=== PATIENT | male | born 1950 | race Caucasian/White ===

== ENCOUNTER → 2016-03-19 | Outpatient (REF) | payer BC, MEDICARE ==
[2016-03-19 13:31] LABS: MAGNESIUM LEVEL 2.2 MG/DL (1.8-2.4); PHOSPHORUS LEVEL 3.2 MG/DL (2.5-4.9)
== END ==
LOC: M LAB REF 12:32
PROVIDERS: ATTEND Internal Medicine Medical Oncology
DX: C34.90 Malignant neoplasm of unspecified part of unspecified bronchus or lung (principal)

== ENCOUNTER 2016-03-25 20:36 | Inpatient (IN) | payer BC, MEDICARE ==
[~2016-03-25] VITALS: Ht 172.7 cm; Wt 63.1 kg
[2016-03-25 21:29] LABS: MEAN CORPUSCULAR HEMOGLOBIN 29.2 pg (27.0-33.0); MEAN CORPUSCULAR HGB CONC 33.3 g/dl (32.0-36.5); MEAN CORPUSCULAR VOLUME 87.7 fl (80.0-96.0); PLATELET COUNT, AUTOMATED 303 k/mm3 (150-450); RED CELL DISTRIBUTION WIDTH 14.8 % (11.5-14.5); WHITE BLOOD COUNT 3.5 K/mm3 (4.0-10.0)
[2016-03-25 21:48] LABS: BANDS 10 % (< 11); EOSINOPHILS 4 % (0-5)
[2016-03-25 21:49] LABS: ALBUMIN 2.7 GM/DL (3.2-5.2); ALKALINE PHOSPHATASE 71 U/L (45-117); ALT/SGPT 27 U/L (12-78); ANION GAP 8 MEQ/L (8-16); AST/SGOT 15 U/L (15-37); BILIRUBIN,DIRECT 0.2 MG/DL (0.0-0.2); BILIRUBIN,TOTAL 0.8 MG/DL (0.2-1.0); BLOOD UREA NITROGEN 16 MG/DL (7-18); CALCIUM LEVEL 7.9 MG/DL (8.8-10.2); CARBON DIOXIDE LEVEL 28 MEQ/L (21-32); CHLORIDE LEVEL 102 MEQ/L (98-107); CREATININE FOR GFR 0.72 MG/DL (0.70-1.30); GLOMERULAR FILTRATION RATE > 60.0 (>49); GLUCOSE, FASTING 110 MG/DL (80-110); POTASSIUM SERUM 3.8 MEQ/L (3.5-5.1); SODIUM LEVEL 138 MEQ/L (136-145); TOTAL PROTEIN 5.4 GM/DL (6.4-8.2)
--- NOTE | 2016-03-25 21:50 | REPUSA ---
CLINICAL HISTORY: CVA >4.5 hours. COMPARISON: None TECHNIQUE: Multiple axial CT images were obtained through the brain without IV contrast material. COMMENTS: No acute intracranial hemorrhage or evidence of acute transcortical ischemia. No suspicious intra-axi al or extra-axial fluid collections, midline shift, or hydrocephalus. Normal configuration of sella t urcica noted. Mild prominence of the cortical sulci and ventricular system; consistent with age-appropriate cerebra l and cerebellar and cerebral atrophy. Mild bilateral periventricular and subcortical white matter hy polucencies also noted consistent with chronic microvascular ischemic changes. Posterior fossa: No enlarged mass or suspicious cystic lesion. Paranasal sinuses, mastoid air cells, and ear canals are well aerated. Orbital compartments are unrem arkable. Osseous structures/soft tissues: No acute fracture, suspicious lesion, or soft tissue abnormality. IMPRESSION: Chronic changes as described with no acute intracranial abnormality. Thank you for your kind referral of this patient.
[2016-03-25] MEDS ORDERED: ASPIRIN 325 MG TAB As Ordered ONE (23:35)
[2016-03-25] MEDS ORDERED: ACETAMINOPHEN TAB 650MG DOSE (2X325MG) PO PRN (23:45)
[2016-03-25] MEDS ORDERED: ONDANSETRON 4MG/2ML VIAL (J2405) IV PRN (23:45)
[2016-03-25] MEDS ORDERED: VITA400T2 PO (23:52)
[2016-03-25] MEDS ORDERED: TECF240C PO (23:52)
[2016-03-25] MEDS ORDERED: CYAN1000VL IM (23:52)
[2016-03-25] MEDS ORDERED: ZOFR20TA PO (23:52)
[2016-03-26] VITALS (7 sets, daily range): BP systolic 90–104; BP diastolic 53–64
[2016-03-26] MEDS ORDERED: NS 1,000 ML IV SCH
[2016-03-26] MEDS ORDERED: VITA100066 PO (00:02)
[2016-03-26] MEDS ORDERED: PROC10TA PO (00:02)
[2016-03-26 01:08] LABS: AMPHETAMINES LEVEL URINE NEGATIVE (NEGATIVE); BENZODIAZEPINES URINE NEGATIVE (NEGATIVE); COCAINE METABOLITE URINE NEGATIVE (NEGATIVE); CONTROL LINE INT CTR LINE PRESENT; METHADONE URINE NEGATIVE (NEGATIVE); OPIATES URINE POSITIVE (NEGATIVE); TRICYCLIC ANTIDEPRESS URINE NEGATIVE (NEGATIVE)
--- NOTE | 2016-03-26 01:35 | EDDOCDS ---
Physician Documentation [facility] Name: Venkatesh Blue Age: 65 yrs Sex: Male : 1950 Arrival Date: 03/25/2016 Time: 20:36 Bed 4 Private MD: Js Sheikh A. Disposition: 03/25/16 22:54 Hospitalization ordered by Klaus Lang for Inpatient Admission. Preliminary diagnosis are Hemiplegia and hemiparesis, Transient cerebral ischemic attack, unspecified. - Bed requested for PCU. - Status is Inpatient Admission. cf2 - Condition is Stable. - Problem is new. - Symptoms have improved. Historical: - Allergies: no known allergies; - Home Meds: 1. Tecfidera 240 mg oral cpDR 2 cap 2 times per day - PMHx: Multiple Sclerosis; lung cancer; - PSHx: Cataract Surgery- Bilateral; exploratory of lung; - Family history: Not pertinent. - Social history: Smoking status: Patient states former smoker of tobacco. Race: White, Ethnicity: Not or No barriers to communication noted, The patient speaks fluent Kenyan, Preferred Language: Kenyan. - : The pt / caregiver states he / she is not on anticoagulants. Home medication list is obtained from the patient. - Exposure Risk Screening:: None identified. Vital Signs: 03/25 20:39 BP 86 / 70; Pulse 89; Resp 18 S; Temp 96.9(O); Pulse Ox 99% on R/A; Weight 58.97 kg / gr2 130.01 lbs (R); Height 5 ft. 8 in. (172.72 cm) (R); Pain 3/10; 21:45 BP 90 / 55 (auto/); cf2 21:46 Pulse 80 MON; Pulse Ox 96% ; cf2 22:00 BP 95 / 52 (auto/); cf2 22:01 Pulse 82 MON; Pulse Ox 93% ; cf2 22:15 Pulse 82 MON; Pulse Ox 96% ; cf2 22:15 BP 100 / 56 (auto/); cf2 22:30 BP 109 / 68 (auto/); cf2 22:31 Pulse 94 MON; Pulse Ox 92% ; cf2 22:45 BP 96 / 60 (auto/); cf2 22:46 Pulse 82 MON; Pulse Ox 97% ; cf2 23:00 BP 96 / 62 (auto/); cf2 23:01 Pulse 84 MON; Pulse Ox 97% ; cf2 23:15 BP 96 / 62 (auto/); cf2 23:16 Pulse 88 MON; Pulse Ox 97% ; cf2 23:30 BP 86 / 56 (auto/); cf2 23:31 Pulse 78 MON; Pulse Ox 98% ; cf2 23:45 BP 90 / 58 (auto/); cf2 23:46 Pulse 84 MON; Pulse Ox 93% ; cf2 03/26 00:00 BP 96 / 62 (auto/); cf2 00:01 Pulse 86 MON; Pulse Ox 94% ; cf2 00:15 BP 87 / 51 (auto/); cf2 00:16 Pulse 94 MON; cf2 00:30 BP 90 / 57 (auto/); cf2 00:31 Pulse 84 MON; Pulse Ox 98% ; cf2 00:45 BP 89 / 61 (auto/); cf2 00:46 Pulse 88 MON; Pulse Ox 97% ; cf2 01:00 BP 97 / 61 (auto/); cf2 01:01 Pulse 82 MON; Pulse Ox 96% ; cf2 03/25 20:39 Body Mass Index 19.77 (58.97 kg, 172.72 cm) gr2 MDM: 03/25 20:57 Radio Tester/Pulse Ox/q 15 min VS ordered. ke 20:57 Accucheck ordered. ke 20:57 IV Saline Lock ordered. ke 20:57 Rhythm Strip to chart ordered. ke 20:57 NS 0.9% 1000 ml IV at 100 mL/hr continuous ordered. ke 20:58 Acetaminophen Level Ordered. EDMS 20:58 CBC with Diff Ordered. EDMS 20:58 Cardiac Injury Profile Ordered. EDMS 20:58 Drug Eval Toxicology ED Only Ordered. EDMS 20:58 Liver Profile Ordered. EDMS 20:58 MED Profile Ordered. EDMS 20:58 Salicylate Level Ordered. EDMS 20:58 Thyroid Stimulating Hormone Ordered. EDMS 20:58 Troponin Ordered. EDMS 20:58 Urinalysis Ordered. EDMS 20:58 CT Head Without Contrast Ordered. EDMS 20:59 Chest, 1 View Ordered. EDMS 20:59 ECG WITH READING ER PHYS+CARDIAG ordered. EDMS 21:23 Financial registration complete. zo 21:24 [facility] Payment Agreement was scanned into [employer] and attached to record. zo 21:31 DIFFERENTIAL NO CHARGE Ordered. EDMS 21:58 Acetaminophen Level Reviewed. ke 21:58 CBC with Diff Reviewed. ke 21:58 Cardiac Injury Profile Reviewed. ke 21:58 Liver Profile Reviewed. ke 21:58 MED Profile Reviewed. ke 21:58 Salicylate Level Reviewed. ke 21:58 Thyroid Stimulating Hormone Reviewed. ke 21:58 Troponin Reviewed. ke 21:58 PLATELET ESTIMATE Reviewed. ke 22:32 Aspirin 325 mg PO once ordered. ke 23:48 BASIC METABOLIC PROFILE Ordered. EDMS 23:48 PT & APTT Ordered. EDMS 23:48 CARDIAC RISK PROFILE Ordered. EDMS 23:48 MRI Brain without Contrast Ordered. EDMS 23:48 MRA BRAIN W/O CONTRAST Ordered. EDMS 23:49 PHYSICAL THERAPY EVAL & TREAT ordered. EDMS 23:49 Duplex,carotid (complete) Ordered. EDMS 23:50 Admission / Observation Status ordered. EDMS 23:50 ELECTROCARDIOGRAM ADULT ordered. EDMS 23:50 ECHOCARD,DOPPLER/COLOR FLOW ordered. EDMS 23:50 NO ADDED SALT DIET ordered. EDMS 23:59 CBC WITH DIFFERENTIAL Ordered. EDMS Administered Medications: 21:19 Drug: NS 0.9% 1000 ml [sodium chloride 0.9 % intravenous solution] Route: IV; Rate: 100 cf2 mL/hr; Site: left antecubital; 23:30 Drug: Aspirin 325 mg [aspirin 325 mg tablet (1 tabs)] Route: PO; cf2 Signatures: Dispatcher [employer] EDSD Jessie Harris RN RN Son Centeno, DISTRICT PLANT SUPERVISOR Donna Rivas Christina,RN RN cf2 The chart was reviewed and I authenticate all verbal orders and agree with the evaluation and treatment provided.Corrections: (The following items were deleted from the chart) 23:59 23:48 COMPLETE BLOOD COUNT ordered. EDMS EDMS Attachments: 21:24 [facility] Payment Agreement zo MTDD
--- NOTE | 2016-03-26 01:35 | EDDOCDS ---
Nurse's Notes [facility] Name: Venkatesh Blue Age: 65 yrs Sex: Male : 1950 Arrival Date: 03/25/2016 Time: 20:36 Bed 4 Private MD: Js Sheikh A. Diagnosis: Hemiplegia and hemiparesis;Transient cerebral ischemic attack, unspecified Presentation: 03/25 20:43 Presenting complaint: Patient states: At 5pm began to lose feeling in right arm and kmg1 leg. Was slurring speech and had a right facial droop per spouse. Right facial droop persists. 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 Adult Sepsis Screening: The patient does not have new or worsening altered mentation. Patient's respiratory rate is less than 22. Systolic blood pressure is less than or equal to 100 (1 point). Patient has a qSOFA score of 1- Negative Sepsis Screen. Suicide/Homicide risk assessment- the patient denies having any suicidal and/or homicidal ideations and does not present with any other emotional, behavioral or mental health complaints. Status: Patient is not a service manager or dependent. Transition of care: patient was not received from another setting of care. 20:43 Acuity: HEATHER Level 2 kmg1 20:43 Method Of Arrival: Walkin/Carried/Asstd kmg1 Triage Assessment: 20:43 General: Appears in no apparent distress, comfortable, Behavior is appropriate for age, kmg1 cooperative, pleasant. Pain: Denies pain. The patient is triaged at the bedside. See Assessment in Nurses Notes section of ED record. Neurological: Level of Consciousness is awake, alert, Oriented to person, place, time, Tire Specialist are weak on right Weakness in right Speech is normal, Was slurred earlier. Facial droop on right, Facial symmetry: tongue is midline, Pupils are PERRLA, Reports numbness weakness. Cardiovascular: Rhythm is sinus rhythm No ectopy. Respiratory: Airway is patent Respiratory effort is even, unlabored, Respiratory pattern is regular, symmetrical. Injury Description: No known injury. Historical: - Allergies: no known allergies; - Home Meds: 1. Tecfidera 240 mg oral cpDR 2 cap 2 times per day - PMHx: Multiple Sclerosis; lung cancer; - PSHx: Cataract Surgery- Bilateral; exploratory of lung; - Family history: Not pertinent. - Social history: Smoking status: Patient states former smoker of tobacco. Race: White, Ethnicity: Not or No barriers to communication noted, The patient speaks fluent Samoan, Preferred Language: Samoan. - : The pt / caregiver states he / she is not on anticoagulants. Home medication list is obtained from the patient. - Exposure Risk Screening:: None identified. Screenin:49 Screening information is obtained from the patient. Fall risk: At risk due to age, cf2 immobility. Assistance ADL's: requires no assistance with activities of daily living. Abuse/DV Screen: The patient / caregiver reports he/she is: not in a situation that causes fear, pain or injury. Nutritional screening: No deficits noted. Advance Directives: Further advance directive information is declined. home support is adequate. Assessment: 03/26 00:07 Adult Sepsis Screening: The patient does not have new or worsening altered mentation. cf2 Patient's respiratory rate is less than 22. Systolic blood pressure is greater than 100. Patient has a qSOFA score of 0- Negative Sepsis Screen. General: Appears in no apparent distress, comfortable. Pain: Denies pain. Neurological: No deficits noted. EENT: No deficits noted. Cardiovascular: No deficits noted. Respiratory: No deficits noted. GI: No deficits noted. : No deficits noted. Derm: No deficits noted. Musculoskeletal: No deficits noted. Injury Description: No known injury. Vital Signs: 03/25 20:39 BP 86 / 70; Pulse 89; Resp 18 S; Temp 96.9(O); Pulse Ox 99% on R/A; Weight 58.97 kg gr2 (R); Height 5 ft. 8 in. (172.72 cm) (R); Pain 3/10; 21:45 BP 90 / 55 (auto/); cf2 21:46 Pulse 80 MON; Pulse Ox 96% ; cf2 22:00 BP 95 / 52 (auto/); cf2 22:01 Pulse 82 MON; Pulse Ox 93% ; cf2 22:15 Pulse 82 MON; Pulse Ox 96% ; cf2 22:15 BP 100 / 56 (auto/); cf2 22:30 BP 109 / 68 (auto/); cf2 22:31 Pulse 94 MON; Pulse Ox 92% ; cf2 22:45 BP 96 / 60 (auto/); cf2 22:46 Pulse 82 MON; Pulse Ox 97% ; cf2 23:00 BP 96 / 62 (auto/); cf2 23:01 Pulse 84 MON; Pulse Ox 97% ; cf2 23:15 BP 96 / 62 (auto/); cf2 23:16 Pulse 88 MON; Pulse Ox 97% ; cf2 23:30 BP 86 / 56 (auto/); cf2 23:31 Pulse 78 MON; Pulse Ox 98% ; cf2 23:45 BP 90 / 58 (auto/); cf2 23:46 Pulse 84 MON; Pulse Ox 93% ; cf2 0119 00:00 BP 96 / 62 (auto/); cf2 00:01 Pulse 86 MON; Pulse Ox 94% ; cf2 00:15 BP 87 / 51 (auto/); cf2 00:16 Pulse 94 MON; cf2 00:30 BP 90 / 57 (auto/); cf2 00:31 Pulse 84 MON; Pulse Ox 98% ; cf2 00:45 BP 89 / 61 (auto/); cf2 00:46 Pulse 88 MON; Pulse Ox 97% ; cf2 01:00 BP 97 / 61 (auto/); cf2 01:01 Pulse 82 MON; Pulse Ox 96% ; cf2 03/25 20:39 Body Mass Index 19.77 (58.97 kg, 172.72 cm) gr2 Vitals: 03/25 20:39 Log In Time: March 25, 2016 at 20:39. gr2 20:40 RN notified that patient meets Red Flag criteria. gr2 ED Course: 20:38 Patient visited by [place]. gr2 20:38 Patient moved to Waiting gr2 20:39 Js Sheikh is Private Physician. gr2 20:40 Patient visited by [place]. gr2 20:40 Patient moved to Pre RCE gr2 20:46 Triage Initiated kmg1 20:47 Stacey Garcia,RN is Primary Nurse. cf2 20:48 Patient moved to [facility] 20:49 The patient / caregiver is instructed regarding the plan of care and ED course. Patient cf2 has correct armband on for positive identification. Placed in gown. Bed in low position. Call light in reach. Side rails up X 1. Side rails up X2. 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 Pulse ox on. NIBP on. Property :Personal belongings accompany Pt. Door closed. Noise minimized. Visitors limited. Lights dimmed. Moved to private room. Verbal reassurance given. Warm blanket given. Pillow given. Head of bed elevated. 20:49 No procedures done that require assistance. cf2 20:53 [facility]. ke 20:53 Patient visited by Son Salvador FNP. ke 20:53 Patient visited by Son Salvador FNP. ke 20:56 Inserted saline lock: 20 gauge in left antecubital area and blood collected. The [facility] patient tolerated the procedure well. 21:08 EKG done. (by ED staff). Reviewed by Son DEVINE. mdr 21:09 Patient visited by Clarence Hoffman PCA. mdr 21:24 [facility] Payment Agreement was scanned into [employer] and attached to record. zo 21:33 Patient name changed from Venkatesh\S\E\S\Blue\S\ to Venkatesh\S\ \S\Blue. EDMS 21:43 Patient visited by Son Salvador FNP. ke 22:27 Patient visited by Son Salvador FNP. ke 22:44 CT Head Without Contrast Returned. EDMS 22:54 Klaus Lang MD is Hospitalizing Provider. ke 23:31 Patient visited by Stacey Garcia RN. cf2 03/26 00:06 Patient visited by Stacey Garcia,CONCHA. cf2 01:12 Patient moved to [facility] br3 01:18 Patient visited by Stacey Garcia RN. cf2 01:34 Patient visited by Stacey Garcia,CONCHA. cf2 01:34 Kishan Villegas DO is Attending Physician. cf2 01:34 Patient moved to 4 br3 Administered Medications: 03/25 21:19 Drug: NS 0.9% 1000 ml [sodium chloride 0.9 % intravenous solution] Route: IV; Rate: 100 cf2 mL/hr; Site: left antecubital; 23:30 Drug: Aspirin 325 mg [aspirin 325 mg tablet (1 tabs)] Route: PO; cf2 Order Results: Lab Order: Acetaminophen Level; SPEC'M 03/25/16 20:53 Test: ACETAMINOPHEN LEVEL; Value: 2.7; Range: 10.0-30.0; Abnormal: Below low normal; Units: UG/ML; Status: F Lab Order: CBC with Diff; SPEC'M 03/25/16 20:56 Test: WHITE BLOOD COUNT; Value: 3.5; Range: 4.0-10.0; Abnormal: Below low normal; Units: K/mm3; Status: F Test: RED BLOOD COUNT; Value: 4.80; Range: 4.30-6.10; Units: M/mm3; Status: F Test: HEMOGLOBIN; Value: 14.0; Range: 14.0-18.0; Units: g/dl; Status: F Test: HEMATOCRIT; Value: 42.1; Range: 42.0-52.0; Units: %; Status: F Test: MEAN CORPUSCULAR VOLUME; Value: 87.7; Range: 80.0-96.0; Units: fl; Status: F Test: MEAN CORPUSCULAR HEMOGLOBIN; Value: 29.2; Range: 27.0-33.0; Units: pg; Status: F Test: MEAN CORPUSCULAR HGB CONC; Value: 33.3; Range: 32.0-36.5; Units: g/dl; Status: F Test: RED CELL DISTRIBUTION WIDTH; Value: 14.8; Range: 11.5-14.5; Abnormal: Above high normal; Units: %; Status: F Test: PLATELET COUNT, AUTOMATED; Value: 303; Range: 150-450; Units: k/mm3; Status: F Test: NEUTROPHILS; Value: 69; Range: 35-75; Units: %; Status: F Test: BANDS; Value: 10; Range: < 11; Units: %; Status: F Test: LYMPHOCYTES; Value: 7; Range: 16-52; Abnormal: Below low normal; Units: %; Status: F Test: MONOCYTES; Value: 10; Range: 0-8; Abnormal: Above high normal; Units: %; Status: F Test: EOSINOPHILS; Value: 4; Range: 0-5; Units: %; Status: F Test: RBC MORPHOLOGY; Value: NORMAL; Status: F Lab Order: Cardiac Injury Profile; SPEC'M 03/25/16 20:53 Test: CPK CREATINE PHOSPHOKINASE; Value: 36; Range: 39-308; Abnormal: Below low normal; Units: U/L; Status: F Test: CK-MB VALUE MASS; Value: 1.2; Range: 0.0-3.6; Units: NG/ML; Status: F Test: MB/CK RELATIVE INDEX; Value: 3.33; Range: < OR =4; Status: F Test Note: ; DIAGNOSIS CRITERIA MMB ng/ml Relative Index (RI) NON-AMI < or = 5 N/A [place] > 5 < or = 4 AMI > 5 > 4 Lab Order: Drug Eval Toxicology ED Only; SPEC'M 03/26/16 00:50 Test: AMPHETAMINES LEVEL URINE; Value: NEGATIVE; Range: NEGATIVE; Status: F Test: BARBITURATES URINE; Value: NEGATIVE; Range: NEGATIVE; Status: F Test: BENZODIAZEPINES URINE; Value: NEGATIVE; Range: NEGATIVE; Status: F Test: CANNABINOIDS URINE; Value: NEGATIVE; Range: NEGATIVE; Status: F Test: COCAINE METABOLITE URINE; Value: NEGATIVE; Range: NEGATIVE; Status: F Test: METHADONE URINE; Value: NEGATIVE; Range: NEGATIVE; Status: F Test: OPIATES URINE; Value: POSITIVE; Range: NEGATIVE; Abnormal: Above high normal; Status: F Test: TRICYCLIC ANTIDEPRESS URINE; Value: NEGATIVE; Range: NEGATIVE; Status: F Test Note: ; ALL PRESUMPTIVE POSITIVE FINDINGS ARE UNCONFIRMED NORMAL VALUES THRESHOLD IN NG/ML AMPHETAMINES 1000 METHAMPHETAMINES 1000 BARBITURATES 300 BENZODIAZEPINES 300 CANNABINOIDS (THC) 50 COCAINE METABOLITE 300 METHADONE 300 OPIATES 300 PHENCYCLIDINE 25 TRICYCLIC ANTIDEPRESSANTS 1000 RESULTS ARE FOR MEDICAL PURPOSES ONLY. ALL URINE SPECIMENS WILL BE SAVED FOR 3 DAYS. IF CONFIRMATION OF A PRESUMPTIVE POSTIVE SCREEN RESULT IS DESIRED, CALL CHEMISTRY ([phone]) AND REQUEST URINE TO BE SENT TO REFERENCE LAB. FOR A LIST OF CLOSELY RELATED COMPOUNDS PLEASE CALL THE LAB. Lab Order: Liver Profile; SPEC'M 03/25/16 20:53 Test: AST/SGOT; Value: 15; Range: 15-37; Units: U/L; Status: F Test: ALT/SGPT; Value: 27; Range: 12-78; Units: U/L; Status: F Test: ALKALINE PHOSPHATASE; Value: 71; Range: 45-117; Units: U/L; Status: F Test: BILIRUBIN,TOTAL; Value: 0.8; Range: 0.2-1.0; Units: MG/DL; Status: F Test: BILIRUBIN,DIRECT; Value: 0.2; Range: 0.0-0.2; Units: MG/DL; Status: F Test: TOTAL PROTEIN; Value: 5.4; Range: 6.4-8.2; Abnormal: Below low normal; Units: GM/DL; Status: F Test: ALBUMIN; Value: 2.7; Range: 3.2-5.2; Abnormal: Below low normal; Units: GM/DL; Status: F Test: ALBUMIN/GLOBULIN RATIO; Value: 1.00; Range: 1.00-1.93; Status: F Lab Order: MED Profile; SPEC'M 03/25/16 20:53 Test: GLUCOSE, FASTING; Value: 110; Range: 80-110; Units: MG/DL; Status: F Test: BLOOD UREA NITROGEN; Value: 16; Range: 7-18; Units: MG/DL; Status: F Test: CREATININE FOR GFR; Value: 0.72; Range: 0.70-1.30; Units: MG/DL; Status: F Test: GLOMERULAR FILTRATION RATE; Value: > 60.0; Range: >49; Status: F Test: SODIUM LEVEL; Value: 138; Range: 136-145; Units: MEQ/L; Status: F Test: POTASSIUM SERUM; Value: 3.8; Range: 3.5-5.1; Units: MEQ/L; Status: F Test: CHLORIDE LEVEL; Value: 102; Range: 98-107; Units: MEQ/L; Status: F Test: CARBON DIOXIDE LEVEL; Value: 28; Range: 21-32; Units: MEQ/L; Status: F Test: ANION GAP; Value: 8; Range: 8-16; Units: MEQ/L; Status: F Test: CALCIUM LEVEL; Value: 7.9; Range: 8.8-10.2; Abnormal: Below low normal; Units: MG/DL; Status: F Test Note: ; Units are mL/min/1.73 m2 Chronic Kidney Disease Staging per NKF: Stage I & II GFR >=60 Normal to Mildly Decreased Stage III GFR 30-59 Moderately Decreased Stage IV GFR 15-29 Severely Decreased Stage V GFR <15 Very Little GFR Left ESRD GFR <15 on DRAWING IN HAND Lab Order: Salicylate Level; SPEC'M 03/25/16 20:53 Test: SALICYLATE LEVEL; Value: < 1.7; Range: 5.0-30.0; Abnormal: Below low normal; Units: MG/DL; Status: F Lab Order: Thyroid Stimulating Hormone; SPEC'M 03/25/16 20:53 Test: THYROID STIMULATING HORMONE; Value: 2.850; Range: 0.358-3.740; Units: uIU/ML; Status: F Lab Order: Troponin; SPEC'M 03/25/16 20:53 Test: TROPONIN I; Value: 0.02; Range: < 0.10; Units: NG/ML; Status: F Test Note: ; Troponin I Reference Interval for [employer] LOCI: 99th Percentile= 0.00-0.045 ng/ml Risk Stratification: <= 0.10 ng/ml Decreased Risk for Adverse Clinical Events. 0.10-1.50 ng/ml Increased Risk for Adverse Clinical Events. Evaluation of additional criterion and/or repeat testing in 2-6 hours is suggested to rule out myocardial damage. >= 1.50 ng/ml Indicative of Myocardial Injury. Lab Order: Urinalysis; SPEC'M 03/26/16 00:50 Test: APPEARANCE, URINE; Value: CLEAR; Range: CLEAR; Status: F Test: COLOR, URINE; Value: YELLOW; Range: YELLOW; Status: F Test: PH,URINE; Value: 5.0; Range: 5.0-9.0; Units: UNITS; Status: F Test: SPECIFIC GRAVITY URINE AUTO; Value: 1.031; Range: 1.002-1.035; Status: F Test: PROTEIN, URINE AUTO; Value: NEGATIVE; Range: NEGATIVE; Units: mg/dL; Status: F Test: GLUCOSE, URINE (UA) AUTO; Value: NEGATIVE; Range: NEGATIVE; Units: mg/dL; Status: F Test: KETONE, URINE AUTO; Value: 1+; Range: NEGATIVE; Abnormal: Above high normal; Units: mg/dL; Status: F Test: UROBILINOGEN, URINE AUTO; Value: 2.0; Range: 0.0-2.0; Abnormal: Above high normal; Units: mg/dL; Status: F Test: BILIRUBIN, URINE AUTO; Value: NEGATIVE; Range: NEGATIVE; Status: F Test: NITRITE, URINE AUTO; Value: NEGATIVE; Range: NEGATIVE; Status: F Test: LEUKOCYTE ESTERASE, URINE AUTO; Value: NEGATIVE; Range: NEGATIVE; Status: F Test: BLOOD, URINE BLOOD; Value: NEGATIVE; Range: NEGATIVE; Status: F Test: SPERM, URINE AUTO; Range: NONE; Status: I Test: WBC, URINE AUTO; Value: 1; Range: 0-3; Units: /HPF; Status: F Test: RBC, URINE AUTO; Value: 2; Range: 0-3; Units: /HPF; Status: F Test: BACTERIA, URINE AUTO; Value: NEGATIVE; Range: NEGATIVE; Status: F Test: SQUAMOUS EPITHELIAL CELL UR AU; Value: 0; Range: 0-6; Units: /HPF; Status: F Test: MUCUS, URINE; Value: SMALL; Range: NEGATIVE; Status: F Test: HYALINE CAST, URINE AUTO; Value: 1; Range: 0-1; Units: /LPF; Status: F Lab Order: PLATELET ESTIMATE; SPEC'M 03/25/16 20:56 Test: PLATELET ESTIMATE; Value: NORMAL; Range: NORMAL; Status: F Radiology Order: CT Head Without Contrast Test: CT Head Without Contrast REASON FOR EXAMINATION: CVA >4.5hrs; ; CLINICAL HISTORY: CVA >4.5 hours.; COMPARISON: None; TECHNIQUE: Multiple axial CT images were obtained through the brain without IV contrast material.; COMMENTS:; No acute intracranial hemorrhage or evidence of acute transcortical ischemia. No suspicious intra-axi; al or extra-axial fluid collections, midline shift, or hydrocephalus. Normal configuration of sella t; urcica noted.; Mild prominence of the cortical sulci and ventricular system; consistent with age-appropriate cerebra; l and cerebellar and cerebral atrophy. Mild bilateral periventricular and subcortical white matter hy; polucencies also noted consistent with chronic microvascular ischemic changes.; Posterior fossa: No enlarged mass or suspicious cystic lesion.; Paranasal sinuses, mastoid air cells, and ear canals are well aerated. Orbital compartments are unrem; arkable.; Osseous structures/soft tissues: No acute fracture, suspicious lesion, or soft tissue abnormality.; IMPRESSION:; Chronic changes as described with no acute intracranial abnormality.; Thank you for your kind referral of this patient.; ; Outcome: 22:54 Decision to Hospitalize by Provider. meg 03/26 01:33 Discharge Assessment: Patient awake, alert and oriented x 3. No cognitive and/or cf2 functional deficits noted. Patient verbalized understanding of disposition instructions. Patient awake and alert. Oriented to person, place and time. patient administered narcotics - no. The following High Risk Discharge criteria are identified: None. Admitted to PCU. Condition: stable. CT Study completed. Ultrasound Study completed. 01:34 Patient left the ED. cf2 Signatures: Dispatcher [employer] EDMS Selena Ham, RN RN kmg1 Mary Mello RN RN srm Son Salvador, SERVICE OPERATIONS MANAGER SERVICE OPERATIONS MANAGER Donna Savage Brianne br3 [place] gr2 Clarence Hoffman, SHAMIKA PRECINCT COMMANDING OFFICER Stacey Pennington,RN RN cf2 [id number]
--- NOTE | 2016-03-26 01:38 | REP ---
Clinical: Cerebrovascular accident. Comparison: 01/08/2016. Findings: Bilateral perihilar opacities are similar to prior examination. The cardiac silhouette appears normal. Superimposed right lower lobe infiltrate is suggested and requires correlation. No obvious effusion. No pneumothorax. Skeletal structures intact. Impression: Perihilar opacities similar to prior examination. New right lower lobe infiltrate suggested. Signed by Marco oNvak MD 03/26/2016 01:29 A
[2016-03-26] MEDS: SIMVASTATIN 20 MG TAB PO SCH ×2 (02:40→20:02)
--- NOTE | 2016-03-26 05:25 | REP ---
Clinical: Cerebrovascular accident . Technique: Garcia scale and color Doppler evaluation using linear high frequency transducer Findings: Two-dimensional garcia scale and color images demonstrate mild mixed atheromatous plaquing at the carotid bulbs extending to the small internal carotid arteries with normal laminar flow and no appreciable narrowing. Color Doppler interrogation demonstrates normal arterial wave patterns and velocities with no significant spectral broadening. Normal flow direction is appreciated in the bilateral vertebral arteries. RIGHT (cm/s) LEFT (cm/s) ICA peak systolic velocity 83.6 90.0 ICA diastolic velocity 28.4 23.7 ECA peak systolic velocity 68.1 84.2 CCA peak systolic velocity 79.9 71.9 ICA/CCA ratio 1.05 1.88 Impression: No hemodynamically significant areas of narrowing or stenosis appreciated. Based on set standards narrowing falls within the less than 50% range. Signed by Marco Novak MD 03/26/2016 05:16 A
[2016-03-26 05:32] LABS: INR 1.14
[2016-03-26 05:39] LABS: BASO % 0.4 % (0.0-1.0); EOS # 0.2 K/mm3 (0.0-0.50); EOS % 7.1 % (0.0-3.0); LARGE UNSTAINED CELL % 1.3 % (0.0-4.0); LYMPH # 0.2 K/mm3 (1.5-4.5); LYMPH % 6.3 % (24.0-44.0); MEAN CORPUSCULAR HEMOGLOBIN 29.6 pg (27.0-33.0); MEAN CORPUSCULAR HGB CONC 33.6 g/dl (32.0-36.5); MEAN CORPUSCULAR VOLUME 88.1 fl (80.0-96.0); MONO # 0.2 K/mm3 (0.0-0.8); MONO % 8.2 % (0.0-5.0); NEUTROPHILS % 76.7 % (36.0-66.0); PLATELET COUNT, AUTOMATED 271 k/mm3 (150-450); RED CELL DISTRIBUTION WIDTH 14.7 % (11.5-14.5); WHITE BLOOD COUNT 2.6 K/mm3 (4.0-10.0)
[2016-03-26 05:47] LABS: ANION GAP 8 MEQ/L (8-16); BLOOD UREA NITROGEN 13 MG/DL (7-18); CALCIUM LEVEL 7.3 MG/DL (8.8-10.2); CARBON DIOXIDE LEVEL 25 MEQ/L (21-32); CHLORIDE LEVEL 105 MEQ/L (98-107); CHOLESTEROL LEVEL 78 MG/DL (<200); CREATININE FOR GFR 0.53 MG/DL (0.70-1.30); GLOMERULAR FILTRATION RATE > 60.0 (>49); GLUCOSE, FASTING 96 MG/DL (80-110); POTASSIUM SERUM 3.2 MEQ/L (3.5-5.1); SODIUM LEVEL 138 MEQ/L (136-145); TRIGLYCERIDES LEVEL 108 MG/DL (<150)
--- NOTE | 2016-03-26 07:09 | HPE ---
DATE OF ADMISSION: 03/25/2016 PATIENT OF: Dr. Sheikh, Dr. Salazar, Dr. Charles. CHIEF COMPLAINT: Right side numbness. SUMMARY OF PRESENTATION: This is a 65-year-old with history of multiple sclerosis and stage IV adenocarcinoma of the lung on chemotherapy who was feeling fine today. Has no complaints of pain, chest pain or shortness of breath. Was sitting watching TV and developed sudden onset of right sided numbness including his face, arm and leg. This was also associated with weakness of his arm and leg although he was able to walk with a walker. He also developed right side facial droop and was slurring his speech. This was around 5:15 this evening. It improved slightly. 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 that he was determined to go to, even though is daughter wished that he would seek medical attention. He was able to walk to the car using a quad cane and go to dinner, although at dinner, she had to cut his meat and butter his bread. Thankfully he did not drive to the dinner. Afterwards, he came to the hospital presenting here around 8:40. His symptoms had mainly resolved at that point. He continues to have some right hand weakness and some difficulty with fine movements of his right hand. His right facial droop and slurring had totally resolved. He has no known drug allergies. MEDICATIONS AT HOME: Includes only Tecfidera 240 mg two capsules two times a day. PAST MEDICAL HISTORY: 1. Multiple sclerosis which was diagnosed in July 2015. 2. Adenocarcinoma of the lung stage IV which was diagnosed in January 2016. PAST SURGICAL HISTORY: Notable for: 1. Cataract extraction. 2. Bronchoscopy. 3. Fine needle aspirate of the lung. SOCIALLY: He quit smoking a couple of years ago. He used to drink alcohol more heavily. He does not drink now[place] 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 He is usually totally independent in his activities of daily living. FAMILY HISTORY: Notable for mother at age 89 from diabetes. Father who of a heart condition at age 75. His first heart disease was noted in his mid 40s. REVIEW OF SYSTEMS: Notable for no headache, no visual changes although he has had problems with his eyes due to his multiple sclerosis. No runny nose, no sore throat, no cough, no fever or chills. He has been feeling fine up to this point. No change in bowel or bladder habits. Otherwise unremarkable. PHYSICAL EXAMINATION: Blood pressure 86/70 upon arrival, during the course of my evaluation was 96/62, pulse 89, respiratory rate 18, temperature 96.9, 99% on room air. Weight 68.9 kg with a body mass index of 19.7. He is awake. Facies are symmetrical. Pupils are small bilaterally but do respond to light. There may be some subtle difficulty with medial motion of the right eye. Mucous membranes moist. Soft palate. Arises symmetrically. His voice sounds slightly thick to me but his daughter assures me that that is his normal voice. Neck is supple, no cervical or supraclavicular adenopathy. Breathing is symmetrical and rested. He is speaking in complete sentences. He seems to have some slight problem with word finding. Heart: Regular rate and rhythm, distant sounding. He is not tachycardic. Abdomen: Soft, doughy, nontender. There is no lower extremity edema. Strength in the right lower extremity is 4/5, 5/5 on the left. Strength in the right upper extremity is also 4/5, left is 5/5. The patient is right handed. He past points on [id number] on the right. White cell count is 3.5, hemoglobin 14, platelets 303. Neutrophils 69, bands 10 with 10 monocytes. BUN 16, creatinine 0.76. Albumin 2.7. TSH 2.85. Head CT shows chronic changes. ASSESSMENT: This is a 65-year-old with presumed left sided cerebrovascular accident (CVA) causing right sided weakness, paresthesia with symptoms mainly resolved. Patient will require two midnight hospital stay for further workup and treatment. PLAN: 1. Neurologic. Patient has received aspirin in the ER. He is clearly outside of the window for thrombolytics which he would have qualified for at his initial presentation. Has received as aspirin. Will receive aspirin on a daily basis. I started a statin drug. Will check a fasting lipid panel. Dr. Salazar will be consulted tomorrow. He has been called from the ER but will require a reminder phone call in the morning. MRI/MRA of the brain, ultrasound of the carotids, echocardiogram are ordered. Patient will be continued on telemetry. Repeat an EKG. 2. The patient has stage IV adenocarcinoma of the lung on chemotherapy. His last chemotherapy was 6 days ago. Based on his relatively ow white cell count and bandemia, I believe he probably has received Neupogen. This will bear further monitoring. He does know that he has incurable cancer but at this time is a FULL CODE. We did have a brief Medical orders for life sustaining treatment (MOLST) discussion and he has not yet determined what sorts of interventions he would desire. 3. Patient has multiple sclerosis. Will allow him to use his home Tecfidera. 4. Deep venous thrombosis (DVT) prophylaxis will be Lovenox.
[2016-03-26] MEDS: ENOXAPARIN 40 MG/0.4 ML SYRINGE (J1650) SC SCH (08:21)
--- NOTE | 2016-03-26 08:35 | ECGEPIP ---
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
--- NOTE | 2016-03-26 08:46 | ECGEPIP ---
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
[2016-03-26] MEDS ORDERED: ASPIRIN 81 MG CHEW TABLET PO SCH (09:00)
--- NOTE | 2016-03-26 11:45 | REP ---
MRI BRAIN WITHOUT CONTRAST: HISTORY: Infarction. COMPARISON: CT 03/25/2016. Small areas of increased signal intensity on diffusion weighted images are present in the posterior left parietal lobe. These are decreased in signal intensity on ADC images and are consistent with acute infarctions. Areas of increased signal intensity on T2-weighted images are present in the periventricular and subcortical white matter. This represents small vessel ischemic disease. There is no intraparenchymal hemorrhage, mass or midline shift. The ventricular system and cortical sulci are dilated consistent with mild volume loss. There is no extracerebral collection. The sinuses are clear. IMPRESSION: 1. Small acute left parietal lobe infarctions. 2. Small vessel ischemic disease. 3. Mild volume loss. Signed by Bryan Leon MD 03/26/2016 12:06 P
--- NOTE | 2016-03-26 12:05 | REP ---
MRA BRAIN WITHOUT CONTRAST: HISTORY: Infarction. 3D [id number] MR angiography was performed at the level of the [place]. There is no aneurysm or arteriovenous malformation. Mild atherosclerotic disease involves the cavernous and supraclinoid internal carotid arteries. The major intracranial vessels are patent. The right vertebral artery terminates in the right posterior inferior cerebellar artery. The left vertebral artery is dominant. IMPRESSION: 1. There is no aneurysm or arteriovenous malformation. 2. Atherosclerotic disease as described above. Signed by Bryan Leon MD 03/26/2016 12:07 P
--- NOTE | 2016-03-26 12:45 | IPN ---
DATE: 03/26/2016 55-year-old gentleman seen at bedside. He was admitted for what appeared to be stroke-like symptoms with weakness, right-sided numbness. He was seen by speech therapy this morning and felt that he was safe regarding any aspiration concerns and we will advance his diet. He denies headache, lightheadedness. He does have an ongoing history of multiple sclerosis and sees Dr. Salazar as an outpatient for. No headache, lightheadedness, blurry vision, double vision. No difficulty with speech or swallowing. He denies chest pain, shortness of breath. No nausea or vomiting. OBJECTIVE: Temperature is 97.1, pulse 85, respiratory rate 18, blood pressure is 92/59 with a mean arterial pressure of 70, SPO2 is 99% on room air. GENERAL: The patient appears to be in no acute distress, alert and oriented. HEENT: Head is atraumatic, normocephalic. EYES: Pupils equal, round, reactive to light and accommodation. Throat clear. LUNGS: Clear. HEART: Regular rate and rhythm. ABDOMEN: Soft. EXTREMITIES: No edema. No calf tenderness. 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 He does not demonstrate any focal neurologic deficits at this time. LABORATORY DATA: White count 2.6, hemoglobin 11.8, platelets are 271,000. Sodium is 138, potassium 3.2, which we will supplement, chloride 105, bicarbonate 25, anion gap 8, BUN 13, creatinine 0.53, glucose is 96, triglycerides 108, cholesterol 78, LDL is 32.4, HDL is 24, TSH 2.85. Head CT: Chronic changes. No acute intracranial pathology. Chest x-ray on admission: Perihilar opacifications. Similar to prior exam, possibly new right lower lobe infiltrate. No hemodynamically significant areas of narrowing or stenosis. Brain MRI, MRA: No aneurysms or AV malformations identified. Atherosclerotic changes were noted. On MRI does have a small acute left parietal lobe infarctions with small vessel ischemic disease and mild volume loss. ASSESSMENT AND PLAN: 1. CVA involving the right parietal region. Appreciate Dr. Salazar's evaluation. We will continue on telemetry, 2-D echo is pending at this time. 2. History of stage IV adenocarcinoma of the lung. Currently on chemotherapy. Did have a Medical Orders for Life Sustaining Treatment (MOLST) form discussion in the emergency department. The patient remains a FULL CODE. He remains afebrile. Continue to watch his white count. There was question of infiltrate on chest x-ray; however, we will continue to follow this patient clinically. Not starting antibiotics unless he shows signs or symptoms of infection. 3. Multiple sclerosis. He follows with Dr. Salazar. Appreciate his input as well. 4. Deep vein thrombosis (DVT) prophylaxis with Lovenox. DISPOSITION: Appreciate Dr. Salazar's further input. The patient will be advanced on his diet. For the time being, we will continue on aspirin 162 mg daily, as well as Zocor. Physical therapy (PT) is on board. Anticipate 2-D echo to be done later today and hopefully we can shoot for a discharge home tomorrow, depending on how he is doing.
[2016-03-26] MEDS ORDERED: POTASSIUM CHLORIDE 10 MEQ SR TABLET PO ONE (13:00)
[2016-03-26] MEDS ORDERED: TECFIDERA 240MG CAPSULE (PATIENT'S OWN MED) PO SCH (18:00)
--- NOTE | 2016-03-26 22:53 | ECHO ---
DATE OF PROCEDURE: 03/26/2016 REFERRING PHYSICIAN: Klaus Lang MD INDICATION: Acute stroke. HEIGHT: 173 cm WEIGHT: 59 kg MEASUREMENTS: Aortic root: 3.4 cm Left atrium: 2.9 cm LVOT: 2.1 cm Ventricular septum: 1.25 cm Posterior wall: 1.21 cm Left ventricle diastole: 3.4 cm Proximal ascending aorta: 3.2 cm DOPPLER MEASUREMENTS: Very mild tricuspid regurgitation. Estimated right ventricle systolic pressure 29 mmHg assuming right atrial pressure of 5 mmHg. Pulmonary artery systolic pressure 30 mmHg by pulmonary acceleration time. DESCRIPTION: Rhythm was sinus. This is a moderately technically difficult echocardiogram. This is a 2D, M-mode, color flow Doppler and pulse wave Doppler examination. CONCLUSIONS: 1. Mild reduction in left ventricle (LV) internal dimensions. Mild concentric left ventricular hypertrophy. Normal LV wall motion and wall thickening. Normal LV systolic function. Left ventricular ejection fraction (LVEF) 70% by visual estimate. LV diastolic function was not assessed on this study. 2. Moderate aortic valve sclerosis of a three-cuspid aortic valve. No aortic stenosis or aortic regurgitation. 3. Mild mitral annular calcification. No mitral regurgitation. 4. Small pericardial effusion without diastolic chamber collapse. Pericardial effusion measured 0.5-0.7 cm over the posterior wall of the left ventricle. No significant respiratory variation of intracardiac velocities. 5. Moderately technically difficult echocardiogram.
[2016-03-27 04:00] VITALS: BP 95/62
[2016-03-27] MEDS ORDERED: SLF 3 ML SYR IV PRN (05:45)
[2016-03-27 06:22] LABS: BASO % 0.2 % (0.0-1.0); EOS # 0.2 K/mm3 (0.0-0.50); EOS % 6.7 % (0.0-3.0); LARGE UNSTAINED CELL # 0.1 K/mm3 (0.0-0.4); LARGE UNSTAINED CELL % 1.8 % (0.0-4.0); LYMPH # 0.2 K/mm3 (1.5-4.5); LYMPH % 6.5 % (24.0-44.0); MEAN CORPUSCULAR HEMOGLOBIN 29.3 pg (27.0-33.0); MEAN CORPUSCULAR HGB CONC 33.5 g/dl (32.0-36.5); MEAN CORPUSCULAR VOLUME 87.4 fl (80.0-96.0); MONO # 0.2 K/mm3 (0.0-0.8); MONO % 8.1 % (0.0-5.0); NEUTROPHILS # 2.3 K/mm3 (1.8-7.7); NEUTROPHILS % 76.6 % (36.0-66.0); PLATELET COUNT, AUTOMATED 272 k/mm3 (150-450); RED CELL DISTRIBUTION WIDTH 14.9 % (11.5-14.5)
[2016-03-27 06:33] LABS: ANION GAP 8 MEQ/L (8-16); BLOOD UREA NITROGEN 10 MG/DL (7-18); CALCIUM LEVEL 7.8 MG/DL (8.8-10.2); CARBON DIOXIDE LEVEL 26 MEQ/L (21-32); CHLORIDE LEVEL 108 MEQ/L (98-107); GLOMERULAR FILTRATION RATE > 60.0 (>49); GLUCOSE, FASTING 99 MG/DL (80-110); POTASSIUM SERUM 3.6 MEQ/L (3.5-5.1); SODIUM LEVEL 142 MEQ/L (136-145)
[2016-03-27] MEDS: SLF 3 ML SYR IV SCH ×3 (06:42→20:18)
[2016-03-27 08:00] VITALS: BP 91/54
[2016-03-27] MEDS ORDERED: ASPIRIN 81 MG CHEW TABLET PO SCH (08:30)
[2016-03-27] MEDS: ENOXAPARIN 40 MG/0.4 ML SYRINGE (J1650) SC SCH (08:54)
[2016-03-27] MEDS: ASPIRIN 325 MG TAB PO SCH (08:54)
[2016-03-27] MEDS: DOCUSATE SODIUM 100 MG CAP PO SCH (08:54)
[2016-03-27 12:00] VITALS: BP 95/63
--- NOTE | 2016-03-27 14:30 | IPN ---
DATE: 03/27/2016 65-year-old seen at bedside. No overnight issues reported. Has had some continued right hand numbness, this appears to be longstanding however. Appreciate physical therapy (PT) and occupational therapy (OT)'s input. He denies headache, lightheadedness, dizziness, chest pain. No nausea, vomiting. He is tolerating his meals and has been ambulating with assistance. OBJECTIVE: Temperature is 97, pulse 75, respiratory rate is 12, blood pressure (BP) 95/63 with a mean arterial pressure of 74, and SPO2 is 97% on room air. General: The patient appears to be in no acute distress. He is alert and oriented. HEENT: Unremarkable. Lungs: Clear. Heart: Regular rate and rhythm. Abdomen: Soft. Extremities: Some mild decrease in merchandise presentation associate strength on the right, otherwise he does have good movement of all four extremities. LABORATORY DATA: White count 3.0, hemoglobin 11.9, platelets are 272,000. Sodium 142, potassium 3.6, chloride 108, bicarb 26, anion gap 8, BUN 10, creatinine 0.5, glucose is 99, INR 1.14. ASSESSMENT/PLAN: 1. CVA involving the right parietal region. Appreciate Dr. Salazar's input. He has done well on telemetry with no abnormalities. 2-D echo with LV ejection fraction of 70%, mild reduction of LV internal dimensions, mild concentric left ventricular hypertrophy, normal LV wall motion and wall thickness, normal LV systolic function, LV diastolic function not assessed on the study, moderate aortic valve sclerosis, three cuspid valve is noted. No stenosis or aortic regurgitation. Mild mitral annular calcification. No regurgitation. Small pericardial effusion without diastolic chamber collapse. Pericardial effusion measuring 0.5 to 0.7 cm. No significant respiratory variation of intracardiac velocities. Appreciate physical therapy and occupational input. Will go and downgrade him to the general medical floor today. 2. History of stage IV adenocarcinoma of the lung, currently on chemotherapy. He remains full code with advanced directives. His white count does appear to be low. Dr. Salazar did discontinue one of his medications for his multiple sclerosis. He felt the white count was secondary to the multiple sclerosis medication. 3. MS. Appreciate Dr. Salazar's input. 4. DVT prophylaxis with Lovenox. DISPOSITION: Again will downgrade him to the general medical floor. Continue PT and OT and anticipate home discharge in the next 24-48 hours once he is cleared from a physical therapy and occupational therapy standpoint.
[2016-03-27 16:00] VITALS: BP 101/63
[2016-03-27] MEDS: SIMVASTATIN 20 MG TAB PO SCH (20:18)
[2016-03-27 21:00] VITALS: BP 99/59
--- NOTE | 2016-03-28 02:35 | EDDOCDS ---
Nurse's Notes [facility] Name: Venkatesh Blue Age: 65 yrs Sex: Male : 1950 Arrival Date: 03/25/2016 Time: 20:36 Bed 4 Private MD: Js Sheikh A. Diagnosis: Hemiplegia and hemiparesis;Transient cerebral ischemic attack, unspecified Presentation: 03/25 20:43 Presenting complaint: Patient states: At 5pm began to lose feeling in right arm and kmg1 leg. Was slurring speech and had a right facial droop per spouse. Right facial droop persists. Weak biological photographer on right but is able to move it better now. Adult Sepsis Screening: The patient does not have new or worsening altered mentation. Patient's respiratory rate is less than 22. Systolic blood pressure is less than or equal to 100 (1 point). Patient has a qSOFA score of 1- Negative Sepsis Screen. Suicide/Homicide risk assessment- the patient denies having any suicidal and/or homicidal ideations and does not present with any other emotional, behavioral or mental health complaints. Status: Patient is not a customer service consultant or dependent. Transition of care: patient was not received from another setting of care. 20:43 Acuity: HEATHER Level 2 kmg1 20:43 Method Of Arrival: Walkin/Carried/Asstd kmg1 Triage Assessment: 20:43 General: Appears in no apparent distress, comfortable, Behavior is appropriate for age, kmg1 cooperative, pleasant. Pain: Denies pain. The patient is triaged at the bedside. See Assessment in Nurses Notes section of ED record. Neurological: Level of Consciousness is awake, alert, Oriented to person, place, time, Director Health are weak on right Weakness in right Speech is normal, Was slurred earlier. Facial droop on right, Facial symmetry: tongue is midline, Pupils are PERRLA, Reports numbness weakness. Cardiovascular: Rhythm is sinus rhythm No ectopy. Respiratory: Airway is patent Respiratory effort is even, unlabored, Respiratory pattern is regular, symmetrical. Injury Description: No known injury. Historical: - Allergies: no known allergies; - Home Meds: 1. Tecfidera 240 mg oral cpDR 2 cap 2 times per day - PMHx: Multiple Sclerosis; lung cancer; - PSHx: Cataract Surgery- Bilateral; exploratory of lung; - Family history: Not pertinent. - Social history: Smoking status: Patient states former smoker of tobacco. Race: White, Ethnicity: Not or No barriers to communication noted, The patient speaks fluent Algerian, Preferred Language: Algerian. - : The pt / caregiver states he / she is not on anticoagulants. Home medication list is obtained from the patient. - Exposure Risk Screening:: None identified. Screenin:49 Screening information is obtained from the patient. Fall risk: At risk due to age, cf2 immobility. Assistance ADL's: requires no assistance with activities of daily living. Abuse/DV Screen: The patient / caregiver reports he/she is: not in a situation that causes fear, pain or injury. Nutritional screening: No deficits noted. Advance Directives: Further advance directive information is declined. home support is adequate. Assessment: 03/26 00:07 Adult Sepsis Screening: The patient does not have new or worsening altered mentation. cf2 Patient's respiratory rate is less than 22. Systolic blood pressure is greater than 100. Patient has a qSOFA score of 0- Negative Sepsis Screen. General: Appears in no apparent distress, comfortable. Pain: Denies pain. Neurological: No deficits noted. EENT: No deficits noted. Cardiovascular: No deficits noted. Respiratory: No deficits noted. GI: No deficits noted. : No deficits noted. Derm: No deficits noted. Musculoskeletal: No deficits noted. Injury Description: No known injury. Vital Signs: 03/25 20:39 BP 86 / 70; Pulse 89; Resp 18 S; Temp 96.9(O); Pulse Ox 99% on R/A; Weight 58.97 kg gr2 (R); Height 5 ft. 8 in. (172.72 cm) (R); Pain 3/10; 21:45 BP 90 / 55 (auto/); cf2 21:46 Pulse 80 MON; Pulse Ox 96% ; cf2 22:00 BP 95 / 52 (auto/); cf2 22:01 Pulse 82 MON; Pulse Ox 93% ; cf2 22:15 Pulse 82 MON; Pulse Ox 96% ; cf2 22:15 BP 100 / 56 (auto/); cf2 22:30 BP 109 / 68 (auto/); cf2 22:31 Pulse 94 MON; Pulse Ox 92% ; cf2 22:45 BP 96 / 60 (auto/); cf2 22:46 Pulse 82 MON; Pulse Ox 97% ; cf2 23:00 BP 96 / 62 (auto/); cf2 23:01 Pulse 84 MON; Pulse Ox 97% ; cf2 23:15 BP 96 / 62 (auto/); cf2 23:16 Pulse 88 MON; Pulse Ox 97% ; cf2 23:30 BP 86 / 56 (auto/); cf2 23:31 Pulse 78 MON; Pulse Ox 98% ; cf2 23:45 BP 90 / 58 (auto/); cf2 23:46 Pulse 84 MON; Pulse Ox 93% ; cf2 0119 00:00 BP 96 / 62 (auto/); cf2 00:01 Pulse 86 MON; Pulse Ox 94% ; cf2 00:15 BP 87 / 51 (auto/); cf2 00:16 Pulse 94 MON; cf2 00:30 BP 90 / 57 (auto/); cf2 00:31 Pulse 84 MON; Pulse Ox 98% ; cf2 00:45 BP 89 / 61 (auto/); cf2 00:46 Pulse 88 MON; Pulse Ox 97% ; cf2 01:00 BP 97 / 61 (auto/); cf2 01:01 Pulse 82 MON; Pulse Ox 96% ; cf2 03/25 20:39 Body Mass Index 19.77 (58.97 kg, 172.72 cm) gr2 Vitals: 03/25 20:39 Log In Time: March 25, 2016 at 20:39. gr2 20:40 RN notified that patient meets Red Flag criteria. gr2 ED Course: 20:38 Patient visited by [place]. gr2 20:38 Patient moved to Waiting gr2 20:39 Js Sheikh is Private Physician. gr2 20:40 Patient visited by [place]. gr2 20:40 Patient moved to Pre RCE gr2 20:46 Triage Initiated kmg1 20:47 Stacey Garcia,RN is Primary Nurse. cf2 20:48 Patient moved to [facility] 20:49 The patient / caregiver is instructed regarding the plan of care and ED course. Patient cf2 has correct armband on for positive identification. Placed in gown. Bed in low position. Call light in reach. Side rails up X 1. Side rails up X2. mill work on. Pulse ox on. NIBP on. Property :Personal belongings accompany Pt. Door closed. Noise minimized. Visitors limited. Lights dimmed. Moved to private room. Verbal reassurance given. Warm blanket given. Pillow given. Head of bed elevated. 20:49 No procedures done that require assistance. cf2 20:53 Son Salvador FNP [facility]. ke 20:53 Patient visited by Son Salvador FNP. ke 20:53 Patient visited by Son Salvador FNP. ke 20:56 Inserted saline lock: 20 gauge in left antecubital area and blood collected. [facility] patient tolerated the procedure well. 21:08 EKG done. (by ED staff). Reviewed by Son DEVINE. mdr 21:09 Patient visited by Clarence Hoffman PCA. mdr 21:24 [facility] Payment Agreement was scanned into [employer] and attached to record. zo 21:33 Patient name changed from Venkatesh\S\E\S\Blue\S\ to Venkatesh\S\ \S\Blue. EDMS 21:43 Patient visited by Son Salvador FNP. ke 22:27 Patient visited by Son Salvador FNP. ke 22:44 CT Head Without Contrast Returned. EDMS 22:54 Klaus Lang MD is Hospitalizing Provider. ke 23:31 Patient visited by Stacey Garcia RN. cf2 03/26 00:06 Patient visited by Stacey Garcia,CONCHA. cf2 01:12 Patient moved to Ultrasound br3 01:18 Patient visited by Stacey Garcia,CONCHA. cf2 01:34 Patient visited by Stacey Garcia,CONCHA. cf2 01:34 Kishan Villegas DO is Attending Physician. cf2 01:34 Patient moved to 4 br3 01:45 Chest, 1 View Returned. EDMS 10:20 T-Sheet-- Draft Copy was scanned into [employer] and attached to record. gb Administered Medications: 03/25 21:19 Drug: NS 0.9% 1000 ml [sodium chloride 0.9 % intravenous solution] Route: IV; Rate: 100 cf2 mL/hr; Site: left antecubital; 23:30 Drug: Aspirin 325 mg [aspirin 325 mg tablet (1 tabs)] Route: PO; cf2 Order Results: Lab Order: Acetaminophen Level; SPEC'M 03/25/16 20:53 Test: ACETAMINOPHEN LEVEL; Value: 2.7; Range: 10.0-30.0; Abnormal: Below low normal; Units: UG/ML; Status: F Lab Order: CBC with Diff; SPEC'M 03/25/16 20:56 Test: WHITE BLOOD COUNT; Value: 3.5; Range: 4.0-10.0; Abnormal: Below low normal; Units: K/mm3; Status: F Test: RED BLOOD COUNT; Value: 4.80; Range: 4.30-6.10; Units: M/mm3; Status: F Test: HEMOGLOBIN; Value: 14.0; Range: 14.0-18.0; Units: g/dl; Status: F Test: HEMATOCRIT; Value: 42.1; Range: 42.0-52.0; Units: %; Status: F Test: MEAN CORPUSCULAR VOLUME; Value: 87.7; Range: 80.0-96.0; Units: fl; Status: F Test: MEAN CORPUSCULAR HEMOGLOBIN; Value: 29.2; Range: 27.0-33.0; Units: pg; Status: F Test: MEAN CORPUSCULAR HGB CONC; Value: 33.3; Range: 32.0-36.5; Units: g/dl; Status: F Test: RED CELL DISTRIBUTION WIDTH; Value: 14.8; Range: 11.5-14.5; Abnormal: Above high normal; Units: %; Status: F Test: PLATELET COUNT, AUTOMATED; Value: 303; Range: 150-450; Units: k/mm3; Status: F Test: NEUTROPHILS; Value: 69; Range: 35-75; Units: %; Status: F Test: BANDS; Value: 10; Range: < 11; Units: %; Status: F Test: LYMPHOCYTES; Value: 7; Range: 16-52; Abnormal: Below low normal; Units: %; Status: F Test: MONOCYTES; Value: 10; Range: 0-8; Abnormal: Above high normal; Units: %; Status: F Test: EOSINOPHILS; Value: 4; Range: 0-5; Units: %; Status: F Test: RBC MORPHOLOGY; Value: NORMAL; Status: F Lab Order: Cardiac Injury Profile; SPEC'M 03/25/16 20:53 Test: CPK CREATINE PHOSPHOKINASE; Value: 36; Range: 39-308; Abnormal: Below low normal; Units: U/L; Status: F Test: CK-MB VALUE MASS; Value: 1.2; Range: 0.0-3.6; Units: NG/ML; Status: F Test: MB/CK RELATIVE INDEX; Value: 3.33; Range: < OR =4; Status: F Test Note: ; DIAGNOSIS CRITERIA MMB ng/ml Relative Index (RI) NON-AMI < or = 5 N/A [place] > 5 < or = 4 AMI > 5 > 4 Lab Order: Drug Eval Toxicology ED Only; SPEC'M 03/26/16 00:50 Test: AMPHETAMINES LEVEL URINE; Value: NEGATIVE; Range: NEGATIVE; Status: F Test: BARBITURATES URINE; Value: NEGATIVE; Range: NEGATIVE; Status: F Test: BENZODIAZEPINES URINE; Value: NEGATIVE; Range: NEGATIVE; Status: F Test: CANNABINOIDS URINE; Value: NEGATIVE; Range: NEGATIVE; Status: F Test: COCAINE METABOLITE URINE; Value: NEGATIVE; Range: NEGATIVE; Status: F Test: METHADONE URINE; Value: NEGATIVE; Range: NEGATIVE; Status: F Test: OPIATES URINE; Value: POSITIVE; Range: NEGATIVE; Abnormal: Above high normal; Status: F Test: TRICYCLIC ANTIDEPRESS URINE; Value: NEGATIVE; Range: NEGATIVE; Status: F Test Note: ; ALL PRESUMPTIVE POSITIVE FINDINGS ARE UNCONFIRMED NORMAL VALUES THRESHOLD IN NG/ML AMPHETAMINES 1000 METHAMPHETAMINES 1000 BARBITURATES 300 BENZODIAZEPINES 300 CANNABINOIDS (THC) 50 COCAINE METABOLITE 300 METHADONE 300 OPIATES 300 PHENCYCLIDINE 25 TRICYCLIC ANTIDEPRESSANTS 1000 RESULTS ARE FOR MEDICAL PURPOSES ONLY. ALL URINE SPECIMENS WILL BE SAVED FOR 3 DAYS. IF CONFIRMATION OF A PRESUMPTIVE POSTIVE SCREEN RESULT IS DESIRED, CALL CHEMISTRY ([phone]) AND REQUEST URINE TO BE SENT TO REFERENCE LAB. FOR A LIST OF CLOSELY RELATED COMPOUNDS PLEASE CALL THE LAB. Lab Order: Liver Profile; SPEC'M 03/25/16 20:53 Test: AST/SGOT; Value: 15; Range: 15-37; Units: U/L; Status: F Test: ALT/SGPT; Value: 27; Range: 12-78; Units: U/L; Status: F Test: ALKALINE PHOSPHATASE; Value: 71; Range: 45-117; Units: U/L; Status: F Test: BILIRUBIN,TOTAL; Value: 0.8; Range: 0.2-1.0; Units: MG/DL; Status: F Test: BILIRUBIN,DIRECT; Value: 0.2; Range: 0.0-0.2; Units: MG/DL; Status: F Test: TOTAL PROTEIN; Value: 5.4; Range: 6.4-8.2; Abnormal: Below low normal; Units: GM/DL; Status: F Test: ALBUMIN; Value: 2.7; Range: 3.2-5.2; Abnormal: Below low normal; Units: GM/DL; Status: F Test: ALBUMIN/GLOBULIN RATIO; Value: 1.00; Range: 1.00-1.93; Status: F Lab Order: MED Profile; SPEC'M 03/25/16 20:53 Test: GLUCOSE, FASTING; Value: 110; Range: 80-110; Units: MG/DL; Status: F Test: BLOOD UREA NITROGEN; Value: 16; Range: 7-18; Units: MG/DL; Status: F Test: CREATININE FOR GFR; Value: 0.72; Range: 0.70-1.30; Units: MG/DL; Status: F Test: GLOMERULAR FILTRATION RATE; Value: > 60.0; Range: >49; Status: F Test: SODIUM LEVEL; Value: 138; Range: 136-145; Units: MEQ/L; Status: F Test: POTASSIUM SERUM; Value: 3.8; Range: 3.5-5.1; Units: MEQ/L; Status: F Test: CHLORIDE LEVEL; Value: 102; Range: 98-107; Units: MEQ/L; Status: F Test: CARBON DIOXIDE LEVEL; Value: 28; Range: 21-32; Units: MEQ/L; Status: F Test: ANION GAP; Value: 8; Range: 8-16; Units: MEQ/L; Status: F Test: CALCIUM LEVEL; Value: 7.9; Range: 8.8-10.2; Abnormal: Below low normal; Units: MG/DL; Status: F Test Note: ; Units are mL/min/1.73 m2 Chronic Kidney Disease Staging per NKF: Stage I & II GFR >=60 Normal to Mildly Decreased Stage III GFR 30-59 Moderately Decreased Stage IV GFR 15-29 Severely Decreased Stage V GFR <15 Very Little GFR Left ESRD GFR <15 on WAX PATTERN REPAIRER Lab Order: Salicylate Level; SPEC'M 03/25/16 20:53 Test: SALICYLATE LEVEL; Value: < 1.7; Range: 5.0-30.0; Abnormal: Below low normal; Units: MG/DL; Status: F Lab Order: Thyroid Stimulating Hormone; SPEC'M 03/25/16 20:53 Test: THYROID STIMULATING HORMONE; Value: 2.850; Range: 0.358-3.740; Units: uIU/ML; Status: F Lab Order: Troponin; SPEC'M 03/25/16 20:53 Test: TROPONIN I; Value: 0.02; Range: < 0.10; Units: NG/ML; Status: F Test Note: ; Troponin I Reference Interval for [employer] LOCI: 99th Percentile= 0.00-0.045 ng/ml Risk Stratification: <= 0.10 ng/ml Decreased Risk for Adverse Clinical Events. 0.10-1.50 ng/ml Increased Risk for Adverse Clinical Events. Evaluation of additional criterion and/or repeat testing in 2-6 hours is suggested to rule out myocardial damage. >= 1.50 ng/ml Indicative of Myocardial Injury. Lab Order: Urinalysis; SPEC'M 03/26/16 00:50 Test: APPEARANCE, URINE; Value: CLEAR; Range: CLEAR; Status: F Test: COLOR, URINE; Value: YELLOW; Range: YELLOW; Status: F Test: PH,URINE; Value: 5.0; Range: 5.0-9.0; Units: UNITS; Status: F Test: SPECIFIC GRAVITY URINE AUTO; Value: 1.031; Range: 1.002-1.035; Status: F Test: PROTEIN, URINE AUTO; Value: NEGATIVE; Range: NEGATIVE; Units: mg/dL; Status: F Test: GLUCOSE, URINE (UA) AUTO; Value: NEGATIVE; Range: NEGATIVE; Units: mg/dL; Status: F Test: KETONE, URINE AUTO; Value: 1+; Range: NEGATIVE; Abnormal: Above high normal; Units: mg/dL; Status: F Test: UROBILINOGEN, URINE AUTO; Value: 2.0; Range: 0.0-2.0; Abnormal: Above high normal; Units: mg/dL; Status: F Test: BILIRUBIN, URINE AUTO; Value: NEGATIVE; Range: NEGATIVE; Status: F Test: NITRITE, URINE AUTO; Value: NEGATIVE; Range: NEGATIVE; Status: F Test: LEUKOCYTE ESTERASE, URINE AUTO; Value: NEGATIVE; Range: NEGATIVE; Status: F Test: BLOOD, URINE BLOOD; Value: NEGATIVE; Range: NEGATIVE; Status: F Test: SPERM, URINE AUTO; Range: NONE; Status: I Test: WBC, URINE AUTO; Value: 1; Range: 0-3; Units: /HPF; Status: F Test: RBC, URINE AUTO; Value: 2; Range: 0-3; Units: /HPF; Status: F Test: BACTERIA, URINE AUTO; Value: NEGATIVE; Range: NEGATIVE; Status: F Test: SQUAMOUS EPITHELIAL CELL UR AU; Value: 0; Range: 0-6; Units: /HPF; Status: F Test: MUCUS, URINE; Value: SMALL; Range: NEGATIVE; Status: F Test: HYALINE CAST, URINE AUTO; Value: 1; Range: 0-1; Units: /LPF; Status: F Lab Order: PLATELET ESTIMATE; SPEC'M 03/25/16 20:56 Test: PLATELET ESTIMATE; Value: NORMAL; Range: NORMAL; Status: F Radiology Order: CT Head Without Contrast Test: CT Head Without Contrast REASON FOR EXAMINATION: CVA >4.5hrs; ; CLINICAL HISTORY: CVA >4.5 hours.; COMPARISON: None; TECHNIQUE: Multiple axial CT images were obtained through the brain without IV contrast material.; COMMENTS:; No acute intracranial hemorrhage or evidence of acute transcortical ischemia. No suspicious intra-axi; al or extra-axial fluid collections, midline shift, or hydrocephalus. Normal configuration of sella t; urcica noted.; Mild prominence of the cortical sulci and ventricular system; consistent with age-appropriate cerebra; l and cerebellar and cerebral atrophy. Mild bilateral periventricular and subcortical white matter hy; polucencies also noted consistent with chronic microvascular ischemic changes.; Posterior fossa: No enlarged mass or suspicious cystic lesion.; Paranasal sinuses, mastoid air cells, and ear canals are well aerated. Orbital compartments are unrem; arkable.; Osseous structures/soft tissues: No acute fracture, suspicious lesion, or soft tissue abnormality.; IMPRESSION:; Chronic changes as described with no acute intracranial abnormality.; Thank you for your kind referral of this patient.; ; Radiology Order: Chest, 1 View Test: Chest, 1 View REASON FOR EXAMINATION: CVA >4.5hrs; Clinical: Cerebrovascular accident.; ; Comparison: 01/08/2016.; ; Findings: Bilateral perihilar opacities are similar to prior examination. The; cardiac silhouette appears normal. Superimposed right lower lobe infiltrate is; suggested and requires correlation. No obvious effusion. No pneumothorax.; Skeletal structures intact.; ; Impression:; Perihilar opacities similar to prior examination.; New right lower lobe infiltrate suggested.; ; ; Signed by; Marco Novak MD 03/26/2016 01:29 A; Outcome: 22:54 Decision to Hospitalize by Provider. meg 03/26 01:33 Discharge Assessment: Patient awake, alert and oriented x 3. No cognitive and/or cf2 functional deficits noted. Patient verbalized understanding of disposition instructions. Patient awake and alert. Oriented to person, place and time. patient administered narcotics - no. The following High Risk Discharge criteria are identified: None. Admitted to PCU. Condition: stable. CT Study completed. Ultrasound Study completed. 01:34 Patient left the ED. cf2 Signatures: Dispatcher [employer] EDMS Selena Ham, RN RN km Mary Mello, CONCHA RN [facility], Dawna, Reg Reg gb Son Salvador, PAN DEVULCANIZER HELPER PAN DEVULCANIZER HELPER Donna Savage Brianne br3 [place] gr2 Clarence Hoffman PCA RETURNED GOODS RECEIVING CLERK Stacey Pennington,RN RN cf2 Chart Complete MTDD
--- NOTE | 2016-03-28 02:35 | EDDOCDS ---
Physician Documentation [facility] Name: Venkatesh Blue Age: 65 yrs Sex: Male : 1950 Arrival Date: 03/25/2016 Time: 20:36 Bed 4 Private MD: Js Sheikh A. Disposition: 03/25/16 22:54 Hospitalization ordered by Klaus Lang for Inpatient Admission. Preliminary diagnosis are Hemiplegia and hemiparesis, Transient cerebral ischemic attack, unspecified. - Bed requested for PCU. - Status is Inpatient Admission. cf2 - Condition is Stable. - Problem is new. - Symptoms have improved. Historical: - Allergies: no known allergies; - Home Meds: 1. Tecfidera 240 mg oral cpDR 2 cap 2 times per day - PMHx: Multiple Sclerosis; lung cancer; - PSHx: Cataract Surgery- Bilateral; exploratory of lung; - Family history: Not pertinent. - Social history: Smoking status: Patient states former smoker of tobacco. Race: White, Ethnicity: Not or No barriers to communication noted, The patient speaks fluent Vincentian, Preferred Language: Vincentian. - : The pt / caregiver states he / she is not on anticoagulants. Home medication list is obtained from the patient. - Exposure Risk Screening:: None identified. Vital Signs: 03/25 20:39 BP 86 / 70; Pulse 89; Resp 18 S; Temp 96.9(O); Pulse Ox 99% on R/A; Weight 58.97 kg / gr2 130.01 lbs (R); Height 5 ft. 8 in. (172.72 cm) (R); Pain 3/10; 21:45 BP 90 / 55 (auto/); cf2 21:46 Pulse 80 MON; Pulse Ox 96% ; cf2 22:00 BP 95 / 52 (auto/); cf2 22:01 Pulse 82 MON; Pulse Ox 93% ; cf2 22:15 Pulse 82 MON; Pulse Ox 96% ; cf2 22:15 BP 100 / 56 (auto/); cf2 22:30 BP 109 / 68 (auto/); cf2 22:31 Pulse 94 MON; Pulse Ox 92% ; cf2 22:45 BP 96 / 60 (auto/); cf2 22:46 Pulse 82 MON; Pulse Ox 97% ; cf2 23:00 BP 96 / 62 (auto/); cf2 23:01 Pulse 84 MON; Pulse Ox 97% ; cf2 23:15 BP 96 / 62 (auto/); cf2 23:16 Pulse 88 MON; Pulse Ox 97% ; cf2 23:30 BP 86 / 56 (auto/); cf2 23:31 Pulse 78 MON; Pulse Ox 98% ; cf2 23:45 BP 90 / 58 (auto/); cf2 23:46 Pulse 84 MON; Pulse Ox 93% ; cf2 03/26 00:00 BP 96 / 62 (auto/); cf2 00:01 Pulse 86 MON; Pulse Ox 94% ; cf2 00:15 BP 87 / 51 (auto/); cf2 00:16 Pulse 94 MON; cf2 00:30 BP 90 / 57 (auto/); cf2 00:31 Pulse 84 MON; Pulse Ox 98% ; cf2 00:45 BP 89 / 61 (auto/); cf2 00:46 Pulse 88 MON; Pulse Ox 97% ; cf2 01:00 BP 97 / 61 (auto/); cf2 01:01 Pulse 82 MON; Pulse Ox 96% ; cf2 03/25 20:39 Body Mass Index 19.77 (58.97 kg, 172.72 cm) gr2 MDM: 03/25 20:57 Computer Project Manager/Pulse Ox/q 15 min VS ordered. ke 20:57 Accucheck ordered. ke 20:57 IV Saline Lock ordered. ke 20:57 Rhythm Strip to chart ordered. ke 20:57 NS 0.9% 1000 ml IV at 100 mL/hr continuous ordered. ke 20:58 Acetaminophen Level Ordered. EDMS 20:58 CBC with Diff Ordered. EDMS 20:58 Cardiac Injury Profile Ordered. EDMS 20:58 Drug Eval Toxicology ED Only Ordered. EDMS 20:58 Liver Profile Ordered. EDMS 20:58 MED Profile Ordered. EDMS 20:58 Salicylate Level Ordered. EDMS 20:58 Thyroid Stimulating Hormone Ordered. EDMS 20:58 Troponin Ordered. EDMS 20:58 Urinalysis Ordered. EDMS 20:58 CT Head Without Contrast Ordered. EDMS 20:59 Chest, 1 View Ordered. EDMS 20:59 ECG WITH READING ER PHYS+CARDIAG ordered. EDMS 21:23 Financial registration complete. zo 21:24 [facility] [place] into [employer] and attached to record. zo 21:31 DIFFERENTIAL NO CHARGE Ordered. EDMS 21:58 Acetaminophen Level Reviewed. ke 21:58 CBC with Diff Reviewed. ke 21:58 Cardiac Injury Profile Reviewed. ke 21:58 Liver Profile Reviewed. ke 21:58 MED Profile Reviewed. ke 21:58 Salicylate Level Reviewed. ke 21:58 Thyroid Stimulating Hormone Reviewed. ke 21:58 Troponin Reviewed. ke 21:58 PLATELET ESTIMATE Reviewed. ke 22:32 Aspirin 325 mg PO once ordered. ke 23:48 BASIC METABOLIC PROFILE Ordered. EDMS 23:48 PT & APTT Ordered. EDMS 23:48 CARDIAC RISK PROFILE Ordered. EDMS 23:48 MRI Brain without Contrast Ordered. EDMS 23:48 MRA BRAIN W/O CONTRAST Ordered. EDMS 23:49 PHYSICAL THERAPY EVAL & TREAT ordered. EDMS 23:49 Duplex,carotid (complete) Ordered. EDMS 23:50 Admission / Observation Status ordered. EDMS 23:50 ELECTROCARDIOGRAM ADULT ordered. EDMS 23:50 ECHOCARD,DOPPLER/COLOR FLOW ordered. EDMS 23:50 NO ADDED SALT DIET ordered. EDMS 23:59 CBC WITH DIFFERENTIAL Ordered. EDMS 03/26 10:20 T-Sheet-- Draft Copy was scanned into [employer] and attached to record. gb Administered Medications: 03/25 21:19 Drug: NS 0.9% 1000 ml [sodium chloride 0.9 % intravenous solution] Route: IV; Rate: 100 cf2 mL/hr; Site: left antecubital; 23:30 Drug: Aspirin 325 mg [aspirin 325 mg tablet (1 tabs)] Route: PO; cf2 Signatures: Dispatcher [employer] EDOK Jessie Harris, RN RN Dawna Orosco, Reg Reg Son Mccarthy, MEDICAL EQUIPMENT REPAIR TECHNICIAN MEDICAL EQUIPMENT REPAIR TECHNICIAN Donna Savage Christina,CONCHA RN cf2 The chart was reviewed and I authenticate all verbal orders and agree with the evaluation and treatment provided.Corrections: (The following items were deleted from the chart) 59 23:48 COMPLETE BLOOD COUNT ordered. EDOK EDMS Attachments: 21:24 [facility] Payment Agreement zo 03/26 10:20 T-Sheet-- Draft Copy gb Chart Complete MTDD
--- NOTE | 2016-03-28 02:35 | EDDOCDS ---
Physician Documentation [facility] Name: Venkatesh Blue Age: 65 yrs Sex: Male : 1950 Arrival Date: 03/25/2016 Time: 20:36 Bed 4 Private MD: Js Sheikh A. Disposition: 03/25/16 22:54 Hospitalization ordered by Klaus Lang for Inpatient Admission. Preliminary diagnosis are Hemiplegia and hemiparesis, Transient cerebral ischemic attack, unspecified. - Bed requested for PCU. - Status is Inpatient Admission. cf2 - Condition is Stable. - Problem is new. - Symptoms have improved. Historical: - Allergies: no known allergies; - Home Meds: 1. Tecfidera 240 mg oral cpDR 2 cap 2 times per day - PMHx: Multiple Sclerosis; lung cancer; - PSHx: Cataract Surgery- Bilateral; exploratory of lung; - Family history: Not pertinent. - Social history: Smoking status: Patient states former smoker of tobacco. Race: White, Ethnicity: Not or No barriers to communication noted, The patient speaks fluent Spanish, Preferred Language: Spanish. - : The pt / caregiver states he / she is not on anticoagulants. Home medication list is obtained from the patient. - Exposure Risk Screening:: None identified. Vital Signs: 03/25 20:39 BP 86 / 70; Pulse 89; Resp 18 S; Temp 96.9(O); Pulse Ox 99% on R/A; Weight 58.97 kg / gr2 130.01 lbs (R); Height 5 ft. 8 in. (172.72 cm) (R); Pain 3/10; 21:45 BP 90 / 55 (auto/); cf2 21:46 Pulse 80 MON; Pulse Ox 96% ; cf2 22:00 BP 95 / 52 (auto/); cf2 22:01 Pulse 82 MON; Pulse Ox 93% ; cf2 22:15 Pulse 82 MON; Pulse Ox 96% ; cf2 22:15 BP 100 / 56 (auto/); cf2 22:30 BP 109 / 68 (auto/); cf2 22:31 Pulse 94 MON; Pulse Ox 92% ; cf2 22:45 BP 96 / 60 (auto/); cf2 22:46 Pulse 82 MON; Pulse Ox 97% ; cf2 23:00 BP 96 / 62 (auto/); cf2 23:01 Pulse 84 MON; Pulse Ox 97% ; cf2 23:15 BP 96 / 62 (auto/); cf2 23:16 Pulse 88 MON; Pulse Ox 97% ; cf2 23:30 BP 86 / 56 (auto/); cf2 23:31 Pulse 78 MON; Pulse Ox 98% ; cf2 23:45 BP 90 / 58 (auto/); cf2 23:46 Pulse 84 MON; Pulse Ox 93% ; cf2 03/26 00:00 BP 96 / 62 (auto/); cf2 00:01 Pulse 86 MON; Pulse Ox 94% ; cf2 00:15 BP 87 / 51 (auto/); cf2 00:16 Pulse 94 MON; cf2 00:30 BP 90 / 57 (auto/); cf2 00:31 Pulse 84 MON; Pulse Ox 98% ; cf2 00:45 BP 89 / 61 (auto/); cf2 00:46 Pulse 88 MON; Pulse Ox 97% ; cf2 01:00 BP 97 / 61 (auto/); cf2 01:01 Pulse 82 MON; Pulse Ox 96% ; cf2 03/25 20:39 Body Mass Index 19.77 (58.97 kg, 172.72 cm) gr2 MDM: 03/25 20:57 Pension Administrator/Pulse Ox/q 15 min VS ordered. ke 20:57 Accucheck ordered. ke 20:57 IV Saline Lock ordered. ke 20:57 Rhythm Strip to chart ordered. ke 20:57 NS 0.9% 1000 ml IV at 100 mL/hr continuous ordered. ke 20:58 Acetaminophen Level Ordered. EDMS 20:58 CBC with Diff Ordered. EDMS 20:58 Cardiac Injury Profile Ordered. EDMS 20:58 Drug Eval Toxicology ED Only Ordered. EDMS 20:58 Liver Profile Ordered. EDMS 20:58 MED Profile Ordered. EDMS 20:58 Salicylate Level Ordered. EDMS 20:58 Thyroid Stimulating Hormone Ordered. EDMS 20:58 Troponin Ordered. EDMS 20:58 Urinalysis Ordered. EDMS 20:58 CT Head Without Contrast Ordered. EDMS 20:59 Chest, 1 View Ordered. EDMS 20:59 ECG WITH READING ER PHYS+CARDIAG ordered. EDMS 21:23 Financial registration complete. zo 21:24 [facility] [place] Agreement was scanned into [employer] and attached to record. zo 21:31 DIFFERENTIAL NO CHARGE Ordered. EDMS 21:58 Acetaminophen Level Reviewed. ke 21:58 CBC with Diff Reviewed. ke 21:58 Cardiac Injury Profile Reviewed. ke 21:58 Liver Profile Reviewed. ke 21:58 MED Profile Reviewed. ke 21:58 Salicylate Level Reviewed. ke 21:58 Thyroid Stimulating Hormone Reviewed. ke 21:58 Troponin Reviewed. ke 21:58 PLATELET ESTIMATE Reviewed. ke 22:32 Aspirin 325 mg PO once ordered. ke 23:48 BASIC METABOLIC PROFILE Ordered. EDMS 23:48 PT & APTT Ordered. EDMS 23:48 CARDIAC RISK PROFILE Ordered. EDMS 23:48 MRI Brain without Contrast Ordered. EDMS 23:48 MRA BRAIN W/O CONTRAST Ordered. EDMS 23:49 PHYSICAL THERAPY EVAL & TREAT ordered. EDMS 23:49 Duplex,carotid (complete) Ordered. EDMS 23:50 Admission / Observation Status ordered. EDMS 23:50 ELECTROCARDIOGRAM ADULT ordered. EDMS 23:50 ECHOCARD,DOPPLER/COLOR FLOW ordered. EDMS 23:50 NO ADDED SALT DIET ordered. EDMS 23:59 CBC WITH DIFFERENTIAL Ordered. EDMS 03/26 10:20 T-Sheet-- Draft Copy was scanned into [employer] and attached to record. gb Administered Medications: 03/25 21:19 Drug: NS 0.9% 1000 ml [sodium chloride 0.9 % intravenous solution] Route: IV; Rate: 100 cf2 mL/hr; Site: left antecubital; 23:30 Drug: Aspirin 325 mg [aspirin 325 mg tablet (1 tabs)] Route: PO; cf2 Signatures: Dispatcher [employer] EDOR Jessie Harris, RN RN Dawna Orosco, Reg Reg Son Mccarthy, OFFICE MACHINES SALES REPRESENTATIVE OFFICE MACHINES SALES REPRESENTATIVE Donna Savage Christina,CONCHA RN cf2 The chart was reviewed and I authenticate all verbal orders and agree with the evaluation and treatment provided.Corrections: (The following items were deleted from the chart) 59 23:48 COMPLETE BLOOD COUNT ordered. EDOR EDMS Attachments: 21:24 [facility] Payment Agreement zo 03/26 10:20 T-Sheet-- Draft Copy gb Chart Complete MTDD
[2016-03-28] MEDS: SLF 3 ML SYR IV SCH (05:46)
[2016-03-28 06:00] VITALS: BP 108/63
[2016-03-28 06:53] LABS: ANION GAP 7 MEQ/L (8-16); BLOOD UREA NITROGEN 10 MG/DL (7-18); CALCIUM LEVEL 7.7 MG/DL (8.8-10.2); CARBON DIOXIDE LEVEL 28 MEQ/L (21-32); CHLORIDE LEVEL 106 MEQ/L (98-107); CREATININE FOR GFR 0.49 MG/DL (0.70-1.30); GLOMERULAR FILTRATION RATE > 60.0 (>49); GLUCOSE, FASTING 97 MG/DL (80-110); POTASSIUM SERUM 3.5 MEQ/L (3.5-5.1); SODIUM LEVEL 141 MEQ/L (136-145)
[2016-03-28] MEDS ORDERED: SIMV20TA2 PO (06:55)
[2016-03-28] MEDS ORDERED: ASPI325T PO (06:55)
[2016-03-28 07:13] LABS: BASO % 0.3 % (0.0-1.0); EOS # 0.2 K/mm3 (0.0-0.50); EOS % 5.4 % (0.0-3.0); LARGE UNSTAINED CELL # 0.1 K/mm3 (0.0-0.4); LARGE UNSTAINED CELL % 1.9 % (0.0-4.0); LYMPH # 0.2 K/mm3 (1.5-4.5); LYMPH % 8.1 % (24.0-44.0); MEAN CORPUSCULAR HEMOGLOBIN 28.8 pg (27.0-33.0); MEAN CORPUSCULAR HGB CONC 32.6 g/dl (32.0-36.5); MEAN CORPUSCULAR VOLUME 88.1 fl (80.0-96.0); MONO # 0.3 K/mm3 (0.0-0.8); MONO % 10.3 % (0.0-5.0); NEUTROPHILS # 2.1 K/mm3 (1.8-7.7); NEUTROPHILS % 74.1 % (36.0-66.0); PLATELET COUNT, AUTOMATED 304 k/mm3 (150-450); RED CELL DISTRIBUTION WIDTH 15.1 % (11.5-14.5); WHITE BLOOD COUNT 2.8 K/mm3 (4.0-10.0)
[2016-03-28] MEDS: ASPIRIN 325 MG TAB PO SCH (08:10)
[2016-03-28] MEDS: DOCUSATE SODIUM 100 MG CAP PO SCH (08:10)
[2016-03-28] MEDS: ENOXAPARIN 40 MG/0.4 ML SYRINGE (J1650) SC SCH (08:10)
--- NOTE | 2016-03-28 12:52 | DSES ---
DATE OF ADMISSION: 03/25/2016 DATE OF DISCHARGE: 03/28/2016 PRIMARY CARE PROVIDER: Dr. Sheikh NEUROLOGIST: Dr. Salazar ONCOLOGIST: Dr. Charles PROCEDURES: None. COMPLICATIONS: Non. ADMISSION/DISCHARGE DIAGNOSES: 1. Right side numbness with new CVA demonstrated on MRI. 2. Cerebrovascular accident. 3. Multiple sclerosis. 4. History of stage IV adenocarcinoma of the lung, undergoing chemotherapy with Dr. Charles. BRIEF HOSPITAL COURSE: 65-year-old gentleman who presented to the emergency department after having increased weakness noted on the right side associated with weakness in both the arm and leg on the right. He was able to use a walker. By the time he presented to the emergency department, he felt that his symptoms had slightly improved. There was a question of right facial droop and slurring of speech prior to presenting to the emergency department; however, according to the staff, they said that completely resolved at that point. At any rate, his head CT was negative. The emergency department had requested the hospitalist group to admit the patient. Dr. Salazar was consulted. MRI and MRA of the brain did demonstrate no AV malformations or aneurysms; however, he did have a new small acute left parietal lobe infarction, small vessel ischemic disease and mild volume loss. He was admitted to the progressive care unit (PCU) and watched on telemetry. There were no abnormalities seen on either EKG or telemetry. 2-D echocardiogram was unremarkable, as well as ultrasound of the carotids. Dr. Salazar had seen the patient on consultation. The patient was started on aspirin and statin therapy. However, he did go ahead and discontinue his multiple sclerosis medication due to low white count. 1. Multiple sclerosis. He will followup outpatient with Dr. Salazar. 2. Adenocarcinoma stage IV of the lung. Followup with Dr. Charles as an outpatient. PHYSICAL EXAMINATION: Today, temperature is 98.3, pulse 84, respiratory rate is 18, blood pressure is 108/63, SpO2 is 93% on room air. GENERAL: The patient appears to be in no acute distress. He is alert, pleasant. HEENT: Unremarkable. LUNGS: Clear. HEART: Regular rate and rhythm. ABDOMEN: Soft. EXTREMITIES: No edema or calf tenderness. 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 He does have some issues with some fine motor skills and recommended followup with outpatient physical therapy (PT) and occupational therapy (OT) services. White count 2.8, hemoglobin 12.1, platelets are 304,000. Sodium is 141, potassium 3.5, chloride 106, bicarbonate 20, anion gap 7, BUN is 10, creatinine 0.49, glucose 97. Discharge condition is good. DISPOSITION: Discharge to home. DISCHARGE MEDICATIONS: : - aspirin 325 mg daily - simvastatin 20 mg daily - vitamin D 1000 units twice a day - vitamin B12 1000 mcg intramuscularly monthly - Zofran 4 mg by mouth every four hours as needed - prochlorperazine 10 mg every six hours as needed DISCHARGE INSTRUCTIONS: Discharge to home. Activity as tolerated. Regular diet. Prescription was given for PT and OT evaluation. Followup with Dr. Salazar in [address] Charles and Dr. Sheikh as regularly scheduled appointments. Return to the emergency department if symptoms should worsen or progress. He voices understanding. XOCHILT
== END 2016-03-28 10:55 | disposition home or self-care (01) | DRG 45 ==
LOC: M ED 20:36 → M ED INP 23:41 → M PCU 03-26 02:00 → M MS5PR 03-27 20:36
PROVIDERS: ADMIT Internal Medicine; ATTEND Hospitalist
DX: I63.59 Cerebral infarction due to unspecified occlusion or stenosis of other cerebral artery (principal); G35 Multiple sclerosis; C34.90 Malignant neoplasm of unspecified part of unspecified bronchus or lung; M62.81 Muscle weakness (generalized); R20.0 Anesthesia of skin; Z87.891 Personal history of nicotine dependence; Z79.899 Other long term (current) drug therapy

== ENCOUNTER → 2016-04-30 | Outpatient (REF) | payer BC, MEDICARE ==
[~2016-04-30] MED LIST: ASPI325T PO; CYAN1000VL IM; PROC10TA PO; SIMV20TA2 PO; TECF240C PO; VITA100066 PO; VITA400T2 PO; ZOFR20TA PO
== END ==
LOC: M LAB REF 16:42
PROVIDERS: ATTEND Internal Medicine Medical Oncology
DX: C34.90 Malignant neoplasm of unspecified part of unspecified bronchus or lung (principal)

== ENCOUNTER 2016-05-04 08:00 | Outpatient (RCR) | payer BC, MEDICARE | END 2016-05-05 | LOC: M OT 08:00 | PROVIDERS: ATTEND Family Medicine | DX: Z51.89 Encounter for other specified aftercare (principal); I63.9 Cerebral infarction, unspecified; G35 Multiple sclerosis; R53.1 Weakness | CPT/HCPCS: 97110; 97165; G8984; G8985 ==

== ENCOUNTER 2016-05-06 07:54 | Outpatient (RCR) | payer BC, MEDICARE | END 2016-06-05 | LOC: M OT 07:54 | PROVIDERS: ATTEND Family Medicine | DX: Z51.89 Encounter for other specified aftercare (principal); I63.9 Cerebral infarction, unspecified; G35 Multiple sclerosis | CPT/HCPCS: 97110; G8985; G8986 ==

== ENCOUNTER → 2016-05-21 | Outpatient (REF) | payer BC, MEDICARE | LOC: M LAB REF 16:31 | PROVIDERS: ATTEND Internal Medicine Medical Oncology | DX: C34.90 Malignant neoplasm of unspecified part of unspecified bronchus or lung (principal) ==

== ENCOUNTER → 2016-06-29 | Outpatient (CLI) | payer BC, MEDICARE ==
--- NOTE | 2016-06-29 08:35 | REP ---
Clinical: Non-small cell lung cancer for restaging. Technique: Axial noncontrast images from the thoracic inlet to the upper abdomen with coronal and sagittal re-formations. Comparison: 12/25/2015. Findings: The primary lesion involving the left hilum is decreased in size from prior examination currently measuring 5.6 cm maximal diameter. The bilateral metastatic lesions have increased in both size and quantity when compared to prior examination. Metastatic lesions in the left upper lobe measure greater than 2 cm maximal diameter and previously measured roughly 1.1 cm maximal diameter. Metastatic lesions in the right upper lobe, and right middle lobe measure up to 1.6 cm maximal diameter representing new lesions when compared to prior examination while lesions in the right lower lobe measure up to 2.3 cm maximal diameter and previously measured 1.9 cm maximal diameter. No pleural effusion. No pneumothorax. Tracheobronchial tree appears patent although neoplastic endobronchial extension involving the bronchi to the left lower lobe cannot be excluded. Mediastinal and hilar adenopathy noted. A small pleural effusion is identified on current examination which has increased from prior examination. Left adrenal lesion is incompletely evaluated but visualized portions appear similar to prior examination and concerning for metastatic disease. Musculoskeletal structures are without focal osseous abnormality. Impression: While the primary lesion in the left hilum appears to have decreased in size, there is increased quantity and size to the scattered bilateral metastatic lesions. Neoplastic endobronchial involvement to the left lower lobe cannot be excluded. Adenopathy noted. Signed by Marco Novak MD 06/29/2016 08:25 A
== END ==
LOC: M RAD 07:35
PROVIDERS: ATTEND Internal Medicine Medical Oncology
DX: C34.90 Malignant neoplasm of unspecified part of unspecified bronchus or lung (principal)

== ENCOUNTER → 2016-07-02 | Outpatient (REF) | payer BC, MEDICARE ==
[2016-07-02 14:19] LABS: FREE T4 0.96 NG/DL (0.76-1.46)
== END ==
LOC: M LAB REF 13:07
PROVIDERS: ATTEND Internal Medicine Medical Oncology
DX: C34.90 Malignant neoplasm of unspecified part of unspecified bronchus or lung (principal)

== ENCOUNTER → 2016-08-13 | Outpatient (REF) | payer BC, MEDICARE | LOC: M LAB REF 12:32 | PROVIDERS: ATTEND Internal Medicine Medical Oncology | DX: C34.90 Malignant neoplasm of unspecified part of unspecified bronchus or lung (principal) ==

== ENCOUNTER → 2016-08-13 | Outpatient (REF) | payer BC, MEDICARE | LOC: M LAB REF 13:20 | PROVIDERS: ATTEND Psychiatry & Neurology Neurology | DX: E53.8 Deficiency of other specified B group vitamins (principal) ==

== ENCOUNTER → 2016-09-24 | Outpatient (REF) | payer BC, MEDICARE ==
[2016-09-24 17:18] LABS: FREE T4 1.04 NG/DL (0.76-1.46)
== END ==
LOC: M LAB REF 13:44
PROVIDERS: ATTEND Internal Medicine Medical Oncology
DX: C34.90 Malignant neoplasm of unspecified part of unspecified bronchus or lung (principal)

== ENCOUNTER → 2016-12-24 | Outpatient (REF) | payer BC, MEDICARE ==
[2016-12-24 14:57] LABS: FREE T4 1.09 NG/DL (0.76-1.46)
== END ==
LOC: M LAB REF 13:31
PROVIDERS: ATTEND Internal Medicine Medical Oncology
DX: C18.9 Malignant neoplasm of colon, unspecified (principal)

== ENCOUNTER → 2017-02-04 | Outpatient (REF) | payer BC, MEDICARE | LOC: M LAB REF 17:49 | PROVIDERS: ATTEND Psychiatry & Neurology Neurology | DX: I10 Essential (primary) hypertension (principal); E55.9 Vitamin D deficiency, unspecified ==

== ENCOUNTER → 2017-02-25 | Outpatient (REF) | payer BC, MEDICARE ==
[2017-02-25 18:53] LABS: FREE T4 0.98 NG/DL (0.76-1.46)
== END ==
LOC: M LAB REF 16:52
PROVIDERS: ATTEND Internal Medicine Medical Oncology
DX: C34.90 Malignant neoplasm of unspecified part of unspecified bronchus or lung (principal)

== ENCOUNTER → 2017-03-25 | Outpatient (REF) | payer BC, MEDICARE ==
[2017-03-25 15:57] LABS: FREE T4 1.01 NG/DL (0.76-1.46)
== END ==
LOC: M LAB REF 15:03
DX: C34.90 Malignant neoplasm of unspecified part of unspecified bronchus or lung (principal)
CPT/HCPCS: 84443

== ENCOUNTER → 2017-04-15 | Outpatient (CLI) | payer BC, MEDICARE ==
[~2017-04-15] MED LIST changes: -ASPI325T PO; -CYAN1000VL IM; +ISOVUE-370 76% 100ML VIAL (Q9967) As Ordered; -PROC10TA PO; -SIMV20TA2 PO; -TECF240C PO; -VITA100066 PO; -VITA400T2 PO; -ZOFR20TA PO
== END ==
LOC: M RAD 10:33
DX: C34.90 Malignant neoplasm of unspecified part of unspecified bronchus or lung (principal)
CPT/HCPCS: Q9967

== ENCOUNTER → 2017-08-26 | Outpatient (CLI) | payer BC, MEDICARE | LOC: M RAD 07:57 | DX: C78.01 Secondary malignant neoplasm of right lung (principal); C78.02 Secondary malignant neoplasm of left lung; I70.0 Atherosclerosis of aorta; I25.10 Atherosclerotic heart disease of native coronary artery without angina pectoris | CPT/HCPCS: 71250 ==

== ENCOUNTER → 2017-10-14 | Outpatient (REF) | payer BC, MEDICARE ==
[2017-10-14 17:32] LABS: APPEARANCE, URINE CLEAR (CLEAR); BACTERIA, URINE AUTO NEGATIVE (NEGATIVE); BILIRUBIN, URINE AUTO NEGATIVE (NEGATIVE); BLOOD, URINE BLOOD NEGATIVE (NEGATIVE); COLOR, URINE YELLOW (YELLOW); GLUCOSE, URINE (UA) AUTO NEGATIVE (NEGATIVE); KETONE, URINE AUTO NEGATIVE (NEGATIVE); LEUKOCYTE ESTERASE, URINE AUTO NEGATIVE (NEGATIVE); MUCUS, URINE SMALL (NEGATIVE); NITRITE, URINE AUTO NEGATIVE (NEGATIVE); PROTEIN, URINE AUTO NEGATIVE (NEGATIVE); RBC, URINE AUTO 0 /HPF (0-3); SPECIFIC GRAVITY URINE AUTO 1.012 (1.002-1.035); SQUAMOUS EPITHELIAL CELL UR AU 0 /HPF (0-6); UROBILINOGEN, URINE AUTO 0.2 mg/dL (0.0-2.0); WBC, URINE AUTO 1 /HPF (0-3)
== END ==
LOC: M LAB REF 16:58
DX: C78.01 Secondary malignant neoplasm of right lung (principal); C78.02 Secondary malignant neoplasm of left lung; C77.1 Secondary and unspecified malignant neoplasm of intrathoracic lymph nodes
CPT/HCPCS: 81001

== ENCOUNTER → 2017-11-04 | Outpatient (REF) | payer BC, MEDICARE ==
[2017-11-04 18:59] LABS: APPEARANCE, URINE CLEAR (CLEAR); BACTERIA, URINE AUTO NEGATIVE (NEGATIVE); BILIRUBIN, URINE AUTO NEGATIVE (NEGATIVE); BLOOD, URINE BLOOD NEGATIVE (NEGATIVE); COLOR, URINE YELLOW (YELLOW); GLUCOSE, URINE (UA) AUTO NEGATIVE (NEGATIVE); KETONE, URINE AUTO NEGATIVE (NEGATIVE); LEUKOCYTE ESTERASE, URINE AUTO NEGATIVE (NEGATIVE); NITRITE, URINE AUTO NEGATIVE (NEGATIVE); PROTEIN, URINE AUTO NEGATIVE (NEGATIVE); RBC, URINE AUTO 1 /HPF (0-3); SPECIFIC GRAVITY URINE AUTO 1.011 (1.002-1.035); SQUAMOUS EPITHELIAL CELL UR AU 0 /HPF (0-6); UROBILINOGEN, URINE AUTO 0.2 mg/dL (0.0-2.0); WBC, URINE AUTO 1 /HPF (0-3)
== END ==
LOC: M LAB REF 17:10
DX: C78.01 Secondary malignant neoplasm of right lung (principal); C78.02 Secondary malignant neoplasm of left lung; C77.1 Secondary and unspecified malignant neoplasm of intrathoracic lymph nodes
CPT/HCPCS: 81001

== ENCOUNTER → 2017-11-16 | Outpatient (CLI) | payer BC, MEDICARE | LOC: M RAD 10:18 | DX: C34.90 Malignant neoplasm of unspecified part of unspecified bronchus or lung (principal) | CPT/HCPCS: Q9967 ==

== ENCOUNTER → 2017-11-22 | Outpatient (CLI) | payer BC, MEDICARE | LOC: M CARPUL 12:05 | DX: Z86.79 Personal history of other diseases of the circulatory system (principal); Z79.899 Other long term (current) drug therapy | CPT/HCPCS: 93306 ==

== ENCOUNTER → 2017-11-24 | Outpatient (REF) | payer BC, MEDICARE ==
[2017-11-24 18:09] LABS: AMORPHOUS SEDIMENT SMALL (NEGATIVE); APPEARANCE, URINE CLEAR (CLEAR); BACTERIA, URINE AUTO NEGATIVE (NEGATIVE); BILIRUBIN, URINE AUTO 2+ (NEGATIVE); BLOOD, URINE BLOOD NEGATIVE (NEGATIVE); COLOR, URINE YELLOW (YELLOW); GLUCOSE, URINE (UA) AUTO NEGATIVE (NEGATIVE); KETONE, URINE AUTO NEGATIVE (NEGATIVE); LEUKOCYTE ESTERASE, URINE AUTO NEGATIVE (NEGATIVE); NITRITE, URINE AUTO NEGATIVE (NEGATIVE); PROTEIN, URINE AUTO NEGATIVE (NEGATIVE); RBC, URINE AUTO 1 /HPF (0-3); SQUAMOUS EPITHELIAL CELL UR AU 0 /HPF (0-6); UROBILINOGEN, URINE AUTO 0.2 mg/dL (0.0-2.0); WBC, URINE AUTO 0 /HPF (0-3)
== END ==
LOC: M LAB REF 16:48
DX: C78.01 Secondary malignant neoplasm of right lung (principal); C78.02 Secondary malignant neoplasm of left lung; C77.1 Secondary and unspecified malignant neoplasm of intrathoracic lymph nodes
CPT/HCPCS: 81001

== ENCOUNTER → 2017-11-30 | Outpatient (CLI) | payer BC, MEDICARE | LOC: M RAD 07:36 | DX: C34.90 Malignant neoplasm of unspecified part of unspecified bronchus or lung (principal); K44.9 Diaphragmatic hernia without obstruction or gangrene | CPT/HCPCS: Q9967 ==

== ENCOUNTER → 2017-12-16 | Outpatient (CLI) | payer BC, MEDICARE | LOC: M RAD 16:27 | DX: M79.89 Other specified soft tissue disorders (principal) | CPT/HCPCS: 93971 ==

== ENCOUNTER 2017-12-22 09:43 | Day surgery (SDC) | payer BC, MEDICARE ==
[2017-12-22] MEDS: LR 1,000 ML IV (10:18)
[2017-12-22] MEDS ORDERED: ONDANSETRON 4MG/2ML VIAL (J2405) As Ordered (12:09)
[2017-12-22] MEDS ORDERED: PROPOFOL 500 MG/50 ML VIAL As Ordered (12:10)
[2017-12-22] MEDS ORDERED: MIDAZOLAM INJ 2 MG/2 ML VIAL (J2250) As Ordered (12:10)
[2017-12-22] MEDS ORDERED: fentaNYL 100 MCG/2 ML INJECTION (J3010) As Ordered (12:10)
[2017-12-22] MEDS ORDERED: LIDOCAINE 2% INJ 100 MG/5 ML SDV (FOR ANES.) As Ordered (12:11)
[2017-12-22] MEDS: MUPIROCIN 2% OINT 22 GM TUBE TOP (12:30)
[2017-12-22] MEDS: LIDOCAINE 1% MDV 20ML VIAL As Ordered (12:43)
[2017-12-22] MEDS: HEPARIN SOD (PORCINE) 5000 UNITS/ML VIAL As Ordered (13:08)
[2017-12-22] MEDS: BUPIVACAINE LIPOSOME/PF 1.3% 20 ML VIAL (13.3MG/ML)(EXPAREL) As Ordered (13:10)
== END 2017-12-22 15:31 | disposition home or self-care (01) ==
LOC: M SDC 09:43
DX: C34.12 Malignant neoplasm of upper lobe, left bronchus or lung (principal); Z45.2 Encounter for adjustment and management of vascular access device; G35 Multiple sclerosis; J44.9 Chronic obstructive pulmonary disease, unspecified; Z87.891 Personal history of nicotine dependence
CPT/HCPCS: 36561

== ENCOUNTER → 2017-12-30 | Outpatient (CLI) | payer BC, MEDICARE | LOC: M SMT 10:53 | DX: C34.12 Malignant neoplasm of upper lobe, left bronchus or lung (principal); R91.8 Other nonspecific abnormal finding of lung field | CPT/HCPCS: 71046 ==

== ENCOUNTER → 2018-02-04 | Outpatient (CLI) | payer BC, MEDICARE | LOC: M RAD 09:33 | DX: Z48.812 Encounter for surgical aftercare following surgery on the circulatory system (principal); R91.8 Other nonspecific abnormal finding of lung field; Z97.8 Presence of other specified devices | CPT/HCPCS: 71046 ==

== ENCOUNTER → 2018-03-03 | Outpatient (CLI) | payer BC, MEDICARE ==
[~2018-03-03] MED LIST changes: +ASPI325T PO; +AVASINJ2 IV; +COPA1INJ; +CYAN1000VL IM; +GASTROGRAFIN SOLUTION 30ML (Q9963) As Ordered ONE; -ISOVUE-370 76% 100ML VIAL (Q9967) As Ordered; +ISOVUE-370 76% 100ML VIAL (Q9967) As Ordered ONE; +LIDO1CRE TOP; +PRED10PA PO; +PROC10TA4 PO; +SIMV20TA2 PO; +TECF240C PO; +VITA100066 PO; +VITA400T2 PO; +ZOFR4TAB16 PO; +[UNRECOGNIZED DRUG - CODE] IV
--- NOTE | 2018-03-03 12:39 | REP ---
Clinical: Metastatic lung cancer. Technique: Axial contrast enhanced images from the thoracic inlet to the upper abdomen coronal and sagittal re-formations using 100 ml Isovue 370 intravenous contrast material. Comparison: 11/30/2017. Findings: In comparison with prior examination there has been no significant change. Primary appearing mass involving the left hilum/perihilar region along with right hilar adenopathy and scattered bilateral irregular multifocal pulmonary nodular opacities remain essentially stable. However, very subtle small new irregular opacities at the lingula and medial basilar right middle lobe cannot be excluded. Chronic bronchiectasis and emphysematous changes are again suggested. No pleural effusion. No pneumothorax. Thoracic aorta, pulmonary vasculature, and heart/pericardium including coronary arteries remains stable and mild/moderate atherosclerotic changes are again noted. Surrounding musculoskeletal structures are intact without focal osseous abnormality. Impression: Pulmonary parenchymal findings are essentially stable when compared to prior examination. Very subtle new ill-defined areas of irregular opacity at the medial right middle lobe and lingular base cannot be excluded and are nonspecific. Electronically Signed by Marco Novak MD 03/03/2018 12:30 P
--- NOTE | 2018-03-03 13:18 | REP ---
CT abdomen pelvis with IV and oral contrast: History: Metastatic lung carcinoma. Comparison CT study January 07, 2017. Evaluate response to treatment. Comparison PET-CT January 22, 2016. CT contrast dose: 100 mL of intravenous Isovue 370. CT findings: No focal liver or spleen lesion is appreciated. There is mild mucosal thickening in the distal esophagus at the gastroesophageal junction. This is unchanged and may reflect esophagitis. There are two or three normal-sized celiac axis lymph nodes visible which have decreased in size from January 07, 2017. The largest of these has decreased from 16 mm greatest dimension, 289 mm greatest dimension. There is a another portocaval lymph node has decreased from 17-11 mm in greatest diameter. The left adrenal gland remains somewhat enlarged. Its lateral limb measures 10 mm in greatest thickness today, previously 14 mm. There is no measurable change in the medial limb of the left adrenal. The right adrenal gland remains normal. No new abdominal adenopathy is appreciated. No other abdominal mass lesion is seen. Small and large intestinal bowel loops are unremarkable. The prostate is somewhat enlarged and contains a dystrophic calcification. Urinary bladder dahl are diffusely somewhat thickened. No abdominal wall defect is seen. Impression: There are several celiac axis and portacaval lymph nodes in the upper abdomen which appear smaller. No new intra-abdominal disease seen. Electronically Signed by Tarik Lassiter MD 03/03/2018 01:22 P
== END ==
LOC: M RAD 10:21
PROVIDERS: ATTEND Internal Medicine Medical Oncology
DX: C78.01 Secondary malignant neoplasm of right lung (principal)
CPT/HCPCS: 71260; 74177; Q9963; Q9967

== ENCOUNTER 2018-05-06 09:42 | Emergency (ER) | payer BC, MEDICARE ==
[~2018-05-06] VITALS: Ht 172.7 cm; Wt 66.4 kg
[~2018-05-06 09:42] MED LIST changes: +DECA4TAB PO; -GASTROGRAFIN SOLUTION 30ML (Q9963) As Ordered ONE; -ISOVUE-370 76% 100ML VIAL (Q9967) As Ordered ONE
[2018-05-06 10:30] LABS: HEMATOCRIT 36.6 % (42.0-52.0); HEMOGLOBIN 11.5 g/dl (13.5-17.5); MEAN CORPUSCULAR HEMOGLOBIN 31.1 pg (27.0-33.0); MEAN CORPUSCULAR HGB CONC 31.4 g/dl (32.0-36.5); MEAN CORPUSCULAR VOLUME 98.9 fl (80.0-96.0); PLATELET COUNT, AUTOMATED 195 10^3/uL (150-450); WHITE BLOOD COUNT 2.4 10^3/uL (4.0-10.0)
[2018-05-06 11:00] LABS: BLOOD UREA NITROGEN 16 MG/DL (7-18); C REACTIVE PROTEIN QUANTITATIV 2.06 MG/DL (0.00-0.30); CALCIUM LEVEL 8.6 MG/DL (8.8-10.2); CARBON DIOXIDE LEVEL 28 MEQ/L (21-32); CHLORIDE LEVEL 108 MEQ/L (98-107); CREATININE FOR GFR 1.25 MG/DL (0.70-1.30); EOS # 0.2 10^3/uL (0.0-0.50); EOS % 0.2 % (0.0-3.0); GLOMERULAR FILTRATION RATE > 60.0 (>49); GLUCOSE, FASTING 90 MG/DL (70-100); LYMPH # 0.5 10^3/uL (1.5-4.5); LYMPH % 19.9 % (24.0-44.0); MONO # 0.5 10^3/uL (0.0-0.8); MONO % 18.7 % (0.0-5.0); NEUTROPHILS # 1.2 10^3/uL (1.8-7.7); NEUTROPHILS % 51.1 % (36.0-66.0); SODIUM LEVEL 142 MEQ/L (136-145)
[2018-05-06 11:03] LABS: PLATELET ESTIMATE NORMAL (NORMAL)
--- NOTE | 2018-05-06 11:11 | REP ---
Clinical: Left lower extremity swelling with erythema and pain . Technique: Garcia scale and color Doppler evaluation using linear high frequency transducer. Findings: Ultrasound examination of the left lower extremity deep venous structures from the common femoral vein to the popliteal vein demonstrates normal compressibility flow and wave patterns in response to respiration and augmentation. There is no evidence for deep venous thrombosis. Impression: No evidence for deep venous thrombosis. Electronically Signed by Marco Novak MD 05/06/2018 11:02 A
[2018-05-06] MEDS ORDERED: CLEO300C2 PO (11:46)
[2018-05-06 12:02] VITALS: BP 135/84
[2018-05-16] MEDS ORDERED: CLEO300C2 PO (10:35)
[2018-05-16] MEDS ORDERED: DEXA4TA PO (10:35)
== END 2018-05-06 12:04 | disposition home or self-care (01) ==
LOC: M ED 09:42
DX: L03.116 Cellulitis of left lower limb (principal); I95.9 Hypotension, unspecified; E78.5 Hyperlipidemia, unspecified; Z79.899 Other long term (current) drug therapy; Z79.82 Long term (current) use of aspirin; Z87.891 Personal history of nicotine dependence

== ENCOUNTER → 2018-06-01 | Outpatient (CLI) | payer BC, MEDICARE ==
[~2018-06-01] MED LIST changes: +CLEO300C2 PO; +DEXA4TA PO; +GASTROGRAFIN SOLUTION 30ML (Q9963) As Ordered ONE; +ISOVUE-370 76% 125ML VIAL (Q9967 PER ML) As Ordered ONE
--- NOTE | 2018-06-01 15:23 | REP ---
Clinical: Stage IV lung cancer for reevaluation. Technique: Axial contrast enhanced images from the thoracic inlet to the upper abdomen with coronal and sagittal re-formations using 100 ml Isovue 370 intravenous contrast material. Comparison: 03/03/2018. Findings: Left perihilar mass lesion measures approximately 5.4 x 3.3 cm maximal AP and transverse diameter and appears relatively stable. Multiple satellite metastatic lesions involving the right hemithorax are again identified and may be minimally decreased in size. Ill-defined areas of infiltrate and nodularity involving the left upper lobe and left lower lobe are again noted and changes to the left lower lobe appears slightly increased. Mediastinal/right hilar soft tissue suggesting mild adenopathy is unchanged. No effusion. No pneumothorax. Thoracic aorta, pulmonary vasculature and heart/pericardium remains stable. Osseous structures are intact. Impression: 1. The primary neoplastic focus in the left hilum appears relatively stable while satellite metastatic foci in the right upper lobe and right lower lobe appear to be minimally decreased in size and without new lesions identified. 2. Nonspecific areas of infiltrate/atelectasis with small scattered nodularity involving the left mid to lower lung zone appears slightly more prominent. Electronically Signed by Marco Novak MD 06/01/2018 03:15 P
--- NOTE | 2018-06-01 15:33 | REP ---
Clinical: Stage IV lung cancer for reevaluation. Technique: Axial contrast enhanced images from the lung bases to the pubic symphysis using oral (per protocol) and 100 ml Isovue 370 intravenous contrast material with delayed images of the abdomen as well as coronal and sagittal re-formations. Comparison: 03/03/2018. Findings: Liver, spleen, pancreas, gallbladder, and right adrenal gland appear normal. The kidneys continue to have a diffusely striated cortical appearance which may reflect chronic pyelonephritis and should be correlated with urinalysis. Nodularity of the left adrenal gland is again noted and concerning for metastatic disease with nodule in the right limb measuring approximately 17 mm and nodularity to the left limb measuring approximately 12 mm. The celiac access and portocaval adenopathy on prior examination appears improved with lymph nodes measuring up to approximately 9.7 mm. The enteric system is without obstruction or acute inflammatory process. Mild thickening to the distal esophagus at the gastroesophageal junction is unchanged and nonspecific. Evaluation of the pelvis demonstrates normal bladder and stable mild enlargement to the prostate gland measuring approximately 4.4 cm transverse diameter. No ascites. No free air. No retroperitoneal adenopathy. Osseous structures demonstrate age-related degenerative changes without focal abnormality. Impression: 1. Kidneys demonstrate striated nephrogram slightly more prominent than prior examination concerning for chronic pyelonephritis and correlation with urinalysis may be warranted. 2. Nodularity to the left adrenal gland similar to prior examination cannot exclude metastatic disease. 3. Celiac axis and portacaval lymph nodes are within normal range and no further new adenopathy or abdominopelvic mass lesion is appreciated. Electronically Signed by Marco Novak MD 06/01/2018 03:24 P
== END ==
LOC: M RAD 10:23
PROVIDERS: ATTEND Internal Medicine Medical Oncology
DX: C34.02 Malignant neoplasm of left main bronchus (principal); C78.01 Secondary malignant neoplasm of right lung; N40.0 Benign prostatic hyperplasia without lower urinary tract symptoms; E27.8 Other specified disorders of adrenal gland
CPT/HCPCS: 71260; 74177; Q9963; Q9967

== ENCOUNTER 2018-06-22 08:14 | Emergency (ER) | payer BC, MEDICARE ==
[~2018-06-22] VITALS: Ht 172.7 cm; Wt 70.0 kg
[~2018-06-22 08:14] MED LIST changes: +ASPI-1 PO; -ASPI325T PO; -GASTROGRAFIN SOLUTION 30ML (Q9963) As Ordered ONE; -ISOVUE-370 76% 125ML VIAL (Q9967 PER ML) As Ordered ONE
[2018-06-22] MEDS ORDERED: CLINDAMYCIN 150 MG CAP PO ONE (09:15)
[2018-06-22 09:19] LABS: HEMATOCRIT 34.2 % (42.0-52.0); MEAN CORPUSCULAR HEMOGLOBIN 32.6 pg (27.0-33.0); MEAN CORPUSCULAR HGB CONC 32.2 g/dl (32.0-36.5); MEAN CORPUSCULAR VOLUME 101.5 fl (80.0-96.0); PLATELET COUNT, AUTOMATED 200 10^3/uL (150-450); RED BLOOD COUNT 3.37 10^6/uL (4.30-6.10); WHITE BLOOD COUNT 2.1 10^3/uL (4.0-10.0)
[2018-06-22 09:35] LABS: C REACTIVE PROTEIN QUANTITATIV 7.55 MG/DL (0.00-0.30); CALCIUM LEVEL 8.5 MG/DL (8.8-10.2); CREATININE FOR GFR 1.67 MG/DL (0.70-1.30); GLOMERULAR FILTRATION RATE 43.6 (>49); POTASSIUM SERUM 4.4 MEQ/L (3.5-5.1)
--- NOTE | 2018-06-22 10:00 | REP ---
Left lower extremity deep vein duplex ultrasound: The deep veins demonstrate normal compression, normal Doppler color flow and normal Doppler waveforms with respiration and augmentation from the popliteal vein to the common femoral vein. Impression: There is no left lower extremity deep vein thrombus. Electronically Signed by Fredo Jeffries MD 06/22/2018 09:52 A
[2018-06-22 10:24] LABS: APPEARANCE, URINE CLEAR (CLEAR); BACTERIA, URINE AUTO NEGATIVE (NEGATIVE); BILIRUBIN, URINE AUTO NEGATIVE (NEGATIVE); BLOOD, URINE BLOOD NEGATIVE (NEGATIVE); COLOR, URINE STRAW (YELLOW); GLUCOSE, URINE (UA) AUTO NEGATIVE (NEGATIVE); KETONE, URINE AUTO NEGATIVE (NEGATIVE); LEUKOCYTE ESTERASE, URINE AUTO NEGATIVE (NEGATIVE); NITRITE, URINE AUTO NEGATIVE (NEGATIVE); PROTEIN, URINE AUTO NEGATIVE (NEGATIVE); RBC, URINE AUTO 2 /HPF (0-3); SPECIFIC GRAVITY URINE AUTO 1.004 (1.002-1.035); SQUAMOUS EPITHELIAL CELL UR AU 0 /HPF (0-6); UROBILINOGEN, URINE AUTO 0.2 mg/dL (0.0-2.0); WBC, URINE AUTO 0 /HPF (0-3)
[2018-06-22] MEDS ORDERED: CLEO300C2 PO (10:42)
[2018-06-22 10:50] VITALS: BP 133/76
[2018-07-04] MEDS ORDERED: LIDO2.5C15 TOP (09:25)
[2018-07-04] MEDS ORDERED: CLEO300C2 PO (09:46)
== END 2018-06-22 10:52 | disposition home or self-care (01) ==
LOC: M ED 08:14
DX: L03.116 Cellulitis of left lower limb (principal); C34.90 Malignant neoplasm of unspecified part of unspecified bronchus or lung; Z92.21 Personal history of antineoplastic chemotherapy; Z86.73 Personal history of transient ischemic attack (TIA), and cerebral infarction without residual deficits; G35 Multiple sclerosis; Z79.82 Long term (current) use of aspirin; Z79.899 Other long term (current) drug therapy

== ENCOUNTER → 2018-07-07 | Outpatient (REF) | payer BC, MEDICARE ==
[~2018-07-07] MED LIST changes: +LIDO2.5C15 TOP
== END ==
LOC: M LAB REF 17:15
PROVIDERS: ATTEND Internal Medicine Nephrology
DX: N17.9 Acute kidney failure, unspecified (principal)

== ENCOUNTER → 2018-08-15 | Outpatient (REF) | payer BC, MEDICARE | LOC: M SFHCPLAZ 09:23 | PROVIDERS: ATTEND Internal Medicine Infectious Disease | DX: L03.116 Cellulitis of left lower limb (principal) ==

== ENCOUNTER → 2018-09-13 | Outpatient (CLI) | payer BC, MEDICARE ==
--- NOTE | 2018-09-14 08:31 | REP ---
PET/CT: History: Monitoring and non-small cell lung carcinoma. Comparisons: Comparison PET/CT study January 22, 2016. Comparison CT study chest, abdomen, and pelvis June 01, 2018. TECHNIQUE: 55 minutes following the intravenous injection of a 9.65 mCi dose of F-18 FDG, three-dimensional PET scintigraphy is acquired from the skull base to the proximal thighs. Triplanar noncontrast CT scanning is acquired through the same anatomic range for attenuation correction, and image registration with scan parameters optimized to minimize radiation exposure to the patient. PET scintigraphy and CT datasets were fused and displayed on a workstation with multiplanar and projection display capability. PET/CT Findings: Head and neck soft tissues show no suspicious focus. There is some variant skeletal muscle uptake in the floor of the mouth. There is markedly hypermetabolic uptake in the superior segment left upper lobe perihilar mass seen on CT study. Maximum standard uptake value is 20.77. There is a hypermetabolic nodule in the right lower lobe with a maximum standard uptake value 5.65. This nodule measures 12 mm in greatest diameter. There is mildly increased but not hypermetabolic uptake in an infiltrative density in the left lower lobe inferolaterally with maximum standard uptake value 1.93. There is some pleural thickening or pleural fluid on the left posteriorly. This does display mildly hypermetabolic uptake, maximum standard uptake value 2.50. There is no other abnormal hypermetabolic uptake in the chest. There is hypermetabolic adenopathy in the celiac axis region and in the periaortic and aortocaval region of the retroperitoneum. The celiac axis adenopathy shows a maximum standard uptake value of 17.95. Aortocaval lymph nodes range in avidity up to a maximum SUV of 14.15. There are two tiny kevin foci adjacent to the superior mesenteric artery, maximum SUV 5.30. There is a left adrenal nodule which is hypermetabolic, maximum standard uptake value 14.74. No other abnormal hypermetabolic uptake is seen in the abdomen or pelvis. No abnormal skeletal hypermetabolic uptake is appreciated. Impression: There is hypermetabolic uptake consistent with metastatic disease in the lower lobes of the lungs, the left pleural space, the left adrenal gland, and in celiac axis and retroperitoneal lymphadenopathy. Electronically Signed by Tarik Lassiter MD 09/14/2018 09:29 A
== END ==
LOC: M PLARAD 14:52
PROVIDERS: ATTEND Internal Medicine Medical Oncology
DX: C34.2 Malignant neoplasm of middle lobe, bronchus or lung (principal); R59.0 Localized enlarged lymph nodes
CPT/HCPCS: 78815; A9552

== ENCOUNTER → 2018-09-23 | Outpatient (CLI) | payer BC, MEDICARE ==
[2018-09-23 11:01] LABS: INR 1.01
[2018-09-23 11:02] LABS: PARTIAL THROMBOPLASTIN TIME 35.4 SECONDS (25.0-38.4)
== END ==
LOC: M LAB 10:22
PROVIDERS: ATTEND Internal Medicine Nephrology
DX: N17.9 Acute kidney failure, unspecified (principal); C34.12 Malignant neoplasm of upper lobe, left bronchus or lung; R31.9 Hematuria, unspecified

== ENCOUNTER → 2018-09-28 | Outpatient (CLI) | payer BC, MEDICARE ==
[~2018-09-28] MED LIST changes: +LIDOCAINE 1% MDV 20ML VIAL As Ordered ONE; +MIDAZOLAM INJ 2 MG/2 ML VIAL (J2250) As Ordered ONE; +diphenhydrAMINE INJ 50MG/ML VIAL (J1200) As Ordered ONE; +fentaNYL 100 MCG/2 ML INJECTION (J3010) As Ordered ONE
--- NOTE | 2018-09-28 12:40 | IPNPDOC ---
Text Note Date of Service The patient was seen on 09/28/18. NOTE I reviewed the most recent H & P from OSH. No significant interval change. Pre op diagnosis: renal disease Procedure: Renal Biopsy ASA II malampatti I CHYNA no NPO: yes problems with sedation: no Plan kidney biopsy under moderate sedation VS,Fishbone, I+O VS, Fishbone, I+O Vital Signs Date Time Temp Pulse Resp B/P (MAP) Pulse Ox O2 Delivery O2 Flow Rate FiO2 09/28/18 12:20 97.9 62 16 98 CIRILO EVANS MD Sep 28, 2018 12:40
--- NOTE | 2018-09-28 14:14 | POST-OPPD ---
Postoperative Procedure Note Date Of Procedure: Sep 28, 2018 Time Of Procedure: 14:12 PREOPERATIVE DIAGNOSIS: renal disease POSTOPERATIVE DIAGNOSIS: renal disease FINDINGS: unremarkable right kidney PROCEDURE: right kidney Bx SURGEON: ashok ANESTHESIA: moderate sedation SPECIMENS: 3 x cores ESTIMATED BLOOD LOSS: < 5 ml COMPLICATIONS: none POSTOPERATIVE CONDITION: stable CIRILO EVANS MD Sep 28, 2018 14:14
--- NOTE | 2018-09-28 15:38 | REP ---
IR Ultrasound guided Kidney biopsy. IR Ultrasound of the kidney. IR Moderate sedation. Clinical information: Renal disease. Physician: Dr. Lord. Procedure: The patient was advised of the benefits, risks, and alternatives of the procedure and informed consent was obtained. A time-out was performed with verification of the patient's name, MRN, site of procedure and type of procedure to be performed. The patient was positioned in the prone position on the stretcher. The site was prepped and draped in the usual sterile fashion. Moderate sedation was performed by the physician including the presence of an independent trained observer who assisted and monitored the patient's level of consciousness and physiologic status. Following the administration of fentanyl and Versed, the physician spent 45 minutes of continuous face to face time with the patient. Ultrasound of the kidneys demonstrates unremarkable kidneys. No hydronephrosis. Ultrasound was used to identify an appropriate puncture site for biopsy of the right kidney. The soft tissues overlying the anticipated puncture site were anesthetized with lidocaine. Through this anesthetized region, a 17 gauge coaxial needle was inserted into the lower pole of the right kidney under ultrasound guidance. An 18 gauge core biopsy device was advanced through the coaxial needle under ultrasound guidance and used to obtain three cores of the lower pole of the right kidney. The specimen was labeled with the patient's name and medical record number and sent for further analysis. Needle and biopsy device were removed, pressure held and hemostasis achieved. Follow up ultrasound through the area demonstrates no significant hematoma. A sterile dressing was applied to the site. The patient tolerated the procedure well and was returned to the PRU in stable condition. EBL: < 5 ml. Complications: None. Conclusion: 1. Gross ultrasound of the kidneys demonstrates unremarkable kidneys. 2. Successful ultrasound-guided right kidney biopsy. Patient to follow up with referring provider for biopsy results. Thank you for this referral. Electronically Signed by Mylene Lord MD 09/28/2018 03:37 P
[2018-09-28 16:12] VITALS: BP 142/83
== END ==
LOC: M IRPRO 11:54
PROVIDERS: ATTEND Radiology Diagnostic Radiology
DX: N17.9 Acute kidney failure, unspecified (principal); N11.9 Chronic tubulo-interstitial nephritis, unspecified; C34.12 Malignant neoplasm of upper lobe, left bronchus or lung

== ENCOUNTER → 2018-10-03 | Outpatient (REF) | payer BC, MEDICARE ==
[~2018-10-03] MED LIST changes: +ASPI-524 PO; +ASPI81CH33 PO; +BREO1INH PO; -LIDOCAINE 1% MDV 20ML VIAL As Ordered ONE; -MIDAZOLAM INJ 2 MG/2 ML VIAL (J2250) As Ordered ONE; +MS MEDICATION IM; +VENTAER INH; +VITAD1000T PO; -diphenhydrAMINE INJ 50MG/ML VIAL (J1200) As Ordered ONE; -fentaNYL 100 MCG/2 ML INJECTION (J3010) As Ordered ONE
== END ==
LOC: M LABDRAW1 12:49
PROVIDERS: ATTEND Psychiatry & Neurology Neurology
DX: E55.9 Vitamin D deficiency, unspecified (principal)

== ENCOUNTER 2018-10-11 05:44 | Day surgery (SDC) | payer BC, MEDICARE ==
[~2018-10-11] VITALS: Ht 172.7 cm; Wt 68.4 kg
[~2018-10-11 05:44] MED LIST changes: -ASPI-524 PO; -ASPI81CH33 PO; -BREO1INH PO; +LIDOCAINE 4% INJ 5 ML AMP INH ONE; -MS MEDICATION IM; -VENTAER INH; -VITAD1000T PO
[2018-10-11] MEDS ORDERED: ALBUTEROL SULFATE 2.5 MG/0.5 ML INH NEB SOLN INH ONE (06:00)
[2018-10-11] MEDS ORDERED: LR 1,000 ML IV ONE (06:00)
[2018-10-11] MEDS ORDERED: VENTAER INH (06:35)
[2018-10-11] MEDS ORDERED: ASPI81CH33 PO (06:39)
[2018-10-11] MEDS ORDERED: VITAD1000T PO (06:39)
[2018-10-11] MEDS ORDERED: BREO1INH PO (06:39)
[2018-10-11] MEDS ORDERED: ASPI-524 PO (06:39)
[2018-10-11] MEDS ORDERED: MS MEDICATION IM (06:54)
[2018-10-11] MEDS ORDERED: THROMBIN SOLN 5,000 UNITS VIAL As Ordered ONE (07:02)
[2018-10-11] MEDS ORDERED: CETACAINE SPRAY 5GM As Ordered ONE (07:02)
[2018-10-11] MEDS ORDERED: LIDOCAINE 1% SDV INJ 30 ML VIAL As Ordered ONE (07:02)
[2018-10-11] MEDS ORDERED: LIDOCAINE VISCOUS 2% SOLN 15ML UDC As Ordered ONE (07:03)
[2018-10-11] MEDS ORDERED: EPINEPHrine 1MG/ML INJ 30ML MD-VIAL As Ordered ONE (07:03)
[2018-10-11] MEDS ORDERED: EPINEPHrine 1MG/10ML SYRINGE 1.5IN As Ordered ONE (07:09)
[2018-10-11] MEDS ORDERED: dexameTHASONE 4 MG/ML 1ML VIAL (J1100) As Ordered ONE (07:11)
[2018-10-11] MEDS ORDERED: ROCURONIUM BROMIDE 50 MG/5 ML VIAL As Ordered ONE (07:11)
[2018-10-11] MEDS ORDERED: LIDOCAINE 2% INJ 100 MG/5 ML SDV (FOR ANES.) As Ordered ONE (07:11)
[2018-10-11] MEDS ORDERED: PROPOFOL 200 MG/20 ML VIAL As Ordered ONE (07:11)
[2018-10-11] MEDS ORDERED: ONDANSETRON 4MG/2ML VIAL (J2405) As Ordered ONE (07:11)
[2018-10-11] MEDS ORDERED: MIDAZOLAM INJ 2 MG/2 ML VIAL (J2250) As Ordered ONE (07:12)
[2018-10-11] MEDS ORDERED: fentaNYL 100 MCG/2 ML INJECTION (J3010) As Ordered ONE (07:12)
[2018-10-11] MEDS ORDERED: SUGAMMADEX SODIUM 500 MG/5 ML VIAL (BRIDION) As Ordered ONE (07:53)
[2018-10-11] MEDS ORDERED: ePHEDrine SULFATE 25 MG/5 ML(5MG/ML) SYRINGE As Ordered ONE (08:05)
[2018-10-11] MEDS ORDERED: PHENYLephrine HCL 500 MCG/5 ML (100MCG/ML) SYRINGE (J2370) As Ordered ONE (08:05)
--- NOTE | 2018-10-11 08:55 | RO ---
DATE OF PROCEDURE: 10/11/2018 PREOPERATIVE DIAGNOSIS: Adenocarcinoma of the lung. POSTOPERATIVE DIAGNOSIS: Adenocarcinoma of the lung. FINDINGS: Of an abnormal left airway, both in the lingula and in the lower lobe with splaying of the left hilum. PROCEDURE: Bronchoscopy with endobronchial ultrasound, fine-needle aspiration procedure. SURGEON: Herbie Peoples DO ANIME DESIGNER: None. ANESTHESIA: General. ESTIMATED BLOOD LOSS: Is 10-20 mL. SPECIMENS OBTAINED: 1. Endobronchial biopsy left lower lobe and lingula. 2. Cytobrush left lower lobe. 3. Fine-needle aspiration (FNA) left hilar mass. COMPLICATIONS: No observed complications. DESCRIPTION OF PROCEDURE: After informed consent was reviewed with the patient in preoperative area, is brought back to operating room (OR) #8. Anesthesia was initiated with an 8.5 endotracheal tube. The case was then handed over to me. Time-out was performed with two patient identifiers, identifying correct site and correct procedure. Cetacaine spray was then used to anesthetize the airway. The 1T190 bronchoscope was then inserted into the airway through the endotracheal tube. Trachea was midline. Muriel was fairly sharp. Right and left takeoff to the mainstems were normal. Right bronchus (RB) 1 through 10 was normal without endobronchial lesion. No splaying of the spurs. The left mainstem proper was normal. The left upper lobe left bronchus (LB) 1 through 3 was normal without endobronchial lesions. Both LB 4 and 5 were abnormal, both with white tissue and cartilaginous destruction with obstruction of both of the airways. There was no significant large mass. Picture was taken. The left lower lobe was also abnormal. There was also impingement of the anterolateral and posterior basal segments. There was an abnormality off the takeoff of the anterobasal segment. This was biopsied. With biopsy, there was quite a bit of bleeding. Cytology brush adjusted. Normal bronchial cells. Therefore, I retracted the scope, ensured adequate hemostasis, and went to the lingula. I then biopsied the inferior segment of the lingula LB 5. Again had significant amounts of bleeding. Therefore, I ensured hemostasis and went to the fine-needle aspiration. Therefore, the 1T190 bronchoscope was removed. Endobronchial ultrasound was inserted. Left hilum was viewed; and in the 10 o'clock position, a large mass over 4 cm was seen. Fine-needle aspiration was taken of this with confirmation of abnormal cells on site. Cell block was made of further FNAs for better genetic testing. After adequate sampling, the endobronchial ultrasound was removed. 1T190 bronchoscope was reinserted to ensure hemostasis. There was a blood clot in the left lower lobe, along with hemostasis in the lingula. There were no observed complications. Bronchoscope was removed after hemostasis was assured. A postprocedure chest x-ray is pending.
--- NOTE | 2018-10-11 09:11 | REP ---
Clinical: Postoperative assessment. Portable AP upright view. Findings: Obefqr-Y-Xqel identified with tip in the SVC. Large left hilar mass and left mid to lower lobe infiltrates along with suspected small pleural effusion identified. No obvious pneumothorax. Right hemithorax is relatively clear. Skeletal structures are intact. Impression: Left hilar mass with mid/lower lung infiltrates and small effusion Electronically Signed by Marco Novak MD 10/11/2018 09:02 A
[2018-10-11 10:05] VITALS: BP 163/86
--- NOTE | 2018-10-12 07:39 | ECGEPIP ---
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
== END 2018-10-11 10:35 | disposition home or self-care (01) ==
LOC: M SDC 05:44
PROVIDERS: ATTEND Internal Medicine Pulmonary Disease
DX: C34.32 Malignant neoplasm of lower lobe, left bronchus or lung (principal); C77.1 Secondary and unspecified malignant neoplasm of intrathoracic lymph nodes; E78.5 Hyperlipidemia, unspecified; Z92.21 Personal history of antineoplastic chemotherapy; D64.9 Anemia, unspecified; J44.9 Chronic obstructive pulmonary disease, unspecified; Z87.891 Personal history of nicotine dependence; Z79.51 Long term (current) use of inhaled steroids; N18.9 Chronic kidney disease, unspecified; Z86.73 Personal history of transient ischemic attack (TIA), and cerebral infarction without residual deficits; Z79.82 Long term (current) use of aspirin; Z79.899 Other long term (current) drug therapy
CPT/HCPCS: 31623; 31629; 31652; 71045; 88104; 88173; 88305; 88313; 88341; 88342; 93005; J1100; J2250; J2370; J2405; J3010

== ENCOUNTER → 2018-10-20 | Outpatient (CLI) | payer BC, MEDICARE ==
[~2018-10-20] MED LIST changes: +ASPI325T57 PO; +ASPI81CH33 PO; +BAYE325T13 PO; +BREO1INH PO; +CEFU50TA PO; +CHOL100029 PO; +LIDO2.5C15 EXT; -LIDOCAINE 4% INJ 5 ML AMP INH ONE; +MS MEDICATION IM; +ONDA8TAB7 PO; +PRED10TA2 PO; +PRED20TA PO; +PROHANCE 279.3MG/ML 5ML VIAL (A9576) As Ordered ONE; +TESS100C PO; +VENTAER INH
--- NOTE | 2018-10-20 13:33 | REP ---
MRI OF THE LUMBAR SPINE WITHOUT AND WITH CONTRAST: Indication: New right lower radiculopathy. Question lung cancer mets. Comparison: CT of the abdomen and pelvis with contrast of June 01, 2018. Technique: MRI of the lumbar spine was performed utilizing sagittal STIR, T1 and T2-weighted images and, axial T1 and T2-weighted images precontrast. Following the uneventful intravenous administration of 7 mL of ProHance, axial and sagittal T1-weighted images were obtained. Findings: There are enhancing soft tissue nodules within the imaged portion of the retroperitoneum consistent with kevin metastases, including a 10 x 10 mm left periaortic lymph node and a 17 x 10 mm retrocaval lymph node. There is no suspicious focal marrow signal abnormality. There is mild contour irregularity of the superior endplate of L3, likely represent Schmorl's node deformity. There are fatty endplate degenerative changes at L5-S1. There is normal alignment and curvature of the lumbar spine. Vertebral body heights are maintained. There is loss of disc height and disc desiccation at L5-S1. The spinal cord is unremarkable. The conus medullaris terminates at T12-L1. The posterior paraspinal muscles are within normal limits. Level specific observations: T12-L1 (sagittal images only): No significant spinal canal stenosis or neural foraminal narrowing. L1-L2: No significant spinal canal stenosis or neural foraminal compromise. L2-L3: No significant spinal canal stenosis or neural foraminal compromise. L3-L4: Diffuse disc bulge eccentric to the right. Moderate right and mild left neural foraminal narrowing. L4-L5: Diffuse disc bulge. Mild bilateral neural foraminal narrowing, right greater than left. L5-S1: Diffuse disc bulge eccentric to the right with superimposed central disc protrusion. Severe right and mild to moderate left neural foraminal narrowing. There is no significant spinal canal stenosis. Impression: 1. No evidence of osseous metastasis within the lumbar spine. 2. 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 3. Lumbar spondylosis most notably at L5-S1 with diffuse disc bulge and superimposed disc protrusion resulting in severe right and mild to moderate left neural foraminal narrowing. 4. Additionally, there is at least moderate right neural foraminal narrowing at L3-L4. 5. Mild left neural foraminal narrowing at L3-L4 and mild bilateral neural foraminal narrowing at L4-L5, greater on the right. Electronically Signed by Shanique Blackwell MD 10/20/2018 06:55 P
== END ==
LOC: M RAD 06:54
PROVIDERS: ATTEND Internal Medicine Medical Oncology
DX: C77.1 Secondary and unspecified malignant neoplasm of intrathoracic lymph nodes (principal); R93.5 Abnormal findings on diagnostic imaging of other abdominal regions, including retroperitoneum; M47.817 Spondylosis without myelopathy or radiculopathy, lumbosacral region; M48.061 Spinal stenosis, lumbar region without neurogenic claudication; M51.26 Other intervertebral disc displacement, lumbar region; M51.27 Other intervertebral disc displacement, lumbosacral region
CPT/HCPCS: 72158; A9576

== ENCOUNTER 2018-10-21 11:43 | Emergency (ER) | payer BC, MEDICARE ==
[~2018-10-21] VITALS: Ht 172.7 cm; Wt 69.1 kg
[~2018-10-21 11:43] MED LIST changes: -BAYE325T13 PO; -CEFU50TA PO; -LIDO2.5C15 EXT; -ONDA8TAB7 PO; -PRED10TA2 PO; -PRED20TA PO; -PROHANCE 279.3MG/ML 5ML VIAL (A9576) As Ordered ONE; -TESS100C PO
[2018-10-21] MEDS ORDERED: CEFUROXIME 500 MG TAB PO ONE (13:30)
[2018-10-21] MEDS ORDERED: predniSONE 20 MG TAB PO ONE (13:30)
[2018-10-21] MEDS ORDERED: BENZONATATE 100 MG CAP PO ONE (13:30)
[2018-10-21] MEDS ORDERED: CEFU50TA PO (13:37)
[2018-10-21] MEDS ORDERED: PRED10TA2 PO (13:37)
[2018-10-21] MEDS ORDERED: TESS100C PO (13:37)
[2018-10-21 14:09] VITALS: BP 160/86
--- NOTE | 2018-10-21 14:12 | REP ---
REASON: Status post lung biopsy. COMPARISON: Preprocedural portable view of 10/11/2018. Hilar mass status quo. Left mid and lung field opacities status quo. Chronic CP angle on the left status quo. Central venous catheter unchanged. Cardiomediastinal silhouette unchanged. Osseous structures stable. IMPRESSION: Stable chronic changes. No evidence of acute change compared to 10/11/2018. Electronically Signed by Russell Quiroz DO 10/21/2018 02:18 P
== END 2018-10-21 14:54 | disposition home or self-care (01) ==
LOC: M ED 11:43
DX: R04.2 Hemoptysis (principal); C34.90 Malignant neoplasm of unspecified part of unspecified bronchus or lung; Z98.890 Other specified postprocedural states; N18.3 Chronic kidney disease, stage 3 (moderate); G35 Multiple sclerosis; I25.10 Atherosclerotic heart disease of native coronary artery without angina pectoris; Z79.899 Other long term (current) drug therapy; Z87.891 Personal history of nicotine dependence

== ENCOUNTER 2018-11-05 22:25 | Emergency (ER) | payer BC, MEDICARE ==
[~2018-11-05] VITALS: Ht 172.7 cm; Wt 70.0 kg
[~2018-11-05 22:25] MED LIST changes: +CEFU50TA PO; +PRED10TA2 PO; +TESS100C PO
--- NOTE | 2018-11-05 22:44 | REPVR ---
EXAM: CT Head Without Contrast EXAM DATE/TIME: 11/05/2018 10:37 PM CLINICAL HISTORY: 68 years old, male; Other: Stroke SX TECHNIQUE: Imaging protocol: Computed tomography of the head without contrast. Radiation optimization: All CT scans at this facility use at least one of these dose optimization techniques: automated exposure control; mA and/or kV adjustment per patient size (includes targeted exams where dose is matched to clinical indication); or iterative reconstruction. Other technique: STROKE PROTOCOL was implemented. COMPARISON: CT Head without contrast 03/25/2016 9:18 PM FINDINGS: Brain: No intracranial mass, focal mass effect or midline shift. No acute intracranial hemorrhage. Moderate decreased attenuation in periventricular/centrum semiovale white matter. No focal effacement of cortical sulci to indicate acute cortical infarct. Ventricles: Prominent ventricles and CSF spaces suggest parenchymal volume loss. Bones/joints: No calvarial fracture or destructive process. Sinuses: Visualized paranasal sinuses are unremarkable. Mastoid air cells: Mastoid air cells are normally aerated. Orbits: Visualized globes and orbits are unremarkable. Soft tissues: No focal extracranial soft tissue swelling. IMPRESSION: 1. No acute intracranial abnormality. 2. Atrophy and chronic microangiopathic change in supratentorial white matter. ASSESSMENT: ASPECTS ([place] Stroke Program Early CT Score) is 10 Electronically signed by: Darrin Son On 11/05/2018 22:43:54 PM
[2018-11-05 22:46] VITALS: BP 149/88
[2018-11-05] MEDS ORDERED: NORCO, ANEXSIA 5/325MG TABLET (HYDROcodone/ACETAMINOPHEN) PO ONE (23:15)
[2018-11-05 23:20] LABS: BASO % 0.5 % (0.0-1.0); EOS # 0.2 10^3/uL (0.0-0.50); EOS % 2.3 % (0.0-3.0); HEMATOCRIT 40.8 % (42.0-52.0); LYMPH # 0.9 10^3/uL (1.5-4.5); LYMPH % 11.8 % (24.0-44.0); MEAN CORPUSCULAR HEMOGLOBIN 30.4 pg (27.0-33.0); MEAN CORPUSCULAR HGB CONC 31.9 g/dl (32.0-36.5); MEAN CORPUSCULAR VOLUME 95.3 fl (80.0-96.0); MONO # 0.7 10^3/uL (0.0-0.8); MONO % 9.3 % (0.0-5.0); NEUTROPHILS # 5.5 10^3/uL (1.8-7.7); NEUTROPHILS % 75.3 % (36.0-66.0); PLATELET COUNT, AUTOMATED 205 10^3/uL (150-450); RED BLOOD COUNT 4.28 10^6/uL (4.30-6.10); WHITE BLOOD COUNT 7.4 10^3/uL (4.0-10.0)
[2018-11-05 23:24] LABS: CALCIUM LEVEL 8.3 MG/DL (8.8-10.2); CREATININE FOR GFR 1.68 MG/DL (0.70-1.30); GLOMERULAR FILTRATION RATE 43.3 (>49); POTASSIUM SERUM 4.3 MEQ/L (3.5-5.1)
[2018-11-05 23:56] LABS: ERYTHROCYTE SEDIMENTATION RATE 46 mm/hr (0-20)
[2018-11-06] MEDS ORDERED: dexameTHASONE 20 MG/5 ML VIAL (J1100) IV ONE (00:15)
[2018-11-06] MEDS ORDERED: PRED20TA PO (00:18)
[2018-11-18] MEDS ORDERED: SIMV20TA2 PO (09:02)
[2018-11-18] MEDS ORDERED: BAYE325T13 PO (09:02)
[2018-11-18] MEDS ORDERED: LIDO2.5C15 EXT (09:35)
[2018-11-18] MEDS ORDERED: DEXA4TA PO (09:36)
[2018-11-21] MEDS ORDERED: ONDA8TAB7 PO (11:40)
[2018-11-21] MEDS ORDERED: PROC10TA4 PO (11:40)
== END 2018-11-06 00:30 | disposition home or self-care (01) ==
LOC: M ED 22:25
DX: R51 Headache (principal); R90.82 White matter disease, unspecified; G35 Multiple sclerosis; Z85.118 Personal history of other malignant neoplasm of bronchus and lung; Z92.21 Personal history of antineoplastic chemotherapy; Z86.73 Personal history of transient ischemic attack (TIA), and cerebral infarction without residual deficits; Z79.899 Other long term (current) drug therapy
CPT/HCPCS: 70450; 80048; 85025; 85652; 96374; 99284; J1100

== ENCOUNTER → 2018-12-02 | Outpatient (CLI) | payer BC, MEDICARE ==
[~2018-12-02] MED LIST changes: +BAYE325T13 PO; +GASTROGRAFIN SOLUTION 30ML (Q9963) As Ordered ONE; +ISOVUE-370 76% 100ML VIAL (Q9967) As Ordered ONE; +LIDO2.5C15 EXT; +ONDA8TAB7 PO; +PRED20TA PO
--- NOTE | 2018-12-02 13:31 | REP ---
CT chest with IV contrast: History: Restaging lung carcinoma. Comparison chest CT study June 01, 2018. CT contrast dose: 60 mL of intravenous Isovue [address] findings: In the interval since the last examination, there has been an increase in the size of several of the patient's pulmonary nodules. A nodule in the superior segment of the right lower lobe measures 18 mm in transverse dimension today, previously 9 mm. This is seen today on page 54 of 115 in series 204. The left lower lobe perihilar mass has enlarged further, 4.7 cm in craniocaudal span on coronal reformatted scans compared to 3.4 cm previously. There is some cavitary change developing superiorly and laterally in the mass. Its margins remain spiculated. The other pulmonary nodular densities remain essentially unchanged. There is a new small left pleural effusion. The medial limb of the left adrenal gland shows heterogeneous enlargement since the prior study, 2 cm today versus 1.4 cm previously. There is metastatic adenopathy in the celiac axis in the upper abdomen which is new since the June 01, 2018 prior study. The largest node here measures 2.3 x 3.2 cm. No focal liver lesion is appreciated. No bony destructive lesion is appreciated. There is a left-sided Kfojej-E-Efrz catheter. No mediastinal or other extrathoracic adenopathy seen. Impression: There is evidence of intrathoracic and upper abdominal progression. Electronically Signed by Tarik Lassiter MD 12/02/2018 02:39 P
--- NOTE | 2018-12-02 13:35 | REP ---
CT abdomen and pelvis with IV and oral contrast: History: Restaging lung carcinoma. Most recent comparison prior studies June 01, 2018. March 03, 2018 prior study is also reviewed. CT contrast dose: 60 mL of intravenous Isovue [address] findings: There is a small left adrenal mass which has increased since the most recent prior study of June 01, 2018. It measures 2.9 cm in greatest anteroposterior dimension today versus 1.7 cm previously. There is no right adrenal mass. There is progressive celiac axis lymphadenopathy with the largest lymph node measuring 2.3 x 3.2 cm today. There are two or three other smaller but suspicious celiac axis lymph nodes. No focal liver or spleen lesion is seen. No renal mass lesion is observed. The kidneys enhance symmetrically. No pancreatic lesion is seen. There is some aortocaval adenopathy which has developed principally posterior to the vena cava. This lymph node measures 2.7 x 1.6 x 1.5 cm. A similar sized left periaortic lymph node is visible. There are two or three small lymph nodes in the small bowel mesentery. One of these measures 1.1 cm and has a low density center. No other abdominal or pelvic adenopathy is appreciated. There is diffuse mild thickening of the bladder wall. The bladder is not distended. Prostate and seminal vesicles are unremarkable. There is no abdominal wall defect or bony destructive lesions seen. Impression: There is evidence of progressive celiac axis periaortic and aortocaval lymphadenopathy. New small left pleural effusion. Electronically Signed by Tarik Lassiter MD 12/02/2018 02:39 P
== END ==
LOC: M RAD 08:37
PROVIDERS: ATTEND Internal Medicine Medical Oncology
DX: C34.90 Malignant neoplasm of unspecified part of unspecified bronchus or lung (principal)
CPT/HCPCS: 71260; 74177; Q9963; Q9967

== ENCOUNTER → 2019-02-22 | Outpatient (CLI) | payer BC, MEDICARE ==
[~2019-02-22] MED LIST changes: +CALC1CAP31 PO; -SIMV20TA2 PO; +SIMV20TA22 PO
--- NOTE | 2019-02-22 13:54 | REP ---
CT CHEST WITH IV CONTRAST: TECHNIQUE: Axial contrast enhanced images from the thoracic inlet to the upper abdomen using 100 mL Isovue 370 intravenous contrast material with multiplanar reformations. Comparison 12/02/2018. In the right apex laterally there is new ill-defined parenchymal opacity which is nonspecific. Inflammatory focus or early nodule cannot be excluded. More medially in the adjacent right apex on image 20 a subcentimeter nodular density is stable. An oval nodule on image 24 in the right upper lobe appears stable. Curvilinear nodule on image 33 in the right upper lobe is essentially stable. Inferior to that an anterior irregular nodule on image 41 is stable. Somewhat spiculated irregular nodular opacity in the right lower lobe on image 48 is stable. A nodule on image 55 in the right lower lobe has mildly decreased in size no apparent disease appears slightly less solid. An adjacent irregular nodule just inferior to that on image 57 is stable. A bilobed irregular nodule in the right lower lobe on image 71 is unchanged. In the left upper lobe on image 41 there is an irregular nodule anteriorly which is unchanged. The large spiculated left hilar mass has decreased in size. Anteriorly on image 52 a spiculated nodule is stable. Ill-defined parenchymal opacities in the left lower lobe inferiorly appear essentially stable. There is a relatively small left pleural effusion which is essentially stable. No axillary adenopathy is seen. Heart is not enlarged. Left Mediport catheter is again noted. No definite bone lesion is seen. IMPRESSION: Oval mass density in the right lower lobe has mildly decreased in size. Large left hilar spiculated mass has mildly decreased in size. Other irregular nodular opacities bilaterally are essentially stable. No other new findings. Electronically Signed by Fredo Garcia MD 02/22/2019 08:01 P
--- NOTE | 2019-02-22 14:01 | REP ---
CT ABDOMEN AND PELVIS WITH ORAL AND IV CONTRAST: TECHNIQUE: Axial contrast enhanced images from the lung bases to the pubic symphysis using 100 mL Isovue 370 intravenous contrast material with multiplanar reformations. Comparison 12/02/2018. Liver, spleen, and right adrenal are unremarkable. Left adrenal demonstrates a nodule both medially and laterally. It has mildly decreased in size when compared to the prior study of 12/02/2018. The pancreas and kidneys demonstrate no mass. The celiac adenopathy has mildly decreased in size. Diffuse periaortic and pericaval adenopathy has also decreased in size. There is no free air or free fluid. No bowel thickening is seen. No pelvic mass is seen. Urinary bladder is not well distended and not well evaluated. No bone lesion is identified. IMPRESSION: Decreased size of celiac and periaortic adenopathy as well as left adrenal nodules when compared to the prior study of 12/02/2018. No new mass. Electronically Signed by Fredo Garcia MD 02/22/2019 08:01 P
== END ==
LOC: M RAD 10:18
PROVIDERS: ATTEND Internal Medicine Medical Oncology
DX: C78.01 Secondary malignant neoplasm of right lung (principal); C78.02 Secondary malignant neoplasm of left lung
CPT/HCPCS: 71260; 74177; Q9963; Q9967

== ENCOUNTER → 2019-03-24 | Outpatient (CLI) | payer BC, MEDICARE ==
[~2019-03-24] MED LIST changes: -GASTROGRAFIN SOLUTION 30ML (Q9963) As Ordered ONE; -ISOVUE-370 76% 100ML VIAL (Q9967) As Ordered ONE; +ONDA8TAB10 PO; -ONDA8TAB7 PO
--- NOTE | 2019-03-24 20:05 | REP ---
Chest x-ray: Two views. History: Metastatic adenocarcinoma both lungs. Comparison chest x-ray: October 21, 2018. Findings: The left perihilar mass is again seen although it appears smaller. It measures approximately 2.7 cm in greatest transverse dimension today, previously 4.8 cm. There is pleural thickening along the left lateral chest wall and blunting of the left lateral pleural angle is seen. Pleural thickening is seen along the paravertebral pleural surface on the left and there is volume loss in the left hemithorax unchanged. Some subpulmonic left pleural effusion is suspected and this is a little more prominent. No new infiltrate is noted on the right. There is a left-sided Ormbcr-B-Pbpj catheter again noted. Heart is not enlarged. Impression: Left perihilar mass lesion appears somewhat smaller. Increased subpulmonic effusion suspected. Electronically Signed by Tarik Lassiter MD 03/24/2019 08:56 P
== END ==
LOC: M RAD 13:40
PROVIDERS: ATTEND Internal Medicine Medical Oncology
DX: C78.01 Secondary malignant neoplasm of right lung (principal); C78.02 Secondary malignant neoplasm of left lung

== ENCOUNTER → 2019-05-01 | Outpatient (CLI) | payer BC, MEDICARE ==
[~2019-05-01] MED LIST changes: +GASTROGRAFIN SOLUTION 30ML (Q9963) As Ordered ONE; +ISOVUE-370 76% 100ML VIAL (Q9967) As Ordered ONE; +VITAD1000T PO
--- NOTE | 2019-05-01 14:20 | REP ---
CT of the chest with IV contrast: Comparison is 02/22/2019. There is a new moderate right pleural effusion. There is a left pleural effusion that I suspect is slightly larger. There are lung nodules as follows: Image 16, right upper lobe, 7 mm, previously 6 mm. Image 22, right upper lobe, 12 mm, previously 12 mm. There has 30, right upper lobe, 18 mm, previously 18 ml. Image 33, right upper lobe, 8 ml, previously 9 mm. Image 38, right upper lobe, 15 mm, previously 15 ml. Image 45, left hilar, 6.5 cm, previously 6.5 cm. Image 47, right perihilar, 23 mm, previously 23 mm. Image 54, right lower lobe, 24 mm, previously 19 mm. Image 57, right lower lobe, 16 mm, previously 18 mm. Image 68, right lower lobe, 6 mm, previously 5 mm. There is no mediastinal or right hilar adenopathy. The left hilar mass. There is no axillary adenopathy. The thoracic aorta is unremarkable. Cardiac size normal. There is no pericardial effusion. There are no lytic, blastic or destructive skeletal changes. Impression: There is a new right pleural effusion. There is a left pleural effusion that has slightly increased in size. There are multiple lung nodules as described. There is a left hilar mass as described. Electronically Signed by Fredo Jeffries MD 05/01/2019 02:12 P
--- NOTE | 2019-05-01 14:41 | REP ---
CT of the abdomen and pelvis with IV contrast, without bowel contrast: The studies performed. Contiguous with the chest CT this same date. Comparison is 02/22/2019. There is a new right pleural effusion. There is a left pleural effusion that has slightly increased in size. The hepatic parenchyma is homogeneous. The gallbladder, pancreas and spleen are unremarkable and unchanged. The right adrenal is unremarkable. There is a nodule in the medial limb of the left adrenal nodule in the lateral limb of the left adrenal, these have decreased in size. The emili celiac adenopathy and the periaortic/aortocaval adenopathy has not significantly changed. There is bilateral renal cortical scarring. This is unchanged. There is no hydronephrosis. No renal masses are identified. The bowel and mesentery are unremarkable and unchanged. There is no ascites. Pelvis: There is no ascites or adenopathy. The bladder is unremarkable. The pelvic bowel loops are unremarkable. There are no lytic, blastic or destructive skeletal changes. There is advanced degenerative disc disease in the lumbar spine L5 S1. This is unchanged. Impression: The two left adrenal nodules have decreased in size. The emili celiac adenopathy and the periaortic/aortocaval adenopathy has not significantly changed. There is a new right pleural effusion. Left pleural effusion has slightly increased in size. Electronically Signed by Fredo Jeffries MD 05/01/2019 02:33 P
== END ==
LOC: M RAD 10:15
PROVIDERS: ATTEND Internal Medicine Medical Oncology
DX: C34.81 Malignant neoplasm of overlapping sites of right bronchus and lung (principal); J90 Pleural effusion, not elsewhere classified; M51.36 Other intervertebral disc degeneration, lumbar region; E27.8 Other specified disorders of adrenal gland; C34.02 Malignant neoplasm of left main bronchus
CPT/HCPCS: 71260; 74177; Q9963; Q9967

== ENCOUNTER → 2019-05-16 | Outpatient (CLI) | payer BC, MEDICARE ==
[~2019-05-16] MED LIST changes: -GASTROGRAFIN SOLUTION 30ML (Q9963) As Ordered ONE; -ISOVUE-370 76% 100ML VIAL (Q9967) As Ordered ONE
--- NOTE | 2019-05-19 08:32 | ECHO ---
OUTPATIENT ECHOCARDIOGRAPHIC REPORT: DATE OF PROCEDURE: 05/16/2019 DATE OF : 1950 AGE: 68 GENDER: Male. HEIGHT: 66 inches WEIGHT: 154 pounds BODY SURFACE AREA: 1.78 m2 OUTPATIENT. REFERRING PHYSICIAN: Dr. Beatriz Gomez INDICATION: Malignant neoplasm of the lungs - potentially cardiotoxic chemotherapy. MEASUREMENTS: 2-D Measurements: RV: 4.0 cm LV: 4.8 cm Septum: 0.9 cm Posterior wall: 0.9 cm Aortic root: 3.4 cm LA: 3.4 cm LVEF: 65% Doppler Measurements: AV: 1.55 m/sec LVOT: 1.0 m/sec LVOT diameter: 1.9 cm MV - E: 76, A: 108, EA ratio: 0.7 Early mitral deceleration time: 201 ms E prime medial: 6, A prime medial: 11, E prime lateral: 103 Average E/E prime ratio: 9.3/PCWP 13.5 mmHg PV: 0.7 m/sec Pulmonary artery acceleration time: 100 ms RVSP: 32 mmHg IVC: 1.8 cm COMMENTS: Normal sinus rhythm with intraventricular conduction disturbance. M-mode and two-dimensional echocardiography was performed with pulsed, continuous wave, color flow and tissue Doppler studies. Normal left ventricular size, wall thickness and wall motion. Normal left atrial size with grade 1 LV diastolic dysfunction but currently normal estimated mean left atrial pressure. Normal right heart chamber sizes and motion with borderline pulmonary hypertension. Normal IVC size and collapse against an elevated central venous pressure. Mild aortic valvular sclerosis without stenosis and only trace insufficiency. Normal aortic dimensions. Marginally thickened mitral annulus but normal leaflet thickness and excursion with no prolapse or apparent insufficiency. Normal appearing tricuspid valve with very mild insufficiency (physiologic). No apparent intracardiac mass or pericardial effusion.
== END ==
LOC: M CARPUL 07:16
PROVIDERS: ATTEND Internal Medicine Medical Oncology
DX: C78.01 Secondary malignant neoplasm of right lung (principal); J90 Pleural effusion, not elsewhere classified

== ENCOUNTER → 2019-06-01 | Outpatient (CLI) | payer BC, MEDICARE ==
--- NOTE | 2019-06-01 10:52 | REP ---
CHEST X-RAY: Two views. HISTORY: Adenocarcinoma. COMPARISON CHEST X-RAY: March 24, 2019. FINDINGS: An Oheodh-I-Wdkv catheter is noted in place via the left side. There is a large left hilar or perihilar spiculated mass lesion again noted. This appears larger than on the comparison chest x-ray. There is lateral pleural thickening which is unchanged in blunting of the left lateral pleural angle is again noted. There is some apical pleural thickening on the left as well. On the right, there is slight blunting of the posterior pleural angle. Today's view is exposed at a lesser level of inspiration. There is a nodular opacity in the right upper lung field on today's chest x-ray, 7 mm in diameter. No new infiltrate. IMPRESSION: Left perihilar mass appears larger. Small left pleural effusion again noted with pleural thickening. Nodular opacity right upper lobe region. Electronically Signed by Tarik Lassiter MD 06/01/2019 11:05 A
== END ==
LOC: M RAD 10:06
PROVIDERS: ATTEND Internal Medicine Medical Oncology
DX: C34.12 Malignant neoplasm of upper lobe, left bronchus or lung (principal); J90 Pleural effusion, not elsewhere classified

== ENCOUNTER → 2019-06-02 | Outpatient (REF) | payer BC, MEDICARE ==
[2019-06-02 14:06] LABS: BASO # 0.1 10^3/uL (0.0-0.2); EOS % 0.2 % (0.0-3.0); HEMATOCRIT 40.8 % (42.0-52.0); HEMOGLOBIN 12.3 g/dl (13.5-17.5); LYMPH # 0.5 10^3/uL (1.5-5.0); LYMPH % 5.9 % (24.0-44.0); MEAN CORPUSCULAR HEMOGLOBIN 30.3 pg (27.0-33.0); MEAN CORPUSCULAR HGB CONC 30.1 g/dl (32.0-36.5); MEAN CORPUSCULAR VOLUME 100.5 fl (80.0-96.0); MONO # 0.7 10^3/uL (0.0-0.8); MONO % 8.1 % (0.0-5.0); NEUTROPHILS # 7.6 10^3/uL (1.5-8.5); NEUTROPHILS % 84.6 % (36.0-66.0); PLATELET COUNT, AUTOMATED 367 10^3/uL (150-450); RED BLOOD COUNT 4.06 10^6/uL (4.30-6.10)
[2019-06-02 14:14] LABS: INR 1.05; PROTHROMBIN TIME 13.5 SECONDS (11.8-14.0)
[2019-06-02 14:27] LABS: ALBUMIN 2.9 GM/DL (3.2-5.2); BILIRUBIN,TOTAL 0.3 MG/DL (0.2-1.0); CALCIUM LEVEL 8.5 MG/DL (8.8-10.2); CREATININE FOR GFR 1.3 MG/DL (0.70-1.30); GLOMERULAR FILTRATION RATE 58.1 (>42); POTASSIUM SERUM 4.7 MEQ/L (3.5-5.1); TOTAL PROTEIN 5.5 GM/DL (6.4-8.2)
== END ==
LOC: M LAB REF 13:33
PROVIDERS: ATTEND Internal Medicine Pulmonary Disease
DX: J90 Pleural effusion, not elsewhere classified (principal)

== ENCOUNTER → 2019-06-12 | Outpatient (CLI) | payer BC, MEDICARE ==
[2019-06-12 09:53] LABS: PH BODY FLUID 7.636 UNITS (NOT ESTABLISHED); SOURCE, BODY FLUID pH PLEURAL
[2019-06-12 10:00] LABS: APPEARANCE, BODY FLUID CLEAR (CLEAR); PLEURAL FL COLOR PALE YELLOW (COLORLESS); SOURCE, BODY FLUID PLEURAL
[2019-06-12 10:12] LABS: AMYLASE, BODY FLUID 40 U/L (NOT ESTABLISHED); LDH, BODY FLUID 156 U/L (NOT ESTABLISHED); SOURCE, BODY FLUID AMYLASE PLEURAL; SOURCE, BODY FLUID GLUCOSE PLEURAL; SOURCE, BODY FLUID LDH PLEURAL; SOURCE, BODY FLUID TOT PROTEIN PLEURAL; TOTAL PROTEIN, BODY FLUID 3.2 G/DL (NOT ESTABLISHED)
--- NOTE | 2019-06-12 10:32 | REP ---
CHEST TWO VIEWS: Two views of the chest are performed. The patient is status post left thoracentesis. There is no pneumothorax. There is decreased left pleural fluid. There is residual pleural thickening on the left. Left hilar mass is again noted. Right lung is unchanged in appearance. There is a left central venous catheter with the tip in the superior vena cava. IMPRESSION: No pneumothorax status post left thoracentesis. Electronically Signed by Fredo Garcia MD 06/12/2019 10:38 A
[2019-06-12 10:57] VITALS: BP 127/76
--- NOTE | 2019-06-12 15:17 | REP ---
Ultrasound-guided thoracentesis The procedure was performed by WU Gilbert, under the direct supervision of Dr. Garcia. The risks and benefits of the procedure were explained to the patient and informed consent was obtained both verbally and written. Directly prior to the start of the procedure, a formal timeout was completed in the exam room. Pleural fluid on the left lung zone was localized using ultrasound guidance. The skin was prepped and draped in a sterile fashion. 5 ml of 1% lidocaine 10 mg/ml was used as a local anesthetic. Using ultrasound guidance, an 8-Emirati multi side-hole catheter was inserted and advanced into the fluid. 1,400 ml of yellow colored fluid was withdrawn and sent to the lab for analysis. The patient tolerated the procedure well and there were no immediate complications. After the appropriate amount of monitored convalescence, the patient was discharged from the department. Reviewed by WU Galaviz 06/12/2019 01:40 P Electronically Signed by Fredo Garcia MD 06/12/2019 03:09 P
== END ==
LOC: M IRPRO 08:06
PROVIDERS: ATTEND Internal Medicine Pulmonary Disease
DX: R84.6 Abnormal cytological findings in specimens from respiratory organs and thorax (principal); J90 Pleural effusion, not elsewhere classified

== ENCOUNTER → 2019-06-22 | Outpatient (CLI) | payer BC, MEDICARE ==
--- NOTE | 2019-06-23 03:04 | REP ---
Clinical: Pleural effusion. Technique: PA and lateral. Comparison: 06/01/2019, 06/12/2019. Findings: Bilateral perihilar and lower lobe opacities suggesting adenopathy, left hilar mass, and associated atelectasis along with moderate left pleural effusion appear increased from 06/12/2019. No obvious pneumothorax. Eddvpc-E-Eyje again identified with tip in the SVC. Impression: Moderate left pleural effusion increased from prior examination. Perihilar and lower lobe opacities (left greater than right) again noted and appear slightly increased. Electronically Signed by Marco Novak MD 06/23/2019 02:56 A
== END ==
LOC: M RAD 08:39
PROVIDERS: ATTEND Internal Medicine Pulmonary Disease
DX: J90 Pleural effusion, not elsewhere classified (principal)

== ENCOUNTER → 2019-07-10 | Outpatient (CLI) | payer BC, MEDICARE | LOC: M LABSMTC 12:45 | PROVIDERS: ATTEND Anesthesiology | DX: Z01.812 Encounter for preprocedural laboratory examination (principal); Z11.59 Encounter for screening for other viral diseases ==

== ENCOUNTER → 2019-07-11 | Outpatient (CLI) | payer BC, MEDICARE ==
--- NOTE | 2019-07-12 06:04 | REP ---
Clinical: Pleural effusion. History of non-small cell carcinoma. Comparison: 05/01/2019 Technique: Axial noncontrast images from the thoracic inlet to the upper abdomen with coronal and sagittal re-formations. Findings: Moderate/large bilateral pleural effusions are noted and increased from prior examination (left greater than right) with mid to lower lobe atelectasis (left greater than right). A left hilar mass measures greater than 5.4 cm diameter and appears increased from prior examination. Right lower lobe mass measures 3.5 cm maximal diameter and is increased from prior examination when measuring approximately 2.4 cm maximal diameter. Multiple scattered smaller nodular densities/mass lesions are also identified. No pneumothorax. Associated mediastinal and hilar adenopathy noted. Atherosclerotic changes to the thoracic aorta and coronary arteries again noted. No aortic aneurysm. There are small amount of pericardial fluid noted. Surrounding musculoskeletal structures are intact. Lkfaas-S-Neer identified with tip in the SVC. Impression: 1. Moderate/large bilateral pleural effusions with associated mid to lower lobe atelectasis (left greater than right). 2. Left hilar conglomerate adenopathy/mass increased from prior examination currently measuring 5.4 cm maximal diameter. Right lower lobe mass increased from prior examination currently measuring 3.5 cm maximal diameter. Multiple scattered smaller bilateral mass lesions also identified. Electronically Signed by Marco Novak MD 07/12/2019 05:56 A
== END ==
LOC: M RAD 06:40
PROVIDERS: ATTEND Internal Medicine Pulmonary Disease
DX: J90 Pleural effusion, not elsewhere classified (principal); C34.12 Malignant neoplasm of upper lobe, left bronchus or lung; J84.10 Pulmonary fibrosis, unspecified; J98.11 Atelectasis; R59.0 Localized enlarged lymph nodes

== ENCOUNTER 2019-07-12 11:10 | Day surgery (SDC) | payer BC, MEDICARE ==
[~2019-07-12] VITALS: Ht 167.6 cm; Wt 66.7 kg
[2019-07-12] MEDS ORDERED: NS 1,000 ML IV ONE (11:45)
[2019-07-12] MEDS ORDERED: ceFAZolin SOD 2 GM in IV 1 EA IV ONE (11:45)
[2019-07-12] MEDS ORDERED: MUPIROCIN 2% OINT 22 GM TUBE TOP ONE (12:15)
[2019-07-12] MEDS ORDERED: BUPIVACAINE LIPOSOME/PF 1.3% 20ML VIAL (13.3MG/ML)(EXPAREL)(C9290 PER1MG) As Ordered ONE (12:36)
[2019-07-12] MEDS ORDERED: BUPIVACAINE HCL 0.5% 30 ML VIAL As Ordered ONE (12:36)
[2019-07-12] MEDS ORDERED: BUPIVACAINE HCL 0.25% 30ML VIAL As Ordered ONE (12:36)
[2019-07-12] MEDS ORDERED: MIDAZOLAM INJ 2MG/2ML VIAL (J2250 PER 1MG) As Ordered ONE ×3 (12:41→13:09)
[2019-07-12] MEDS ORDERED: MIDAZOLAM INJ 2MG/2ML VIAL (J2250 PER 1MG) IV ONE ×3 (13:02→13:08)
[2019-07-12 14:00] VITALS: BP 135/86
[2019-07-12 14:25] LABS: PH BODY FLUID 7.583 UNITS (NOT ESTABLISHED); SOURCE, BODY FLUID pH PLEURAL
[2019-07-12 14:28] LABS: APPEARANCE, BODY FLUID CLEAR (CLEAR); PLEURAL FL COLOR YELLOW (COLORLESS); SOURCE, BODY FLUID PLEURAL
[2019-07-12 14:52] LABS: AMYLASE, BODY FLUID 48 U/L (NOT ESTABLISHED); CHOLESTEROL, BODY FLUID 68 MG/DL (NOT ESTABLISHED); LDH, BODY FLUID 250 U/L (NOT ESTABLISHED); SOURCE, BODY FLUID ALBUMIN PLEURAL; SOURCE, BODY FLUID AMYLASE PLEURAL; SOURCE, BODY FLUID CHOL PLEURAL; SOURCE, BODY FLUID GLUCOSE PLEURAL; SOURCE, BODY FLUID LDH PLEURAL; SOURCE, BODY FLUID TOT PROTEIN PLEURAL; SOURCE, BODY FLUID TRIG PLEURAL; TOTAL PROTEIN, BODY FLUID 3.7 G/DL (NOT ESTABLISHED); TRIGLYCERIDE, BODY FLUID 13 MG/DL (NOT ESTABLISHED)
--- NOTE | 2019-07-12 15:51 | RO ---
DATE OF PROCEDURE: 07/12/2019 PREPROCEDURE DIAGNOSIS: Malignant pleural effusion, lung cancer. POSTPROCEDURE DIAGNOSIS: Malignant pleural effusion, lung cancer. PROCEDURE: Insertion of left tunneled catheter (PleurX catheter) with moderate sedation. SURGEON: Nahun Mendoaz MD PRICING CONSULTANT: ANESTHESIA: DESCRIPTION OF PROCEDURE: Under satisfactory moderate sedation achieved eventually with 4 mg of Versed, the patient was prepped and draped in the usual sterile fashion. An entry and exit site were chosen. A needle was placed into the chest with production of anthony fluid. A wire was placed. Two incisions were made at the entry and exit sites. A tunnel was created between the entry and exit site and the PleurX catheter pulled through the tunnel and positioned appropriately. The entry site was then dilated and a Peel-Away introducer placed. The PleurX was then placed with the Peel-Away introducer and again positioned satisfactorily. The catheter was secured to the abdominal wall with #1-0 and #2-0 silk suture, and the entry site was closed with running #0 Vicryl subcuticular suture. 1300 mL of anthony fluid was withdrawn and sent for requisite studies of cytologies, hematologies, chemistries, and bacteriologies. The patient tolerated the procedure well, and a chest x-ray is pending.
--- NOTE | 2019-07-12 16:10 | REP ---
CHEST, SINGLE VIEW: Single view of the chest is performed and compared to prior study of 06/22/2019. In each midlung zone, a mass is again seen. Streaky perihilar interstitial opacities on the right appear unchanged. There is a small amount of right pleural fluid. On the left, there has been placement of a pleural drainage catheter. The amount of pleural fluid has decreased. Mild patchy parenchymal opacity seen in the left base. There is a left central venous catheter with the tip in the superior vena cava. Electronically Signed by Fredo Garcia MD 07/12/2019 04:14 P
== END 2019-07-12 14:21 | disposition home or self-care (01) ==
LOC: M SDC 11:10
PROVIDERS: ATTEND Thoracic Surgery (Cardiothoracic Vascular Surgery)
DX: C34.12 Malignant neoplasm of upper lobe, left bronchus or lung (principal); J91.0 Malignant pleural effusion; J44.9 Chronic obstructive pulmonary disease, unspecified; R05 Cough; E78.5 Hyperlipidemia, unspecified; G35 Multiple sclerosis; D64.9 Anemia, unspecified; Z86.73 Personal history of transient ischemic attack (TIA), and cerebral infarction without residual deficits; Z79.82 Long term (current) use of aspirin; Z79.899 Other long term (current) drug therapy
CPT/HCPCS: 32550; 71045; 82042; 82150; 82465; 82945; 83615; 83986; 84157; 84478; 87070; 87075; 87102; 87116; 87205; 87206; 88108; 88305; 88313; 89051; C9290; J0690; J2250

== ENCOUNTER → 2019-07-17 | Outpatient (CLI) | payer BC, MEDICARE ==
--- NOTE | 2019-07-17 19:19 | REPPI ---
Clinical: Postoperative evaluation. Technique: PA and lateral. Comparison: 07/12/2019. Findings: Bojovn-I-Yric identified with tip in the SVC. Left-sided chest tube courses along the posteromedial aspect of the left hemithorax. No obvious pneumothorax. Bilateral perihilar and lower lobe opacities (left greater than right) along with suspected left pleural effusion and possible smaller right effusion noted. The cardiac silhouette is incompletely evaluated. The skeletal structures are grossly intact. Impression: 1. Left-sided chest tube in stable position. 2. Perihilar and lower lobe opacities (left greater than right) along with suspected pleural effusions (left greater than right) similar to prior examination. Electronically Signed by Marco Novak MD 07/17/2019 07:10 P
== END ==
LOC: M PLAIMG 09:53
PROVIDERS: ATTEND Thoracic Surgery (Cardiothoracic Vascular Surgery)
DX: Z48.812 Encounter for surgical aftercare following surgery on the circulatory system (principal)

== ENCOUNTER 2019-08-05 10:17 | Emergency (ER) | payer BC, MEDICARE ==
[~2019-08-05] VITALS: Ht 167.6 cm; Wt 62.9 kg
[2019-08-05 10:56] LABS: BASO # 0.1 10^3/uL (0.0-0.2); BASO % 0.8 % (0.0-1.0); EOS # 0.4 10^3/uL (0.0-0.5); EOS % 5.9 % (0.0-3.0); HEMATOCRIT 45.9 % (42.0-52.0); HEMOGLOBIN 14.3 g/dl (13.5-17.5); LYMPH # 0.8 10^3/uL (1.5-5.0); LYMPH % 11.8 % (24.0-44.0); MEAN CORPUSCULAR HEMOGLOBIN 29.2 pg (27.0-33.0); MEAN CORPUSCULAR HGB CONC 31.2 g/dl (32.0-36.5); MEAN CORPUSCULAR VOLUME 93.7 fl (80.0-96.0); MONO # 0.5 10^3/uL (0.0-0.8); MONO % 8.2 % (0.0-5.0); NEUTROPHILS # 4.8 10^3/uL (1.5-8.5); PLATELET COUNT, AUTOMATED 277 10^3/uL (150-450); WHITE BLOOD COUNT 6.6 10^3/uL (4.0-10.0)
[2019-08-05 11:07] LABS: INR 1.04; PROTHROMBIN TIME 13.3 SECONDS (11.8-14.0)
[2019-08-05 11:21] LABS: BILIRUBIN,DIRECT 0.2 MG/DL (0.0-0.2); BILIRUBIN,TOTAL 0.7 MG/DL (0.2-1.0); CALCIUM LEVEL 8.7 MG/DL (8.8-10.2); CREATININE FOR GFR 1.44 MG/DL (0.70-1.30); GLOMERULAR FILTRATION RATE 51.6 (>42); POTASSIUM SERUM 3.9 MEQ/L (3.5-5.1); TOTAL PROTEIN 6.5 GM/DL (6.4-8.2)
[2019-08-05] MEDS ORDERED: GLAT40IN3 (11:36)
[2019-08-05 14:05] VITALS: BP 123/76
--- NOTE | 2019-08-05 15:28 | REP ---
CHEST, PORTABLE: AP portable view of the chest is performed and compared to several prior studies, most recently 07/17/2019. There is a left hilar mass, unchanged. There is blunting of the costophrenic angles with suspected small effusions, unchanged. Bibasilar parenchymal opacities are not significantly changed. Heart and mediastinum are unchanged. Left central venous catheter is again seen with the tip in the superior vena cava. A left chest tube is unchanged in position. IMPRESSION: Stable findings compared to prior studies. Electronically Signed by Fredo Garcia MD 08/05/2019 09:53 P
== END 2019-08-05 14:06 | disposition home or self-care (01) ==
LOC: M ED 10:17
DX: J90 Pleural effusion, not elsewhere classified (principal); C34.90 Malignant neoplasm of unspecified part of unspecified bronchus or lung; G35 Multiple sclerosis; Z86.73 Personal history of transient ischemic attack (TIA), and cerebral infarction without residual deficits; Z79.899 Other long term (current) drug therapy; Z79.52 Long term (current) use of systemic steroids; Z79.82 Long term (current) use of aspirin

== ENCOUNTER → 2019-08-09 | Outpatient (CLI) | payer BC, MEDICARE ==
[~2019-08-09] MED LIST changes: +GASTROGRAFIN SOLUTION 30ML (Q9963) As Ordered ONE; +GLAT40IN3; +ISOVUE-370 76% 100ML VIAL As Ordered ONE
--- NOTE | 2019-08-10 07:42 | REP ---
Clinical: Lung cancer. Technique: Axial contrast enhanced images from the thoracic inlet to the upper abdomen (followed by CT of the abdomen and pelvis) using 100 ml Isovue 370 intravenous contrast material with coronal and sagittal re-formations. Comparison: 07/11/2019. Findings: Moderate right pleural effusion remains essentially stable. A pleural catheter is identified in the base of the left hemithorax and the left pleural effusion is considerably improved from prior examination. Large left perihilar mass lesion measuring roughly 5.3 cm maximal diameter with spiculated margins along with lobulated right lower lobe mass measuring 4.0 cm maximal diameter remain essentially unchanged. Small bilateral satellite lesions primarily identified in the right upper lobe and right lower lobe are also identified and essentially stable. No pneumothorax. Mediastinal and hilar adenopathy is unchanged. Pericardial thickening is again suspected and stable. No cardiomegaly is appreciated. Thoracic aorta is without aneurysm or dissection. Surrounding osseous structures without focal abnormality. Impression: 1. Pleural catheter at the left base is identified and the left pleural effusion is decreased from prior examination. 2. Moderate right pleural effusion along with left perihilar, right lower lobe, and scattered satellite neoplastic lesions are again identified and essentially unchanged. Electronically Signed by Marco Novak MD 08/10/2019 07:34 A
--- NOTE | 2019-08-10 07:52 | REP ---
Clinical: Lung cancer. Follow-up. Technique: Axial contrast enhanced images from the lung bases to the pubic symphysis using oral (per protocol) and 100 ml Isovue 370 intravenous contrast material with coronal and sagittal re-formations. Delayed images of the abdomen obtained. Comparison: 05/01/2019. Findings: Liver, spleen, pancreas, gallbladder, and right adrenal gland are normal. Nodular hypertrophic appearance to the left adrenal gland is unchanged. The kidneys demonstrate relatively symmetric age-related cortical thinning and lobulated scarring bilaterally without perinephric stranding or hydroureteronephrosis. The enteric system is without obstruction or acute inflammatory process. Colonic diverticula noted without acute diverticulitis. Pelvis demonstrates normal bladder and stable prostatomegaly. No ascites. No free air. Atherosclerotic changes of the aorta and vasculature noted without aneurysm or dissection. Musculoskeletal structures demonstrate degenerative changes without acute focal osseous abnormality. Adenopathy at the maxim hepatis and para celiac adenopathy remains essentially stable. Retroperitoneal periaortic adenopathy appears slightly increased from prior examination. Specifically, the left para-aortic adenopathy at the level of the left renal hilum measures roughly 3.3 x 2.2 cm diameter previously measuring approximately 2.7 x 1.4 cm. Impression: 1. Retroperitoneal/periaortic adenopathy appears to be increased from prior examination. No further evidence for recurrence, metastatic disease, or new mass lesion identified. No ascites. 2. Adrenal gland appears somewhat hypertrophic/nodular and essentially unchanged. 3. Chronic nonacute findings as described above Electronically Signed by Marco Novak MD 08/10/2019 07:43 A
== END ==
LOC: M RAD 08:22
PROVIDERS: ATTEND Internal Medicine Medical Oncology
DX: C34.90 Malignant neoplasm of unspecified part of unspecified bronchus or lung (principal); J90 Pleural effusion, not elsewhere classified
CPT/HCPCS: 71260; 74177; Q9963; Q9967

== ENCOUNTER → 2019-10-02 | Outpatient (CLI) | payer BC, MEDICARE ==
[~2019-10-02] MED LIST changes: +D31000TA2 PO; -GASTROGRAFIN SOLUTION 30ML (Q9963) As Ordered ONE; -ISOVUE-370 76% 100ML VIAL As Ordered ONE; -VITAD1000T PO; +ZOFR8TAB24 PO
--- NOTE | 2019-11-24 13:57 | REP ---
CHEST X-RAY CLINICAL: Follow-up pleural effusion. TECHNIQUE: PA and lateral. COMPARISON: 08/05/2019. FINDINGS: Infusaport identified with tip in the SVC. Large left hilar mass along with right hilar mass-like opacity and bilateral lower lobe opacities with small- moderate pleural effusions are again noted. A chest tube is identified in the left hemithorax relatively stable in position with its tip extending toward the superomedial left hemithorax. Skeletal structures are intact. IMPRESSION: Perihilar opacity/masses along with lower lobe opacities and moderate pleural effusions are similar to prior examination. MTDD
== END ==
LOC: M RAD 12:15
PROVIDERS: ATTEND Thoracic Surgery (Cardiothoracic Vascular Surgery)
DX: J90 Pleural effusion, not elsewhere classified (principal)

== ENCOUNTER → 2019-11-15 | Outpatient (CLI) | payer BC, MEDICARE ==
[~2019-11-15] MED LIST changes: +ISOVUE-370 76% 100ML VIAL As Ordered ONE
--- NOTE | 2019-12-05 10:56 | REP ---
CONTRAST ENHANCED CHEST CT: 11/15/19 CLINICAL: Non small cell lung cancer for follow-up. TECHNIQUE: Axial contrast enhanced images for the thoracic inlet to the upper abdomen with coronal and sagittal reformations using 75cc Isovue 370 intravenous contrast material. COMPARISON: 08/09/19. FINDINGS: Moderate to large right and small to moderate left pleural effusions are again identified and appear slightly increased from prior examination. A chest tube at the base of the left pleural effusion is again identified. The large multilobed mass extending from the left hilum has increased and now measures approximately 7.1cm maximal AP diameter, previously measuring 6.1cm maximal AP diameter. The mass in the perihilar right lower lobe has increased in size; currently measuring 5.3cm maximal transverse diameter and previously measuring 4.1cm maximal transverse diameter at the same level. Small areas of adjacent atelectasis along with possible small satellite lesions including small lesion in the anterior right upper lobe and smaller lesion in the anterior left upper lobe (image 40) all remain essentially stable. Associated mediastinal and hilar adenopathy is again noted. There is no evidence for pneumothorax. Underlying emphysematous disease and bronchiectasis identified. Further evaluation of the mediastinum demonstrates stable appearance to the thoracic aorta, pulmonary vasculature, and heart/pericardium. There appears to be neoplastic invasion of the left main pulmonary artery, unchanged from prior examination. Surrounding musculoskeletal structures are without obvious osseous abnormality. Limited upper abdomen demonstrates stable enlarged appearance to the left adrenal gland. IMPRESSION: The findings suggest increasing neoplastic load including slightly increased bilateral pleural effusions and increased main bilateral lesions in the left perihilar region and right perihilar right lower lobe. MTDD
== END ==
LOC: M RAD 14:54
PROVIDERS: ATTEND Specialist
DX: C34.90 Malignant neoplasm of unspecified part of unspecified bronchus or lung (principal)

== ENCOUNTER → 2020-03-11 | Outpatient (CLI) | payer BC, MEDICARE ==
--- NOTE | 2020-03-11 08:46 | REP ---
INDICATION: NSC LUNG CA COMPARISON: 11/15/2019 TECHNIQUE: Axial contrast enhanced images from the thoracic inlet to the upper abdomen with coronal and sagittal reformations using 75 ml Isovue 370 intravenous contrast material[address] CT examination was performed using the following dose reduction techniques: Automated exposure control, adjustment of mA and/or kv according to the patient's size, and use of iterative reconstruction technique. FINDINGS: Left hilar mass with spiculated margins now measures approximately 5.5 cm in maximal AP diameter and previously measured 7.1 cm AP diameter at the same level. The perihilar right lower lobe mass now measures approximately 3.5 x 2.2 cm maximal diameter and is significantly decreased in size from prior examination when measuring 3.9 x 5.3 cm at the same level. Smaller bilateral satellite lesions/scarring remain unchanged. Moderate to large bilateral pleural effusions with left-sided chest tube in stable position appears slightly increased. Underlying COPD/emphysematous changes and bronchiectasis as well as lower lobe atelectasis (left greater than right) are also identified. Mediastinum demonstrates stable appearance to the thoracic aorta and pulmonary arteries including truncated appearance and suspected chronic thrombus in the main 1st order left lower lobe pulmonary artery. No cardiomegaly. Small stable pericardial effusion noted. Mild mediastinal adenopathy remains unchanged. Surrounding musculoskeletal structures are intact and without acute osseous abnormality. Upper abdomen demonstrates ascites along with stable nodular heterogeneous enhancing appearance to the left adrenal gland. The liver now demonstrates a rim enhancing necrotic presumed metastatic lesion measuring 2.8 cm maximal diameter in the right lobe approaching the dome. IMPRESSION: 1. The 2 most prominent lung lesions appear decreased in size. However moderate to large bilateral pleural effusions may be slightly increased from prior examination despite stable left-sided chest tube. 2. Suspected chronic pulmonary embolus in the left lower lobe pulmonary artery unchanged through multiple examinations dating beyond 05/01/2019. 3. New necrotic hepatic lesion most likely metastatic. 4. Chronic COPD/emphysematous changes. Bibasilar atelectasis. <Electronically signed by Marco Novak > 03/11/20 0883
== END ==
LOC: M RAD 07:57
PROVIDERS: ATTEND Specialist
DX: C34.31 Malignant neoplasm of lower lobe, right bronchus or lung (principal); J90 Pleural effusion, not elsewhere classified; J44.9 Chronic obstructive pulmonary disease, unspecified; I26.99 Other pulmonary embolism without acute cor pulmonale; J98.11 Atelectasis; C78.7 Secondary malignant neoplasm of liver and intrahepatic bile duct
CPT/HCPCS: 71260; Q9967

== ENCOUNTER → 2020-03-25 | Outpatient (CLI) | payer BC, MEDICARE ==
[~2020-03-25] MED LIST changes: -ISOVUE-370 76% 100ML VIAL As Ordered ONE; +SODIUM BICARBONATE 8.4% INJ 50MEQ 50 ML VIAL As Ordered ONE
--- NOTE | 2020-03-25 13:13 | REP ---
INDICATION: POST THORACENTESIS COMPARISON: 10/02/2019. TECHNIQUE: PA/Lateral FINDINGS: There is no pneumothorax status post left thoracentesis. Left lung mass is again noted. There is relatively mild diffuse pleural based density. There are again streaky opacities in the left lower lung zone. The heart is not enlarged. There is a left pleural drainage catheter again noted unchanged since the prior exam. Right infrahilar 0 opacities appear less nodular. IMPRESSION: No pneumothorax status post left thoracentesis. <Electronically signed by Fredo Garcia > 03/25/20 131
[2020-03-25 13:22] LABS: APPEARANCE, BODY FLUID HAZY (CLEAR); PLEURAL FL COLOR YELLOW (COLORLESS); SOURCE, BODY FLUID PLEURAL
[2020-03-25 14:19] LABS: LDH, BODY FLUID 210 U/L (NOT ESTABLISHED); SOURCE, BODY FLUID LDH PLEURAL; SOURCE, BODY FLUID TOT PROTEIN PLEURAL; TOTAL PROTEIN, BODY FLUID 2.7 G/DL (NOT ESTABLISHED)
[2020-03-25 14:30] VITALS: BP 133/79
--- NOTE | 2020-03-25 18:08 | REP ---
INDICATION: RT PLEURAL EFFUSION The patient has a history of right pleural effusion COMPARISON: None. TECHNIQUE: The procedure was performed by WU Gilbert, under the direct supervision of Dr. Garcia The risks and benefits of the procedure were explained to the patient and an informed consent was obtained both verbally and written. Directly prior to the start of the procedure a formal time-out was completed in the procedure room. Pleural fluid in right posterior lung zone was localized using ultrasound guidance. The skin was prepped and draped in a sterile fashion. Six ML of buffered lidocaine was used as a local anesthetic. Using ultrasound guidance an 8-Mauritanian multi side-hole catheter was inserted using trocar technique. FINDINGS: One thousand eighty mL of solid yellow colored fluid was withdrawn and sent to the laboratory for further analysis. The patient tolerated the procedure well and there were no immediate complications. After the appropriate amount of monitored convalescence, the patient was discharged from the department. IMPRESSION: Ultrasound-guided thoracentesis with removal of 1080 mL of fluid. <Electronically signed by Rosa Staley > 03/25/20 1448 <Electronically signed by Fredo Garcia > 03/25/20 [id number]
--- NOTE | 2020-03-26 07:14 | REP ---
INDICATION: LIVER MASS COMPARISON: CT dated 08/09/2019 TECHNIQUE: Real time garcia scale ultrasound examination using curved array transducer. FINDINGS: Liver demonstrates 4.7 x 3.6 x2.6 cm vague heterogeneous/isodense solid mass in the right hepatic lobe along with moderate amount of perihepatic ascites and lymph nodes in the maxim hepatis measuring up to 18 x 11 x 11 mm. Gallbladder and pancreas are normal in appearance. No biliary ductal dilatation is appreciated and the common bile duct measures 2 mm diameter. Right kidney is normal in reniform shape without hydronephrosis and measures 9.2 x 4.7 x 4.1 cm. Incidental right pleural effusion also noted. IMPRESSION: Isodense hepatic mass and periportal lymph nodes along with moderate perihepatic ascites concerning for metastatic disease. <Electronically signed by Marco Novak > 03/26/20 0711
== END ==
LOC: M IRPRO 11:10
PROVIDERS: ATTEND Specialist
DX: J90 Pleural effusion, not elsewhere classified (principal); K76.89 Other specified diseases of liver

== ENCOUNTER → 2020-04-05 | Outpatient (CLI) | payer BC, MEDICARE ==
[~2020-04-05] MED LIST changes: +LIDOCAINE 1% MDV 20ML VIAL As Ordered ONE
--- NOTE | 2020-04-05 13:21 | REP ---
INDICATION: LIVER MASS W/ ASCITES The patient has a history of ascites COMPARISON: None. TECHNIQUE: The procedure was performed by WU Gilbert, under the direct supervision of Dr. Lassiter The risks and benefits of the procedure were explained to the patient and an informed consent was obtained both verbally and written. Directly prior to the start of the procedure a formal time-out was completed in the procedure room. The largest pocket of fluid was localized in the right flank using ultrasound guidance. The skin was prepped and draped in a sterile fashion. Ten ML of buffered lidocaine was used as a local anesthetic. An 8-Turkmen multi side-hole catheter was inserted using trocar technique. FINDINGS: 650 mL of chylous fluid was removed and sent to the lab for further analysis. The patient tolerated the procedure well and there were no immediate complications. 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 <Electronically signed by Rosa Staley > 04/05/20 1213 <Electronically signed by Nikunj Lassiter > 04/05/20 1314
[2020-04-05 13:28] VITALS: BP 101/70
--- NOTE | 2020-04-05 14:59 | REP ---
INDICATION: LIVER MASS W/ ASCITES. COMPARISON: None. TECHNIQUE: The procedure was performed by Rosa Staley [facility], under the direct supervision of Dr. Lassiter. The risks and benefits of the procedure were explained to the patient and an informed consent was obtained both verbally and written. Directly prior to the start of the procedure a formal time-out was completed in the procedure room. FINDINGS: Using ultrasound guidance the right lobe liver mass was localized. The skin was prepped and draped in a sterile fashion. Ten mL of buffered lidocaine was used as a local anesthetic. Using ultrasound guidance a 19/20 gauge coaxial needle biopsy system was inserted and advanced into the left lobe of the liver. Six core biopsy specimens were obtained and sent to pathology for further analysis. The patient tolerated the procedure well and there were no immediate complications. After the appropriate amount of monitored convalescence the patient was discharged from the department. IMPRESSION: 1. Ultrasound-guided right lobe liver mass biopsy. <Electronically signed by Rosa Staley > 04/05/20 1433 <Electronically signed by Nikunj Lassiter > 04/05/20 2041
== END ==
LOC: M IRPRO 08:03
PROVIDERS: ATTEND Specialist
DX: C78.7 Secondary malignant neoplasm of liver and intrahepatic bile duct (principal); C34.12 Malignant neoplasm of upper lobe, left bronchus or lung

== ENCOUNTER 2020-04-25 11:23 | Inpatient (IN) | payer BC, MEDICARE ==
[2020-04-25] VITALS (12 sets, daily range): BP systolic 96–124; BP diastolic 56–78
[~2020-04-25] VITALS: Ht 167.6 cm; Wt 62.5 kg
[~2020-04-25 11:23] MED LIST changes: -GLAT40IN3; +GLAT40IN3 IM; -LIDOCAINE 1% MDV 20ML VIAL As Ordered ONE; -SODIUM BICARBONATE 8.4% INJ 50MEQ 50 ML VIAL As Ordered ONE
--- OUTSIDE RECORDS SUMMARY | 2020-04-25 11:33 | CCD | Continuity of Care Document ---
Author Author Venkatesh DUKES M.D. Organization Unknown Address [address] [place] [id number] Phone [phone] Care Team Providers Care Chiseler Head Name Role Phone Js Sheikh M.D. AUTM [phone] Problems Active Problems Provider Date Unsteady gait Nioks Dukes M.D. Onset: 04/04/2015 Multiple sclerosis Nikos Dukes M.D. Onset: 12/15/2019 Social History Type Date Description Comments Sex Unknown Tobacco Use Start: Unknown End: Unknown Patient is a former smoker Allergies, Adverse Reactions, Alerts Description No Known Drug Allergies Medications Active Medications SIG Qnty Indications Ordering Provide r Date Glatiramer Acetate 4 0mg/ml Soln Prefill Syringe subcutaneous injection three days a week. 36ml Nikos Dukes M.D. 06/06/2018 Aspirin Ec 325mg Tablets DR 1 by mouth every day 90tadebbie Dukes M.D. 04/28/2016 Simvastatin 20mg Tablets take 1 tab by mouth every night at bedtime 90tabs Shannan Vann 04/28/2016 Cyanocobalamin 1000mcg/ML Solution take 1000mcg intramuscular injection every week for 4 weeks, then once a month. 150ml Nikos Dukes M.D. 08/19/2015 Vitamin D (Ergocalciferol) [id number] Capsules take 1 capsule once a week for 8 weeks 8caps Sa sukumar Dukes M.D. 08/19/2015 Vitamin D-3 1000Unit Capsules take one capsule by mouth bid. 180caps Nikos Dukes M.D. 08/06 Vitamin B-12 ER 1000mcg Tablets ER take one tablet once a day. 90tabs Nikos Dukes M.D. Immunizations Description No Information Available Vital Signs Date Vital Result Comment 03/28/2020 2:14pm Respiratory Rate 12 /min Height 68 inches 5'8" Weight 159.00 lb BMI (Body Mass Index) 24.2 kg/m2 [place] Body Weight 154 lb 12/15/2019 10:05am Respiratory Rate 12 /min Height 68 inches 5'8" Weight 159.00 lb BMI (Body Mass Index) 24.2 kg/m2 [place] Body Weight 154 lb Results Description No Information Available Procedures Date Code Description Status 12/15/2019 3288F Fall Risk Assessment Documented Completed 11/03/2019 65362 Sympathetic Skin Responses Compl eted 11/03/2019 84820 Sympathetic Skin Responses Compl eted 11/03/2019 99969 Test Autonomic Nervous System, C ardiovagal Innervation Completed 11/03/2019 16031 Test Autonomic Nervous System, C ardiovagal Innervation Completed 11/03/2019 78213 Artery Study Extremity Mult Leve ls Bilateral Completed 11/03/2019 50595 Artery Study Extremity Mult Leve ls Bilateral Completed 11/03/2019 59423 Artery Study Extremity Mult Leve ls Bilateral Completed 11/03/2019 07513 Artery Study Extremity Mult Leve ls Bilateral Completed 10/11/2019 45499 Nerve Conduction 9-10 Studies Co mpleted 10/11/2019 70089 Needle Electromyography Complete , Five Or More Muscles Studied Completed 10/11/2019 32581 Needle Electromyography Complete , Five Or More Muscles Studied Completed Medical Devices Description No Information Available Encounters Type Date Location Provider Dx Diagnosis Office Visit 03/28/2020 2:00p Main office - [place] M.D. G37.9 Demyelinating disease of central nervous system, unspecified Office Visit 12/15/2019 9:30a Main office - [place] M.[place]. G37.9 Demyelinating disease of central nervous system, unspecified Assessments Date Code Description Provider 03/28/2020 G37.9 Demyelinating disease of central nervous system, unspecified Nikos Dukes M.D. 12/15/2019 G37.9 Demyelinating disease of central nervous system, unspecified Nikos Dukes M.D. 11/03/2019 G62.9 Polyneuropathy, unspecified Derrell Dukes M.D. 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 10/11/2019 G60.9 Hereditary and idiopathic neurop athy, unspecified Nikos Dukes M.D. Plan of Treatment No Information Available Functional Status Description No Information Available Mental Status Description No Information Available Referrals Refer to Reason for Referral Status Appt Date Nikos Dukes M.D. Created [address] [place] [address] [phone]
--- OUTSIDE RECORDS SUMMARY | 2020-04-25 11:33 | CCD | Summary of Care ---
Author Author [facility] Organization [facility] Address Unknown Phone Unavailable Care Team Providers Care Advertising Campaign Manager Name Role Phone Js Sheikh MD PCP Reason for Visit * Reason Comments Consult Encounter Details Care Team Description Date Type Department Jean Marie-Abrahan Dickinson, DO [address] [place], [place] [id number] Malignant neoplasm of lung, unspecified laterality, unspecified part of lung (Primary Dx) 04/09/2020 Office Visit Hematology Oncology [address] [place] [id number] Allergies No Known Allergiesdocumented as of this encounter (statuses as of 04/12/2020) Medications End Date Status Medication Sig Dispensed Refills Start Date Active Aspirin 325 MG Oral Take 325 mg 0 Tablet by mouth daily Active Simvastatin 20 MG Oral Take 20 mg by 0 Tablet (ZOCOR) mouth nightly Active Cyanocobalamin 1000 Inject 1,000 0 MCG/ML Injection Solution mcg into the (VITAMIN B12) muscle every 28 (twenty-eight ) days Active Vitamin D Take 50,000 0 (Ergocalciferol) 1.25 MG Units by (55953 UT) Oral Capsule mouth every 7 (ERGOCALCIFEROL) (seven) days Active Vitamin D3 25 MCG (1000 Take 1,000 0 UT) Oral Tablet Units by (CHOLECALCIFEROL) mouth Two Times Daily Active Vitamin B-12 1000 MCG Take 1,000 0 Oral Tablet mcg by mouth (CYANOCOBALAMIN) daily Active Glatiramer Acetate 40 Inject 40 mg 0 MG/ML Subcutaneous into the skin Solution Prefilled 3 (three) Syringe (COPAXONE) times a week documented as of this encounter (statuses as of 04/12/2020) Active Problems Problem Noted Date Metastatic lung cancer (metastasis from lung to other site) 04/12/2020 Malignant pleural effusion 04/12/2020 Malignant ascites 04/12/2020 Dyslipidemia 04/12/2020 documented as of this encounter (statuses as of 04/12/2020) Social History Date Tobacco Use Types Packs/Day Years Used Quit: 2013 Former Smoker Cigarettes Smokeless Tobacco: Never Used Drinks/Week oz/Week Comments Alcohol Use Not Currently Sex Assigned at Date Recorded Not on file Date Recorded COVID-19 Exposure Response 04/09/2020 8:14 AM EST In the last month, have you been in contact with No / Unsure someone who was confirmed or suspected to have Coronavirus / COVID-19? documented as of this encounter Last Filed Vital Signs Reading Time Taken Comments Vital Sign 105/69 04/09/2020 8:45 AM EST R Blood Pressure 112 04/09/2020 9:12 AM EST radial, Dr. Graham notified Pulse 36.3 C (97.4 F) 04/09/2020 8:45 AM EST Temperature 24 04/09/2020 9:[address] Graham notifie d Respiratory Rate 97% 04/09/2020 8:45 AM EST ra Oxygen Saturation - - Inhaled Oxygen Concentration 58.8 kg (129 lb 9.6 oz) 04/09/2020 8:45 AM EST Weight 166.4 cm (5' 5.5") 04/09/2020 8:45 AM EST Height 21.24 04/09/2020 8:45 AM EST Body Mass Index documented in this encounter Patient Instructions * Patient Instructions* Abrahan Rvias, - 04/09/2020 8:30 AM EST Metastatic Non-small cell lung carcinoma since 2016. He has progressed to multi ple lines of chemotherapy as well as pembrolizumab. I agree with single agent gemcitabine. Since it has been over 4 years from his original diagnosis I recommend sending n ext generation sequencing on the liver specimen to [facility]. If there are a ny targetable mutations then treat accordingly. However, if there are no targetable mutations considered combination nivolumab a nd ipilimumab. 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 A clinical trial will be available in t he near future targeting K-deborah mutation and patient could be screened for enroll ment. On examination today, he is quite short of breath, oxygen saturation on room air dropped to 80%. He appears to have a large right pleural effusion, which should be tapped as well as ascites. He will be sent for chest x-ray today. Since he lives in [place], paracentesis should be arranged at [facility] by Dr. Galeana. He is also at high risk for pulmonary embolus and a CT angio of the chest should be considered if hypoxia does not resolve. Patient should be considered for portable oxygen to use with exertion. I would like to touch base with him in about 3 weeks via Tele Med to discuss NGS results. documented in this encounter Progress Notes * Abrahan Rivas DO - 04/09/2020 8:30 AM EST I saw and evaluated the patient. Discussed with the Dr Graham and agree with his findings as documented in the fellow's note. Metastatic Non-small cell lung carcinoma since 2016. He has progressed to multi ple lines of chemotherapy as well as pembrolizumab. I agree with single agent gemcitabine. Since it has been over 4 years from his original diagnosis I recommend sending n ext generation sequencing on the liver specimen to [facility]. If there are a ny targetable mutations then treat accordingly. However, if there are no targetable mutations considered combination nivolumab a nd ipilimumab. 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 A clinical trial will be available in t he near future targeting K-deborah mutation and patient could be screened for enroll ment. On examination today, he is quite short of breath, oxygen saturation on room air dropped to 80%. He appears to have a large right pleural effusion, which should be tapped as well as ascites. He will be sent for chest x-ray today. Since he lives in [place], paracentesis should be arranged at [facility] by Dr. Galeana. He is also at high risk for pulmonary embolus and a CT angio of the chest should be considered if hypoxia does not resolve. Patient should be considered for portable oxygen to use with exertion. I would like to touch base with him in about 3 weeks via Tele Med to discuss NGS results. * Dimas Graham MD - 04/09/2020 8:30 AM EST ID: Venkatesh Blue is a 69 y.o. male No chief complaint on file. PCP: No primary care provider on file. 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 Venkatesh Blue is a 69 y.o. male with past medical history of MS (not on m eds), h/o tobacco use (+40 pack year - quit in 2013) and Stage IV RIP adenocarci noma with bilateral lung nodules. Patient is being followed at [facility] in [place], [place] where he has previously received docetaxel, pembrolizumab, carboplatin, pemetrexed and bevacizumab. Patient most recently received Navelbin e, however was noted to have progression with malignant pleural effusion. He is presenting to our clinic for a second opinion evaluation. Patient's Oncological history obtained from [facility] clinic notes by Dr. Galeana from 04/04/2020. Patient was diagnosed in 2015 and has received P embrolizumab (02/2016-03/2017) followed by Carboplatin/Pemetrexed/Bevacizumab (-06/2017), followed by Pemetrexed/Bevacizumab maintenance (07/2017-06/2018) followed by Taxotere (08/16/2019-12/2019), followed by Single agent Navelbine (-03/2020). In the past, he was been noted to have negative pleural fluid cytologies until recently right sided thoracentesis showed malignant pleural ef fusion. Patient currently pending initiation of single agent Gemzar. Patient rep ortedly in the past has K-deborah mutation, but pathology reports not available at t he current time. Patient here with Rosanna and they are from [place], [place]. He also recently h ad a liver U/S which noted a liver mass for which he underwent a biopsy on 2020 and results are currently pending. PAST MEDICAL / SURGICAL / SOCIAL / FAMILY HISTORY (including ADR & MEDs) PAST MEDICAL HISTORY: Past Medical History: Diagnosis Date Cataract MS (multiple sclerosis) Stroke 2017 PAST SURGICAL HISTORY: History reviewed. No pertinent surgical history. There is no problem list on file for this patient. ALLERGIES: No Known Allergies MEDICATIONS: Current Outpatient Medications on File Prior to Visit Medication Sig Dispense Refill Aspirin 325 MG Oral Tablet Take 325 mg by mouth daily Cyanocobalamin 1000 MCG/ML Injection Solution (VITAMIN B12) Inject 1,000 mcg into the muscle every 28 (twenty-eight) days Glatiramer Acetate 40 MG/ML Subcutaneous Solution Prefilled Syringe (COPA XONE) Inject 40 mg into the skin 3 (three) times a week Simvastatin 20 MG Oral Tablet (ZOCOR) Take 20 mg by mouth nightly Vitamin B-12 1000 MCG Oral Tablet (CYANOCOBALAMIN) Take 1,000 mcg by mout h daily Vitamin D (Ergocalciferol) 1.25 MG (69678 UT) Oral Capsule (ERGOCALCIFERO L) Take 50,000 Units by mouth every 7 (seven) days Vitamin D3 25 MCG (1000 UT) Oral Tablet (CHOLECALCIFEROL) Take 1,000 Unit s by mouth Two Times Daily No current facility-administered medications on file prior to visit. SOCIAL AND FAMILY HISTORY: Social History Socioeconomic History Marital status: Spouse name: Not on file Number of children: Not on file Years of education: Not on file Highest education level: Not on file Occupational History Not on file Social Needs Financial resource strain: Not on file Food insecurity Worry: Not on file Inability: Not on file Transportation needs Medical: Not on file Non-medical: Not on file Tobacco Use Smoking status: Not on file Substance and Sexual Activity Alcohol use: Not on file Drug use: Not on file Sexual activity: Not on file Lifestyle Physical activity Days per week: Not on file Minutes per session: Not on file Stress: Not on file Relationships Social connections Talks on phone: Not on file Gets together: Not on file Attends shinto service: Not on file Active member of club or organization: Not on file Attends meetings of clubs or organizations: Not on file Relationship status: Not on file Intimate partner violence Fear of current or ex partner: Not on file Emotionally abused: Not on file Physically abused: Not on file Forced sexual activity: Not on file Other Topics Concern Not on file Social History Narrative Not on file family history includes Cancer in his brother; Diabetes in his brother and mothe r; Heart attack in his father. REVIEW OF SYSTEMS 1. Constitutional: fever, chills, night sweats, changes in appetite. 2. Cardiovascular: chest pressure or pain, palpitations, edema. 3. Respiratory: shortness of breath, wheeze, cough, sputum/phlegm. 4. GI: abdominal pain, nausea, vomiting, diarrhea, constipation, heartburn, and blood in stool. 5. Neurology: headache, dizziness, weakness, numbness, and tingling. 6. Musculoskeletal: joint/extremity pain and back pain. 7. Skin: rash and pruritis. 8. : dysuria, frequency, urgency, and hematuria. ALL ABOVE SYSTEMS REVIEWED LISTED AND ARE NEGATIVE, EXCEPT THOSE MENTIONED IN HPI. PHYSICAL EXAM The following systems were examined: Neck: Neck* and thyroid* inspection and palpation for mass or tenderness. CV: Auscultation* for normal heart sounds without murmur or gallop at apex and b ase. Calves and legs inspection and palpation for suppleness, edema* Respiratory: inspection for respiratory effort; auscultationof lungs for normal vesicular breath sounds without wheezes, crackles Abdomen: palpation for firmness, tenderness, mass; palpation, percussion for HSM . Psychiatric: assessment for normal mood and affect*, judgment and insight* Neurological: assessment of: cognition, speech Musculoskeletal: station, gait General Appearance: (habitus, hygiene, grooming, demeanor, major deformity, size , gross mobility)* Vital signs Visit Vitals BP 105/69 (BP Location: Right arm, Patient Position: Sitting, Cuff size: Adult S mall) Comment: R Pulse (!) 112 Comment: radial, Dr. Graham notified Temp 36.3 C (97.4 F) (Oral) Resp (!) 24 Comment: Dr. Graham notified Ht 1.664 m (5' 5.5") Wt 58.8 kg (129 lb 9.6 oz) SpO2 97% Comment: ra BMI 21.24 kg/m THE ABOVE SYSTEMS UNREMARKABLE EXCEPT: Patient appears in no acute distress. Javad ign cardiac, abdominal and musculoskeletal exam with no evidence of murmurs/rubs , crackles/wheezes, tenderness/distention or focal neurological deficits. Dimini shed air entry on right lung with evidence of effusion DATA REVIEW Labs: No results found for: WBC, RBC, HGB, HCT, MCV, MCH, MCHC, RDW, PLT, MPV, LYMPHOP CT, MONOPCT, EOSPCT, BASOPCT, NEUTROABS, LYMPHOABS, MONOABS, EOSABS, BASOSABS No results found for: NA, K, CL, BICARBONATE, ANIONGAP, GLUCOSE, BUN, CREATININE, GFRAA, GFRNONAA, CALCIUM, BILITOT, TBILI, ALKPHOS, ALT, AST, ALBUMIN, PROT ASSESSMENT AND PLAN: Mr. Venkatesh Blue is a 69 y.o. male with past medical history of MS (not on m eds) and Stage IV RIP adenocarcinoma with bilateral lung nodules. Patient is belinda schmitz followed at [facility] in [place], [place] where he has previously rec eived docetaxel, pembrolizumab, carboplatin, pemetrexed and bevacizumab. Patient most recently received Navelbine, however was noted to have progression with ma lignant pleural effusion. He is presenting to our clinic for a second opinion ev aluation. Reviewed patient's HPI, available labs and imaging. At the current time, would r ecommend resending [facility] testing on the liver biopsy as his tumor biolog y may have changed over the years. In the interim, agree with single agent Gemza r. Can consider Ipi+Nivo if that fails and no other targetable mutations on [facility]. Hospice also appropriate depending on his tolerance. While KRAS testi ainsley may qualify him for a clinical trial, the study is currently not open for enr ollment, but we can follow his progress and testing to continue the assessment. Lastly, patient has significant shortness of breath and on examination evidence of right sided pleural effusion and some ascites. Will obtain stat CXR to rule o ther acute pathology. Patient will benefit with a right sided thoracentesis soon . # Palliative Measures: - Pain: Tylenol - Constipation: No - Nausea: No - Anxiety/ depression: Seems coping with disease, we offered support - Nutrition: Tolerating a regular diet - Code status and advance directive: Not discussed - Nicotine abuse: None CXR today. RTC in 3 weeks for telemedicine visit (no labs) . Advised patient stew t if he develops any problems or issues prior to return to clinic, he should giv e our office a call. In addition, we have a 24-hour on-call service. Patient agr eeable with plan of care. Patient did have questions answered to his satisfactio n and to the best of my knowledge. Certain parts of this note may have been carried over from prior Hematology/Onco logy notes to maintain accuracy of patient's pertinent medical history and babatunde nuity of care. The details were verified and edited as appropriate. Patient was discussed with Dr. Aj who agrees with the above assessment and plan Dimas Graham MD Hematology & Oncology Fellow [phone] documented in this encounter Plan of Treatment Care Team Description Date Type Specialty Jean Marie-Alok, Abrahan, DO [address] [place] [address] [phone] 04/30/2020 Telemedicine Hematology and Onco logy Health Maintenance Due Date Last Done Comments Hepatitis C Screening (B. 1950 [id number]) MMR Vaccines (1 of 1 - 1950 Standard series) Varicella Vaccines (1 of 1951 2 - 2-dose childhood series) Pneumococcal Vaccine: 05[birth year]20/1956 Pediatrics (0 to 5 Years) and At-Risk Patients (6 to 64 Years) (1 of 3 - PCV13) DTaP,Tdap,and Td Vaccines 1956 (1 - Tdap) Colon Cancer Screening 10 05/20/1999 yrs Zoster Vaccines (1 of 2) 05/20/1999 Pneumococcal Vaccine: 65+ 2014 Years (1 of 1 - PPSV23) Influenza Vaccine 12/07/2019 HIB Vaccines Aged Out No longer eligible based on patient's age to complete this topic Hepatitis A Vaccines Aged Out No longer eligibl e based on patient's age to complete this topic Hepatitis B Vaccines Aged Out No longer eligibl e based on patient's age to complete this topic IPV Vaccines Aged Out No longer eligible based on patient's age to complete this topic documented as of this encounter Results * XR Chest Frontal and Lateral (04/09/2020 10:43 AM EST) Specimen Impressions Performed At IMPRESSION: [facility] 1. Moderate to large right pleural effusi on with adjacent compressive atelectasis of the right lung base. Linear opacitie s in the right upper lung may represent atelectasis or scarring. 2. Large left perihilar masslike opacity with associated circumferential scarring. Significant fibrotic changes in the lef t lower lung with overlying patchy airspace opacities, which may represent superimposed aspiration or pneumonia. However prior imaging is not available for comparison. 3. Small to moderate left pleural effusio n tracking up the mediastinal pleura. 4. Possible pleural thickening or trackin g pleural effusion along the left lateral costal pleura. Narrative Performed At [facility] INDICATION: 69-year-old male with a history of sta ge IV left upper lobe adenocarcinoma and MS presenting for initial radiographic evaluation of worsening shortness of breath. TECHNIQUE: PA and lateral views of the chest were obtained. Comparison: No prior relevant studies a re available for comparison at the time of dictation. FINDINGS: Lines, Devices, Tubes: Left chest port with the distal tip overlying the distal SVC. Left Pleurx catheter with the dist al tip overlying the left medial thorax . Heart: The cardiomediastinal silhouette is partially obscured by overlying pulmonary opacities and pleural effusio n, however appears grossly normal. Lungs: Moderate to large right pleural effusio n with adjacent compressive atelectasis of the right lung base. Linear opacitie s in the right upper lung, which may represent atelectasis or scarring. Small to moderate left pleural effusion tracking up the mediastinal pleura. Opacity along the lateral pleural gianfranco n of the left chest wall may represent pleural thickening or pleural effusion tracking up the lateral costal pleura. Large left perihilar masslike airspace opacity with associated circumferential scarring. Significant fibrotic changes in the left lower lung with overlying patchy airspace opacities. No evidence of pneumothorax. Bones: The visualized osseous structure s are grossly intact with mild degenerative changes of the visualized spine and acromioclavicular joints. Procedure Note Interface, Received Via [employer] [facility] - 04/09/2020 11:31 AM EST INDICATION: 69-year-old male with a history of stage IV left upper lobe adenocarcinoma and MS presenting for initial radiographic evaluation of worsening shortness of breath. TECHNIQUE: PA and lateral views of the chest were obtained. Comparison: No prior relevant studies are available for comparison at the time of dictation. FINDINGS: Lines, Devices, Tubes: Left chest port with the distal tip overlying the distal SVC. Left Pleurx catheter with the distal tip overlying the left medial thorax . Heart: The cardiomediastinal silhouette is partially obscured by overlying pulmonary opacities and pleural effusion, however appears grossly normal. Lungs: Moderate to large right pleural effusion with adjacent compressive atelectasis of the right lung base. Linear opacities in the right upper lung, which may represent atelectasis or scarring. Small to moderate left pleural effusion tracking up the mediastinal pleura. Opacity along the lateral pleural margin of the left chest wall may represent pleural thickening or pleural effusion tracking up the lateral costal pleura. Large left perihilar masslike airspace opacity with associated circumferential scarring. Significant fibrotic changes in the left lower lung with overlying patchy airspace opacities. No evidence of pneumothorax. Bones: The visualized osseous structures are grossly intact with mild degenerative changes of the visualized spine and acromioclavicular joints. IMPRESSION: 1. Moderate to large right pleural effu teresa with adjacent compressive atelectasis of the right lung base. Linear opacities in the right upper lung may represent atelectasis or scarring. 2. Large left perihilar masslike opacit y with associated circumferential scarring. Significant fibrotic changes in the left lower lung with overlying patchy airspace opacities, which may represent superimposed aspiration or pneumonia. However prior imaging is not available for comparison. 3. Small to moderate left pleural effus ion tracking up the mediastinal pleura. 4. Possible pleural thickening or track ing pleural effusion along the left lateral costal pleura. Performing Organization Address City/State/Zipcode Ph one Number [facility] [address] [place] [address] documented in this encounter Visit Diagnoses Diagnosis Malignant neoplasm of lung, unspecified laterality, unspecified part of lung - Primary documented in this encounter
--- OUTSIDE RECORDS SUMMARY | 2020-04-25 11:33 | CCD | Summary of Care ---
Author Author [facility] Organization [facility] Address Unknown Phone Unavailable Care Team Providers Care Clerical Assigner Name Role Phone Js Sheikh MD PCP Encounter Details Care Team Description Date Type Department Malignant neoplasm of lung, unspecified laterality, unspecified part of lung 04/09/2020 [facility] Diagnostic Radiolog y Encounter [address] [id number] Allergies No Known Allergiesdocumented as of this encounter (statuses as of 04/10/2020) Medications End Date Status Medication Sig Dispensed [...] 50,000 0 (Ergocalciferol) 1.25 MG Units by (39955 UT) Oral Capsule mouth every 7 (ERGOCALCIFEROL) [...] as of this encounter (statuses as of 04/10/2020) Active Problems Not on filedocumented as of this encounter (statuses as of 04/10/2020) Social History Date Tobacco Use Types Packs/Day [...] of this encounter Last Filed Vital Signs Not on filedocumented in this encounter Plan of Treatment Care Team Description Date Type Specialty Evelyn, Abrahan, DO [address] [place] [address] [phone] 04/30/2020 Telemedicine Hematology and Onco logy Health Maintenance Due Date Last Done Comments Hepatitis C Screening (B. 1950 [id number]) MMR Vaccines (1 of 1 - 1950 [...] this topic documented as of this encounter Procedures Comments Procedure Name Priority Date/Time Associated Diag nosis XR CHEST FRONTAL AND STAT 04/09/2020 Malignant neoplasm of [place] [address] 10:43 AM EST lung, unspecified laterality, unspecified part of lung documented in this encounter Results * XR Chest Frontal and Lateral (04/09/2020 10:43 AM EST) Specimen Impressions Performed At IMPRESSION: [facility] 1. Moderate to large right pleural [...] left lateral costal pleura. Narrative Performed At [facility] INDICATION: 69-year-old male with a history [...] acromioclavicular joints. Procedure Note Interface, Received Via [employer] [facility] - 04/09/2020 11:31 AM EST INDICATION: [...] Performing Organization Address City/State/Zipcode Ph one Number [facility] [address] [place] [address] documented in this encounter Visit Diagnoses Diagnosis Malignant neoplasm of lung, unspecified laterality, unspecified part of lung documented in this encounter
--- OUTSIDE RECORDS SUMMARY | 2020-04-25 11:33 | CCD | Continuity of Care Document ---
Author Author Venkatesh DUKES M.D. Organization Unknown Address [address] [place] [id number] Phone [phone] Care Team Providers Care Clerical Administrative Assistant Name Role Phone Js Sheikh M.D. AUTM [phone] Problems Active Problems Provider Date Unsteady gait Nikos Dukes M.D. Onset: 04/04/2015 Multiple sclerosis Nikos [...] Nikos Dukes M.D. 08/19/2015 Vitamin D (Ergocalciferol) [id number] Capsules take 1 capsule once a week [...] lb BMI (Body Mass Index) 24.2 kg/m2 [place] Body Weight 154 lb 12/15/2019 10:05am Respiratory Rate 12 /min Height 68 inches 5'8" Weight 159.00 lb BMI (Body Mass Index) 24.2 kg/m2 [place] Body Weight 154 lb Results Description No Information Available Procedures Date Code Description Status 12/15/2019 3288F Fall Risk Assessment Documented Completed 11/03/2019 05080 Sympathetic Skin Responses Compl eted 11/03/2019 08962 Sympathetic Skin Responses Compl eted 11/03/2019 18336 Test Autonomic Nervous System, C ardiovagal Innervation Completed 11/03/2019 97748 Test Autonomic Nervous System, C ardiovagal Innervation Completed 11/03/2019 33059 Artery Study Extremity Mult Leve ls Bilateral Completed 11/03/2019 29032 Artery Study Extremity Mult Leve ls Bilateral Completed 11/03/2019 04545 Artery Study Extremity Mult Leve ls Bilateral Completed 11/03/2019 06523 Artery Study Extremity Mult Leve ls Bilateral Completed 10/11/2019 56163 Nerve Conduction 9-10 Studies Co mpleted 10/11/2019 34749 Needle Electromyography Complete , Five Or More Muscles Studied Completed 10/11/2019 30943 Needle Electromyography Complete , Five Or More Muscles Studied Completed Medical Devices Description No Information Available Encounters Type Date Location Provider Dx Diagnosis Office Visit 03/28/2020 2:00p Main office - [place] Nikos parish M.D. G37.9 Demyelinating disease of central nervous system, unspecified Office Visit 12/15/2019 9:30a [place] G37.9 Demyelinating disease of central [...] Date Nikos Dukes M.D. Created [address] [place] [address] [phone]
--- OUTSIDE RECORDS SUMMARY | 2020-04-25 11:34 | CCD ---
Author Author [facility] Organization [facility] Address Unknown Phone Unavailable Care Team Providers Care Hedge Trimmer Name Role Phone ED VERMA MD Unavailable ED VERMA MD Unavailable ED VERMA MD Unavailable ED VERMA MD Unavailable ED VERMA MD Unavailable José Miguel Mendoza MD Unavailable Unavailable José Miguel Mendoza MD Unavailable Unavailable José Miguel Mendoza MD Unavailable Unavailable José Miguel Mendoza MD Unavailable Unavailable José Miguel Mendoza MD Unavailable Unavailable José Miguel Mendoza MD Unavailable Unavailable José Miguel Mendoza MD Unavailable Unavailable José Miguel Mendoza MD Unavailable Unavailable José Miguel Mendoza MD Unavailable Unavailable José Miguel Mendoza MD Unavailable Unavailable José Miguel Mendoza MD Unavailable Unavailable José Miguel Mendoza MD Unavailable Unavailable José Miguel Mendoza MD Unavailable Unavailable José Miguel Mendoza MD Unavailable Unavailable José Miguel Mendoza MD Unavailable Unavailable José Miguel Mendoza MD Unavailable Unavailable José Miguel Mendoza MD Unavailable Unavailable José Miguel Menodza MD Unavailable Unavailable José Miguel Mendoza MD Unavailable Unavailable José Miguel Mendoza MD Unavailable Unavailable José Miguel Mendoza MD Unavailable Unavailable José Miguel Mendoza MD Unavailable Unavailable José Miguel Mendoza MD Unavailable Unavailable José Miguel Mendoza MD Unavailable Unavailable José Miguel Mendoza MD Unavailable Unavailable José Miguel Mendoza MD Unavailable Unavailable José Miguel Mendoza MD Unavailable Unavailable José Miguel Mendoza MD Unavailable Unavailable José Miguel Mendoza MD Unavailable Unavailable José Miguel Mendoza MD Unavailable Unavailable José Miguel Mendoza MD Unavailable Unavailable José Miguel Mendoza MD Unavailable Unavailable José Miguel Mendoza MD Unavailable Unavailable José Miguel Mendoza MD Unavailable Unavailable José Miguel Mendoza MD Unavailable Unavailable José Miguel Mendoza MD Unavailable Unavailable José Miguel Mendoza MD Unavailable Unavailable José Miguel Mendoza MD Unavailable Unavailable Ty Salazar MD Unavailable Unavailable Ty Salazar MD Unavailable Unavailable Ty Salazar MD Unavailable Unavailable Ty Salazar MD Unavailable Unavailable Ty Salazar MD Unavailable Unavailable Ty Salazar MD Unavailable Unavailable Ty Salazar MD Unavailable Unavailable Ty Salazar MD Unavailable Unavailable Ty Salazar MD Unavailable Unavailable Ty Salazar MD Unavailable Unavailable Ty Salazar MD Unavailable Unavailable Ty Salazar MD Unavailable Unavailable Ty Salazar MD Unavailable Unavailable Ty Salazar MD Unavailable Unavailable Ty Salazar MD Unavailable Unavailable Ty Salazar MD Unavailable Unavailable Ty Salazar MD Unavailable Unavailable Ty Salazar MD Unavailable Unavailable Ty Salazar MD Unavailable Unavailable Ty Salazar MD Unavailable Unavailable Ty Salazar MD Unavailable Unavailable Ty Salazar MD Unavailable Unavailable Ty Salazar MD Unavailable Unavailable Ty Salazar MD Unavailable Unavailable Ty Salazar MD Unavailable Unavailable Ty Salazar MD Unavailable Unavailable Ty Salazar MD Unavailable Unavailable Ty Salazar MD Unavailable Unavailable Ty Salazar MD Unavailable Unavailable Ty Salazar MD Unavailable Unavailable Ty Salazar MD Unavailable Unavailable Ty Salazar MD Unavailable Unavailable Ty Salazar MD Unavailable Unavailable Ty Salazar MD Unavailable Unavailable Ty Salazar MD Unavailable Unavailable Ty Salazar MD Unavailable Unavailable Ty Salazar MD Unavailable Unavailable Ty Salazar MD Unavailable Unavailable Ty Salazar MD Unavailable Unavailable Ty Salazar MD Unavailable Unavailable Ty Salazar MD Unavailable Unavailable Ty Salazar MD Unavailable Unavailable Martin O [place] Unavailable Unavailable Ty Salazar MD Unavailable Unavailable Ty Salazar MD Unavailable Unavailable Ty Salazar MD Unavailable Unavailable Ty Salazar MD Unavailable Unavailable Ty Salazar MD Unavailable Unavailable Ty Salazar MD Unavailable Unavailable Ty Salazar MD Unavailable Unavailable Ty Salazar MD Unavailable Unavailable Ty Salazar MD Unavailable Unavailable Ty Salazar MD Unavailable Unavailable Ty Salazar MD Unavailable Unavailable Ty Salazar MD Unavailable Unavailable Ty Salazar MD Unavailable Unavailable Ty Salazar MD Unavailable Unavailable Ty Salazar MD Unavailable Unavailable Ty Salazar MD Unavailable Unavailable Ty Salazar MD Unavailable Unavailable Ty Salazar MD Unavailable Unavailable Ty Salazar MD Unavailable Unavailable Ty Salazar MD Unavailable Unavailable Ty Salazar MD Unavailable Unavailable Ty Salazar MD Unavailable Unavailable Ty Salazar MD Unavailable Unavailable Ty Salazar MD Unavailable Unavailable Ty Salazar MD Unavailable Unavailable Ty Salazar MD Unavailable Unavailable Ty Salazar MD Unavailable Unavailable Ty Salazarah Unavailable Unavailable Ty Salazar MD Unavailable Unavailable Ty Salazar MD Unavailable Unavailable Ty Salazar MD Unavailable Unavailable Ty Salazar MD Unavailable Unavailable MartinTy camah Unavailable Unavailable SEARS, A MAHI DO Unavailable Unavailable SEARS, A MAHI DO Unavailable Unavailable SEARS, A MAHI DO Unavailable Unavailable SEARS, A MAHI DO Unavailable Unavailable SEARS, A MAHI DO Unavailable Unavailable SEARS, A MAHI DO Unavailable Unavailable SEARS, A MAHI DO Unavailable Unavailable SEARS, A MAHI DO Unavailable Unavailable SEARS, A MAHI DO Unavailable Unavailable SEARS, A MAHI DO Unavailable Unavailable SEARS, A MAHI DO Unavailable Unavailable SEARS, A MAHI DO Unavailable Unavailable SEARS, A MAHI DO Unavailable Unavailable SEARS, A MAHI DO Unavailable Unavailable SEARS, A MAHI DO Unavailable Unavailable SEARS, A MAHI DO Unavailable Unavailable SEARS, A MAHI DO Unavailable Unavailable SEARS, A MAHI DO Unavailable Unavailable SEARS, A MAHI DO Unavailable Unavailable SEARS, A MAHI DO Unavailable Unavailable SEARS, A MAHI DO Unavailable Unavailable SEARS, A MAHI DO Unavailable Unavailable SEARS, A MAHI DO Unavailable Unavailable SEARS, A MAHI DO Unavailable Unavailable SEARS, A MAHI DO Unavailable Unavailable SEARS, A MAHI DO Unavailable Unavailable SEARS, A MAHI DO Unavailable Unavailable SEARS, A MAHI DO Unavailable Unavailable SEARS, A MAHI DO Unavailable Unavailable SEARS, A MAHI DO Unavailable Unavailable SEARS, A MAHI DO Unavailable Unavailable SEARS, A MAHI DO Unavailable Unavailable SEARS, A MAHI DO Unavailable Unavailable SEARS, A MAHI DO Unavailable Unavailable SEARS, A MAHI DO Unavailable Unavailable SEARS, A MAHI DO Unavailable Unavailable SEARS, A MAHI DO Unavailable Unavailable SEARS, A MAHI DO Unavailable Unavailable SEARS, A MAHI DO Unavailable Unavailable SEARS, A MAHI DO Unavailable Unavailable SEARS, A MAHI DO Unavailable Unavailable SEARS, A MAHI DO Unavailable Unavailable SEARS, A MAHI DO Unavailable Unavailable SEARS, A MAHI DO Unavailable Unavailable SEARS, A MAHI DO Unavailable Unavailable SEARS, A MAHI DO Unavailable Unavailable Cresencio Valdez MD Unavailable Unavailable Cresencio Valdez MD Unavailable Unavailable Cresencio Valdez MD Unavailable Unavailable Cresencio Valdez MD Unavailable Unavailable Cresencio Valdez MD Unavailable Unavailable Cresencio Valdez MD Unavailable Unavailable Cresencio Valdez MD Unavailable Unavailable Cresencio Valdez MD Unavailable Unavailable Cresencio Valdez MD Unavailable Unavailable Cresencio Valdez MD Unavailable Unavailable Cresencio Valdez MD Unavailable Unavailable Cresencio Valdez MD Unavailable Unavailable Cresencio Valdez MD Unavailable Unavailable Cresencio Valdez MD Unavailable Unavailable José MiguelCresencio MD Unavailable Unavailable José MiguelCresencio MD Unavailable Unavailable José MiguelCresencio MD Unavailable Unavailable José MiguelCresencio MD Unavailable Unavailable José MiguelCresencio MD Unavailable Unavailable José MiguelCresencio MD Unavailable Unavailable José MiguelCresencio MD Unavailable Unavailable José MiguelCresencio MD Unavailable Unavailable José MiguelCresencio MD Unavailable Unavailable José MiguelCresencio MD Unavailable Unavailable José MiguelCresencio MD Unavailable Unavailable José MiguelCresencio MD Unavailable Unavailable José MiguelCresencio MD Unavailable Unavailable José MiguelCresencio MD Unavailable Unavailable José MiguelCresencio MD Unavailable Unavailable José MiguelCresencio MD Unavailable Unavailable José MiguelCresencio MD Unavailable Unavailable José MiguelCresencio MD Unavailable Unavailable José MiguelCresencio MD Unavailable Unavailable José MiguelCresencio MD Unavailable Unavailable José MiguelCresencio MD Unavailable Unavailable José MiguelCresencio MD Unavailable Unavailable José MiguelCresencio MD Unavailable Unavailable José MiguelCresencio MD Unavailable Unavailable José MiguelCresencio MD Unavailable Unavailable José MiguelCresencio MD Unavailable Unavailable José MiguelCresencio MD Unavailable Unavailable José MiguelCresencio MD Unavailable Unavailable José Miguel J Sydnee HATCH Unavailable Unavailable José MiguelCresencio MD Unavailable Unavailable José Miguel, J Noralene MD Unavailable Unavailable José MiguelCresencioe MD Unavailable Unavailable José MiguelCresencioe MD Unavailable Unavailable José MiguelCresencio MD Unavailable Unavailable José MiguelCresencio MD Unavailable Unavailable José MiguelCresencio MD Unavailable Unavailable José Miguel J Noralene MD Unavailable Unavailable José Miguel, J Noralene MD Unavailable Unavailable José Miguel, J Noralene MD Unavailable Unavailable José Miguel, J Marylene MD Unavailable Unavailable Re-disclosure Warning The records that you are about to access may contain information from federally-assisted alcohol or drug abuse programs. If such information is present, then the following federally mandated warning applies: This information has been disclosed to you from records protected by federal confidentiality rules (42 CFR part 2). The federal rules prohibit you from making any further disclosure of this information unless further disclosure is expressly permitted by the written consent of the person to whom it pertains or as otherwise permitted by 42 CFR part 2. A general authorization for the release of medical or other information is NOT sufficient for this purpose. The Federal rules restrict any use of the information to criminally investigate or prosecute any alcohol or drug abuse patient.The records that you are about to access may contain highly sensitive health information, the redisclosure of which is protected by Article 27-F of the [facility] Public Health law. If you continue you may have access to information: Regarding HIV / AIDS; Provided by facilities licensed or operated by the [facility] Office of Mental Health; or Provided by the [facility] Office for People With Developmental Disabilities. If such information is present, then the following [facility] mandated warning applies: This information has been disclosed to you from confidential records which are protected by state law. State law prohibits you from making any further disclosure of this information without the specific written consent of the person to whom it pertains, or as otherwise permitted by law. Any unauthorized further disclosure in violation of state law may result in a fine or long-term sentence or both. A general authorization for the release of medical or other information is NOT sufficient authorization for further disc losure. Allergies and Adverse Reactions Type Description Substance Reaction Status Data Source(s ) Drug Class NO KNOWN ALLERGIES NO KNOWN ALLERGIES [facility] Family History Family Member Name Family Member Gender Family Member Status Date o f Status Description Data Source(s) Unknown Unknown Problem [facility] ([facility], ) Unknown Unknown Problem [facility] ([facility] ) Encounters Encounter Providers Location Date Indications Data Source(s ) Outpatient Attender: ED VERMA MD 04/30/2020 12 :00:00 AM [facility] Outpatient Attender: ED VERMA MD [id number] 04/09/2020 12:00:00 AM EST - 04/09/2020 10:14:47 AM EST Malignant neoplasm of unspecified part o f unspecified bronchus or lung [facility] Malignant neoplasm of unspecified part o f unspecified bronchus or lung Outpatient Referrer: ED VERMA MD 021 12:00:00 AM EST Malignant neoplasm of unspecified part of unspecified bronchus or lung [facility] Malignant neoplasm of unspecified part o f unspecified bronchus or lung Outpatient Attender: Nikos Salazar MD [facility] 03/28/2020 01:00:00 PM EST [facility] ([facility] Outpatient Attender: Nikos Salazar MD [facility] 12/15/2019 09:30:00 AM EDT [facility] ([facility] Outpatient Attender: Nikos Salazar MD [facility] 09/12/2019 11:00:00 AM EDT [facility] ([facility] Outpatient Referrer: Sydnee Valdez MD 08/17/2019 05:30:00 AM EDT [facility] Outpatient Referrer: Sydnee Valdez MD 07/28/2019 06:06:00 AM EDT [facility] Outpatient Referrer: Sydnee Valdez MD 07/23/2019 08:10:00 AM EDT [facility] Outpatient Attender: Nahun Dobsonang/[place]/[facility] 07/14/2019 10:00:00 AM EDT [facility] ([facility] Outpatient Attender: Nahun Davis/[place]/[facility] 06/29/2019 09:30:00 AM EDT [facility] ([facility] Outpatient Referrer: Sydnee Valdez MD 06/29/2019 05:59:00 AM EDT [facility] Outpatient Attender: MAHI ESTRADA DO Ryan/[place]/[facility] 06/26/2019 01:45:00 PM EDT [facility] ([facility] Outpatient Attender: MAHI ESTRADA DO [facility] 06/15/2019 03:30:00 PM EDT [facility] ([facility] Outpatient Referrer: Sydnee Valdez MD 06/12/2019 05:17:00 AM EDT [facility] Outpatient Attender: Nikos Salazar MD [facility] 06/06/2019 10:45:00 AM EDT [facility] ([facility] Outpatient Attender: MAHI ESTRADA DO [facility]/[place]/[facility] 06/02/2019 08:30:00 AM EDT [facility] ([facility] Outpatient Referrer: Sydnee Valdez MD 05/10/2019 11:54:00 AM EST [facility] Outpatient Referrer: Sydnee Valdez MD 03/30/2019 02:15:00 PM EST [facility] Outpatient Referrer: Sydnee Valdez MD 03/15/2019 01:53:00 PM EST [facility] Outpatient Referrer: Sydnee Valdez MD 03/13/2019 09:39:00 AM EST [facility] Outpatient Attender: Nikos Salazar MD Main office - [facility] 03/07/2019 10:15:00 AM EST [facility] ([facility] Immunizations Vaccine Date Status Description Data Source(s) COVID-19 VACCINE, MRNA-1273, LNP-S (MODERNA)/PF 04/11/2020 1 2:00:00 AM EST completed [facility] Medications Medication Brand Name Start Date Product Form Dose Route Admi nistrative Instructions Pharmacy Instructions Status Indications Reaction Description Data Source(s) 8 mg 04/05/2020 12:00:00 AM EST tablet 30 TAKE 1 TABLET BY MOUTH EVERY 6 HOURS NEEDED FOR NAUSEA AND VOMITING TAKE 1 TABLET BY MOUTH EVERY 6 HOURS NEEDED FOR NAUSEA AND VOMITING SOLD: 04/09/2020 [facility] 10 mg 04/05/2020 12:00:00 AM EST tablet 120 TAKE ONE TABLET BY MOUTH EVERY 6 HOURS TAKE ONE TABLET BY MOUTH EVERY 6 HOURS SOLD: 04/09/2020 [facility] 4 mg 12/27/2019 12:00:00 AM EDT tablet 30 TAKE TWO TABLETS BY MOUTH DAY BEFORE CHEMO, 2 TABLETS DAY OF CHEMO, & 2 TABLETS DAY AFTER DIRECTED TAKE TWO TABLETS BY MOUTH DAY BEFORE CHEMO, 2 TABLETS DAY OF CHEMO, & 2 TABLETS DAY AFTER DIRECTED SOLD: 02/24/2020 [facility] 10 mg 12/27/2019 12:00:00 AM EDT tablet 30 TAKE ONE TABLET BY MOUTH EVERY 6 HOURS TAKE ONE TABLET BY MOUTH EVERY 6 HOURS SOLD: 12/27/2019 [facility] 8 mg 12/27/2019 12:00:00 AM EDT tablet 30 TAKE 1 TABLET BY MOUTH 3 TIMES A DAY NEEDED FOR NAUSEA AND VOMITING TAKE 1 TABLET BY MOUTH 3 TIMES A DAY NEEDED FOR NAUSEA AND VOMITING SOLD: 12/27/2019 [facility] 4 mg 12/27/2019 12:00:00 AM EDT tablet 30 TAKE TWO TABLETS BY MOUTH DAY BEFORE CHEMO, 2 TABLETS DAY OF CHEMO, & 2 TABLETS DAY AFTER DIRECTED TAKE TWO TABLETS BY MOUTH DAY BEFORE CHEMO, 2 TABLETS DAY OF CHEMO, & 2 TABLETS DAY AFTER DIRECTED SOLD: 12/27/2019 [facility] 20 mg 12/26/2019 12:00:00 AM EDT tablet 90 TAKE 1 TABLET BY MOUTH EVERY NIGHT AT BEDTIME TAKE 1 TABLET BY MOUTH EVERY NIGHT AT BEDTIME SOLD: 12/27/19 20 [facility] Calcitriol 0.83277 MG Oral Capsule 0.25 mcg CALCITRIOL 10/18/2019 12:00:00 AM EDT capsule 180 TAKE TWO CAPSULES BY MOUTH O NCE DAILY TAKE TWO CAPSULES BY MOUTH ONCE DAILY SOLD: 10/19/2019 [facility] Calcitriol 0.29869 MG Oral Capsule 0.25 mcg CALCITRIOL 06/28/2019 12:00:00 AM EDT capsule 120 TAKE 2 CAPSULES BY MOUTH 5 DAYS PER WEEK [WEDNESDAY THROUGH WEDNESDAY] TAKE 2 CAPSULES BY MOUTH 5 DAYS PER WEEK [WEDNESDAY THROWednesday] SOLD: 07/01/2019 [facility] 2.5-2.5 % 06/02/2019 12:00:00 AM EDT cream 30 APPLY TO PORT DIRECTED NEEDED APPLY TO PORT DIRECTED NEEDED SOLD: 04/16/2020 [facility] 2.5-2.5 % 06/02/2019 12:00:00 AM EDT cream 30 APPLY TO PORT DIRECTED NEEDED APPLY TO PORT DIRECTED NEEDED SOLD: 12/21/2019 [facility] 2.5-2.5 % 06/02/2019 12:00:00 AM EDT cream 30 APPLY TO PORT DIRECTED NEEDED APPLY TO PORT DIRECTED NEEDED SOLD: 06/03/2019 [facility] Ipratropium [place] Ipratropium [place] 06/02/2019 12:00:00 AM EDT active [facility] ([facility] ) 2.5-2.5 % 06/02/2019 12:00:00 AM EDT cream 30 APPLY TO PORT DIRECTED NEEDED APPLY TO PORT DIRECTED NEEDED SOLD: 10/19/2019 [facility] 2.5-2.5 % 02/24/2019 12:00:00 AM EST cream 30 SATISH LY ONCE TO PORT NEEDED APPLY ONCE TO PORT NEEDED SOLD: 02/27/2019 [facility] 4 mg 11/21/2018 12:00:00 AM EDT tablet 12 TAKE 1 TABLET BY MOUTH 2X/DAY X 3 DAYS BEGIN 1 DAY BEFORE CHEMO MAX 2TABS/DAY TAKE 1 TABLET BY MOUTH 2X/DAY X 3 DAYS BEGIN 1 DAY BEFORE CHEMO MAX 2TABS/DAY SOLD: 10/21/2019 [facility] Insurance Providers Payer name Policy type / Coverage type Policy ID Covered constitution party ID Covered constitution party's relationship to l[place] Policy [place] Plan Information [employer] [place]/307 [id number] SP [id number] MEDICARE [id number] SP [id number] [employer] [place]/307 [id number] SP [id number] MEDICARE A [id number] Self [id number] EXCELLUS H [id number] Self [id number] MEDICARE A [id number] Self [id number] A MEDICARE C [id number] S [id number] EXCELLUS BCBS B [id number] S [id number] [employer] [place]/307 [id number] SP [id number] [employer] [place]/307 [id number] SP [id number] MEDICARE [id number] SP [id number] [employer] [place]/307 [id number] SP [id number] ANSI-Commercial [id number] ANSI-Medicare Part B [id number] [place]/307 [id number] SP [id number] [employer] [place]/307 [id number] SP [id number] [place] [place]/307 [id number] SP [id number] [place] [place]/307 [id number] SP [id number] MEDICARE [id number] SP [id number] A MEDICARE [id number] SP [id number] [employer] [place]/307 [id number] SP [id number] MEDICARE [id number] S [id number] A [employer] [place] 302/307 [id number] SP [id number] [employer] [place]/307 [id number] SP [id number] [place] [facility] Medicare Primary Self [employer] BCBS Health Maintenance Organization (HMO) Self [employer] [place] P[place] 302/307 [id number] SP [id number] [facility] PART A [id number] Problems, Conditions, and Diagnoses Code Display Name Description Problem Type Effective Dates Data Source(s) 88384659 Multiple sclerosis Multiple sclerosis Problem 11/2019 12:00:00 AM EDT [facility] ([facility] ) Pleural effusion, not elsewhere classifi ed Pleural effusion, not elsewhere classified Problem 06/02/2019 12:00:00 AM EDT [facility] ([facility], ) [id number] Cough Cough Problem 06/02/2019 12:00:00 AM ED T [facility] ([facility] ) C34.90 Malignant neoplasm of unspecified part o f unspecified bronchus or lung Malignant neoplasm of unspecified part of unspecified bronchus or lung Diagnosis 04/09/2020 10:23:58 AM [facility] Surgeries/Procedures Procedure Description Date Indications Data Source(s) XR CHEST FRONTAL AND LATERAL 58593 XR CHEST FRONTAL AND LATERAL 18377 STAT 04/09/2020 10:43 AM EST Malignant neoplasm of lung, unspecified laterality, unspecified part of lung 04/09/2020 10:43:42 AM EST Malignant neoplasm of lung, unspecified laterality, unspecified part of lung [facility] Malignant neoplasm of lung, unspecified laterality, unspecified part of lung FALLS RISK ASSESSMENT DOCUMENTED 12/15/2019 12:00:00 A M EDT [facility] ([facility] ) NON-INVASIVE PHYSIOLOGIC STUDY EXTREMITY 3 LEVLS 11/02 12:00:00 AM EDT [facility] ([facility] ) NON-INVASIVE PHYSIOLOGIC STUDY EXTREMITY 3 LEVLS 11/02 12:00:00 AM EDT [facility] ([facility] ) NON-INVASIVE PHYSIOLOGIC STUDY EXTREMITY 3 LEVLS 11/02 12:00:00 AM EDT [facility] ([facility] ) NON-INVASIVE PHYSIOLOGIC STUDY EXTREMITY 3 LEVLS 11/02 12:00:00 AM EDT [facility] ([facility] ) TSTG ANS FUNCJ CARDIOVAGAL INNERVAJ PARASYMP 0 12:00:00 AM EDT [facility] ([facility] ) TSTG ANS FUNCJ CARDIOVAGAL INNERVAJ PARASYMP 0 12:00:00 AM EDT [facility] ([facility] ) TESTING AUTONOMIC NERVOUS SYSTEM FUNCTION 11/03/2019 1 2:00:00 AM EDT [facility] ([facility] ) TESTING AUTONOMIC NERVOUS SYSTEM FUNCTION 11/03/2019 1 2:00:00 AM EDT [facility] ([facility] ) Needle electromyography, each extremity, with related paraspinal areas, when performed, done with nerve conduction, amplitude and latency/velocity study; complete, five or more muscles studied, innervated by three or more nerves or four or more spinal levels (list separately in addition to the code for primary procedure). 10/11/2019 12:00:00 AM EDT [facility] T ([facility], ) Needle electromyography, each extremity, with related paraspinal areas, when performed, done with nerve conduction, amplitude and latency/velocity study; complete, five or more muscles studied, innervated by three or more nerves or four or more spinal levels (list separately in addition to the code for primary procedure). 10/11/2019 12:00:00 AM EDT [facility] T ([facility] ) Nerve Conduction 9-10 Studies 10/11/2019 12:00:00 AM E DT [facility] ([facility] ) MRI BRAIN BRAIN STEM W/O CONTRAST MATERIAL 09/18/2019 12:00:00 AM EDT [facility] ([facility] MRI BRAIN BRAIN STEM W/O CONTRAST MATERIAL 09/18/2019 12:00:00 AM EDT [facility] ([facility] MRI SPINAL CANAL CERVICAL W/O CONTRAST MATRL 0 12:00:00 AM EDT [facility] ([facility], ) MRI SPINAL CANAL CERVICAL W/O CONTRAST MATRL 0 12:00:00 AM EDT [facility] ([facility], ) MRI Spine Thoracic W/O Contrast 09/18/2019 12:00:00 AM EDT [facility] ([facility]) MRI Spine Thoracic W/O Contrast 09/18/2019 12:00:00 AM EDT [facility] ([facility], ) FALLS RISK ASSESSMENT DOCUMENTED 06/06/2019 12:00:00 A M EDT [facility] ([facility], ) Results ID Date Data Source [id number] 04/12/2020 05:20:18 PM [facility] Name Value Range Interpretation Code Description Data Brenna rce(s) Supporting Document(s) Progress Note [facility] [id number] [file] [id number]= ID Date Data Source [id number] 04/09/2020 11:31:57 AM [facility] XR CHEST FRONTAL AND LATERAL [id number] RESULTInterpreted by:Chicho Parada MDINDICATION: 69-year-old male with a history of stage IV left upper lobe adenocarcinoma and MS presenting for initial radiographic evaluation of worsening shortness of breath.TECHNIQUE: PA and lateral views of the chest were obtained.Comparison: No prior relevant studies are available for comparison at the time of dictation.FINDINGS: Lines, Devices, Tubes: Left chest port with the distal tip overlying the distal SVC. Left Pleurx catheter with the distal tip overlying the left medial thorax .Heart: The cardiomediastinal silhouette is partially obscured by overlying pulmonary opacities and pleural effusion, however appears grossly normal.Lungs: Moderate to large right pleural effusion with adjacent compressive atelectasis of the right lung base. Linear opacities in the right upper lung, which may represent atelectasis or scarring.Small to moderate left pleural effusion tracking up the mediastinal pleura. Opacity along the lateral pleural margin of the left chest wall may represent pleural thickening or pleural effusion tracking up the lateral costal pleura. Large left perihilar masslike airspace opacity with associated circumferential scarring. Significant fibrotic changes in the left lower lung with overlying patchy airspace opacities.No evidence of pneumothorax.Bones: The visualized osseous structures are grossly intact with mild degenerative changes of the visualized spine and acromioclavicular joints.IMPRESSION: 1. Moderate to large right pleural effusion with adjacent compressive atelectasis of the right lung base. Linear opacities in the right upper lung may represent atelectasis or scarring.2. Large left perihilar masslike opacity with associated circumferential scarring. Significant fibrotic changes in the left lower lung with overlying patchy airspace opacities, which may represent superimposed aspiration or pneumonia. However prior imaging is not available for comparison.3. Small to moderate left pleural effusion tracking up the mediastinal pleura.4. Possible pleural thickening or tracking pleural effusion along the left lateral costal pleura.This document has been electronically signed by FIDEL Parada on 04/09/2020 11:29 AM Name Value Range Interpretation Code Description Data Brenna rce(s) Supporting Document(s) ID Date Data Source [id number] 04/09/2020 10:09:53 AM [facility] Name Value Range Interpretation Code Description Data Brenna rce(s) Supporting Document(s) Progress Note [facility] [id number] [facility] [file] [id number]= ID Date Data Source [id number] 07/12/2019 01:28:00 PM EDT [facility]) Name Value Range Interpretation Code Description Data Brenna rce(s) Supporting Document(s) Gram Stain Laboratory test result Normal (applies to non-n umeric results) [facility]) FEW WBCS NO ORGANISMS SEEN ID Date Data Source [id number] 07/12/2019 01:28:00 PM EDT [facility] ([facility]) Name Value Range Interpretation Code Description Data Brenna rce(s) Supporting Document(s) Bacteria identified in Body fluid by Culture Laboratory test result [facility]) If aerobic or anaerobic growth is detected within the next 7-21 days, an addendum will follow. . . [facility] NO GROWTH AEROBICALLY Bacteria identified in Unspecified specimen by Anaerob e culture Laboratory test result [facility], ) If anaerobic or aerobic growth is detected within the next 7-21 days, an addendum will follow. . . FULL REPORT IN LAB NOTES ([facility] and [facility]). NO GROWTH ANAEROBICALLY ID Date Data Source [id number] 07/12/2019 01:28:00 PM EDT [facility] ([facility]) Name Value Range Interpretation Code Description Data Brenna rce(s) Supporting Document(s) Microscopic observation [Identifier] in Unspecified specimen by Non- gynecological cytology method Laboratory test result [facility]) SPECIMEN: Pleural fluid 850 ml anthony SPECIMEN ADEQUACY: Satisfactory for evaluation CATEGORIZATION: Negative for Malignancy DESCRIPTIONS: Specimen consists of rare mesothelial cells in a background of some eosinophils and blood elements. COMMENTS: 07/13/20191027 Signed TAL LANDA (ASCP) 07/13/2019 102 (Prelim) Signed EDDIE BAUTISTA MD 07/14/2019809 ID Date Data Source [id number] 07/12/2019 01:28:00 PM EDT [facility] ([facility]) Name Value Range Interpretation Code Description Data Brenna rce(s) Supporting Document(s) Surgical pathology study Laboratory test result [facility] ([facility]) FINAL DIAGNOSIS Pleural fluid,cell-block: Negative for malignancy. Mesothelial cells and inflammatory cells. 07/14/2019812 CLINICAL DIAGNOSIS Pleura effusion 07/13/20191427 GROSS DIAGNOSIS Received 850 mL of pleural fluid for cell block. -OA 07/13/20191427 Signed EDDIE BAUTISTA MD 07/14/2019812 ID Date Data Source [id number] 07/12/2019 01:25:00 PM EDT [facility] ([facility]) Name Value Range Interpretation Code Description Data Brenna rce(s) Supporting Document(s) Source, Body Fluid Laboratory test result Normal (applies to non-numeric results) [facility]) Pleural FL Color Laboratory test result Normal ( applies to non-numeric results) [facility] ([facility]) Appearance, Body Fluid Laboratory test result No rmal (applies to non-numeric results) [facility] ([facility]) WBC Body Fluid 271 /uL 0-10 Above high normal [facility] ([facility]) BF Polymorphonuclear Cell % 24.4 % 0-0 Above high normal [facility] ([facility]) BF Mononuclear Cell % 75.6 % 0-0 Above high normal [facility] ([facility]) RBC Body Fluid Laboratory test result Normal (applies to non-numeric results) [facility]) ID Date Data Source [id number] 07/12/2019 01:25:00 PM EDT [facility] [place]) Name Value Range Interpretation Code Description Data Brenna rce(s) Supporting Document(s) Total Protein, Body Fluid 3.7 g/dL Normal (applies to no n-numeric results) [facility] ([facility]) Source, Body Fluid Tot Protein Laboratory test result Normal (applies to non- numeric results) [facility] ([facility]) ID Date Data Source [id number] 07/12/2019 01:25:00 PM EDT [facility] [place] [facility]) Name Value Range Interpretation Code Description Data Brenna rce(s) Supporting Document(s) Source, Body Fluid Albumin Laboratory test result Normal (applies to non- numeric results) [facility]) Albumin, Body Fluid 2.5 g/dL Normal (applies to non-nume chi results) [facility]) ID Date Data Source [id number] 07/12/2019 01:25:00 PM EDT [facility] [place]) Name Value Range Interpretation Code Description Data Brenna rce(s) Supporting Document(s) Source, Body Fluid LDH Laboratory test result No rmal (applies to non-numeric results) [facility]) LDH, Body Fluid 250 U/L Normal (applies to non-numeric results) [facility]) ID Date Data Source [id number] 07/12/2019 01:25:00 PM EDT [facility]) Name Value Range Interpretation Code Description Data Brenna rce(s) Supporting Document(s) Source, Body Fluid Glucose Laboratory test result Normal (applies to non- numeric results) [facility]) Glucose, Body Fluid 97 mg/dL Normal (applies to non-nume chi results) [facility]) ID Date Data Source [id number] 07/12/2019 01:25:00 PM EDT [facility] [place]) Name Value Range Interpretation Code Description Data Brenna rce(s) Supporting Document(s) Amylase, Body Fluid 48 U/L Normal (applies to non-nume chi results) [facility]) Source, Body Fluid Amylase Laboratory test result Normal (applies to non- numeric results) [facility]) ID Date Data Source [id number] 07/12/2019 01:25:00 PM EDT [facility] [place]) Name Value Range Interpretation Code Description Data Brenna rce(s) Supporting Document(s) Source, Body Fluid Chol Laboratory test result N ormal (applies to non-numeric results) [facility]) Cholesterol, Body Fluid 68 mg/dL Normal (applies to non- numeric results) [facility]) ID Date Data Source [id number] 07/12/2019 01:25:00 PM EDT [facility] [place]) Name Value Range Interpretation Code Description Data Brenna rce(s) Supporting Document(s) Triglyceride, Body Fluid 13 mg/dL Normal (applies to non -numeric results) [facility]) Source, Body Fluid Trig Laboratory test result N ormal (applies to non-numeric results) [facility]) ID Date Data Source [id number] 07/12/2019 01:25:00 PM EDT [facility] [place] [facility]) Name Value Range Interpretation Code Description Data Brenna rce(s) Supporting Document(s) PH Body Fluid 7.583 units Normal (applies to non-numeric r esults) [facility]) Source, Body Fluid pH Laboratory test result Nor mal (applies to non-numeric results) [facility]) ID Date Data Source [id number] 07/12/2019 01:25:00 PM EDT [facility] ([facility]) Name Value Range Interpretation Code Description Data Brenna rce(s) Supporting Document(s) Amylase [Enzymatic activity/volume] in Body fluid Laboratory test res ult [facility]) Albumin [Mass/volume] in Body fluid Laboratory test result [facility] ([facility] Triglyceride [Moles/volume] in Body fluid Laboratory test result [facility]) Cholesterol [Moles/volume] in Body fluid Laboratory test result [facility] ([facility]) ID Date Data Source [id number] 06/12/2019 11:03:00 AM EDT [facility] ([facility]) Name Value Range Interpretation Code Description Data Brenna rce(s) Supporting Document(s) Microscopic observation [Identifier] in Unspecified specimen by Non- gynecological cytology method Laboratory test result [facility] ([facility]) SPECIMEN: Pleural fluid 1400ml Yellow SPECIMEN ADEQUACY: Satisfactory for evaluation CATEGORIZATION: Negative for Malignancy DESCRIPTIONS: Scattered meothelial cells noted in a background of lymphocytes. COMMENTS: 06/13/2019 - 908 Signed HILLARY ALONSO(ASCP) 06/13/2019 09 (Prelim) Signed EDDIE BAUTISTA MD 06/13/2019 1105 ID Date Data Source [id number] 06/12/2019 09:18:00 AM [facility] ([facility]) Name Value Range Interpretation Code Description Data Brenna rce(s) Supporting Document(s) Surgical pathology study Laboratory test result [facility] ([facility]) FINAL DIAGNOSIS Pleural effusion: Mesothelial cells and chronic inflammatory cells. No malignant cells are identified. 06/13/2019 - 1104 CLINICAL DIAGNOSIS Left pleural effusion 06/12/2019 - 1500 GROSS DIAGNOSIS Received in formalin labeled "pleural effusion" consists of 1400 mL of yellow pleural fluid for cell block. -OA 06/12/2019 - 1500 Signed EDDIE BAUTISTA MD 06/13/2019 1104 ID Date Data Source [id number] 06/12/2019 08:54:00 AM EDT [facility] [place]) Name Value Range Interpretation Code Description Data Brenna rce(s) Supporting Document(s) Source, Body Fluid Laboratory test result Normal (applies to non-numeric results) [facility] ([facility]) Pleural FL Color Laboratory test result Normal ( applies to non-numeric results) [facility]) Appearance, Body Fluid Laboratory test result No rmal (applies to non-numeric results) [facility] ([facility]) RBC Body Fluid Laboratory test result Normal (applies to non-numeric results) [facility] ([facility]) WBC Body Fluid 218 /uL 0-10 Above high normal [facility] ([facility]) BF Mononuclear Cell % 93.1 % 0-0 Above high normal [facility] ([facility]) BF Polymorphonuclear Cell % 6.9 % 0-0 Above high normal [facility] ([facility]) ID Date Data Source [id number] 06/12/2019 08:54:[facility] Name Value Range Interpretation Code Description Data Brenna rce(s) Supporting Document(s) Source, Body Fluid Tot Protein Laboratory test result Normal (applies to non- numeric results) [facility]) Total Protein, Body Fluid 3.2 g/dL Normal (applies to no n-numeric results) [facility] ([facility]) ID Date Data Source [id number] 06/12/2019 08:54:00 AM EDT [facility] ([facility]) Name Value Range Interpretation Code Description Data Brenna rce(s) Supporting Document(s) Source, Body Fluid LDH Laboratory test result No rmal (applies to non-numeric results) [facility] ([facility]) LDH, Body Fluid 156 U/L Normal (applies to non-numeric results) [facility]) ID Date Data Source [id number] 06/12/2019 08:54:[facility] Name Value Range Interpretation Code Description Data Brenna rce(s) Supporting Document(s) Glucose, Body Fluid 106 mg/dL Normal (applies to non-nume chi results) [facility]) Source, Body Fluid Glucose Laboratory test result Normal (applies to non- numeric results) [facility]) ID Date Data Source [id number] 06/12/2019 08:54:00 AM EDT [facility]) Name Value Range Interpretation Code Description Data Brenna rce(s) Supporting Document(s) Source, Body Fluid Amylase Laboratory test result Normal (applies to non- numeric results) [facility]) Amylase, Body Fluid 40 U/L Normal (applies to non-nume chi results) [facility]) ID Date Data Source [id number] 06/12/2019 08:54:00 AM EDT [facility]) Name Value Range Interpretation Code Description Data Brenna rce(s) Supporting Document(s) Source, Body Fluid pH Laboratory test result Nor mal (applies to non-numeric results) [facility]) PH Body Fluid 7.636 units Normal (applies to non-numeric r esults) [facility]) ID Date Data Source [id number] 06/12/2019 08:54:00 AM EDT [facility] [place] [facility]) Name Value Range Interpretation Code Description Data Brenna rce(s) Supporting Document(s) Gram Stain Laboratory test result Normal (applies to non-n umeric results) [facility]) NO CELLS SEEN NO ORGANISMS SEEN Body Fluid Culture Laboratory test result [facility]) * This is a corrected result. * A prior result that was reported as final has been changed. If aerobic or anaerobic growth is detected within the next 7-21 days, an addendum will follow. . . FULL REPORT IN LAB NOTES ([facility] and [facility]). NO GROWTH AEROBICALLY ORGANISM 1: PROPIONIBACTERIUM GRANULOSUM QUANTITY OF GROWTH FEW ORGANISM 1: PROPIONIBACTERIUM GRANULOSUM ID Date Data Source [id number] 06/12/2019 08:54:00 AM EDT [facility]) Name Value Range Interpretation Code Description Data Brenna rce(s) Supporting Document(s) Bacteria identified in Unspecified specimen by Anaerob e culture Laboratory test result [facility]) If anaerobic or aerobic growth is detected within the next 7-21 days, an addendum will follow. . . FULL REPORT IN LAB NOTES ([facility] and [facility]). NO GROWTH ANAEROBICALLY ID Date Data Source [id number] 06/12/2019 08:54:00 AM EDT [facility] ([facility]) Name Value Range Interpretation Code Description Data Brenna rce(s) Supporting Document(s) Afb Smear Laboratory test result [facility]) Testing performed at reference lab . Rep ort copy to follow on a separate form. 07/27/19 REF LAB#:[phone] Due to limited sensitivity, smear results should be used as an adjunct in evaluating patient tuberculosis status. Cultural examination is highly recommended for clinical diagnosis. AFB sm REF LAB concentra NEGATIVE Afb Culture [facility] Testing performed at reference lab . Rep ort copy to follow on a separate form. 07/27/19 REF LAB#:[id number] FULL [facility] No Acid-Fast Bacilli Isolated after 6 Weeks. ID Date Data Source [id number] 06/12/2019 08:54:00 AM EDT [facility] ([facility]) Name Value Range Interpretation Code Description Data Brenna rce(s) Supporting Document(s) Fungal Culture Other Source Laboratory test result [facility] ([facility]) Testing performed at reference lab . Rep ort copy to follow on a separate form. 07/27/19 REF LAB#:[id number] FUNGUS CULTURE [facility] No Yeast or Mold Isolated after 4 weeks. Fungal Smear Laboratory test result [facility] ([facility]) Testing performed at reference lab . Rep ort copy to follow on a separate form. 07/27/19 REF LAB#:[id number] NILE/Calcofluor preparatio No fungus observed. ID Date Data Source [id number] 06/02/2019 09:38:00 AM EDT [facility] ([facility]) Name Value Range Interpretation Code Description Data Brenna rce(s) Supporting Document(s) Prothrombin Time 13.5 s 11.8-14.0 Normal (applies to non-numeric results) [facility] ([facility]) Inr 1.05 Normal (applies to non-numeric resul ts) [facility] ([facility]) THERAPUTIC HUMAN INR VALUES INDICATIONS NORMAL RANGES PROPHYLAXIS/TREATMENT OF: VENOUS THROMBOSIS 2.0-3.0 PULMONARY EMBOLISM 2.0-3.0 PREVENTION OF SYSTEMIC EMBOLISM FROM: TISSUE HEART VALVES 2.0-3.0 ACUTE MYOCARDIAL INFARCTION 2.0-3.0 VALVULAR HEART DISEASE 2.0-3.0 ATRIAL FIBRILLATION 2.0-3.0 MECHANICAL VALVES(HIGH RISK) 2.5-3.5 RECURRENT MYOCARDIAL INFARCTION 2.5-3.5 ID Date Data Source [id number] 06/02/2019 09:38:00 AM EDT [facility] ([facility]) Name Value Range Interpretation Code Description Data Brenna rce(s) Supporting Document(s) Lactate dehydrogenase [Enzymatic activity/volume] in Serum o r Plasma 235 U/L 87-241 Normal (applies to non-numeric results) [facility] ID Date Data Source [id number] 06/02/2019 09:38:00 AM EDT [facility] ([facility]) Name Value Range Interpretation Code Description Data Brenna rce(s) Supporting Document(s) White Blood Count 9.0 10 4.0-10.0 Normal (applies to non-numeri c results) [facility] ([facility]) Red Blood Count 4.06 10 4.30-6.10 Below low normal [facility] ([facility]) Hemoglobin 12.3 g/dL 13.5-17.5 Below low normal [facility]) Hematocrit 40.8 % 42.0-52.0 Below low normal [facility]) Mean Corpuscular Volume 100.5 fl 80.0-96.0 Above high normal [facility] Red Cell Distribution Width 17.4 % 11.5-14.5 Above high normal [facility] ([facility]) Mean Corpuscular HGB Conc 30.1 g/dL 32.0-36.5 Below low normal [facility] ([facility]) Mean Corpuscular Hemoglobin 30.3 pg 27.0-33.0 Norm al (applies to non-numeric results) [facility] ([facility]) Lymph % 5.9 % 24.0-44.0 Below low normal [facility] ( [facility]) Platelet Count, Automated 367 10 150-450 Normal (applies to non-numeric results) [facility] ([facility]) Neutrophils % 84.6 % 36.0-66.0 Above high normal [facility] ([facility]) Gates % 8.1 % 0.0-5.0 Above high normal [facility] ([facility]) Eos % 0.2 % 0.0-3.0 Normal (applies to non-numeric resul ts) [facility] ([facility]) Baso % 1.0 % 0.0-1.0 Normal (applies to non-numeric resul ts) [facility] ([facility]) Immature Granulocyte % 0.2 % 0-3.0 Normal (applies to non-n umeric results) [facility] ([facility]) Neutrophils # 7.6 10 1.5-8.5 Normal (applies to non-numeric re sults) [facility] ([facility]) Nucleated Red Blood Cell % 0.0 % 0-0 Normal (applies to n on-numeric results) [facility] ([facility]) Lymph # 0.5 10 1.5-5.0 Below low normal [facility]) Eos # 0.0 10 0.0-0.5 Normal (applies to non-numeric resul ts) [facility] ([facility]) Baso # 0.1 10 0.0-0.2 Normal (applies to non-numeric resul ts) [facility] ([facility]) Gates # 0.7 10 0.0-0.8 Normal (applies to non-numeric resul ts) [facility] ([facility]) ID Date Data Source [id number] 06/02/2019 09:38:00 AM EDT [facility] ([facility]) Name Value Range Interpretation Code Description Data Brenna rce(s) Supporting Document(s) Blood Urea Nitrogen 25 mg/dL 7-18 Above high normal [facility]) Glucose, Fasting 74 mg/dL 70-100 Normal (applies to non-numeric results) [facility] ([facility]) Glomerular Filtration Rate 58.1 Normal (applies to n on-numeric results) [facility]) <content>Units are mL/min/1.73 m2</content>
<content></content>
<content>Chronic Kidney Disease Staging per NKF:</content>
<content></content>
<content>Stage I & II GFR >=60 Normal to Mildly Decreased</content>
<content>Stage III GFR 30-59 Moderately Decreased</content>
<content>Stage IV GFR 15-29 Severely Decreased</content>
<content>Stage V GFR <15 Very Little GFR Left</content>
<content>ESRD GFR <15 on [employer] INTERN</content>
<content></content> Creatinine For GFR 1.30 mg/dL 0.70-1.30 Normal (applies to non -numeric results) [facility] ([facility]) Sodium Level 143 meq/L 136-145 Normal (applies to non-numeric res ults) [facility] ([facility]) Chloride Level 112 meq/L 98-107 Above high normal [facility] ([facility]) Potassium Serum 4.7 meq/L 3.5-5.1 Normal (applies to non-numeric results) [facility] ([facility]) Anion Gap 5 meq/L 8-16 Below low normal [facility] ( [facility]) Carbon Dioxide Level 26 meq/L 21-32 Normal (applies to non-num aiden results) [facility] ([facility]) Calcium Level 8.5 mg/dL 8.8-10.2 Below low normal [facility] ([facility]) Ast/Sgot 10 U/L 7-37 Normal (applies to non-numeric resul ts) [facility] ([facility]) Alt/SGPT 14 U/L 12-78 Normal (applies to non-numeric resul ts) [facility] ([facility]) Bilirubin,Total 0.3 mg/dL 0.2-1.0 Normal (applies to non-numeric results) [facility] ([facility]) Alkaline Phosphatase 75 U/L 45-117 Normal (applies to non-num aiden results) [facility] ([facility]) Total Protein 5.5 GM/DL 6.4-8.2 Below low normal [facility] ([facility]) Albumin 2.9 GM/DL 3.2-5.2 Below low normal [facility] ( [facility]) Albumin/Globulin Ratio 1.12 1.00-1.93 Normal (applies to non-numeric results) [facility]) ID Date Data Source [id number] 06/02/2019 09:37:00 AM EDT [facility] ([facility]) Name Value Range Interpretation Code Description Data Brenna rce(s) Supporting Document(s) Protein [Mass/volume] in Serum or Plasma Laboratory test result [facility] ([facility]) Procedure Social History Code Duration Value Status Description Data Source(s ) Alcohol intake 04/12/2020 12:00:00 AM EST Ex-drinker (finding) comp leted Ex- drinker (finding) [facility] Tobacco use and exposure 04/12/2020 12:00:00 AM EST Never used co mpleted Never used [facility] Smoking 04/12/2020 12:00:00 AM EST Former smoker completed Former smoker [facility] Alcohol intake 04/09/2020 12:00:00 AM EST Ex-drinker (finding) comp leted Ex- drinker (finding) [facility] Smoking 07/20/2019 12:00:00 AM EDT - 03/08/2013 12:00:00 AM EST Patient is a former smoker completed Patient is a former smoker [facility] ([facility]) Vital Signs ID Date Data Source UNK Name Value Range Interpretation Code Description Data Source(s) Eighty Four body weight 154 [lb_av] 154 [lb_av] [facility] ([facility]) Body mass index (BMI) [Ratio] 24.2 kg/m2 24.2 k g/m2 [facility] ([facility]) Body weight 159.00 [lb_av] 159.00 [lb_av] [facility] ([facility]) Body height 68 [in_i] 68 [in_i] [facility] ([facility]) 5'8" Respiratory rate 12 /min 12 /min [facility] ( [facility]) Eighty Four body weight 154 [lb_av] 154 [lb_av] [facility] ([facility]) Body mass index (BMI) [Ratio] 24.2 kg/m2 24.2 k g/m2 [facility] ([facility]) Body weight 159.00 [lb_av] 159.00 [lb_av] [facility] ([facility]) Body height 68 [in_i] 68 [in_i] [facility] ([facility]) 5'8" Respiratory rate 12 /min 12 /min [facility] ( [facility]) Eight[place] Four body weight 154 [lb_av] 154 [lb_av] [facility] ([facility]) Body mass index (BMI) [Ratio] 24.2 kg/m2 24.2 k g/m2 [facility] ([facility]) Body weight 159.00 [lb_av] 159.00 [lb_av] [facility] ([facility]) Body height 68 [in_i] 68 [in_i] [facility] ([facility]) 5'8" Respiratory rate 12 /min 12 /min [facility] ( [facility]) Body weight 66.679 kg 66.679 kg [facility] ([facility]) Body weight 147.00 [lb_av] 147.00 [[facility]_av] [facility] Body temperature 99.9 [degF] 99.9 [degF] [facility] ([facility]) Oxygen saturation in Arterial blood by Pulse oximetry 94 % 94 % [facility] ([facility]) Room Air Heart rate 88 /min 88 /min [facility] ([facility]) Diastolic blood pressure 70 mm[Hg] 70 mm[Hg] [facility] ([facility]) Systolic blood pressure 110 mm[Hg] 110 mm[Hg] [facility] ([facility]) Body temperature 98.0 [degF] 98.0 [degF] [facility] ([facility]) Body weight 69.854 kg 69.854 kg [facility] ([facility]) Body mass index (BMI) [Ratio] 24.9 kg/m2 24.9 k g/m2 [facility] ([facility]) Body weight 154.00 [lb_av] 154.00 [lb_av] [facility] ([facility]) Body height 66 [in_i] 66 [in_i] [facility] ([facility]) 5'6" Body temperature 97.8 [degF] 97.8 [degF] [facility] ([facility]) Oxygen saturation in Arterial blood by Pulse oximetry 94 % 94 % [facility] ([facility]) Room Air Heart rate 88 /min 88 /min [facility] ([facility]) Diastolic blood pressure 76 mm[Hg] 76 mm[Hg] [facility] ([facility]) Systolic blood pressure 118 mm[Hg] 118 mm[Hg] [facility] ([facility]) Body weight 69.854 kg 69.854 kg [facility] ([facility]) Body mass index (BMI) [Ratio] 24.9 kg/m2 24.9 k g/m2 [facility] ([facility]) Body weight 154.00 [lb_av] 154.00 [lb_av] [facility] ([facility]) Body height 66 [in_i] 66 [in_i] [facility] ([facility]) 5'6" Body temperature 98.2 [degF] 98.2 [degF] [facility] ([facility]) Oxygen saturation in Arterial blood by Pulse oximetry 92 % 92 % [facility] ([facility]) Heart rate 85 /min 85 /min [facility] ([facility]) Diastolic blood pressure 70 mm[Hg] 70 mm[Hg] [facility] ([facility]) Systolic blood pressure 110 mm[Hg] 110 mm[Hg] [facility] ([facility]) Body mass index (BMI) [Ratio] 24.2 kg/m2 24.2 k g/m2 [facility] ([facility]) Body weight 159.00 [lb_av] 159.00 [lb_av] [facility] ([facility]) Body height 68 [in_i] 68 [in_i] [facility] ([facility]) 5'8" Respiratory rate 12 /min 12 /min [facility] ( [facility]) Body weight 71.669 kg 71.669 kg [facility] ([facility]) Body mass index (BMI) [Ratio] 25.5 kg/m2 25.5 k g/m2 [facility] ([facility]) Body weight 158.00 [lb_av] 158.00 [lb_av] [facility] Body height 66 [in_i] 66 [in_i] [facility] ([facility]) 5'6" Body temperature 97.3 [degF] 97.3 [degF] [facility] ([facility]) Oxygen saturation in Arterial blood by Pulse oximetry 90 % 90 % [facility] ([facility]) Heart rate 83 /min 83 /min [facility] ([facility]) Diastolic blood pressure 70 mm[Hg] 70 mm[Hg] [facility] ([facility]) Systolic blood pressure 120 mm[Hg] 120 mm[Hg] [facility] ([facility]) Body mass index (BMI) [Ratio] 24.2 kg/m2 24.2 k g/m2 [facility] ([facility]) Body weight 159.00 [lb_av] 159.00 [lb_av] [facility] Body height 68 [in_i] 68 [in_i] [facility] ([facility]) 5'8" Respiratory rate 12 /min 12 /min [facility] ( [facility]) Heart rate 64 /min 64 /min [facility] ([facility]) Diastolic blood pressure 58 mm[Hg] 58 mm[Hg] [facility] ([facility]) Systolic blood pressure 110 mm[Hg] 110 mm[Hg] [facility] ([facility]) ID Date Data Source [id number] 04/12/2020 05:20:18 PM [facility] Name Value Range Interpretation Code Description Data Source(s) WEIGHT RECORDED 129.6 lb 129.6 lb [facility] Body height Measured 65.5 in 65.5 in [facility]
[2020-04-25] MEDS ORDERED: CYAN1000VL IM (11:36)
--- OUTSIDE RECORDS SUMMARY | 2020-04-25 12:11 | CCD ---
Author Author [facility] Organization [facility] Address Unknown Phone Unavailable Care Team Providers Care Administrative Receptionist Name Role Phone ED VERMA MD Unavailable [...] José Miguel Mendoza MD Unavailable Unavailable José iMguel Mendoza MD Unavailable Unavailable José Miguel Mendoza [...] Unavailable Unavailable Ty Salazar MD Unavailable Unavailable yT Salazar MD Unavailable Unavailable Ty Salazar MD [...] is protected by Article 27-F of the [facility] Public Health law. If you continue you may have access to information: Regarding HIV / AIDS; Provided by facilities licensed or operated by the [facility] Office of Mental Health; or Provided by the [facility] Office for People With Developmental Disabilities. If such information is present, then the following [facility] mandated warning applies: This information has been [...] law may result in a fine or usp sentence or both. A general authorization for the release of medical or other information is NOT sufficient authorization for further disc losure. Allergies and Adverse Reactions Type Description Substance Reaction Status Data Source(s ) Drug Class NO KNOWN ALLERGIES NO KNOWN ALLERGIES [facility] Family History Family Member Name Family Member Gender Family Member Status Date o f Status Description Data Source(s) Unknown Unknown Problem [facility] ([facility] ) Unknown Unknown Problem [facility] ([facility] ) Encounters Encounter Providers Location Date Indications Data Source(s ) Outpatient Attender: ED VERMA MD 04/30/2020 12 :00:[address] [facility] Outpatient Attender: ED VERMA MD [id number] 04/09/2020 12:00:00 AM EST - 04/09/2020 10:14:47 AM EST Malignant neoplasm of unspecified part o f unspecified bronchus or lung [facility] Malignant neoplasm of unspecified part o f unspecified bronchus or lung Outpatient Referrer: ED VERMA MD 021 12:00:00 AM EST Malignant neoplasm of unspecified part of unspecified bronchus or lung [facility] Malignant neoplasm of unspecified part o f unspecified bronchus or lung Outpatient Attender: Nikos Salazar MD [facility] 03/28/2020 01:00:00 PM EST [facility] ([facility] Outpatient Attender: Nikos Salazar MD [facility] 12/15/2019 09:30:00 AM EDT [facility] ([facility]) Outpatient Attender: Nikos Salazar MD [facility] 09/12/2019 11:00:00 AM EDT [facility] ([facility]) Outpatient Referrer: Sydnee Valdez MD 08/17/2019 05:30:00 AM EDT [facility] Outpatient Referrer: Sydnee Valdez MD 07/28/2019 06:06:00 AM EDT [facility] Outpatient Referrer: Sydnee Valdez MD 07/23/2019 08:10:00 AM EDT [facility] Outpatient Attender: Nahun Dobsonang/[place]/Matt/Re indl 07/14/2019 10:00:00 AM EDT [facility] ([facility] Outpatient Attender: Nahun Davis/[place]/Matt/Re indl 06/29/2019 09:30:00 AM EDT [facility] ([facility] Outpatient Referrer: Sydnee Valdez MD 06/29/2019 05:59:00 AM EDT [facility] Outpatient Attender: MAHI ESTRADA DO Ryan/[place]/Matt/Reindl 06/26/2019 01:45:00 PM EDT [facility] ([facility]) Outpatient Attender: MAHI ESTRADA DO Ryan/[place]/Matt/Reindl 06/15/2019 03:30:00 PM EDT [facility] ([facility] Outpatient Referrer: Sydnee Valdez MD 06/12/2019 05:17:00 AM EDT [facility] Outpatient Attender: Nikos Salazar MD [facility] 06/06/2019 10:45:00 AM EDT [facility] ([facility]) Outpatient Attender: MAHI ESTRADA DO Ryan/[place]/Matt/Reindl 06/02/2019 08:30:00 AM EDT [facility] ([facility] Outpatient Referrer: Sydnee Valdez MD 05/10/2019 11:54:00 AM EST [facility] Outpatient Referrer: Sydnee Valdez MD 03/30/2019 02:15:00 PM EST [facility] Outpatient Referrer: Sydnee Valdez MD 03/15/2019 01:53:00 PM EST [facility] Outpatient Referrer: Sydnee Valdez MD 03/13/2019 09:39:00 AM EST [facility] Outpatient Attender: Nikos Salazar MD Main office - [facility] 03/07/2019 10:15:00 AM EST [facility] ([facility] Immunizations Vaccine Date [...] NEEDED FOR NAUSEA AND VOMITING SOLD: 04/09/2020 [facility] 10 mg 04/05/2020 12:00:00 AM EST [...] BEDTIME SOLD: 12/27/19 20 [facility] Calcitriol 0.03091 MG Oral Capsule 0.25 mcg CALCITRIOL 10/18/2019 12:00:00 AM EDT capsule 180 TAKE TWO CAPSULES BY MOUTH O NCE DAILY TAKE TWO CAPSULES BY MOUTH ONCE DAILY SOLD: 10/19/2019 [facility] Calcitriol 0.76823 MG Oral Capsule 0.25 mcg CALCITRIOL 06/28/2019 [...] DIRECTED NEEDED SOLD: 06/03/2019 [facility] Ipratropium [facility] Ipratropium [facility] 06/02/2019 12:00:00 AM EDT active [facility] ([facility] [...] type / Coverage type Policy ID Covered democrat ID Covered democrat's relationship to linton Policy [place] Plan Information [employer]/307 [id number] SP [id number] MEDICARE [id number] SP [id number] [place] [place]/307 [id number] SP [id number] MEDICARE A [id number] Self [id number] EXCELLUS H [id number] Self [id number] MEDICARE A [id number] Self [id number] A MEDICARE C [id number] S [id number] EXCELLUS BCBS B [id number] S [id number] [place]/307 [id number] SP [id number] [place]/307 [id number] SP [id number] MEDICARE [id number] SP [id number] [employer] [place]/307 [id number] SP [id number] ANSI-Commercial [id number] ANSI-Medicare Part B [id number] [place]/307 [id number] SP [id number] [place]/307 [id number] SP [id number] [place]/307 [id number] SP [id number] [place] 302/307 [id number] SP [id number] MEDICARE [id number] SP [id number] A MEDICARE [id number] SP [id number] T [employer] 302/307 [id number] SP [id number] MEDICARE [id number] S [id number] A [place] 302/307 [id number] SP [id number] [place] 302/307 [id number] SP [id number] [place] Medicare Primary Self [employer] BCBS Health Maintenance Organization (HMO) Self [employer] [place] P[place] 302/307 [id number] SP [id number] [facility] PART A [id number] Problems, Conditions, and Diagnoses Code Display Name Description Problem Type Effective Dates Data Source(s) 19954370 Multiple sclerosis Multiple sclerosis Problem 11/2019 12:00:00 AM EDT [facility] ([facility] Pleural effusion, not elsewhere classifi ed Pleural effusion, not elsewhere classified Problem 06/02/2019 12:00:00 AM EDT [facility] ([facility], ) [id number] Cough Cough Problem 06/02/2019 12:00:00 AM ED T [facility] ([facility], ) C34.90 Malignant neoplasm of unspecified part o f unspecified bronchus or lung Malignant neoplasm of unspecified part of unspecified bronchus or lung Diagnosis 04/09/2020 10:23:[address] [facility] Surgeries/Procedures Procedure Description Date Indications Data Source(s) XR CHEST FRONTAL AND LATERAL 60077 XR CHEST FRONTAL AND LATERAL 22686 STAT 04/09/2020 10:43 AM EST Malignant neoplasm of lung, unspecified laterality, unspecified part of lung 04/09/2020 10:43:42 AM EST Malignant neoplasm of lung, unspecified laterality, unspecified part of lung [facility] Malignant neoplasm of lung, unspecified laterality, unspecified part of lung FALLS RISK ASSESSMENT DOCUMENTED 12/15/2019 12:00:00 A M EDT [facility] ([facility] NON-INVASIVE PHYSIOLOGIC STUDY EXTREMITY 3 LEVLS 11/02 12:00:00 AM EDT [facility] ([facility] ) NON-INVASIVE PHYSIOLOGIC STUDY EXTREMITY 3 LEVLS 11/02 12:00:00 AM EDT [facility] ([facility] ) NON-INVASIVE PHYSIOLOGIC STUDY EXTREMITY 3 LEVLS 11/02 12:00:00 AM EDT [facility] ([facility] ) NON-INVASIVE PHYSIOLOGIC STUDY EXTREMITY 3 LEVLS 11/02 12:00:00 AM EDT [facility] ([facility] ) TSTG ANS FUNCJ CARDIOVAGAL INNERVAJ PARASYMP 0 12:00:00 AM EDT [facility] ([facility] ) TSTG ANS FUNCJ CARDIOVAGAL INNERVAJ PARASYMP 0 12:00:00 AM EDT [facility] ([facility] ) TESTING AUTONOMIC NERVOUS SYSTEM FUNCTION 11/03/2019 1 2:00:00 AM EDT [facility] ([facility] ) TESTING AUTONOMIC NERVOUS SYSTEM FUNCTION 11/03/2019 1 2:00:00 AM EDT [facility] ([facility] ) Needle electromyography, each extremity, with related paraspinal areas, when performed, done with nerve conduction, amplitude and latency/velocity study; complete, five or more muscles studied, innervated by three or more nerves or four or more spinal levels (list separately in addition to the code for primary procedure). 10/11/2019 12:00:00 AM EDT [facility] T ([facility] ) Needle electromyography, each extremity, with related paraspinal areas, when performed, done with nerve conduction, amplitude and latency/velocity study; complete, five or more muscles studied, innervated by three or more nerves or four or more spinal levels (list separately in addition to the code for primary procedure). 10/11/2019 12:00:00 AM EDT [facility] T ([facility] ) Nerve Conduction 9-10 Studies 10/11/2019 12:00:00 AM E DT [facility] ([facility] ) MRI BRAIN BRAIN STEM W/O CONTRAST MATERIAL 09/18/2019 12:00:00 AM EDT [facility] ([facility] MRI BRAIN BRAIN STEM W/O CONTRAST MATERIAL 09/18/2019 12:00:00 AM EDT [facility] ([facility] ) MRI SPINAL CANAL CERVICAL W/O CONTRAST MATRL 0 12:00:00 AM EDT [facility] ([facility], ) MRI SPINAL CANAL CERVICAL W/O CONTRAST MATRL 0 12:00:00 AM EDT [facility] ([facility], ) MRI Spine Thoracic W/O Contrast 09/18/2019 12:00:00 AM EDT [facility] ([facility]) MRI Spine Thoracic W/O Contrast 09/18/2019 12:00:00 AM EDT [facility] ([facility], ) FALLS RISK ASSESSMENT DOCUMENTED 06/06/2019 12:00:00 A M EDT [facility] ([facility], ) Results ID Date Data Source [id number] 04/12/2020 05:20:18 PM [facility] Name Value Range Interpretation Code Description Data Brenna rce(s) Supporting Document(s) Progress Note [facility] [id number]/[id number]aMCD6gU8cNTF0MXgRFwLdEtOjIgN3 lbm [file] [id number]= ID Date Data Source [id number] 04/09/2020 11:31:57 AM [facility] XR CHEST FRONTAL AND LATERAL [id number] RESULTInterpreted by:Chicho Parada MDINDICATION: 69-year-old male with [...] rce(s) Supporting Document(s) ID Date Data Source [id number] 04/09/2020 10:09:53 AM [facility] Name Value Range Interpretation Code Description Data Brenna rce(s) Supporting Document(s) Progress Note [facility] NOUWSz2fUdOJReYk24/VOGykCSPgj5FqTBgfTXb8YIjlEUHnQ8RwBLO7dF3tNEG5OSyIEbGxAzKtQoJh [facility] [file] [id number]LDi= ID Date Data Source [id number] 07/12/2019 01:28:00 PM EDT [facility] ([facility]) Name Value Range Interpretation Code Description Data Brenna rce(s) Supporting Document(s) Gram Stain Laboratory test result Normal (applies to non-n umeric results) [facility] ([facility]) FEW WBCS NO ORGANISMS SEEN ID Date Data Source [id number] 07/12/2019 01:28:00 PM EDT [facility] ([facility]) Name Value Range Interpretation Code Description Data Brenna rce(s) Supporting Document(s) Bacteria identified in Body fluid by Culture Laboratory test result [facility] ([facility]) If aerobic or anaerobic growth is detected within the next 7-21 days, an addendum will follow. . . FULL REPORT [facility] LAB NOTES ([facility] NO GROWTH AEROBICALLY Bacteria identified in Unspecified specimen by Anaerob e culture Laboratory test result [facility] ([facility], ) If anaerobic or aerobic growth is detected within the next 7-21 days, an addendum will follow. . . FULL REPORT IN LAB NOTES ([facility] and [facility]). NO GROWTH ANAEROBICALLY ID Date Data Source [id number] 07/12/2019 01:28:00 PM EDT [facility] ([facility]) Name Value Range Interpretation Code Description Data Brenna rce(s) Supporting Document(s) Microscopic observation [Identifier] in Unspecified specimen by Non- gynecological cytology method Laboratory test result [facility] ([facility]) SPECIMEN: Pleural fluid 850 ml anthony SPECIMEN ADEQUACY: Satisfactory for evaluation CATEGORIZATION: Negative for Malignancy DESCRIPTIONS: Specimen consists of rare mesothelial cells in a background of some eosinophils and blood elements. COMMENTS: 07/13/20191027 Signed TAL LANDA (ASCP) 07/13/2019 102 (Prelim) Signed EDDIE BAUTISTA MD 07/14/2019809 ID Date Data Source [id number] 07/12/2019 01:28:00 PM EDT [facility] ([facility]) Name Value Range Interpretation Code Description Data Brenna rce(s) Supporting Document(s) Surgical pathology study Laboratory test result [facility] ([facility]) FINAL DIAGNOSIS Pleural fluid,cell-block: Negative for malignancy. Mesothelial cells and inflammatory cells. 07/14/2019812 CLINICAL DIAGNOSIS Pleura effusion 07/13/20191427 GROSS DIAGNOSIS Received 850 mL of pleural fluid for cell block. -OA 07/13/20191427 Signed EDDIE BAUTISTA MD 07/14/2019812 ID Date Data Source [id number] 07/12/2019 01:25:00 PM EDT [facility] ([facility]) Name Value Range Interpretation Code Description Data Brenna rce(s) Supporting Document(s) Source, Body Fluid Laboratory test result Normal (applies to non-numeric results) [facility] ([facility]) Pleural FL Color Laboratory test result Normal ( applies to non-numeric results) [facility] ([facility]) Appearance, Body Fluid Laboratory test result No rmal (applies to non-numeric results) [facility] ([facility]) WBC Body Fluid 271 /uL 0-10 Above high normal [facility] ([facility]) BF Polymorphonuclear Cell % 24.4 % 0-0 Above high normal [facility] ([facility]) BF Mononuclear Cell % 75.6 % 0-0 Above high normal [facility] ([facility]) RBC Body Fluid Laboratory test result Normal (applies to non-numeric results) [facility]) ID Date Data Source [id number] 07/12/2019 01:25:[address] [facility]) Name Value Range Interpretation Code Description Data Brenna rce(s) Supporting Document(s) Total Protein, Body Fluid 3.7 g/dL Normal (applies to no n-numeric results) [facility] ([facility]) Source, Body Fluid Tot Protein Laboratory test result Normal (applies to non- numeric results) [facility] ([facility]) ID Date Data Source [id number] 07/12/2019 01:25:[address] [facility]) Name Value Range Interpretation Code Description Data Brenna rce(s) Supporting Document(s) Source, Body Fluid Albumin Laboratory test result Normal (applies to non- numeric results) [facility]) Albumin, Body Fluid 2.5 g/dL Normal (applies to non-nume chi results) [facility]) ID Date Data Source [id number] 07/12/2019 01:25:[address] [facility]) Name Value Range Interpretation Code Description Data Brenna rce(s) Supporting Document(s) Source, Body Fluid LDH Laboratory test result No rmal (applies to non-numeric results) [facility]) LDH, Body Fluid 250 U/L Normal (applies to non-numeric results) [facility]) ID Date Data Source [id number] 07/12/2019 01:25:[address] [facility]) Name Value Range Interpretation Code Description Data Brenna rce(s) Supporting Document(s) Source, Body Fluid Glucose Laboratory test result Normal (applies to non- numeric results) [facility]) Glucose, Body Fluid 97 mg/dL Normal (applies to non-nume chi results) [facility]) ID Date Data Source [id number] 07/12/2019 01:25:[address] [facility]) Name Value Range Interpretation Code Description Data Brenna rce(s) Supporting Document(s) Amylase, Body Fluid 48 U/L Normal (applies to non-nume chi results) [facility]) Source, Body Fluid Amylase Laboratory test result Normal (applies to non- numeric results) [facility]) ID Date Data Source [id number] 07/12/2019 01:25:[address] [facility]) Name Value Range Interpretation Code Description Data Brenna rce(s) Supporting Document(s) Source, Body Fluid Chol Laboratory test result N ormal (applies to non-numeric results) [facility]) Cholesterol, Body Fluid 68 mg/dL Normal (applies to non- numeric results) [facility]) ID Date Data Source [id number] 07/12/2019 01:25:[address] [facility]) Name Value Range Interpretation Code Description Data Brenna rce(s) Supporting Document(s) Triglyceride, Body Fluid 13 mg/dL Normal (applies to non -numeric results) [facility]) Source, Body Fluid Trig Laboratory test result N ormal (applies to non-numeric results) [facility]) ID Date Data Source [id number] 07/12/2019 01:25:[address] [facility]) Name Value Range Interpretation Code Description Data Brenna rce(s) Supporting Document(s) PH Body Fluid 7.583 units Normal (applies to non-numeric r esults) [facility]) Source, Body Fluid pH Laboratory test result Nor mal (applies to non-numeric results) [facility]) ID Date Data Source [id number] 07/12/2019 01:25:00 PM EDT [facility] ([facility]) Name Value Range Interpretation Code Description Data Brenna rce(s) Supporting Document(s) Amylase [Enzymatic activity/volume] in Body fluid Laboratory test res ult [facility]) Albumin [Mass/volume] in Body fluid Laboratory test result [facility] Triglyceride [Moles/volume] in Body fluid Laboratory test result [facility]) Cholesterol [Moles/volume] in Body fluid Laboratory test result [facility]) ID Date Data Source [id number] 06/12/2019 11:03:00 AM EDT [facility] ([facility]) Name Value Range Interpretation Code Description Data Brenna rce(s) Supporting Document(s) Microscopic observation [Identifier] in Unspecified specimen by Non- gynecological cytology method Laboratory test result [facility] ([facility]) SPECIMEN: Pleural fluid 1400ml Yellow SPECIMEN ADEQUACY: Satisfactory for evaluation CATEGORIZATION: Negative for Malignancy DESCRIPTIONS: Scattered meothelial cells noted in a background of lymphocytes. COMMENTS: 06/13/2019 - 908 Signed HILLARY ALONSO(ASCP) 06/13/2019 09 (Prelim) Signed EDDIE BAUTISTA MD 06/13/2019 1105 ID Date Data Source [id number] 06/12/2019 09:18:00 AM [facility] ([facility]) Name Value Range Interpretation Code Description Data Brenna rce(s) Supporting Document(s) Surgical pathology study Laboratory test result [facility] ([facility]) FINAL DIAGNOSIS Pleural effusion: Mesothelial cells and chronic inflammatory cells. No malignant cells are identified. 06/13/2019 - 1104 CLINICAL DIAGNOSIS Left pleural effusion 06/12/2019 - 1500 GROSS DIAGNOSIS Received in formalin labeled "pleural effusion" consists of 1400 mL of yellow pleural fluid for cell block. -OA 06/12/2019 - 1500 Signed EDDIE BAUTISTA MD 06/13/2019 1104 ID Date Data Source [id number] 06/12/2019 08:54:[address] [facility]) Name Value Range Interpretation Code Description Data Brenna rce(s) Supporting Document(s) Source, Body Fluid Laboratory test result Normal (applies to non-numeric results) [facility] ([facility]) Pleural FL Color Laboratory test result Normal ( applies to non-numeric results) [facility]) Appearance, Body Fluid Laboratory test result No rmal (applies to non-numeric results) [facility] ([facility]) RBC Body Fluid Laboratory test result Normal (applies to non-numeric results) [facility] ([facility]) WBC Body Fluid 218 /uL 0-10 Above high normal [facility] ([facility]) BF Mononuclear Cell % 93.1 % 0-0 Above high normal [facility] ([facility]) BF Polymorphonuclear Cell % 6.9 % 0-0 Above high normal [facility] ([facility]) ID Date Data Source [id number] 06/12/2019 [facility]54[facility] Name Value Range Interpretation Code Description Data Brenna rce(s) Supporting Document(s) Source, Body Fluid Tot Protein Laboratory test result Normal (applies to non- numeric results) [facility]) Total Protein, Body Fluid 3.2 g/dL Normal (applies to no n-numeric results) [facility] ([facility]) ID Date Data Source [id number] 06/12/2019 08:54:00 AM EDT [facility] ([facility]) Name Value Range Interpretation Code Description Data Brenna rce(s) Supporting Document(s) Source, Body Fluid LDH Laboratory test result No rmal (applies to non-numeric results) [facility] ([facility]) LDH, Body Fluid 156 U/L Normal (applies to non-numeric results) [facility]) ID Date Data Source [id number] [facility]/12[facility]2019 [facility] Name Value Range Interpretation Code Description Data Brenna rce(s) Supporting Document(s) Glucose, Body Fluid 106 mg/dL Normal (applies to non-nume chi results) [facility]) Source, Body Fluid Glucose Laboratory test result Normal (applies to non- numeric results) [facility]) ID Date Data Source [id number] 06/12/2019 08:54:[address] [facility]) Name Value Range Interpretation Code Description Data Brenna rce(s) Supporting Document(s) Source, Body Fluid Amylase Laboratory test result Normal (applies to non- numeric results) [facility]) Amylase, Body Fluid 40 U/L Normal (applies to non-nume chi results) [facility]) ID Date Data Source [id number] 06/12/2019 08:54:[address] [facility]) Name Value Range Interpretation Code Description Data Brenna rce(s) Supporting Document(s) Source, Body Fluid pH Laboratory test result Nor mal (applies to non-numeric results) [facility]) PH Body Fluid 7.636 units Normal (applies to non-numeric r esults) [facility]) ID Date Data Source [id number] 06/12/2019 08:54:[address] [facility]) Name Value Range Interpretation Code Description Data Brenna rce(s) Supporting Document(s) Gram Stain Laboratory test result Normal (applies to non-n umeric results) [facility]) NO CELLS SEEN NO ORGANISMS SEEN Body Fluid Culture Laboratory test result [facility]) * This is a corrected [...] 1: PROPIONIBACTERIUM GRANULOSUM ID Date Data Source [id number] 06/12/2019 08:54:00 AM EDT [facility] ([facility]) Name Value Range Interpretation Code Description Data Brenna rce(s) Supporting Document(s) Bacteria identified in Unspecified specimen by Anaerob e culture Laboratory test result [facility] ([facility]) If anaerobic or aerobic growth is detected within the next 7-21 days, an addendum will follow. . . FULL REPORT IN LAB NOTES ([facility] and [facility]). NO GROWTH ANAEROBICALLY ID Date Data Source [id number] 06/12/2019 08:54:00 AM EDT [facility] ([facility]) Name Value Range Interpretation Code Description Data Brenna rce(s) Supporting Document(s) Afb Smear Laboratory test result [facility] ([facility]) Testing performed at reference lab . Rep ort copy to follow on a separate form. 07/27/19 REF LAB#:[id number] Due to limited sensitivity, smear results should be used as an adjunct in evaluating patient tuberculosis status. Cultural examination is highly recommended for clinical diagnosis. AFB sm REF LAB concentra NEGATIVE Afb Culture Laboratory test result [facility]) Testing performed at reference lab . Rep ort copy to follow on a separate form. 07/27/19 REF LAB#:[id number] FULL REPORT IN LAB NOTES ([facility] No Acid-Fast Bacilli Isolated after 6 Weeks. ID Date Data Source [id number] 06/12/2019 08:54:00 AM EDT [facility] ([facility]) Name Value Range Interpretation Code Description Data Brenna rce(s) Supporting Document(s) Fungal Culture Other Source Laboratory test result [facility] ([facility]) Testing performed at reference lab . Rep ort copy to follow on a separate form. 07/27/19 REF LAB#:[id number] FUNGUS CULTURE [facility] No Yeast or Mold Isolated after 4 weeks. Fungal Smear Laboratory test result [facility] ([facility]) Testing performed at reference lab . Rep ort copy to follow on a separate form. 07/27/19 REF LAB#:[id number] NILE/Calcofluor preparatio No fungus observed. ID Date Data Source [id number] 06/02/2019 09:38:00 AM EDT [facility] ([facility]) Name Value Range Interpretation Code Description Data Brenna rce(s) Supporting Document(s) Prothrombin Time 13.5 s 11.8-14.0 Normal (applies to non-numeric results) [facility] ([facility]) Inr 1.05 Normal (applies to non-numeric resul ts) [facility] ([facility]) THERAPUTIC HUMAN INR VALUES INDICATIONS NORMAL RANGES PROPHYLAXIS/TREATMENT OF: VENOUS THROMBOSIS 2.0-3.0 PULMONARY EMBOLISM 2.0-3.0 PREVENTION OF SYSTEMIC EMBOLISM FROM: TISSUE HEART VALVES 2.0-3.0 ACUTE MYOCARDIAL INFARCTION 2.0-3.0 VALVULAR HEART DISEASE 2.0-3.0 ATRIAL FIBRILLATION 2.0-3.0 MECHANICAL VALVES(HIGH RISK) 2.5-3.5 RECURRENT MYOCARDIAL INFARCTION 2.5-3.5 ID Date Data Source [id number] 06/02/2019 09:38:00 AM EDT [facility] ([facility]) Name Value Range Interpretation Code Description Data Brenna rce(s) Supporting Document(s) Lactate dehydrogenase [Enzymatic activity/volume] in Serum o r Plasma 235 U/L 87-241 Normal (applies to non-numeric results) [facility]) ID Date Data Source [id number] 06/02/2019 09:38:00 AM EDT [facility] ([facility]) Name Value Range Interpretation Code Description Data Brenna rce(s) Supporting Document(s) White Blood Count 9.0 10 4.0-10.0 Normal (applies to non-numeri c results) [facility] ([facility]) Red Blood Count 4.06 10 4.30-6.10 Below low normal [facility] ([facility]) Hemoglobin 12.3 g/dL 13.5-17.5 Below low normal [facility] ( [facility]) Hematocrit 40.8 % 42.0-52.0 Below low normal [facility] ( [facility]) Mean Corpuscular Volume 100.5 fl 80.0-96.0 Above high normal [facility]) Red Cell Distribution Width 17.4 % 11.5-14.5 Above high normal [facility] ([facility]) Mean Corpuscular HGB Conc 30.1 g/dL 32.0-36.5 Below low normal [facility] ([facility]) Mean Corpuscular Hemoglobin 30.3 pg 27.0-33.0 Norm al (applies to non-numeric results) [facility] ([facility]) Lymph % 5.9 % 24.0-44.0 Below low normal [facility] ( [facility]) Platelet Count, Automated 367 10 150-450 Normal (applies to non-numeric results) [facility] ([facility]) Neutrophils % 84.6 % 36.0-66.0 Above high normal [facility] ([facility]) [place] % 8.1 % 0.0-5.0 Above high normal [facility] ([facility]) Eos % 0.2 % 0.0-3.0 Normal (applies to non-numeric resul ts) [facility] ([facility]) Baso % 1.0 % 0.0-1.0 Normal (applies to non-numeric resul ts) [facility] ([facility]) Immature Granulocyte % 0.2 % 0-3.0 Normal (applies to non-n umeric results) [facility] ([facility]) Neutrophils # 7.6 10 1.5-8.5 Normal (applies to non-numeric re sults) [facility] ([facility]) Nucleated Red Blood Cell % 0.0 % 0-0 Normal (applies to n on-numeric results) [facility] ([facility]) Lymph # 0.5 10 1.5-5.0 Below low normal [facility] ( [facility]) Eos # 0.0 10 0.0-0.5 Normal (applies to non-numeric resul ts) [facility] ([facility]) Baso # 0.1 10 0.0-0.2 Normal (applies to non-numeric resul ts) [facility] ([facility]) [place] # 0.7 10 0.0-0.8 Normal (applies to non-numeric resul ts) [facility] ([facility]) ID Date Data Source [id number] 06/02/2019 09:38:00 AM EDT [facility] ([facility]) Name Value Range Interpretation Code Description Data Brenna rce(s) Supporting Document(s) Blood Urea Nitrogen 25 mg/dL 7-18 Above high normal [facility] ([facility]) Glucose, Fasting 74 mg/dL 70-100 Normal (applies to non-numeric results) [facility] ([facility]) Glomerular Filtration Rate 58.1 Normal (applies to n on-numeric results) [facility]) <content>Units are mL/min/1.73 m2</content>
<content></content>
<content>Chronic Kidney Disease Staging per NKF:</content>
<content></content>
<content>Stage I & II GFR >=60 Normal to Mildly Decreased</content>
<content>Stage III GFR 30-59 Moderately Decreased</content>
<content>Stage IV GFR 15-29 Severely Decreased</content>
<content>Stage V GFR <15 Very Little GFR Left</content>
<content>ESRD GFR <15 on [employer]</content>
<content></content> Creatinine For GFR 1.30 mg/dL 0.70-1.30 Normal (applies to non -numeric results) [facility] ([facility]) Sodium Level 143 meq/L 136-145 Normal (applies to non-numeric res ults) [facility] ([facility]) Chloride Level 112 meq/L 98-107 Above high normal [facility] ([facility]) Potassium Serum 4.7 meq/L 3.5-5.1 Normal (applies to non-numeric results) [facility] ([facility]) Anion Gap 5 meq/L 8-16 Below low normal [facility] ( [facility]) Carbon Dioxide Level 26 meq/L 21-32 Normal (applies to non-num aiden results) [facility] ([facility]) Calcium Level 8.5 mg/dL 8.8-10.2 Below low normal [facility] ([facility]) Ast/Sgot 10 U/L 7-37 Normal (applies to non-numeric resul ts) [facility] ([facility]) Alt/SGPT 14 U/L 12-78 Normal (applies to non-numeric resul ts) [facility] ([facility]) Bilirubin,Total 0.3 mg/dL 0.2-1.0 Normal (applies to non-numeric results) [facility] ([facility]) Alkaline Phosphatase 75 U/L 45-117 Normal (applies to non-num aiden results) [facility] ([facility]) Total Protein 5.5 GM/DL 6.4-8.2 Below low normal [facility] ([facility]) Albumin 2.9 GM/DL 3.2-5.2 Below low normal [facility] ( [facility]) Albumin/Globulin Ratio 1.12 1.00-1.93 Normal (applies to non-numeric results) [facility]) ID Date Data Source [id number] 06/02/2019 09:37:00 AM EDT [facility] ([facility]) Name Value Range Interpretation Code Description Data Brenna rce(s) Supporting Document(s) Protein [Mass/volume] in Serum or Plasma Laboratory test result [facility] ([facility]) Procedure Social History Code Duration Value Status Description Data Source(s ) Alcohol intake 04/12/2020 12:00:00 AM EST Ex-drinker (finding) comp leted Ex- drinker (finding) [facility] Tobacco use and exposure 04/12/2020 12:00:00 AM EST Never used co mpleted Never used [facility] Smoking 04/12/2020 12:00:00 AM EST Former smoker completed Former smoker [facility] Alcohol intake 04/09/2020 12:00:00 AM EST Ex-drinker (finding) comp leted Ex- drinker (finding) [facility] Smoking 07/20/2019 12:00:00 AM EDT - 03/08/2013 12:00:00 AM EST Patient is a former smoker completed Patient is a former smoker [facility] ([facility]) Vital Signs ID Date Data Source UNK Name Value Range Interpretation Code Description Data Source(s) [place] body weight 154 [lb_av] 154 [lb_av] [facility] ([facility]) Body mass index (BMI) [Ratio] 24.2 kg/m2 24.2 k g/m2 [facility] ([facility]) Body weight 159.00 [lb_av] 159.00 [lb_av] [facility] ([facility]) Body height 68 [in_i] 68 [in_i] [facility] ([facility]) 5'8" Respiratory rate 12 /min 12 /min [facility] ( [facility]) [place] body weight 154 [lb_av] 154 [lb_av] [facility] ([facility]) Body mass index (BMI) [Ratio] 24.2 kg/m2 24.2 k g/m2 [facility] ([facility]) Body weight 159.00 [lb_av] 159.00 [lb_av] [facility] ([facility]) Body height 68 [in_i] 68 [in_i] [facility] ([facility]) 5'8" Respiratory rate 12 /min 12 /min [facility] ( [facility]) [place] body weight 154 [lb_av] 154 [lb_av] [facility] ([facility]) Body mass index (BMI) [Ratio] 24.2 kg/m2 24.2 k g/m2 [facility] ([facility]) Body weight 159.00 [lb_av] 159.00 [lb_av] [facility] ([facility]) Body height 68 [in_i] 68 [in_i] [facility] ([facility]) 5'8" Respiratory rate 12 /min 12 /min [facility] ( [facility]) Body weight 66.679 kg 66.679 kg [facility] ([facility]) Body weight 147.00 [lb_av] 147.00 [lb_av] [facility] Body temperature 99.9 [degF] 99.9 [degF] [facility] ([facility] Oxygen saturation in Arterial blood by Pulse oximetry 94 % 94 % [facility] ([facility]) Room Air Heart rate 88 /min 88 /min [facility] ([facility]) Diastolic blood pressure 70 mm[Hg] 70 mm[Hg] [facility] ([facility]) Systolic blood pressure 110 mm[Hg] 110 mm[Hg] [facility] ([facility]) Body temperature 98.0 [degF] 98.0 [degF] [facility] ([facility]) Body weight 69.854 kg 69.854 kg [facility] ([facility]) Body mass index (BMI) [Ratio] 24.9 kg/m2 24.9 k g/m2 [facility] ([facility]) Body weight 154.00 [lb_av] 154.00 [lb_av] [facility] ([facility]) Body height 66 [in_i] 66 [in_i] [facility] ([facility]) 5'6" Body temperature 97.8 [degF] 97.8 [degF] [facility] ([facility]) Oxygen saturation in Arterial blood by Pulse oximetry 94 % 94 % [facility] ([facility]) Room Air Heart rate 88 /min 88 /min [facility] ([facility]) Diastolic blood pressure 76 mm[Hg] 76 mm[Hg] [facility] ([facility]) Systolic blood pressure 118 mm[Hg] 118 mm[Hg] [facility] ([facility]) Body weight 69.854 kg 69.854 kg [facility] ([facility]) Body mass index (BMI) [Ratio] 24.9 kg/m2 24.9 k g/m2 [facility] ([facility]) Body weight 154.00 [lb_av] 154.00 [lb_av] [facility] ([facility]) Body height 66 [in_i] 66 [in_i] [facility] ([facility]) 5'6" Body temperature 98.2 [degF] 98.2 [degF] [facility] ([facility]) Oxygen saturation in Arterial blood by Pulse oximetry 92 % 92 % [facility] ([facility]) Heart rate 85 /min 85 /min [facility] ([facility]) Diastolic blood pressure 70 mm[Hg] 70 mm[Hg] [facility] ([facility]) Systolic blood pressure 110 mm[Hg] 110 mm[Hg] [facility] ([facility]) Body mass index (BMI) [Ratio] 24.2 kg/m2 24.2 k g/m2 [facility] ([facility]) Body weight 159.00 [lb_av] 159.00 [lb_av] [facility] ([facility]) Body height 68 [in_i] 68 [in_i] [facility] ([facility]) 5'8" Respiratory rate 12 /min 12 /min [facility] ( [facility]) Body weight 71.669 kg 71.669 kg [facility] ([facility]) Body mass index (BMI) [Ratio] 25.5 kg/m2 25.5 k g/m2 [facility] ([facility]) Body weight 158.00 [lb_av] 158.00 [lb_av] [facility] ) Body height 66 [in_i] 66 [in_i] [facility] ([facility]) 5'6" Body temperature 97.3 [degF] 97.3 [degF] [facility] ([facility]) Oxygen saturation in Arterial blood by Pulse oximetry 90 % 90 % [facility] ([facility]) Heart rate 83 /min 83 /min [facility] ([facility]) Diastolic blood pressure 70 mm[Hg] 70 mm[Hg] [facility] ([facility]) Systolic blood pressure 120 mm[Hg] 120 mm[Hg] [facility] ([facility]) Body mass index (BMI) [Ratio] 24.2 kg/m2 24.2 k g/m2 [facility] ([facility]) Body weight 159.00 [lb_av] 159.00 [lb_av] [facility]) Body height 68 [in_i] 68 [in_i] [facility] ([facility]) 5'8" Respiratory rate 12 /min 12 /min [facility] ( [facility]) Heart rate 64 /min 64 /min [facility] ([facility]) Diastolic blood pressure 58 mm[Hg] 58 mm[Hg] [facility] ([facility]) Systolic blood pressure 110 mm[Hg] 110 mm[Hg] [facility] ([facility]) ID Date Data Source [id number] 04/12/2020 05:20:18 PM [facility] Name Value Range Interpretation Code Description Data Source(s) WEIGHT RECORDED 129.[address] [facility] Body height Measured 65.5 in 65.5 in [facility]
[2020-04-25 12:17] LABS: HEMATOCRIT 31.5 % (42.0-52.0); HEMOGLOBIN 9.5 g/dl (13.5-17.5); MEAN CORPUSCULAR HEMOGLOBIN 29.2 pg (27.0-33.0); MEAN CORPUSCULAR HGB CONC 30.2 g/dl (32.0-36.5); MEAN CORPUSCULAR VOLUME 96.9 fl (80.0-96.0); PLATELET COUNT, AUTOMATED 164 10^3/uL (150-450); RED BLOOD COUNT 3.25 10^6/uL (4.30-6.10); WHITE BLOOD COUNT 15.6 10^3/uL (4.0-10.0)
[2020-04-25 12:33] LABS: INR 1.11; PROTHROMBIN TIME 14.5 SECONDS (12.5-14.3)
[2020-04-25] MEDS ORDERED: BISACODYL 10 MG SUPP PR PRN (12:45)
[2020-04-25] MEDS ORDERED: LEVALBUTEROL 1.25 MG/0.5 ML CONCENTRATE NEB NEB PRN (12:45)
[2020-04-25] MEDS ORDERED: ONDANSETRON 4MG/2ML VIAL IV PRN (12:45)
[2020-04-25] MEDS ORDERED: PERCOCET 5MG/325MG TAB PO PRN ×2 (12:45)
[2020-04-25] MEDS ORDERED: NORCO, ANEXSIA 5/325MG TABLET (HYDROcodone/ACETAMINOPHEN) PO PRN (12:45)
[2020-04-25] MEDS ORDERED: ACETAMINOPHEN TAB 650MG DOSE (2X325MG) PO PRN (12:45)
--- OUTSIDE RECORDS SUMMARY | 2020-04-25 12:49 | CCD ---
Author Author [facility] Organization [facility] Address Unknown Phone Unavailable Care Team Providers Care Certification Officer Name Role Phone ED VERMA MD Unavailable [...] is protected by Article 27-F of the [facility] Public Health law. If you continue you may have access to information: Regarding HIV / AIDS; Provided by facilities licensed or operated by the [facility] Office of Mental Health; or Provided by the [facility] Office for People With Developmental Disabilities. If such information is present, then the following [facility] mandated warning applies: This information has been [...] law may result in a fine or fpc sentence or both. A general authorization for the release of medical or other information is NOT sufficient authorization for further disc losure. Allergies and Adverse Reactions Type Description Substance Reaction Status Data Source(s ) Drug Class NO KNOWN ALLERGIES NO KNOWN ALLERGIES [facility] Family History Family Member Name Family Member Gender Family Member Status Date o f Status Description Data Source(s) Unknown Unknown Problem [facility] ([facility], ) Unknown Unknown Problem [facility] ([facility], ) Encounters Encounter Providers Location Date Indications Data Source(s ) Outpatient Attender: ED VERMA MD 04/30/2020 12 :00:00 AM [facility] Outpatient Attender: ED VERMA MD [id number] 04/09/2020 12:00:00 AM EST - 04/09/2020 10:14:47 AM EST Malignant neoplasm of unspecified part o f unspecified bronchus or lung [facility] Malignant neoplasm of unspecified part o f unspecified bronchus or lung Outpatient Referrer: ED VERMA MD 021 12:00:00 AM EST Malignant neoplasm of unspecified part of unspecified bronchus or lung [facility] Malignant neoplasm of unspecified part o f unspecified bronchus or lung Outpatient Attender: Nikos Salazar MD [facility] 03/28/2020 01:00:00 PM EST [facility] ([facility] Outpatient Attender: Nikos Salazar MD [facility] 12/15/2019 09:30:00 AM EDT [facility] ([facility]) Outpatient Attender: Nikos Salazar MD [facility] 09/12/2019 11:00:00 AM EDT [facility] ([facility]) Outpatient Referrer: Sydnee Valdez MD 08/17/2019 05:30:00 AM EDT [facility] Outpatient Referrer: Sydnee Valdez MD 07/28/2019 06:06:00 AM EDT [facility] Outpatient Referrer: Sydnee Valdez MD 07/23/2019 08:10:00 AM EDT [facility] Outpatient Attender: Nahun Dobsonang/[place]/Matt/Re indl 07/14/2019 10:00:00 AM EDT [facility] ([facility] Outpatient Attender: Nahun Davis/[place]/Matt/Re indl 06/29/2019 09:30:00 AM EDT [facility] ([facility]) Outpatient Referrer: Sydnee Valdez MD 06/29/2019 05:59:00 AM EDT [facility] Outpatient Attender: MAHI ESTRADA DO Ryan/[place]/Matt/[place] 06/26/2019 01:45:00 PM EDT [facility] ([facility]) Outpatient Attender: MAHI ESTRADA DO [place]/Matt/[facility]l 06/15/2019 03:30:00 PM EDT [facility] ([facility]) Outpatient Referrer: Sydnee Valdez MD 06/12/2019 05:17:00 AM EDT [facility] Outpatient Attender: Nikos Salazar MD [facility] 06/06/2019 10:45:00 AM EDT [facility] ([facility]) Outpatient Attender: MAHI ESTRADA DO Ryan/[place]/Matt/Reindl 06/02/2019 08:30:00 AM EDT [facility] ([facility] Outpatient Referrer: Sydnee Valdez MD 05/10/2019 11:54:00 AM EST [facility] Outpatient Referrer: Sydnee Valdez MD 03/30/2019 02:15:00 PM EST [facility] Outpatient Referrer: Sydnee Valdez MD 03/15/2019 01:53:00 PM EST [facility] Outpatient Referrer: Sydnee Valdez MD 03/13/2019 09:39:00 AM EST [facility] Outpatient Attender: Nikos Salazar MD Main office - [facility] 03/07/2019 10:15:00 AM EST [facility] ([facility]) Immunizations Vaccine Date Status [...] BEDTIME SOLD: 12/27/19 20 [facility] Calcitriol 0.81958 MG Oral Capsule 0.25 mcg CALCITRIOL 10/18/2019 12:00:00 AM EDT capsule 180 TAKE TWO CAPSULES BY MOUTH O NCE DAILY TAKE TWO CAPSULES BY MOUTH ONCE DAILY SOLD: 10/19/2019 [facility] Calcitriol 0.12409 MG Oral Capsule 0.25 mcg CALCITRIOL 06/28/2019 [...] DIRECTED NEEDED SOLD: 06/03/2019 [facility] [place] [facility] [place] 06/02/2019 12:00:00 AM EDT active [facility] ([facility] [...] type / Coverage type Policy ID Covered alliance party ID Covered alliance party's relationship to [place] Policy [place] Plan Information [employer]/307 [id number] SP [id number] MEDICARE [id number] SP [id number] [place] [place]/307 [id number] SP [id number] MEDICARE A [id number] Self [id number] EXCELLUS H [id number] Self [id number] MEDICARE A [id number] Self [id number] A MEDICARE C [id number] S [id number] EXCELLUS BCBS B [id number] S [id number] [id number] [place] [place]/307 [id number] SP [id number] [place] [place]/307 [id number] SP [id number] MEDICARE [id number] SP [id number] [employer] [place]/307 [id number] SP [id number] ANSI-Commercial [id number] ANSI-Medicare Part B [id number] [place]/307 [id number] SP [id number] [place]PO 302/307 [id number] SP [id number] [place] [place]PO 302/307 [id number] SP [id number] [place]PO 302/307 [id number] SP [id number] MEDICARE [id number] SP [id number] A MEDICARE [id number] SP [id number] T [employer] [place] PPO 302/307 [id number] SP [id number] MEDICARE [id number] S [id number] A [employer] PPO 302/307 [id number] SP [id number] [place] 302/307 [id number] SP [id number] [place] Medicare Primary Self [employer] BCBS Health Maintenance Organization (HMO) Self [employer] [place] PPO 302/307 [id number] SP [id number] [facility] PART A [id number] Problems, Conditions, and Diagnoses Code Display Name Description Problem Type Effective Dates Data Source(s) 12140868 Multiple sclerosis Multiple sclerosis Problem 11/2019 12:00:00 AM EDT [facility] ([facility] ) Pleural effusion, not elsewhere classifi ed Pleural effusion, not elsewhere classified Problem 06/02/2019 12:00:00 AM EDT [facility] ([facility], ) [id number] Cough Cough Problem 06/02/2019 12:00:00 AM ED T [facility] ([facility], ) C34.90 Malignant neoplasm of unspecified part o f unspecified bronchus or lung Malignant neoplasm of unspecified part of unspecified bronchus or lung Diagnosis 04/09/2020 10:23:58 AM [facility] Surgeries/Procedures Procedure Description Date Indications Data Source(s) XR CHEST FRONTAL AND LATERAL 10771 XR CHEST FRONTAL AND LATERAL 07724 STAT 04/09/2020 10:43 AM EST Malignant neoplasm of lung, unspecified laterality, unspecified part of lung 04/09/2020 10:43:42 AM EST Malignant neoplasm of lung, unspecified laterality, unspecified part of lung [facility] Malignant neoplasm of lung, unspecified laterality, unspecified part of lung FALLS RISK ASSESSMENT DOCUMENTED 12/15/2019 12:00:00 A M EDT [facility] ([facility] ) NON-INVASIVE PHYSIOLOGIC STUDY EXTREMITY 3 LEVLS 11/02 12:00:00 AM EDT [facility] ([facility] ) NON-INVASIVE PHYSIOLOGIC STUDY EXTREMITY 3 LEVLS 11/02 12:00:00 AM EDT [facility] ([facility] ) NON-INVASIVE PHYSIOLOGIC STUDY EXTREMITY 3 LEVLS 11/02 12:00:00 AM EDT [facility] ([facility] ) NON-INVASIVE PHYSIOLOGIC STUDY EXTREMITY 3 LEVLS 11/02 12:00:00 AM EDT [facility] ([facility] ) TSTG ANS FUNCJ CARDIOVAGAL INNERVAJ PARASYMP 0 12:00:00 AM EDT [facility] ([facility] ) TSTG ANS FUNCJ CARDIOVAGAL INNERVAJ PARASYMP 0 12:00:00 AM EDT [facility] ([facility] ) TESTING AUTONOMIC NERVOUS SYSTEM FUNCTION 11/03/2019 1 2:00:00 AM EDT [facility] ([facility] ) TESTING AUTONOMIC NERVOUS SYSTEM FUNCTION 11/03/2019 1 2:00:00 AM EDT [facility] ([facility] ) Needle electromyography, each extremity, with related paraspinal areas, when performed, done with nerve conduction, amplitude and latency/velocity study; complete, five or more muscles studied, innervated by three or more nerves or four or more spinal levels (list separately in addition to the code for primary procedure). 10/11/2019 12:00:00 AM EDT MEDEN T ([facility] ) Needle electromyography, each extremity, with related paraspinal areas, when performed, done with nerve conduction, amplitude and latency/velocity study; complete, five or more muscles studied, innervated by three or more nerves or four or more spinal levels (list separately in addition to the code for primary procedure). 10/11/2019 12:00:00 AM EDT MEDEN T ([facility] ) Nerve Conduction 9-10 Studies 10/11/2019 12:00:00 AM E DT [facility] ([facility] ) MRI BRAIN BRAIN STEM W/O CONTRAST MATERIAL 09/18/2019 12:00:00 AM EDT [facility] ([facility] ) MRI BRAIN BRAIN STEM W/O CONTRAST MATERIAL 09/18/2019 12:00:00 AM EDT [facility] ([facility] ) MRI SPINAL CANAL CERVICAL W/O CONTRAST MATRL 0 12:00:00 AM EDT [facility] ([facility], ) MRI SPINAL CANAL CERVICAL W/O CONTRAST MATRL 0 12:00:00 AM EDT [facility] ([facility], ) MRI Spine Thoracic W/O Contrast 09/18/2019 12:00:00 AM EDT [facility] ([facility]) MRI Spine Thoracic W/O Contrast 09/18/2019 12:00:00 AM EDT [facility] ([facility], ) FALLS RISK ASSESSMENT DOCUMENTED 06/06/2019 12:00:00 A M EDT [facility] ([facility], ) Results ID Date Data Source [id number] 04/12/2020 05:20:18 PM [facility] Name Value Range Interpretation Code Description Data Brenna rce(s) Supporting Document(s) Progress Note [facility] [id number] lbm [file] [id number]= ID Date Data Source [id number] 04/09/2020 11:31:57 AM [facility] XR CHEST FRONTAL AND LATERAL [id number] RESULTInterpreted by:Chicho Parada MDINDICATION: 69-year-old male with [...] rce(s) Supporting Document(s) ID Date Data Source [id number] 04/09/2020 10:09:53 AM [facility] Name Value Range Interpretation Code Description Data Brenna rce(s) Supporting Document(s) Progress Note [facility] [id number] [facility] [file] [id number]= ID Date Data Source [id number] 07/12/2019 01:28:00 PM [facility] Name Value Range Interpretation Code Description Data Brenna rce(s) Supporting Document(s) Gram Stain Laboratory test result Normal (applies to non-n umeric results) [facility] FEW WBCS NO ORGANISMS SEEN ID Date Data Source [id number] 07/12/2019 01:28:00 PM EDT [facility] Name Value Range Interpretation Code Description Data Brenna rce(s) Supporting Document(s) Bacteria identified in Body fluid by Culture Laboratory test result [facility] If aerobic or anaerobic growth is detected within the next 7-21 days, an addendum will follow. . . [facility] NO GROWTH AEROBICALLY Bacteria identified in Unspecified specimen by Anaerob e culture Laboratory test [facility] ) If anaerobic or aerobic growth is detected within the next 7-21 days, an addendum will follow. . . FULL REPORT IN LAB NOTES (eCW and [facility]). NO GROWTH ANAEROBICALLY ID Date Data Source [id number] 07/12/2019 01:28:00 PM EDT [facility] ([facility]) Name Value Range Interpretation Code Description Data Brenna rce(s) Supporting Document(s) Microscopic observation [Identifier] in Unspecified specimen by Non- gynecological cytology method Laboratory test [facility] SPECIMEN: Pleural fluid 850 ml anthony SPECIMEN ADEQUACY: Satisfactory for evaluation CATEGORIZATION: Negative for Malignancy DESCRIPTIONS: Specimen consists of rare mesothelial cells in a background of some eosinophils and blood elements. COMMENTS: 07/13/20191027 Signed TAL LANDA (ASCP) 07/13/2019 102 (Prelim) Signed EDDIE BAUTISTA MD 07/14/2019809 ID Date Data Source [id number] 07/12/2019 01:28:00 PM EDT [facility] ([facility]) Name Value Range Interpretation Code Description Data Brenna rce(s) Supporting Document(s) Surgical pathology study Laboratory test result [facility] ([facility]) FINAL DIAGNOSIS Pleural fluid,cell-block: Negative for malignancy. Mesothelial cells and inflammatory cells. 07/14/2019812 CLINICAL DIAGNOSIS Pleura effusion 07/13/20191427 GROSS DIAGNOSIS Received 850 mL of pleural fluid for cell block. -OA 07/13/20191427 Signed EDDIE BAUTISTA MD 07/14/2019812 ID Date Data Source [id number] 07/12/2019 01:25:00 PM EDT [facility] ([facility]) Name Value Range Interpretation Code Description Data Brenna rce(s) Supporting Document(s) Source, Body Fluid Laboratory test result Normal (applies to non-numeric results) [facility] Pleural FL Color Laboratory test result Normal ( applies to non-numeric results) [facility] Appearance, Body Fluid Laboratory test result No rmal (applies to non-numeric results) [facility] ([facility]) WBC Body Fluid 271 /uL 0-10 Above high normal [facility] ([facility]) BF Polymorphonuclear Cell % 24.4 % 0-0 Above high normal [facility] ([facility]) BF Mononuclear Cell % 75.6 % 0-0 Above high normal [facility] ([facility]) RBC Body Fluid Laboratory test result Normal (applies to non-numeric results) [facility]) ID Date Data Source [id number] 07/12/2019 01:25:00 PM EDT [facility]) Name Value Range Interpretation Code Description Data Brenna rce(s) Supporting Document(s) Total Protein, Body Fluid 3.7 g/dL Normal (applies to no n-numeric results) [facility] ([facility]) Source, Body Fluid Tot Protein Laboratory test result Normal (applies to non- numeric results) [facility] ([facility]) ID Date Data Source [id number] 07/12/2019 01:25:00 PM EDT [facility]) Name Value Range Interpretation Code Description Data Brenna rce(s) Supporting Document(s) Source, Body Fluid Albumin Laboratory test result Normal (applies to non- numeric results) [facility]) Albumin, Body Fluid 2.5 g/dL Normal (applies to non-nume chi results) [facility]) ID Date Data Source [id number] 07/12/2019 01:25:00 PM EDT [facility]) Name Value Range Interpretation Code Description Data Brenna rce(s) Supporting Document(s) Source, Body Fluid LDH Laboratory test result No rmal (applies to non-numeric results) [facility]) LDH, Body Fluid 250 U/L Normal (applies to non-numeric results) [facility]) ID Date Data Source [id number] 07/12/2019 01:25:00 PM EDT [facility]) Name Value Range Interpretation Code Description Data Brenna rce(s) Supporting Document(s) Source, Body Fluid Glucose Laboratory test result Normal (applies to non- numeric results) [facility]) Glucose, Body Fluid 97 mg/dL Normal (applies to non-nume chi results) [facility]) ID Date Data Source [id number] 07/12/2019 01:25:00 PM EDT [facility]) Name Value Range Interpretation Code Description Data Brenna rce(s) Supporting Document(s) Amylase, Body Fluid 48 U/L Normal (applies to non-nume chi results) [facility]) Source, Body Fluid Amylase Laboratory test result Normal (applies to non- numeric results) [facility]) ID Date Data Source [id number] 07/12/2019 01:25:00 PM EDT [facility]) Name Value Range Interpretation Code Description Data Brenna rce(s) Supporting Document(s) Source, Body Fluid Chol Laboratory test result N ormal (applies to non-numeric results) [facility]) Cholesterol, Body Fluid 68 mg/dL Normal (applies to non- numeric results) [facility]) ID Date Data Source [id number] 07/12/2019 01:25:00 PM EDT [facility]) Name Value Range Interpretation Code Description Data Brenna rce(s) Supporting Document(s) Triglyceride, Body Fluid 13 mg/dL Normal (applies to non -numeric results) [facility]) Source, Body Fluid Trig Laboratory test result N ormal (applies to non-numeric results) [facility]) ID Date Data Source [id number] 07/12/2019 01:25:00 PM EDT [facility]) Name Value Range Interpretation Code Description Data Brenna rce(s) Supporting Document(s) PH Body Fluid 7.583 units Normal (applies to non-numeric r esults) [facility]) Source, Body Fluid pH Laboratory test result Nor mal (applies to non-numeric results) [facility]) ID Date Data Source [id number] 07/12/2019 01:25:00 PM EDT [facility] ([facility]) Name Value Range Interpretation Code Description Data Brenna rce(s) Supporting Document(s) Amylase [Enzymatic activity/volume] in Body fluid Laboratory test res ult [facility] Albumin [Mass/volume] in Body fluid Laboratory test result [facility] Triglyceride [Moles/volume] in Body fluid [facility]) Cholesterol [Moles/volume] in Body fluid Laboratory test result [facility]) ID Date Data Source [id number] 06/12/2019 11:03:00 AM EDT [facility] ([facility]) Name Value Range Interpretation Code Description Data Brenna rce(s) Supporting Document(s) Microscopic observation [Identifier] in Unspecified specimen by Non- gynecological cytology method Laboratory test result [facility] ([facility]) SPECIMEN: Pleural fluid 1400ml Yellow SPECIMEN ADEQUACY: Satisfactory for evaluation CATEGORIZATION: Negative for Malignancy DESCRIPTIONS: Scattered meothelial cells noted in a background of lymphocytes. COMMENTS: 06/13/2019 - 908 Signed HILLARY ALONSO(ASCP) 06/13/2019 09 (Prelim) Signed EDDIE BAUTISTA MD 06/13/2019 1105 ID Date Data Source [id number] 06/12/2019 09:18:00 AM [facility] ([facility]) Name Value Range Interpretation Code Description Data Brenna rce(s) Supporting Document(s) Surgical pathology study Laboratory test result [facility] ([facility]) FINAL DIAGNOSIS Pleural effusion: Mesothelial cells and chronic inflammatory cells. No malignant cells are identified. 06/13/2019 - 1104 CLINICAL DIAGNOSIS Left pleural effusion 06/12/2019 - 1500 GROSS DIAGNOSIS Received in formalin labeled "pleural effusion" consists of 1400 mL of yellow pleural fluid for cell block. -OA 06/12/2019 - 1500 Signed EDDIE BAUTISTA MD 06/13/2019 1104 ID Date Data Source [id number] 06/12/2019 08:54:00 AM EDT [facility]) Name Value Range Interpretation Code Description Data Brenna rce(s) Supporting Document(s) Source, Body Fluid Laboratory test result Normal (applies to non-numeric results) [facility] ([facility]) Pleural FL Color Laboratory test result Normal ( applies to non-numeric results) [facility]) Appearance, Body Fluid Laboratory test result No rmal (applies to non-numeric results) [facility] ([facility]) RBC Body Fluid Laboratory test result Normal (applies to non-numeric results) [facility] ([facility]) WBC Body Fluid 218 /uL 0-10 Above high normal [facility] ([facility]) BF Mononuclear Cell % 93.1 % 0-0 Above high normal [facility] ([facility]) BF Polymorphonuclear Cell % 6.9 % 0-0 Above high normal [facility] ([facility]) ID Date Data Source [id number] [facility]/12[facility]2019 [facility]54[facility] Name Value Range Interpretation Code Description Data Brenna rce(s) Supporting Document(s) Source, Body Fluid Tot Protein Laboratory test result Normal (applies to non- numeric results) [facility]) Total Protein, Body Fluid 3.2 g/dL Normal (applies to no n-numeric results) [facility] ([facility]) ID Date Data Source [id number] 06/12/2019 08:54:00 AM EDT [facility] ([facility]) Name Value Range Interpretation Code Description Data Brenna rce(s) Supporting Document(s) Source, Body Fluid LDH Laboratory test result No rmal (applies to non-numeric results) [facility] ([facility]) LDH, Body Fluid 156 U/L Normal (applies to non-numeric results) [facility]) ID Date Data Source [id number] [facility]/12[facility]2019 [facility] Name Value Range Interpretation Code Description Data Brenna rce(s) Supporting Document(s) Glucose, Body Fluid 106 mg/dL Normal (applies to non-nume chi results) [facility]) Source, Body Fluid Glucose Laboratory test result Normal (applies to non- numeric results) [facility]) ID Date Data Source [id number] 06/12/2019 08:54:00 AM EDT [facility]) Name Value Range Interpretation Code Description Data Brenna rce(s) Supporting Document(s) Source, Body Fluid Amylase Laboratory test result Normal (applies to non- numeric results) [facility]) Amylase, Body Fluid 40 U/L Normal (applies to non-nume chi results) [facility]) ID Date Data Source [id number] 06/12/2019 08:54:00 AM EDT [facility]) Name Value Range Interpretation Code Description Data Brenna rce(s) Supporting Document(s) Source, Body Fluid pH Laboratory test result Nor mal (applies to non-numeric results) [facility]) PH Body Fluid 7.636 units Normal (applies to non-numeric r esults) [facility]) ID Date Data Source [id number] 06/12/2019 08:54:00 AM EDT [facility]) Name Value Range Interpretation Code Description Data Brenna rce(s) Supporting Document(s) Gram Stain Laboratory test result Normal (applies to non-n umeric results) [facility]) NO CELLS SEEN NO ORGANISMS SEEN Body Fluid Culture Laboratory test result [facility]) * This is a corrected result. * A prior result that was reported as final has been changed. If aerobic or anaerobic growth is detected within the next 7-21 days, an addendum will follow. . . FULL REPORT IN LAB NOTES ([facility] and [facility]). NO GROWTH AEROBICALLY ORGANISM 1: PROPIONIBACTERIUM GRANULOSUM QUANTITY OF GROWTH FEW ORGANISM 1: PROPIONIBACTERIUM GRANULOSUM ID Date Data Source [id number] 06/12/2019 08:54:00 AM EDT [facility] Name Value Range Interpretation Code Description Data Brenna rce(s) Supporting Document(s) Bacteria identified in Unspecified specimen by Anaerob e culture Laboratory test result [facility]) If anaerobic or aerobic growth is detected within the next 7-21 days, an addendum will follow. . . FULL REPORT IN LAB NOTES ([facility] and [facility]). NO GROWTH ANAEROBICALLY ID Date Data Source [id number] 06/12/2019 08:54:00 AM EDT [facility]) Name Value Range Interpretation Code Description Data Brenna rce(s) Supporting Document(s) Afb Smear Laboratory test result [facility] ([facility]) Testing performed at reference lab . Rep ort copy to follow on a separate form. 07/27/19 REF LAB#:[id number] Due to limited sensitivity, smear results should be used as an adjunct in evaluating patient tuberculosis status. Cultural examination is highly recommended for clinical diagnosis. AFB sm REF LAB concentra NEGATIVE Afb Culture [facility]) Testing performed at reference lab . Rep ort copy to follow on a separate form. 07/27/19 REF LAB#:[id number] FULL [facility] NOT[facility] No Acid-Fast Bacilli Isolated after 6 Weeks. ID Date Data Source [id number] 06/12/2019 08:54:00 AM EDT [facility] ([facility]) Name Value Range Interpretation Code Description Data Brenna rce(s) Supporting Document(s) Fungal Culture Other Source Laboratory test result [facility] ([facility]) Testing performed at reference lab . Rep ort copy to follow on a separate form. 07/27/19 REF LAB#:[id number] FUNGUS CULTURE [facility] No Yeast or Mold Isolated after 4 weeks. Fungal Smear Laboratory test result [facility] ([facility]) Testing performed at reference lab . Rep ort copy to follow on a separate form. 07/27/19 REF LAB#:[id number] NILE/Calcofluor preparatio No fungus observed. ID Date Data Source [id number] 06/02/2019 09:38:00 AM EDT [facility] ([facility]) Name Value Range Interpretation Code Description Data Brenna rce(s) Supporting Document(s) Prothrombin Time 13.5 s 11.8-14.0 Normal (applies to non-numeric results) [facility] ([facility]) Inr 1.05 Normal (applies to non-numeric resul ts) [facility] ([facility]) THERAPUTIC HUMAN INR VALUES INDICATIONS NORMAL RANGES PROPHYLAXIS/TREATMENT OF: VENOUS THROMBOSIS 2.0-3.0 PULMONARY EMBOLISM 2.0-3.0 PREVENTION OF SYSTEMIC EMBOLISM FROM: TISSUE HEART VALVES 2.0-3.0 ACUTE MYOCARDIAL INFARCTION 2.0-3.0 VALVULAR HEART DISEASE 2.0-3.0 ATRIAL FIBRILLATION 2.0-3.0 MECHANICAL VALVES(HIGH RISK) 2.5-3.5 RECURRENT MYOCARDIAL INFARCTION 2.5-3.5 ID Date Data Source [id number] 06/02/2019 09:38:00 AM EDT [facility] ([facility]) Name Value Range Interpretation Code Description Data Brenna rce(s) Supporting Document(s) Lactate dehydrogenase [Enzymatic activity/volume] in Serum o r Plasma 235 U/L 87-241 Normal (applies to non-numeric results) [facility] ID Date Data Source [id number] 06/02/2019 09:38:00 AM EDT [facility] ([facility]) Name Value Range Interpretation Code Description Data Brenna rce(s) Supporting Document(s) White Blood Count 9.0 10 4.0-10.0 Normal (applies to non-numeri c results) [facility] ([facility]) Red Blood Count 4.06 10 4.30-6.10 Below low normal [facility] ([facility]) Hemoglobin 12.3 g/dL 13.5-17.5 Below low normal [facility]) Hematocrit 40.8 % 42.0-52.0 Below low normal [facility]) Mean Corpuscular Volume 100.5 fl 80.0-96.0 Above high normal [facility]) Red Cell Distribution Width 17.4 % 11.5-14.5 Above high normal [facility] ([facility]) Mean Corpuscular HGB Conc 30.1 g/dL 32.0-36.5 Below low normal [facility] ([facility]) Mean Corpuscular Hemoglobin 30.3 pg 27.0-33.0 Norm al (applies to non-numeric results) [facility] ([facility]) Lymph % 5.9 % 24.0-44.0 Below low normal [facility] ( [facility]) Platelet Count, Automated 367 10 150-450 Normal (applies to non-numeric results) [facility] ([facility]) Neutrophils % 84.6 % 36.0-66.0 Above high normal [facility] ([facility]) [place]igo % 8.1 % 0.0-5.0 Above high normal [facility] ([facility]) Eos % 0.2 % 0.0-3.0 Normal (applies to non-numeric resul ts) [facility] ([facility]) Baso % 1.0 % 0.0-1.0 Normal (applies to non-numeric resul ts) [facility] ([facility]) Immature Granulocyte % 0.2 % 0-3.0 Normal (applies to non-n umeric results) [facility] ([facility]) Neutrophils # 7.6 10 1.5-8.5 Normal (applies to non-numeric re sults) [facility] ([facility]) Nucleated Red Blood Cell % 0.0 % 0-0 Normal (applies to n on-numeric results) [facility] ([facility]) Lymph # 0.5 10 1.5-5.0 Below low normal [facility]) Eos # 0.0 10 0.0-0.5 Normal (applies to non-numeric resul ts) [facility] ([facility]) Baso # 0.1 10 0.0-0.2 Normal (applies to non-numeric resul ts) [facility] ([facility]) [place] # 0.7 10 0.0-0.8 Normal (applies to non-numeric resul ts) [facility] ([facility]) ID Date Data Source [id number] 06/02/2019 09:38:00 AM EDT [facility] ([facility]) Name Value Range Interpretation Code Description Data Brenna rce(s) Supporting Document(s) Blood Urea Nitrogen 25 mg/dL 7-18 Above high normal [facility] ([facility]) Glucose, Fasting 74 mg/dL 70-100 Normal (applies to non-numeric results) [facility] ([facility]) Glomerular Filtration Rate 58.1 Normal (applies to n on-numeric results) [facility]) <content>Units are mL/min/1.73 m2</content>
<content></content>
<content>Chronic Kidney Disease Staging per NKF:</content>
<content></content>
<content>Stage I & II GFR >=60 Normal to Mildly Decreased</content>
<content>Stage III GFR 30-59 Moderately Decreased</content>
<content>Stage IV GFR 15-29 Severely Decreased</content>
<content>Stage V GFR <15 Very Little GFR Left</content>
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
<content></content> Creatinine For GFR 1.30 mg/dL 0.70-1.30 Normal (applies to non -numeric results) [facility] ([facility]) Sodium Level 143 meq/L 136-145 Normal (applies to non-numeric res ults) [facility] ([facility]) Chloride Level 112 meq/L 98-107 Above high normal [facility] ([facility]) Potassium Serum 4.7 meq/L 3.5-5.1 Normal (applies to non-numeric results) [facility] ([facility]) Anion Gap 5 meq/L 8-16 Below low normal [facility] ( [facility]) Carbon Dioxide Level 26 meq/L 21-32 Normal (applies to non-num aiden results) [facility] ([facility]) Calcium Level 8.5 mg/dL 8.8-10.2 Below low normal [facility] ([facility]) Ast/Sgot 10 U/L 7-37 Normal (applies to non-numeric resul ts) [facility] ([facility]) Alt/SGPT 14 U/L 12-78 Normal (applies to non-numeric resul ts) [facility] ([facility]) Bilirubin,Total 0.3 mg/dL 0.2-1.0 Normal (applies to non-numeric results) [facility] ([facility]) Alkaline Phosphatase 75 U/L 45-117 Normal (applies to non-num aiden results) [facility] ([facility]) Total Protein 5.5 GM/DL 6.4-8.2 Below low normal [facility] ([facility]) Albumin 2.9 GM/DL 3.2-5.2 Below low normal [facility] ( [facility]) Albumin/Globulin Ratio 1.12 1.00-1.93 Normal (applies to non-numeric results) [facility]) ID Date Data Source [id number] 06/02/2019 09:37:00 AM EDT [facility] ([facility]) Name Value Range Interpretation Code Description Data Brenna rce(s) Supporting Document(s) Protein [Mass/volume] in Serum or Plasma Laboratory test result [facility] ([facility]) Procedure Social History Code Duration Value Status Description Data Source(s ) Alcohol intake 04/12/2020 12:00:00 AM EST Ex-drinker (finding) comp leted Ex- drinker (finding) [facility] Tobacco use and exposure 04/12/2020 12:00:00 AM EST Never used co mpleted Never used [facility] Smoking 04/12/2020 12:00:00 AM EST Former smoker completed Former smoker [facility] Alcohol intake 04/09/2020 12:00:00 AM EST Ex-drinker (finding) comp leted Ex- drinker (finding) [facility] Smoking 07/20/2019 12:00:00 AM EDT - 03/08/2013 12:00:00 AM EST Patient is a former smoker completed Patient is a former smoker [facility] ([facility]) Vital Signs ID Date Data Source UNK Name Value Range Interpretation Code Description Data Source(s) [place] body weight 154 [lb_av] 154 [lb_av] [facility] ([facility]) Body mass index (BMI) [Ratio] 24.2 kg/m2 24.2 k g/m2 [facility] ([facility]) Body weight 159.00 [lb_av] 159.00 [lb_av] [facility] ([facility]) Body height 68 [in_i] 68 [in_i] [facility] ([facility]) 5'8" Respiratory rate 12 /min 12 /min [facility] ( [facility]) [place] body weight 154 [lb_av] 154 [lb_av] [facility] ([facility]) Body mass index (BMI) [Ratio] 24.2 kg/m2 24.2 k g/m2 [facility] ([facility]) Body weight 159.00 [lb_av] 159.00 [lb_av] [facility] ([facility]) Body height 68 [in_i] 68 [in_i] [facility] ([facility]) 5'8" Respiratory rate 12 /min 12 /min [facility] ( [facility]) [place] body weight 154 [lb_av] 154 [lb_av] [facility] ([facility]) Body mass index (BMI) [Ratio] 24.2 kg/m2 24.2 k g/m2 [facility] ([facility]) Body weight 159.00 [lb_av] 159.00 [lb_av] [facility] ([facility]) Body height 68 [in_i] 68 [in_i] [facility] ([facility]) 5'8" Respiratory rate 12 /min 12 /min [facility] ( [facility]) Body weight 66.679 kg 66.679 kg [facility] ([facility]) Body weight 147.00 [lb_av] 147.00 [lb_av] [facility] Body temperature 99.9 [degF] 99.9 [degF] [facility] ([facility]) Oxygen saturation in Arterial blood by Pulse oximetry 94 % 94 % [facility] ([facility]) Room Air Heart rate 88 /min 88 /min [facility] ([facility]) Diastolic blood pressure 70 mm[Hg] 70 mm[Hg] [facility] ([facility]) Systolic blood pressure 110 mm[Hg] 110 mm[Hg] [facility] ([facility]) Body temperature 98.0 [degF] 98.0 [degF] [facility] ([facility]) Body weight 69.854 kg 69.854 kg [facility] ([facility]) Body mass index (BMI) [Ratio] 24.9 kg/m2 24.9 k g/m2 [facility] ([facility]) Body weight 154.00 [lb_av] 154.00 [lb_av] [facility] ([facility]) Body height 66 [in_i] 66 [in_i] [facility] ([facility]) 5'6" Body temperature 97.8 [degF] 97.8 [degF] [facility] ([facility]) Oxygen saturation in Arterial blood by Pulse oximetry 94 % 94 % [facility] ([facility]) Room Air Heart rate 88 /min 88 /min [facility] ([facility]) Diastolic blood pressure 76 mm[Hg] 76 mm[Hg] [facility] ([facility]) Systolic blood pressure 118 mm[Hg] 118 mm[Hg] [facility] ([facility]) Body weight 69.854 kg 69.854 kg [facility] ([facility]) Body mass index (BMI) [Ratio] 24.9 kg/m2 24.9 k g/m2 [facility] ([facility]) Body weight 154.00 [lb_av] 154.00 [lb_av] [facility] ([facility]) Body height 66 [in_i] 66 [in_i] [facility] ([facility]) 5'6" Body temperature 98.2 [degF] 98.2 [degF] [facility] ([facility]) Oxygen saturation in Arterial blood by Pulse oximetry 92 % 92 % [facility] ([facility]) Heart rate 85 /min 85 /min [facility] ([facility]) Diastolic blood pressure 70 mm[Hg] 70 mm[Hg] [facility] ([facility]) Systolic blood pressure 110 mm[Hg] 110 mm[Hg] [facility] ([facility]) Body mass index (BMI) [Ratio] 24.2 kg/m2 24.2 k g/m2 [facility] ([facility]) Body weight 159.00 [lb_av] 159.00 [lb_av] [facility] ([facility]) Body height 68 [in_i] 68 [in_i] [facility] ([facility]) 5'8" Respiratory rate 12 /min 12 /min [facility] ( [facility]) Body weight 71.669 kg 71.669 kg [facility] ([facility]) Body mass index (BMI) [Ratio] 25.5 kg/m2 25.5 k g/m2 [facility] ([facility]) Body weight 158.00 [lb_av] 158.00 [lb_av] [facility] Body height 66 [in_i] 66 [in_i] [facility] ([facility]) 5'6" Body temperature 97.3 [degF] 97.3 [degF] [facility] ([facility]) Oxygen saturation in Arterial blood by Pulse oximetry 90 % 90 % [facility] ([facility]) Heart rate 83 /min 83 /min [facility] ([facility]) Diastolic blood pressure 70 mm[Hg] 70 mm[Hg] [facility] ([facility]) Systolic blood pressure 120 mm[Hg] 120 mm[Hg] [facility] ([facility]) Body mass index (BMI) [Ratio] 24.2 kg/m2 24.2 k g/m2 [facility] ([facility]) Body weight 159.00 [lb_av] 159.00 [lb_av] [facility] Body height 68 [in_i] 68 [in_i] [facility] ([facility]) 5'8" Respiratory rate 12 /min 12 /min [facility] ( [facility]) Heart rate 64 /min 64 /min [facility] ([facility]) Diastolic blood pressure 58 mm[Hg] 58 mm[Hg] [facility] ([facility]) Systolic blood pressure 110 mm[Hg] 110 mm[Hg] [facility] ([facility]) ID Date Data Source [id number] 04/12/2020 05:20:18 PM [facility] Name Value Range Interpretation Code Description Data Source(s) WEIGHT RECORDED 129.6 lb 129.6 lb [facility] Body height Measured 65.5 in 65.5 in [facility]
--- NOTE | 2020-04-25 12:53 | REP ---
INDICATION: DYSPNEA/COUGH. COMPARISON: Comparison chest x-ray 25 March 2020. TECHNIQUE: Portable upright AP chest radiograph. FINDINGS: A left-sided PleurX catheter is noted in place. There is also left-sided Eerwli-X-Mhfr catheter in place. There is persistent pleural thickening along the left lateral and superior aspect of the left lung. Volume loss is seen in the left hemithorax as before and a large masslike perihilar opacity persists. These findings are essentially unchanged from March 25, 2020. There is mild linear fibrosis in the right upper lobe and right lower lobe. No new infiltrate is seen on the right.. IMPRESSION: Chronic pleural thickening and volume loss the mass effect in the left hemithorax. Status post left PleurX catheter in place. Left-sided Ckinrz-Q-Ptzi catheter. No acute infiltrate seen.. <Electronically signed by Nikunj Lassiter > 04/25/20 [id number]
[2020-04-25 12:54] LABS: ALBUMIN 2.2 GM/DL (3.2-5.2); ALT/SGPT 23 U/L (12-78); BILIRUBIN,DIRECT 0.2 MG/DL (0.0-0.2); BILIRUBIN,TOTAL 0.6 MG/DL (0.2-1.0); BLOOD UREA NITROGEN 25 MG/DL (7-18); CALCIUM LEVEL 8.6 MG/DL (8.8-10.2); CARBON DIOXIDE LEVEL 27 MEQ/L (21-32); CHLORIDE LEVEL 106 MEQ/L (98-107); CK-MB VALUE MASS < 1.0 NG/ML (<3.6); CPK CREATINE PHOSPHOKINASE 12 U/L (39-308); CREATININE FOR GFR 0.97 MG/DL (0.70-1.30); GLOMERULAR FILTRATION RATE > 60.0 (>42); GLUCOSE, FASTING 82 MG/DL (70-100); MB/CK RELATIVE INDEX 8.33 (< OR =4); NT-PRO BNP 564 PG/ML (<125); POTASSIUM SERUM 3.9 MEQ/L (3.5-5.1); SODIUM LEVEL 140 MEQ/L (136-145); THYROXINE (T4) 8.8 UG/DL (4.5-12.0); TROPONIN I < 0.02 NG/ML (< 0.10)
--- NOTE | 2020-04-25 12:57 | REP ---
INDICATION: swelling. COMPARISON: None. TECHNIQUE: Left upper crit extremity duplex venous scanning. FINDINGS: There is there is occlusive thrombosis and enlargement of the left internal jugular vein and left subclavian vein. There is nonocclusive thrombosis extending into the axillary vein on the left. Swelling is noted in the distal arm. The brachial veins, basilic vein, and cephalic vein are anechoic and compressible and patent.. IMPRESSION: There is occlusive deep vein thrombosis in the left upper extremity involving the proximal internal jugular vein, the subclavian vein, and the proximal left axillary vein.. <Electronically signed by Nikunj Lassiter > 04/25/20 [id number]
[2020-04-25] MEDS: LEVALBUTEROL 1.25 MG/0.5 ML CONCENTRATE NEB NEB SCH ×2 (13:10→20:25)
[2020-04-25 13:11] LABS: EOSINOPHILS 3 % (0-3); NEUTROPHILS 83 % (28-66)
[2020-04-25 13:12] LABS: ANISOCYTOSIS 2+; HYPOCHROMASIA 1+; PLATELET CLUMPS SMALL AMT; PLATELET ESTIMATE NORMAL (NORMAL)
[2020-04-25] MEDS ORDERED: KETOROLAC 30 MG/ML 1ML VIAL IV SCH (14:00)
--- NOTE | 2020-04-25 14:04 | REP ---
INDICATION: ascites/effusion. COMPARISON: Comparison chest CT study 11 March 2020.. TECHNIQUE: Helical scanning is acquired. 3 mm axial images are generated. Coronal and sagittal MPR and coronal MIP images are generated. 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 Axial CT images confirm the presence of a moderate right-sided pleural effusion slightly increased from its appearance on 11 March 2020. The left-sided PleurX catheter remains in place coursing posteriorly and medially terminating at the level of the transverse aorta. There is some pleural fluid or thickening along the lateral and anterolateral chest wall on the left and volume loss remains in the left lung. A large perihilar mass is seen on the left unchanged measuring approximately 5.4 cm in AP dimension. There is a small quantity of pericardial fluid or thickening. Mild of upper abdominal ascites is noted adjacent to the spleen liver and under the diaphragms. There is a low-density liver lesion posteriorly on the right measuring 4.4 cm in greatest transverse dimension. This is slightly larger. No other focal liver lesion is appreciated. There is celiac axis, left periaortic, and portacaval adenopathy noted in the upper abdomen. there are several noncalcified pulmonary nodules on the right lung in the upper, middle and lower lobe. These are essentially unchanged. No bony destructive lesion is seen. IMPRESSION: Findings consistent with metastatic disease involving lung liver pleural space and upper abdominal nodes. Moderate right pleural effusion somewhat increased since the study done 11 March 2019. Otherwise findings are similar to the prior exam. <Electronically signed by Nikunj Lassiter > 04/25/20 1400
--- NOTE | 2020-04-25 14:07 | REP ---
INDICATION: ascites/effusion COMPARISON: Comparison CT study 09 August 2019.. TECHNIQUE: Helical scanning is acquired in 4 mm axial images were reformatted. Coronal and sagittal MPR images were generated and reviewed. FINDINGS: Preliminary digital rug frame mounter radiograph is noncontributory in the abdomen. There is a heterogeneous low-density liver lesion approximately 4 cm in diameter in the posterior aspect of the right lobe. This is new when compared with the prior study from August 09, 2019. There are bilateral pleural effusions right larger than left. A left-sided PleurX catheter is noted. There is mild upper abdominal ascites particularly around the liver. Some ascites is seen in the flanks and in the pelvic reflections. There is edema or infiltration of the mesenteric fat more less diffusely. There is confluent adenopathy in the upper abdomen about the mesenteric root and in the periaortic region. Aortocaval and celiac axis lymph nodes are noted. The adenopathy appears somewhat bulky are compared to the August 09, 2019 study although it is less well depicted without IV contrast. No hydronephrosis is seen. No abnormality is noted in the gallbladder. There are a few scattered calcifications in the pancreas again noted. Small and large bowel loops are unremarkable. Urinary bladder, seminal vesicles and prostate show no significant finding. No bony destructive lesion is appreciated. IMPRESSION: Progressive retroperitoneal and upper abdominal lymphadenopathy. 4 cm liver mass new since the August 09, 2019 study consistent with metastasis. Mild diffuse abdominal ascites also a new finding from August 09, 2019. <Electronically signed by Nikunj Lassiter > 04/25/20 [id number]
[2020-04-25] MEDS ORDERED: flumazeniL 0.5 MG/5 ML VIAL As Ordered ONE (14:26)
[2020-04-25] MEDS ORDERED: MIDAZOLAM INJ 2MG/2ML VIAL (J2250 PER 1MG) As Ordered ONE (14:27)
[2020-04-25] MEDS ORDERED: LIDOCAINE 1% MDV 20ML VIAL As Ordered ONE (14:28)
[2020-04-25] MEDS ORDERED: ceFAZolin 2 GM/D5W 50 ML IV BAG (J0690 PER 500MG) As Ordered ONE (14:32)
[2020-04-25] MEDS ORDERED: ceFAZolin SOD 2 GM in IV 1 EA IV ONE (14:40)
[2020-04-25] MEDS ORDERED: MIDAZOLAM INJ 2MG/2ML VIAL (J2250 PER 1MG) IV ONE (14:45)
[2020-04-25] MEDS ORDERED: LIDOCAINE 1% MDV 20ML VIAL SC ONE (14:45)
[2020-04-25 15:28] LABS: LDH LACTATE DEHYDROGENASE 423 U/L (87-241)
--- NOTE | 2020-04-25 15:34 | REP ---
INDICATION: s/p chest tube insertion. COMPARISON: Comparison portable chest x-ray April 25, 2020. TECHNIQUE: Portable upright AP chest radiograph. FINDINGS: A right-sided PleurX catheter is been inserted into position at the right lung base posteriorly and medially. The left PleurX catheter remains in place unchanged. Left subclavian Sczwte-X-Dhbi catheter is again seen. On the right, there is a a small right apical pneumothorax. There is slight residual blunting of the pleural angle. Atelectatic changes are noted in the right base. IMPRESSION: New PleurX catheter inserted on the right. Small right apical pneumothorax. PleurX catheter on the left again noted.. <Electronically signed by Nikunj Lassiter > 04/25/20 [id number]
[2020-04-25] MEDS ORDERED: HEPARIN DRIP 25,000 UNITS in IV 1 EA IV SCH (16:15)
--- NOTE | 2020-04-25 16:17 | HPEPDOC ---
[facility] Medical History & Physical Date of Admission Apr 25, 2020 Date of Service: Apr 25, 2020 Attending Physician: KAMALJIT MCDANIELS MD History and Physical CHIEF COMPLAINT: , Shortness of breath HISTORY OF PRESENT ILLNESS: 69-year-old male with past medical history of adenocarcinoma of the lung with liver metastases, chronic left-sided Pleurx presents with shortness of breath and worsening right pleural effusion from Dr. Mendoza's office. Patient drains about 500 mL of serosanguineous fluid from left Pleurx every 2 days. Patient has been following with Dr. Mendoza and oncologist, currently undergoing chemotherapy. Patient reports progressive dyspnea over the past few months, right pleural effusion is worsening. Patient is also found to have left upper extremity DVT in the emergency department. He reports that he is otherwise at his baseline and wishes to live as long as possible to watch his grandson grow as old as possible. Patient is otherwise comfortable, had right Pleurx placed by Dr. Mendoza at bedside today, 500 mL of serosanguineous fluid was drained. He is comfortable without any other complaints at this time. Denies chest pain, nausea, vomiting, diarrhea or constipation. PAST MEDICAL HISTORY: 1. Metastatic adenocarcinoma of the lung. 2. DVT. PAST SURGICAL HISTORY: 1. Pleurx placement. SOCIAL HISTORY: Previous smoker. Social alcohol use. Denies drug use FAMILY HISTORY: No history of malignancy and parents ALLERGIES: Please see below. HOME MEDICATIONS: Please see below. PHYSICAL EXAMINATION: VITAL SIGNS: Please see below. GENERAL: Frail HEENT: moist mucous membranes NECK: Supple CARDIOVASCULAR EXAMINATION: S1, S2, no murmurs RESPIRATORY EXAMINATION: Scattered rhonchi, diminished in the bases ABDOMINAL EXAMINATION: Soft, nontender, nondistended, positive bowel sounds EXTREMITIES: Bilateral lower extremity pitting edema SKIN: No rash NEUROLOGICAL EXAMINATION: Alert and oriented 3, no focal deficits PSYCHIATRIC EXAMINATION: Calm and cooperative LABORATORY DATA: See below. IMAGING: CT with metastatic lung cancer, worsening right pleural effusion and ascites MICROBIOLOGY: Please see below. ASSESSMENT: 69-year-old male with metastatic adenocarcinoma of the lung and chronic left Pleurx is admitted for worsening right pleural effusion and left u pper extremity DVT. . PLAN: 1. Metastatic adenocarcinoma of the lung. Diagnosed in 2016, on chemotherapy. Chronic left Pleurx, drained every other day, usually 500 mL. Worsening right pleural effusion, probably malignant, Pleurx placed at bedside by Dr. Mendoza today. 500 mL were removed. Patient is frail, malnourished, with a poor prognosis, but he wishes to remain full code and pursue all manners of treatment to prolong his life as much as possible at this time. 2. Left upper extremity DVT. Risks and benefits of anticoagulation were discussed with patient in detail, his prognosis was taken into consideration as well. The patient has elected to pursue anticoagulation for DVT at this time. We will monitor closely for signs of bleeding, especially from Pleurx drainage. Start heparin drip 3. Hyperlipidemia. Continue simvastatin DVT prophylaxis: On heparin drip. GI prophylaxis: PPI Vital Signs Vital Signs Date Time Temp Pulse Resp B/P (MAP) Pulse Ox O2 Delivery O2 Flow Rate FiO2 04/25/20 14:39 92 24 110/70 (83) 97 Room Air 04/25/20 11:23 97.9 Laboratory Data Labs 24H Laboratory Tests 2 04/25/20 11:54: Neutrophils (%) (Auto) , Nucleated Red Blood Cells % (auto) 0.0, Neutrophils 83H, Band Neutrophils 14H, Eosinophils (Manual) 3, Hypochromasia 1+, Anis ocytosis 2+, Macrocytosis 1+, Platelet Estimate NORMAL, Clumped Platelets SMALL AMT, Prothrombin Time 14.5H, Prothromb Time International Ratio 1.11, Anion Gap 7L, Glomerular Filtration Rate > 60.0, Lactic Acid Level 1.5, Calcium Level 8.6L, Total Bilirubin 0.6, Direct Bilirubin 0.2, Aspartate Amino Transf (AST/SGOT) 8, Alanine Aminotransferase (ALT/SGPT) 23, Alkaline Phosphatase 65, Lactate Dehydrogenase 423H, Total Creatine Kinase 12L, Creatine Kinase MB < 1.0, Creatine Kinase MB Relative Index 8.33H, Troponin I < 0.02, PA-Mbo-R-Type Natriuretic Peptide 564H, Total Protein 5.0L, Albumin 2.2L, Albumin/Globulin Ratio 0.8, Thyroid Stimulating Hormone (TSH) 1.870, Thyroxine (T4) 8.8 04/25/20 11:59: POC Glucose (Misc Panel) 85, POC Sodium (Misc Panel) 137, POC Potassium (Misc Panel) 4.0, POC Chloride (Misc Panel) 104, POC Total CO2 (Misc Panel) 28.0H, POC Blood Urea Nitrogen (Misc Panel 25, POC Ionized Calcium (Misc Panel) 4.9, POC Creatinine (Misc Panel) 1.0, POC Hematocrit (Misc Panel) 29.0L CBC/BMP Laboratory Tests 04/25/20 11:54 Microbiology Microbiology 04/25/20 Blood Culture, Received Pending 04/25/20 Respiratory Virus Panel (PCR) ([facility]) - Final, Complete 04/25/20 Blood Culture, Received Pending Home Medications Scheduled Aspirin (Aspirin) 325 Mg Tablet, 325 MG PO DAILY Calcitriol (Calcitriol) 0.25 Mcg Capsule, 0.5 MCG PO DAILY Cholecalciferol (Vitamin D3) (Vitamin D3) 1,000 Unit Tablet, 1,000 UNITS PO DAILY Dexamethasone (Dexamethasone) 4 Mg Tablet, 4 MG PO ASDIRECTED take 2 tabs by mouth daily the day before chemo, the day of chemo, and the day after chemo Glatiramer Acetate (Glatopa) 40 Mg/1 Ml Syringe, 40 MG IM 3XW MON, WED, FRI Lidocaine/Prilocaine (Lidocaine-Prilocaine Cream) 2.5%/2.5% Cream..g., 1 APPLIC EXT ONCE apply to port as needed Prochlorperazine Maleate (Prochlorperazine Maleate) 10 Mg Tablet, 1 TAB PO Q6H Simvastatin (Simvastatin) 20 Mg Tablet, 20 MG PO QHS Scheduled PRN Albuterol Sulfate (Ventolin Hfa) 18 Gm Hfa.aer.ad, 2 PUFF INH Q6H PRN for SHORTNESS OF BREATH Ondansetron HCl (Ondansetron HCl) 8 Mg Tablet, 8 MG PO Q6H PRN for NAUSEA OR VOMITING TAKE ONE TABLET EVERY 6 HOURS NEEDED FOR NAUSEA. Allergies Coded Allergies: No Known Allergies (Unverified , 07/10/19) A-FIB/CHADSVASC A-FIB History Current/History of A-Fib/PAF?: No KAMALJIT MCDANIELS MD Apr 25, 2020 16:07
[2020-04-25] MEDS: KCL 20MEQ IN D5/NS 1000ML 1,000 ML IV SCH (16:37)
[2020-04-25 17:10] LABS: PH BODY FLUID 7.675 UNITS (NOT ESTABLISHED); SOURCE, BODY FLUID pH PLEURAL
[2020-04-25] MEDS: KETOROLAC 30 MG/ML 1ML VIAL IV SCH (17:35)
[2020-04-25 17:43] LABS: AMYLASE, BODY FLUID 57 U/L (NOT ESTABLISHED); CHOLESTEROL, BODY FLUID 70 MG/DL (NOT ESTABLISHED); LDH, BODY FLUID 249 U/L (NOT ESTABLISHED); SOURCE, BODY FLUID AMYLASE PLEURAL; SOURCE, BODY FLUID CHOL PLEURAL; SOURCE, BODY FLUID GLUCOSE PLEURAL; SOURCE, BODY FLUID LDH PLEURAL; SOURCE, BODY FLUID TRIG PLEURAL; TRIGLYCERIDE, BODY FLUID 115 MG/DL (NOT ESTABLISHED)
[2020-04-25 17:47] LABS: SOURCE, BODY FLUID ALBUMIN PLEURAL; SOURCE, BODY FLUID TOT PROTEIN PLEURAL; TOTAL PROTEIN, BODY FLUID 2.6 G/DL (NOT ESTABLISHED)
[2020-04-25 19:39] LABS: APPEARANCE, BODY FLUID HAZY (CLEAR); PLEURAL FL COLOR PALE YELLOW (COLORLESS); SOURCE, BODY FLUID PLEURAL
[2020-04-25] MEDS ORDERED: HEPARIN SOD (PORCINE) 5000UNITS/ML 1ML VIAL/SYRINGE SC SCH (21:00)
[2020-04-25] MEDS: DOCUSATE SODIUM 100MG CAPSULE PO SCH (22:09)
[2020-04-25] MEDS: SIMVASTATIN 20 MG TAB PO SCH (22:09)
[2020-04-26] VITALS: BP 103/57
[2020-04-26] MEDS: KETOROLAC 30 MG/ML 1ML VIAL IV SCH ×5 (00:44→23:34)
[2020-04-26] MEDS: HEPARIN SOD (PORCINE) 5000UNITS/ML 1ML VIAL/SYRINGE IV PRN (00:45)
[2020-04-26] MEDS: LEVALBUTEROL 1.25 MG/0.5 ML CONCENTRATE NEB NEB SCH ×4 (02:00→20:07)
[2020-04-26] MEDS: KCL 20MEQ IN D5/NS 1000ML 1,000 ML IV SCH (03:20)
[2020-04-26 04:00] VITALS: BP 120/70
[2020-04-26 08:00] VITALS: BP 103/60
--- NOTE | 2020-04-26 08:15 | ECGEPIP ---
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
[2020-04-26 08:20] LABS: HEMATOCRIT 31.4 % (42.0-52.0); HEMOGLOBIN 9.7 g/dl (13.5-17.5); MEAN CORPUSCULAR HEMOGLOBIN 29.7 pg (27.0-33.0); MEAN CORPUSCULAR HGB CONC 30.9 g/dl (32.0-36.5); PLATELET COUNT, AUTOMATED 184 10^3/uL (150-450); RED BLOOD COUNT 3.27 10^6/uL (4.30-6.10); WHITE BLOOD COUNT 11.9 10^3/uL (4.0-10.0)
[2020-04-26 08:38] LABS: BLOOD UREA NITROGEN 27 MG/DL (7-18); CALCIUM LEVEL 7.9 MG/DL (8.8-10.2); CARBON DIOXIDE LEVEL 24 MEQ/L (21-32); CHLORIDE LEVEL 107 MEQ/L (98-107); CREATININE FOR GFR 1.16 MG/DL (0.70-1.30); GLOMERULAR FILTRATION RATE > 60.0 (>42); GLUCOSE, FASTING 139 MG/DL (70-100); POTASSIUM SERUM 3.8 MEQ/L (3.5-5.1); SODIUM LEVEL 141 MEQ/L (136-145)
[2020-04-26 08:42] LABS: ATYPICAL LYMPH 2 % (0-5); EOSINOPHILS 2 % (0-3); LYMPHOCYTES 1 % (16-44); NEUTROPHILS 95 % (28-66)
[2020-04-26 08:43] LABS: ANISOCYTOSIS 1+; OVALOCYTES 1+; PLATELET ESTIMATE NORMAL (NORMAL)
--- NOTE | 2020-04-26 08:49 | REP ---
INDICATION: pleural effusion COMPARISON: 04/25/2020 TECHNIQUE: PA and lateral. FINDINGS: Bilateral chest tubes again noted. [id number] with tip in the SVC remains stable. Moderate right hydropneumothorax is again appreciated and relatively similar to prior examination. Moderate left pleural effusion and underlying airspace disease appears relatively stable. IMPRESSION: No significant change from prior examination when allowing for variation in technique. Moderate right hydropneumothorax and left-sided pleuroparenchymal changes again noted. <Electronically signed by Marco Novak > 04/26/20 0802
[2020-04-26] MEDS: MOM 30ML SUSPENSION UDC PO SCH ×2 (09:00→17:48)
[2020-04-26] MEDS: ASPIRIN 325 MG TAB PO SCH (09:05)
[2020-04-26] MEDS: VITAMIN D 1,000 INTERNATIONAL UNITS TABLET PO SCH (09:05)
[2020-04-26] MEDS: DOCUSATE SODIUM 100MG CAPSULE PO SCH ×2 (09:05→20:06)
[2020-04-26] MEDS: CALCITRIOL 0.25 MCG CAP (S0169) PO SCH (09:05)
[2020-04-26] MEDS: PANTOPRAZOLE 40MG TAB (PROTONIX) PO SCH (09:06)
[2020-04-26] MEDS: HEPARIN DRIP 25,000 UNITS in IV 1 EA IV SCH ×2 (09:48→17:25)
--- NOTE | 2020-04-26 10:10 | RO ---
OPERATIVE NOTE DATE OF OPERATION: 04/25/2020 PREPROCEDURE DIAGNOSIS: Right malignant pleural effusion. POSTPROCEDURE DIAGNOSIS: Right malignant pleural effusion. PROCEDURE: Insertion of a right PleurX catheter with moderate sedation. SURGEON: Nahun Mendoza M.D. [facility]: None. ANESTHESIA: Moderate sedation. DESCRIPTION OF PROCEDURE: The patient was prepped and draped in the usual sterile fashion, and a Explorer needle was placed above the eight rib into the seventh intercostal space. Clear milky fluid was found and a guidewire was placed. Incisions were made at the entry and exit sites. A tunnel was created between the two sites and the PleurX catheter pulled through and positioned accordingly. The entry site was then dilated with a Peel-Away introducer and the PleurX catheter placed without difficulty. The entry wound was closed with running 4-0 Monocryl subcuticular suture and the PleurX catheter was secured to the abdominal wall with 3-0 silk suture. The patient was then drained of 500 mL of opaque and milky fluid. The patient tolerated the procedure well and a chest x-ray is pending.
[2020-04-26 12:00] VITALS: BP 108/63
[2020-04-26 16:00] VITALS: BP 101/67
[2020-04-26 20:00] VITALS: BP 100/46
[2020-04-26] MEDS: SIMVASTATIN 20 MG TAB PO SCH (20:06)
--- NOTE | 2020-04-26 20:32 | IPNPDOC ---
Date Seen The patient was seen on 04/26/20. Progress Note SUBJECTIVE: Comfortable in bed, without any complaints at this time, no longer having any dyspnea and no longer requiring supplemental oxygen. PHYSICAL EXAMINATION: VITAL SIGNS: Please see below. GENERAL: Frail, cachectic HEENT: Normocephalic, atraumatic, moist mucous membranes NECK: Supple CARDIOVASCULAR EXAMINATION: S1, S2, no murmurs RESPIRATORY EXAMINATION: Scattered rhonchi, diminished in the bases, no wheezing ABDOMINAL EXAMINATION: Soft, nontender, nondistended, positive bowel sounds EXTREMITIES: Range of motion intact SKIN: No rash NEUROLOGICAL EXAMINATION: Alert and oriented 3, no focal deficits PSYCHIATRIC EXAMINATION: Calm and cooperative LABORATORY DATA, IMAGING STUDIES, MICROBIOLOGY: Please see below. ASSESSMENT AND PLAN: 69-year-old male with past medical history of metastatic adenocarcinoma of the lung is admitted for worsening pleural effusion and left upper extremity DVT. PLAN: 1. Metastatic adenocarcinoma of the lung. Diagnosed in 2015, on chemotherapy. Chronic left Pleurx, drained every other day, usually 500 mL. Worsening right pleural effusion, probably malignant, Pleurx placed at bedside by Dr. Mendoza today. 500 mL were removed. Respiratory function improved, no longer requiring supplemental oxygen. Patient is frail, malnourished, with a poor prognosis, but he wishes to remain full code and pursue all manners of treatment to prolong his life as much as possible at this time. 2. Left upper extremity DVT. Risks and benefits discussed in detail with the patient, he wishes to pursue with anticoagulation for DVT. Continue heparin drip, currently therapeutic. Hemoglobin stable, will plan to transition to oral antibiotic hydration tomorrow if remains hemodynamically stable and there is no active bleeding. 3. Hyperlipidemia. Continue simvastatin DVT prophylaxis: On heparin drip. GI prophylaxis: PPI VS, I&O, 24H, Fishbone Vital Signs/I&O Vital Signs Date Time Temp Pulse Resp B/P (MAP) Pulse Ox O2 Delivery O2 Flow Rate FiO2 04/26/20 16:00 97.1 104 7 101/67 (78) 96 Room Air 04/25/20 16:00 2.0 I&O- Last 24 Hours up to 6 AM 04/26/20 06:00 Intake Total 690 ml Output Total 500 ml Balance 190 ml Laboratory Data 24H LABS Laboratory Tests 2 04/25/20 23:37: Activated Partial Thromboplast Time 59.9H 04/26/20 08:02: Activated Partial Thromboplast Time 82.1H, Neutrophils (%) (Auto) , Nucleated Red Blood Cells % (auto) 0.0, Neutrophils 95H, Lymphocytes (Manual) 1L, Eosinophils (Manual) 2, Atypical Lymphocytes 2, Anisocytosis 1+, Macrocytosis 1+, Ovalocytes 1+, Platelet Estimate NORMAL, Anion Gap 10, Glomerular Filtration Rate > 60.0, Calcium Level 7.9L 04/26/20 14:41: Activated Partial Thromboplast Time 66.4H CBC/BMP Laboratory Tests 04/26/20 08:02 Microbiology Microbiology 04/25/20 Acid Fast Stain, Received Pending 04/25/20 Mycobacterial Culture, Received Pending 04/25/20 Fungal Smear, Received Pending 04/25/20 Fungal Culture, Received Pending 04/25/20 Gram Stain - Final, Resulted 04/25/20 Anaerobic Culture, Resulted Pending 04/25/20 Body Fluid Culture, Received Pending 04/25/20 Blood Culture - Preliminary, Resulted No growth after 24 hours . All specim... 04/25/20 Respiratory Virus Panel (PCR) ([facility]) - Final, Complete 04/25/20 Blood Culture - Preliminary, Resulted No growth after 24 hours . All specim... KAMALJIT MCDANIELS MD Apr 26, 2020 20:32
[2020-04-27] VITALS: BP 102/69
[2020-04-27] MEDS: LEVALBUTEROL 1.25 MG/0.5 ML CONCENTRATE NEB NEB SCH ×3 (01:38→13:13)
[2020-04-27 04:00] VITALS: BP 96/60
[2020-04-27] MEDS: KETOROLAC 30 MG/ML 1ML VIAL IV SCH (05:45)
[2020-04-27 06:28] LABS: HEMATOCRIT 29.5 % (42.0-52.0); HEMOGLOBIN 8.9 g/dl (13.5-17.5); MEAN CORPUSCULAR HGB CONC 30.2 g/dl (32.0-36.5); MEAN CORPUSCULAR VOLUME 96.1 fl (80.0-96.0); PLATELET COUNT, AUTOMATED 166 10^3/uL (150-450); RED BLOOD COUNT 3.07 10^6/uL (4.30-6.10); WHITE BLOOD COUNT 4.7 10^3/uL (4.0-10.0)
[2020-04-27 06:47] LABS: BLOOD UREA NITROGEN 32 MG/DL (7-18); CARBON DIOXIDE LEVEL 26 MEQ/L (21-32); CHLORIDE LEVEL 108 MEQ/L (98-107); CREATININE FOR GFR 1.19 MG/DL (0.70-1.30); GLOMERULAR FILTRATION RATE > 60.0 (>42); GLUCOSE, FASTING 121 MG/DL (70-100); POTASSIUM SERUM 3.6 MEQ/L (3.5-5.1); SODIUM LEVEL 142 MEQ/L (136-145)
[2020-04-27] MEDS: HEPARIN SOD (PORCINE) 5000UNITS/ML 1ML VIAL/SYRINGE IV PRN (06:51)
[2020-04-27 07:36] LABS: EOSINOPHILS 1 % (0-3); LYMPHOCYTES 3 % (16-44); NEUTROPHILS 96 % (28-66)
[2020-04-27 07:37] LABS: PLATELET ESTIMATE NORMAL (NORMAL)
[2020-04-27 07:38] LABS: ANISOCYTOSIS 1+
[2020-04-27 07:48] VITALS: BP 95/57
[2020-04-27] MEDS: MOM 30ML SUSPENSION UDC PO SCH (09:00)
--- NOTE | 2020-04-27 09:16 | REP ---
INDICATION: pleural effusion. COMPARISON: Chest 04/26/2020, portable 04/25/2020, CT 04/25/2020 TECHNIQUE: Two views FINDINGS: Right base and left upper lung zone termination of chest tubes again seen. A trace right apical pneumothorax. Port catheter via the left subclavian route terminates in the SVC near the right atrium. There is improved inflation compared to yesterday's study. There is pleural effusion on the left and perihilar opacity as before. Lesser atelectatic change in the right base. No left pneumothorax. Small right effusion suspected as well. The aorta is mildly tortuous and the airway intact. Bones unchanged. IMPRESSION: Smaller right apical pneumothorax which is now just trace. Overall slightly better aeration of the lung bae. Chest tubes unchanged with left effusion, indwelling port catheter as before. Large opacity left perihilar/infrahilar region stable. Improved basilar atelectatic change on the right. <Electronically signed by Haroldo Hays > 04/27/20 0983
[2020-04-27] MEDS: CALCITRIOL 0.25 MCG CAP (S0169) PO SCH (09:43)
[2020-04-27] MEDS: DOCUSATE SODIUM 100MG CAPSULE PO SCH (09:43)
[2020-04-27] MEDS: VITAMIN D 1,000 INTERNATIONAL UNITS TABLET PO SCH (09:43)
[2020-04-27] MEDS: ASPIRIN 325 MG TAB PO SCH (09:43)
[2020-04-27] MEDS: PANTOPRAZOLE 40MG TAB (PROTONIX) PO SCH (09:44)
[2020-04-27 11:21] VITALS: BP 93/59
[2020-04-27 11:52] VITALS: BP 111/68
--- NOTE | 2020-04-27 12:33 | IPN ---
PROGRESS NOTE DATE: 04/26/2020 SUBJECTIVE: Mr. Blue underwent his PleurX catheter placement yesterday evening. He is breathing so much better today. At the time when the PleurX was placed, we drained 500 mL of serosanguinous fluid. His pain is being well controlled at the PleurX inserntion site. OBJECTIVE: VITAL SIGNS: His vital signs show a T-max of 98.8 with a heart rate that ranges between 94 and 107 in sinus rhythm. Respiratory rate of 18 to 20 without the accessory muscles. He was 98% to 95% saturated on room air. His blood pressure is currently ranging between 100/46 to 120/70. INTAKE AND OUTPUT: His intake and output over the past 24 hours has been recorded as 590 in and 500 out for a positivity of 90 mL. We took out 500 mL from the PleurX catheter. He weighs 61.8 kg today and weighed 62.73 yesterday. PHYSICAL EXAMINATION: RESPIRATORY: He has equal breath sounds on either side, particularly in the upper lobes. He has more diminished breath sounds at the right base with a dull percussion of the right base. CARDIAC: Without murmurs, clicks, gallops, or rubs. I cannot feel his PMI. S1 and S2 are normal. ABDOMEN: Soft and nontender. Bowel sounds are positive. There is no hepatomegaly. No CVA tenderness. EXTREMITIES: Trace pretibial edema on either extremity. His upper left arm is more swollen than the right. He has an ultrasound-proven DVT of the right upper extremity. SKIN: Warm, dry, and perfused without cyanosis or mottling, including that of the nail beds and knees. NECK: Supple. There is no jugular venous distention. No subcutaneous emphysema. Trachea is midline. MOUTH: Mucous membranes pink and moist. Lips and commissures without lesions and no thrush. EYES: Pupils equal and reactive. Extraocular movements are intact. Sclerae anicteric. NEUROLOGIC: Shows II through XII intact. Normal gross motor, gross sensation intact. Gait is not tested. PSYCHIATRIC: He is awake, alert, and oriented x3 with appropriate mood and affect and conversational. LABORATORY DATA: His white count today is 11.9 with a hemoglobin and hematocrit of 9.7 and 31.4 respectively. Platelet count is 184,000 and stable. Differential shows 95% neutrophils and 1% lymphocytes. He has 2% eosinophils. There are no toxic granulations noted. Chemistries today showed normal electrolytes with a BUN and creatinine of 27 and 1.16, glucose 139, calcium 7.9. His PTT on IV Heparin is 82.1 seconds. IMAGING STUDIES: His chest x-ray shows still some residual right pleural effusion. The left side has a diffuse haze. We will proceed to drain the left side additionally. I have asked the nurses to drain him today. I think the strategy going forward will be to drain each side every other day. He is well aware of having to do the drainages from his long-term dwelling left-sided catheter. He is on IV Heparin now. He will need to be changed over to an oral anticoagulant in the next 24 hours before we can entertain him going home. The ultrasound did note a thrombus in his internal jugular vein, his subclavian vein, and his axillary vein on the left side. This is also the side of his port. His port has been for a very long time and I suspect the clot is a combination of hypocoagulability secondary to his metastatic carcinoma and a foreign body in the form of a port. IMPRESSION: 1. Recurring right pleural effusion, most likely malignant. 2. Adenocarcinoma of the lung with liver metastases and a malignant left pleural effusion. 3. DVT left upper extremity. 4. Hyperlipidemia. 5. COPD. 6. History of former tobacco abuse. PLAN AND DISCUSSION: See above. 1. We will drain his PleurX catheters every other day. 2. I will await Medical Service to change him over to an oral anticoagulant which I suspect will be a 10a inhibitor.
--- NOTE | 2020-04-27 12:33 | IPN ---
PROGRESS NOTE DATE: 04/27/2020 SUBJECTIVE: Mr. Blue is doing quite well. He is eating well and he is breathing well. He even walked up and down the U corridor yesterday and will do so again today. He seems to be regaining his strength. OBJECTIVE: VITAL SIGNS: T-max of 98.6 with heart rate in the range between 116 and 105, respiratory rate 16 to 18 without use of accessory muscles, 95-97% saturated on room air. His blood pressure ranging between 95/57 to 102/69. INTAKE AND OUTPUT: Past 24 hours recorded as 672 in and 150 out for positivity of 522 mL. Urine is not being collected and he is recorded as having no urine output. He has had three voids, however. He has a left PleurX catheter which is the older one which drained 150 mL yesterday. LUNGS: Right lung shows breath sounds all the way down to the inferior hemithorax with full percussion note. There are some inspiratory rales at the very end of inspiration. These are fairly coarse. Left side shows also the coarse inspiratory rales which are not clearing with coughing. Percussion is also full on left. CARDIAC: Without murmur, clicks, rub or gallop. I cannot feel his PMI. S1, S2 normal. ABDOMEN: Soft, nontender, bowel sounds positive. There is no hepatomegaly, no CVA tenderness. EXTREMITIES: Trace to 1+ pretibial edema which is much better than on admission. Left arm still shows increased swelling from his upper extremity DVT. SKIN: Warm, dry and perfused without cyanosis or mottling including that of the nail beds and knees. NECK: Supple. There is no jugular venous distention. No subcutaneous emphysema. Trachea is midline. Mouth shows the mucous membranes to be pink and moist. Lips and gums without lesions or thrush. EYES: Show his pupils to be equal and reactive. Extraocular movements are intact. Sclerae non-icteric. NEUROLOGIC: Shows II-XII intact. Normal gross motor, gross sensation intact. Gait is not tested. PSYCHIATRIC: Shows him to be awake, alert, and oriented x3 with appropriate mood and affect and conversational. LABORATORY DATA: His white count today is 4.7 with hemoglobin and hematocrit of 8.9 and 29.5, down from 9.7 and 31.4 yesterday. Platelet count 166. Differential shows 96% neutrophils, 3% lymphocytes. There are no immature forms or toxic granulations. His chemistries showed normal electrolytes with a BUN and creatinine of 32 and 1.19 with glucose of 121 and calcium of 8.0. IMAGING: His chest x-ray shows both lungs fully expanded to the chest wall. The right side looks much better than it did yesterday with sharp costophrenic angle. Left side has a diffuse haze suggestive of retained fluid. IMPRESSION: 1. Stage 4 adenocarcinoma of the lung metastatic to the liver and pleura. 2. Recurrent pleural effusions with newest one yet uncharacterized but probably going to be malignant with pathology pending. 3. COPD. 4. Hyperlipidemia. 5. Left upper extremity DVT. PLAN/DISCUSSION: His PTT is 61.5 seconds. He continues with Heparin. I have spoke with Dr. Delgado and he is going to convert him to oral anticoagulation. I would have no objections to him going home today as he knows very well how to use the PleurX catheters. I am gratified that he was ambulating yesterday. I will see him back in the office in 7-10 days in post-hospitalization follow up.
[2020-04-27 13:12] LABS: HEMATOCRIT 29.9 % (42.0-52.0); HEMOGLOBIN 8.7 g/dl (13.5-17.5); MEAN CORPUSCULAR HEMOGLOBIN 28.5 pg (27.0-33.0); MEAN CORPUSCULAR HGB CONC 29.1 g/dl (32.0-36.5); PLATELET COUNT, AUTOMATED 152 10^3/uL (150-450); RED BLOOD COUNT 3.05 10^6/uL (4.30-6.10); WHITE BLOOD COUNT 4.8 10^3/uL (4.0-10.0)
[2020-04-27] MEDS ORDERED: ECOT81TA5 PO (14:15)
[2020-04-27] MEDS ORDERED: ELIQ5TAB PO (14:16)
--- NOTE | 2020-04-27 15:59 | DS.PDOC ---
Discharge Summary General Date of Admission Apr 25, 2020 at 12:38 Date of Discharge 04/27/20 Attending Physician: KAMALJIT MCDANIELS MD Discharge Summary PROCEDURES PERFORMED DURING STAY: None. ADMITTING DIAGNOSES: 1. Malignant pleural effusion, hypoxemic respiratory failure, left upper extremity DVT. DISCHARGE DIAGNOSES: 1. Malignant pleural effusion, hypoxemic respiratory failure, left upper extremity DVT. COMPLICATIONS/CHIEF COMPLAINT: Pleural Effusion Left. HISTORY OF PRESENT ILLNESS: 69-year-old male with past medical history of metastatic adenocarcinoma of the left lung with chronic left Pleurx catheter. He was admitted for worsening right pleural effusion, underwent Pleurx catheter placement on the right side by Dr. Mendoza. He was also found to have left upper extremity DVT. After prolonged discussion with the patient regarding his goals and options, he elected to proceed with anticoagulation for DVT. Patient was initially started on heparin drip, therapeutic, no signs of bleeding. He initially required supplemental oxygen, which improved after right pleural effusion was drained. He is now resting comfortably, hemodynamically stable and cleared for discharge home. Patient will be switched to Eliquis 10 mg twice a day for 7 days followed by 5 mg twice a day after that. He is advised to follow- up with his oncologist, Dr. Mendoza and PCP in 1-2 weeks. He is agreeable with this plan at this time. HOSPITAL COURSE: As above. DISCHARGE MEDICATIONS: Please see below. ALLERGIES: Please see below. PHYSICAL EXAMINATION: VITAL SIGNS: Please see below. GENERAL: Frail, cachectic HEENT: moist mucous membranes NECK: Supple CARDIOVASCULAR EXAMINATION: S1, S2, no murmurs RESPIRATORY EXAMINATION: , Poor air movement, scattered rhonchi, diminished in the bases ABDOMINAL EXAMINATION: Soft, nontender, nondistended, positive bowel sounds EXTREMITIES: pitting edema SKIN: Intact NEUROLOGICAL EXAMINATION: Alert and oriented 3, no focal deficits PSYCHIATRIC EXAMINATION: Calm and cooperative LABORATORY DATA: Please see below. IMAGING: . Chest x-ray with improvement in pleural effusion, chest tubes in place PROGNOSIS: , Poor ACTIVITY: As tolerated. DIET: Regular DISCHARGE PLAN: Follow-up with oncologist thoracic surgery and PCP 1-2 weeks DISPOSITION: Home. DISCHARGE INSTRUCTIONS: 1. As above. DISCHARGE CONDITION: Stable. TIME SPENT ON DISCHARGE: Greater than 32 minutes. Vital Signs/I&Os Vital Signs Date Time Temp Pulse Resp B/P (MAP) Pulse Ox O2 Delivery O2 Flow Rate FiO2 2/20/21 14:13 15 04/27/20 11:52 98.4 106 111/68 (82) 98 Room Air 04/25/20 16:00 2.0 I&O- Last 24 Hours up to 6 AM 04/27/20 06:00 Intake Total 808 ml Output Total 150 ml Balance 658 ml Laboratory Data Labs 24H Laboratory Tests 2 04/27/20 05:50: Immature Granulocyte % (Auto) , Neutrophils (%) (Auto) , Nucleated Red Blood Cells % (auto) 0.0, Neutrophils 96H, Lymphocytes (Manual) 3L, Eosinophils (Manua l) 1, Anisocytosis 1+, Macrocytosis 1+, Platelet Estimate NORMAL, Activated Partial Thromboplast Time 61.5H, Anion Gap 8, Glomerular Filtration Rate > 60.0, Calcium Level 8.0L 04/27/20 13:01: Nucleated Red Blood Cells % (auto) 0.0, Activated Partial Thromboplast Time 73.5H CBC/BMP Laboratory Tests 04/27/20 05:50 04/27/20 13:01 Microbiology Microbiology 04/25/20 Acid Fast Stain, Received Pending 04/25/20 Mycobacterial Culture, Received Pending 04/25/20 Fungal Smear, Received Pending 04/25/20 Fungal Culture, Received Pending 04/25/20 Gram Stain - Final, Complete 04/25/20 Anaerobic Culture - Final, Complete 04/25/20 Body Fluid Culture - Final, Complete 04/25/20 Blood Culture - Preliminary, Resulted No Growth after 48 hours. All Specime... 04/25/20 Respiratory Virus Panel (PCR) ([facility]) - Final, Complete 04/25/20 Blood Culture - Preliminary, Resulted No Growth after 48 hours. All Specime... Discharge Medications Scheduled Apixaban (Eliquis) 5 Mg Tablet, 2 TAB PO BID Take 2 tabs twice a day for 7 days followed by 1 tab twice a day. Aspirin (Ecotrin) 81 Mg Tablet.dr, 1 TAB PO DAILY for pain Calcitriol (Calcitriol) 0.25 Mcg Capsule, 0.5 MCG PO DAILY, (Reported) Cholecalciferol (Vitamin D3) (Vitamin D3) 1,000 Unit Tablet, 1,000 UNITS PO DAILY, (Reported) Dexamethasone (Dexamethasone) 4 Mg Tablet, 4 MG PO ASDIRECTED take 2 tabs by mouth daily the day before chemo, the day of chemo, and the day after chemo Glatiramer Acetate (Glatopa) 40 Mg/1 Ml Syringe, 40 MG IM 3XW, (Reported) MON, WED, WED Lidocaine/Prilocaine (Lidocaine-Prilocaine Cream) 2.5%/2.5% Cream..g., 1 APPLIC EXT ONCE apply to port as needed Prochlorperazine Maleate (Prochlorperazine Maleate) 10 Mg Tablet, 1 TAB PO Q6H Simvastatin (Simvastatin) 20 Mg Tablet, 20 MG PO QHS, (Reported) Scheduled PRN Albuterol Sulfate (Ventolin Hfa) 18 Gm Hfa.aer.ad, 2 PUFF INH Q6H PRN for SHORTNESS OF BREATH, (Reported) Ondansetron HCl (Ondansetron HCl) 8 Mg Tablet, 8 MG PO Q6H PRN for NAUSEA OR VOMITING TAKE ONE TABLET EVERY 6 HOURS NEEDED FOR NAUSEA. Allergies Coded Allergies: No Known Allergies (Unverified , 07/10/19) KAMALJIT MCDANIELS MD Apr 27, 2020 15:58
[2020-04-27] MEDS ORDERED: APIXABAN 5 MG TAB (ELIQUIS) PO ONE ×2 (16:00)
== END 2020-04-27 16:32 | disposition home or self-care (01) | DRG 136 ==
LOC: M ED 11:23 → M ED INP 12:38 → M PCU 14:30
PROVIDERS: ADMIT Thoracic Surgery (Cardiothoracic Vascular Surgery); ATTEND Internal Medicine
PROC: 0W9930Z Drainage of Right Pleural Cavity with Drainage Device, Percutaneous Approach (ICD-10-PCS; principal; 2020-04-25)
DX: C34.90 Malignant neoplasm of unspecified part of unspecified bronchus or lung (principal); J96.01 Acute respiratory failure with hypoxia; J91.0 Malignant pleural effusion; I82.A12 Acute embolism and thrombosis of left axillary vein; C78.7 Secondary malignant neoplasm of liver and intrahepatic bile duct; G35 Multiple sclerosis; I82.C12 Acute embolism and thrombosis of left internal jugular vein; I82.B12 Acute embolism and thrombosis of left subclavian vein; J44.9 Chronic obstructive pulmonary disease, unspecified; Z79.82 Long term (current) use of aspirin; Z79.899 Other long term (current) drug therapy; Z87.891 Personal history of nicotine dependence; E78.5 Hyperlipidemia, unspecified

== ENCOUNTER → 2020-06-18 | Outpatient (CLI) | payer BC, MEDICARE ==
[~2020-06-18] MED LIST changes: +ECOT81TA5 PO; +ELIQ5TAB PO; +SODIUM BICARBONATE 8.4% INJ 50MEQ 50 ML VIAL As Ordered ONE
[2020-06-18 09:54] VITALS: BP 117/73
--- NOTE | 2020-06-18 20:00 | REP ---
INDICATION: ASCITES The patient has a history of ascites COMPARISON: None. TECHNIQUE: The procedure was performed by WU Gilbert, under the direct supervision of Dr. Garcia The risks and benefits of the procedure were explained to the patient and an informed consent was obtained both verbally and written. Directly prior to the start of the procedure a formal time-out was completed in the procedure room. The largest pocket of fluid was localized in the right flank using ultrasound guidance. The skin was prepped and draped in a sterile fashion. Eleven ML of buffered lidocaine was used as a local anesthetic. An 8-Yoruba multi side-hole catheter was inserted using trocar technique. 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 The patient tolerated the procedure well and there were no immediate complications. After the appropriate amount of monitored convalescence, the patient was discharged from the department. 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 <Electronically signed by Rosa Staley > 06/18/20 1203 <Electronically signed by Fredo Garcia > 06/18/20 195
== END ==
LOC: M IRPRO 08:02
PROVIDERS: ATTEND Specialist
DX: R85.69 Abnormal cytological findings in specimens from other digestive organs and abdominal cavity (principal)

== ENCOUNTER 2020-06-26 16:37 | Inpatient (IN) | payer BC, MEDICARE ==
[~2020-06-26] VITALS: Ht 167.6 cm; Wt 57.5 kg
[~2020-06-26 16:37] MED LIST changes: -ISOVUE-370 76% 100ML VIAL As Ordered ONE
--- NOTE | 2020-06-26 18:25 | REP ---
INDICATION: sob. COMPARISON: Multiple the latest 04/27/2020 a PA and lateral exam TECHNIQUE: Portable FINDINGS: The technique utilized in obtaining the radiograph has magnified the cardiac silhouette and attenuated the interstitial markings. The left-sided thoracotomy tube is unchanged. The cardiomediastinal silhouette is unchanged. The tip of the MediPort device is again seen in the superior vena cava unchanged. Left lung opacities and left CP angle blunting unchanged. The right thoracotomy tube seen previously has been repositioned. The tip is now in the right upper lung field. The right lung is otherwise unchanged. There is no change in the osseous structures. IMPRESSION: Tubes and line as described above. Stable appearing lung bae. <Electronically signed by Russell Quiroz > 06/26/20 [id number]
[2020-06-26 18:35] LABS: HEMOGLOBIN 11.4 g/dl (13.5-17.5); MEAN CORPUSCULAR VOLUME 106.7 fl (80.0-96.0); PLATELET COUNT, AUTOMATED 206 10^3/uL (150-450); RED BLOOD COUNT 3.56 10^6/uL (4.30-6.10); WHITE BLOOD COUNT 11.2 10^3/uL (4.0-10.0)
[2020-06-26 18:56] LABS: INR 1.16
[2020-06-26 19:13] LABS: ALBUMIN 1.6 GM/DL (3.2-5.2); ALT/SGPT 62 U/L (12-78); BILIRUBIN,DIRECT < 0.1 MG/DL (0.0-0.2); BILIRUBIN,TOTAL 0.4 MG/DL (0.2-1.0); LIPASE 143 U/L (73-393); TOTAL PROTEIN 4.6 GM/DL (6.4-8.2)
[2020-06-26 19:15] LABS: LYMPHOCYTES 2 % (16-44); NEUTROPHILS 98 % (28-66); PLATELET ESTIMATE NORMAL (NORMAL)
--- NOTE | 2020-06-26 19:28 | REPVR ---
PROCEDURE INFORMATION: Exam: CT Abdomen And Pelvis Without Contrast Exam date and time: 06/26/2020 6:34 PM Age: 70 years old Clinical indication: Bloating; Additional info: Ascities TECHNIQUE: Imaging protocol: Computed tomography of the abdomen and pelvis without contrast. Radiation optimization: All CT scans at this facility use at least one of these dose optimization techniques: automated exposure control; mA and/or kV adjustment per patient size (includes targeted exams where dose is matched to clinical indication); or iterative reconstruction. COMPARISON: CT ABD PELVIS W/O CONTRAST 04/25/2020 1:24 PM FINDINGS: Lungs: There is atelectasis and infiltrate in the right lower lung. Heart: The heart is normal in size and there is moderate pericardial effusion. Liver: There is a 4.3 cm low-density lesion of the upper aspect of the right lobe of the liver consistent with a malignant lesion that is new since 08/09/2019. This lesion has become more necrotic since 04/25/2020. Gallbladder and bile ducts: There is sludge and gallstones in the dependent portion of the gallbladder. Pancreas: Normal size pancreas. Spleen: Normal spleen. Adrenal glands: Nodular enlargement of the left adrenal gland probably metastasis. Kidneys and ureters: There is contrast in the right and left collecting system and both ureters. Intraperitoneal space: There is a very large amount of ascites throughout the abdomen and this is probably malignant ascites. The amount of ascites has markedly increased since 04/25/2020/now massive. There is stranding density in thickening through the mesentery consistent with mesenteric metastasis. Vasculature: There is calcification of the aorta consistent with atherosclerotic change. Lymph nodes: There is a large 6 cm multilobulated mass left infrahilar region which may represent primary malignancy of lung or malignant lymphadenopathy. Is a CT scan of 04/25/2020 there has also been placement of a left-sided chest tube with removal of a large amount of fluid from the left thorax. There is no severe subcutaneous edema throughout the abdomen and pelvis periaortic lymphadenopathy is markedly decreased since the previous 2 examinations. Urinary bladder: Normal appearing urinary bladder. Reproductive: There is severe enlargement of the prostate. Bones/joints: There is no evidence of fracture. Soft tissues: Unremarkable. Other findings: Since the CT examination of 04/25/2020 there is been placement of a right-sided chest to and removal of a large amount of fluid from the right thorax. IMPRESSION: 1. 6 cm mass left infrahilar portion of the lung which may be primary neoplasm of the lung or malignant lymphadenopathy. There are small bilateral pleural effusions which have markedly decreased since placement of the bilateral chest tubes. 2. 4.3 cm low-density lesion of the liver has become more necrotic and consistent with a large metastatic lesion that is new since 08/09/2019. 3. Massive ascites has developed since the previous examination and consistent with malignant ascites. 4. Periaortic lymphadenopathy is further decreased in size. Electronically signed by: Christiano Snow On 06/26/2020 19:28:45 PM
[2020-06-26 20:17] LABS: RSV AMPLIFICATION NEGATIVE (NEGATIVE)
[2020-06-26] MEDS ORDERED: LIDO2.5C15 TOP (21:15)
[2020-06-26] MEDS ORDERED: CALC1CAP31 PO (21:15)
[2020-06-26] MEDS ORDERED: ELIQ5TAB PO (21:15)
[2020-06-26] MEDS ORDERED: ONDANSETRON 4 MG TAB PO PRN (22:35)
[2020-06-26] MEDS: SIMVASTATIN 20 MG TAB PO SCH (23:43)
--- NOTE | 2020-06-26 23:54 | HPEPDOC ---
[facility] Medical History & Physical Date of Admission Jun 26, 2020 Date of Service: Jun 26, 2020 Primary Care Physician: VARGAS BERRY MD [facility] Attending Physician: SUZANNE HARRINGTON MD History and Physical CHIEF COMPLAINT: Low blood pressure HISTORY OF PRESENT ILLNESS: is a 70-year-old male with a history of stage IV adenocarcinoma of the lung who presented to the emergency department from his nephrology office with a chief complaint of low blood pressure. He denies having any symptoms at that time however, he states that the nephrology office was very concerned due to the low blood pressure so they sent him into the hospital. Patient denies having any dizziness, lightheadedness, falling. He is mostly wheelchair bound at this point. He denies having any other symptoms such as chest pain, shortness of breath, or abdominal pain. He occasionally gets burning pain in his legs bilaterally, has have swelling in his legs and ascites; he's had his ascites drained a few times in the past and has not had any difficulty with this. He has bilateral Pleurx catheters with the left side being placed multiple years ago and the right side being placed back in April 2020. He was going to drain them earlier today however, he may do it tomorrow. Patient says his breathing does improve after he drains the catheters. Patient is otherwise feeling well. REVIEW OF SYSTEMS: General: Patient denies fevers HEENT: Patient denies headaches Cardiovascular: Patient denies chest pain Respiratory: Patient denies shortness of breath, cough GI: Patient reports increased ascites but denies any abdominal pain, nausea, vomiting, diarrhea : Patient denies increased frequency or pain with urination Extremities: Patient reports swelling and burning pain in his lower extremities by laterally Neurological: Patient denies numbness or tingling in legs Skin: Patient denies any new rashes or lesions. Hematologic: Patient denies any easy bruising. Lymphatic: Patient denies any lumps lumps or bumps in neck, axilla, or groin PAST MEDICAL/SURGICAL HISTORY: Metastatic adenocarcinoma of the lungs. History of DVT. Hyperlipidemia. Multiple sclerosis diagnosed in July 2015 Cataract surgery. Bronchoscopy in the past. Pleurx catheter placement. Paracentesis with the last one being on 06/18/2020 where 6575 mL's of chylous ascites was removed in total SOCIAL HISTORY: Patient currently lives at home with his , son, and [id number]. Patient used to smoke but quit in 2016. Patient used to drink alcohol but quit around the same time. 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 HOME MEDICATIONS: Please see below. PHYSICAL EXAMINATION: VITAL SIGNS: Temperature 97.8, pulse 100, respiratory rate 14, blood pressure 107/72, pulse oximetry 100% on room air. General: Alert and oriented male patient who was sitting in bed when I walked in the room. Patient appeared cachectic with temporal wasting. Patient did not appear to be in any acute distress. HEENT: Normocephalic, atraumatic, moist mucous membranes. Neck: No lymphadenopathy or thyromegaly Cardiac: Regular rate and rhythm, no murmurs, normal S1, normal S2 Pulm: Diminished to no breath sounds in the lower lung bae bilaterally. Other lung bae were clear to auscultation bilaterally Abd: Distended with ascites, dull to percussion, fluid wave was present, no tenderness to palpation Ext: Bilateral lower extremities had 2+ pitting edema of the level of the mid thigh. There was some pitting edema in the left upper extremity on the medial side of the elbow. No edema in the right upper extremity. Neurological: Patient was able to move all 4 extremities however, patient did have weakness in the lower extremities bilaterally. LABORATORY DATA: IMAGING: Chest x-ray performed on 06/26/2020 which was reported to show left- sided thoracotomy tube unchanged, tip of the MediPort device again seen in the superior vena cava unchanged. The right thoracostomy tube seen previously has been repositioned the tip is now in the right upper lung field. Stable appearing lung bae A CT of the abdomen and pelvis without contrast on 06/26/2020 was reported to show 6 cm mass in the left infrahilar portion of the left lung which may be primary neoplasm of the lung or malignant lymphadenopathy. There are small bilateral pleural effusions which are markedly decreased since placement of the bilateral chest use. 4.3 cm low-density lesion of the liver has become more necrotic and consistent with large metastatic lesion that is new since 08/09/2019. Massive ascites has developed since previous examination and consistent with malignant ascites. Periaortic lymphadenopathy is further decrease in size. There are 2 addendum study report from radiology the first addendum reads the patient has stage IV small cell cancer cordon report of 05/01/2019 and the second addendum reads older examination temperature massive lymphadenopathy in the mediastinum and hilar regions and a very large mass in the left hilum. The low-density lesion of the right lobe of the liver was subtle on the older exams. Patient has a history of small cell lung carcinoma. MICROBIOLOGY: respiratory panel neg ASSESSMENT: is a 70-year-old male who presented to the emergency department from his nephrology office due to hypotension. Patient's blood pressures have remained low but are stable at the time of admission. Patient was also found to have ascites. PLAN: 1. Hypotension Patient's blood pressure has been in the low 100s over 70s since arrival. At this time, we will continue to monitor the patient's blood pressure. If the patient's blood pressure becomes low, we'll not treat with IV fluids since the patient's albumin is very low and the patient has edema throughout the lower extremities and parts of the upper extremities. Patient will be treated with albumin and diuresis. Patient also has a port became be accessed and press ors can be started through that. Patient has been consented for blood so albumin can be given. We will continue to monitor the patient's blood pressure at this time. Nephrology can be consulted in the morning for further guidance on albumin and diuresis. 2. Ascites. Interventional radiology can be consult added in the morning for a paracentesis. Last paracentesis required greater than 5 L to be removed and that paracentesis was on 06/18/2020. Because the patient has had greater than 5 L removed last time, patient may require albumin administration to be given if greater than 5 L is removed tomorrow. Patient has a known liver metastasis and has had multiple paracentesis is according to the patient. 3. Bilateral pleural effusions. Patient has bilateral Pleurx catheters in place and may need help draining these as he does have some small pleural effusions according to the CT scan that was performed. 4. Macrocytic anemia. Patient's hemoglobin is 11.4 with an MCV of 106.7. Patient is currently on chemotherapy for his lung adenocarcinoma. A vitamin B12 level will be ordered for the morning although the macrocytic anemia is improved from previous blood work with a hemoglobin of 11.4. This may be associated with the chemotherapeutic agent that the patient is taking. Patient is currently on docetaxel and received his last dose on 06/24/2020. 5. Stage IV adenocarcinoma of lung diagnosed originally in October 2015. After review of the patient's last oncology note which was dated 06/17/2020 they have had the discussion with the patient about his CODE STATUS and his prognosis they have offered him palliative care however, the patient would like to continue to do as much as possible to treat his stage IV cancer. Patient will continue his chemotherapy as an outpatient 6. History of DVT. Patient is on Eliquis which will be continued. DVT prophylaxis n/a on Eliquis. Full code. Disposition: will likely need at least 2 midnight's stay Home Medications Scheduled Apixaban (Eliquis) 5 Mg Tablet, 5 MG PO BID Calcitriol (Calcitriol) 0.25 Mcg Capsule, 0.5 MCG PO 5XW WEDNESDAY, WEDNESDAY, WEDNESDAY, WEDNESDAY AND WEDNESDAY Cholecalciferol (Vitamin D3) (Vitamin D3) 1,000 Unit Tablet, 1,000 UNITS PO DAILY Glatiramer Acetate (Glatopa) 40 Mg/1 Ml Syringe, 40 MG IM 3XW WEDNESDAY, WEDNESDAY AND WEDNESDAY AFTER DINNER Lidocaine/Prilocaine (Lidocaine-Prilocaine Cream) 2.5%/2.5% Cream..g., 1 APPLIC EXT ONCE apply to port as needed Lidocaine/Prilocaine (Lidocaine-Prilocaine Cream) 2.5%/2.5% Cream..g., 1 DOSE TOP 3XW APPLIES TO REGION OF INJECTION PRIOR TO GLATOPA INJECTION Prochlorperazine Maleate (Prochlorperazine Maleate) 10 Mg Tablet, 1 TAB PO Q6H Simvastatin (Simvastatin) 20 Mg Tablet, 20 MG PO QHS Scheduled PRN Ondansetron HCl (Ondansetron HCl) 8 Mg Tablet, 8 MG PO Q6H PRN for NAUSEA OR VOMITING TAKE ONE TABLET EVERY 6 HOURS NEEDED FOR NAUSEA. Allergies Coded Allergies: No Known Allergies (Unverified , 07/10/19) A-FIB/CHADSVASC A-FIB History Current/History of A-Fib/PAF?: No GME ATTESTATION GME ATTESTATION My faculty preceptor for this patient encounter was physically present during the encounter and was fully available. All aspects of the patient interview, examination, medical decision making process, and medical care plan development were reviewed and approved by the faculty preceptor. The faculty preceptor is aware and concurs with the plan as stated in the body of this note and will attest to such by his/her cosignature. ATTENDING NOTE time of service 1020 pm is a 70 yr old former smoker w a hx of Stage IV adenocarcinoma of lung with bilateral pleural effusions malignant ascites and mets to the liver, COPD, multiple sclerosis, multifactorial anemia and LUE DVT who was sent from his Nephrologists office for evaluation of hypotension which resolved. Despite having paracentesis last week the ascites has returned. He will be admitted pending IR consult for paracentesis and pigtail placement. rest per 's H&P CHAMP MCALLISTER DO Jun 26, 2020 23:54 SUZANNE HARRINGTON MD Jun 27, 2020 05:49
[2020-06-27] MEDS: PROCHLORPERAZINE 5 MG TAB (S0183) PO SCH ×5 (00:33→23:59)
[2020-06-27] MEDS ORDERED: APIXABAN 5 MG TAB (ELIQUIS) PO SCH (09:00)
[2020-06-27 09:25] LABS: HEMATOCRIT 33.5 % (42.0-52.0); MEAN CORPUSCULAR HEMOGLOBIN 32.1 pg (27.0-33.0); MEAN CORPUSCULAR HGB CONC 29.9 g/dl (32.0-36.5); MEAN CORPUSCULAR VOLUME 107.4 fl (80.0-96.0); PLATELET COUNT, AUTOMATED 172 10^3/uL (150-450); RED BLOOD COUNT 3.12 10^6/uL (4.30-6.10); WHITE BLOOD COUNT 11.9 10^3/uL (4.0-10.0)
[2020-06-27 09:57] LABS: ALBUMIN 1.5 GM/DL (3.2-5.2); ALT/SGPT 49 U/L (12-78); BILIRUBIN,TOTAL 0.2 MG/DL (0.2-1.0); BLOOD UREA NITROGEN 31 MG/DL (7-18); CARBON DIOXIDE LEVEL 27 MEQ/L (21-32); CHLORIDE LEVEL 109 MEQ/L (98-107); CREATININE FOR GFR 0.81 MG/DL (0.70-1.30); GLOMERULAR FILTRATION RATE > 60.0 (>42); GLUCOSE, FASTING 93 MG/DL (70-100); POTASSIUM SERUM 4.1 MEQ/L (3.5-5.1); SODIUM LEVEL 141 MEQ/L (136-145); TOTAL PROTEIN 3.9 GM/DL (6.4-8.2)
[2020-06-27] MEDS: VITAMIN D 1,000 INTERNATIONAL UNITS TABLET PO SCH (11:30)
[2020-06-27] MEDS: CALCITRIOL 0.25 MCG CAP (S0169) PO SCH (11:30)
--- NOTE | 2020-06-27 13:00 | ECGEPIP ---
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
[2020-06-27 16:00] VITALS: BP 98/64
--- NOTE | 2020-06-27 16:25 | IPNPDOC ---
Date Seen The patient was seen on 06/27/20. Progress Note SUBJECTIVE: Discussed case with nephrology PA. Remains slightly hypotensive; however, not far from baseline. Diffuse anasarca seen on exam, + 3 pitting edema. Paracentesis cannot be done until 06/28 in afternoon due to being on eliquis. Will need albumin with paracentesis, limiting to 4 L to be taken off. Nephrology consulted to help with fluid management. He denies shortness of breath, chest pain, n/v/d. OBJECTIVE: PHYSICAL EXAMINATION: VITAL SIGNS: Please see below General: NAD, resting in bed, cachectic with temporal wasting, AAOx 3 HEENT: Normocephalic, atraumatic, moist mucous membranes. Neck: No lymphadenopathy or thyromegaly Cardiac: Regular rate and rhythm, no murmurs, normal S1, normal S2 Pulm: Diminished to no breath sounds in the lower lung bae bilaterally.No W/r/R Abd: Distended with ascites, dull to percussion, fluid wave was present, no tenderness to palpation, +1 pitting edema on abdomen Ext: Bilateral lower extremities had 3+ pitting edema of the level of the mid thigh. There was some pitting edema in the left upper extremity on the medial side of the elbow. No edema in the right upper extremity. No cyanosis or clubbing INTEGUMENTARY: Redness, warmth of lower ext concerning for cellulitis b/l, L>R. No rashes Neurological: Patient was able to move all 4 extremities however, patient did have weakness in the lower extremities bilaterally. PSYCH: Mood and affect appropriate LABORATORY: Please see below MICROBIOLOGY: F/u BCx, UA IMAGING: CXR: The left-sided thoracotomy tube is unchanged. The cardiomediastinal silhouette is unchanged. The tip of the MediPort device is again seen in the superior vena cava unchanged. Left lung opacities and left CP angle blunting unchanged. The right thoracotomy tube seen previously has been repositioned. The tip is now in the right upper lung field. The right lung is otherwise unchanged. There is no change in the osseous structures. CT of the abdomen and pelvis without contrast 06/26/2020: 1. 6 cm mass left infrahilar portion of the lung which may be primary neoplasm of the lung or malignant lymphadenopathy. There are small bilateral pleural effusions which have markedly decreased since placement of the bilateral chest tubes. 2. 4.3 cm low-density lesion of the liver has become more necrotic and consistent with a large metastatic lesion that is new since 08/09/2019. 3. Massive ascites has developed since the previous examination and consistent with malignant ascites. 4. Periaortic lymphadenopathy is further decreased in size. 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 PLAN: Chronic hypotension -Baseline high 90-110's systolic as o/p. Advanced malignancy, low albumin, diffuse anasarca -Currently 98/68, asymptomatic -Mild tachycardia, WBC 11.9 -F/u LA -Avoid fluids if possible Recurrent abdominal ascites 2/2 to metastatic adenocarcinoma of lung to liver, diffuse anasarca -Albumin 1.5 -S/p recent paracentesis on 06/18/20, took 6.5 L off at that time- malignant ascites -Plan is to hold eliquis further today, therapeutic US guided paracentesis planned for 06/28/20 in the afternoon. Limiting 4 L fluid to be taken off at that time -Albumin to be administered during paracentesis, total of 2 B/l lower ext cellulitis -r/o developing sepsis -WBC 11.9, afebrile, mildly tachycardic -F/u LA -Started on ceftaroline BID -Suggest outlining cellulitic areas and watching for either extension or recession of redness/warmth -F/u BCx Metastatic adenocarcinoma of lung (dx 10/2015) -Metastatic to liver -After review of the patient's last oncology note which was dated 06/17/2020 they have had the discussion with the patient about his CODE STATUS and his prognosis they have offered him palliative care however, the patient would like to continue to do as much as possible to treat his stage IV cancer. -Patient has decided to go for further chemotherapy. -Heme/oncologist: Dr. Galeana Chronic recurrent bilateral pleural effusions -Currently saturating well on RA -Drains bilateral PleurX catheters every other day -multiple pleural cytologies negative for malignancy -Will continue home PleurX catheter draining schedule here CKD Stage III -Also hx of IgA nephropathy and chemotherapy induced interstitial nephritis -Cr wnl -Discussed case with provider ([facility] -Nephrology consulted for help with fluid management Macrocytic anemia -H/H stable -F/u with heme/onc -No s/s of bleeding -CBC daily DVT px/ History of DVT -Holding eliquis currently for paracentesis on 06/28/20. Restart when able after. DISPOSITION: Currently inpatient status. Nephrology consulted and will see 06/28/20. Full Code. VS, I&O, 24H, Fishbone Vital Signs/I&O Vital Signs Date Time Temp Pulse Resp B/P (MAP) Pulse Ox O2 Delivery O2 Flow Rate FiO2 06/27/20 15:19 97.6 97 18 97/68 (78) 98 06/27/20 12:45 Room Air Laboratory Data 24H LABS Laboratory Tests 2 06/26/20 18:22: Neutrophils (%) (Auto) , Nucleated Red Blood Cells % (auto) 0.0, Neutrophils 98H, Lymphocytes (Manual) 2L, Platelet Estimate NORMAL, Prothrombin Time 15.0H, Prothromb Time International Ratio 1.16, Total Bilirubin 0.4, Direct Bilirubin < 0.1, Aspartate Amino Transf (AST/SGOT) 69H, Alanine Aminotransferase (ALT/SGPT) 62, Alkaline Phosphatase 79, Total Protein 4.6L, Albumin 1.6L, Albumin/Globulin Ratio 0.5, Lipase 143 06/26/20 18:30: POC Glucose (Misc Panel) 109H, POC Sodium (Misc Panel) 139, POC Potassium (Misc Panel) 4.5, POC Chloride (Misc Panel) 104, POC Total CO2 (Misc Panel) 28.0H, POC Blood Urea Nitrogen (Misc Panel 49H, POC Ionized Calcium (Misc Panel) 4.9, POC Creatinine (Misc Panel) 1.0, POC Hematocrit (Misc Panel) 37.0L 06/26/20 19:27: Coronavirus (COVID-19)(PCR) NEGATIVE, Influenza Type A (RT-PCR) NEGATIVE, Influenza Type B (RT-PCR) NEGATIVE, Respiratory Syncytial Virus (PCR) NEGATIVE 06/26/20 21:32: Lab Scanned Report LAB OTHER 06/27/20 09:04: Nucleated Red Blood Cells % (auto) 0.0, Anion Gap 5L, Glomerular Filtration Rate > 60.0, Calcium Level 8.0L, Magnesium Level 2.0, Total Bilirubin 0.2, Aspartate Amino Transf (AST/SGOT) 21, Alanine Aminotransferase (ALT/SGPT) 49, Alkaline Phosphatase 69, Total Protein 3.9L, Albumin 1.5L, Albumin/Globulin Ratio 0.6 CBC/BMP Laboratory Tests 06/26/20 18:22 06/27/20 09:04 Current Medications Current Medications Medications (Trade) Dose Ordered Sig/Haresh Route PRN Reason Start Time Stop Time Status Last Admin Dose Admin Apixaban (Eliquis) 5 mg BID PO 06/27/20 09:00 06/27/20 08:41 DC Calcitriol (Rocaltrol) 0.5 mcg MoTuWeThFr@0900 PO 06/27/20 09:00 06/27/20 11:30 Home Med (Med Rec Complete!) ASDIRECTED XX 06/26/20 21:15 06/26/20 21:16 DC Ondansetron HCl (Zofran) 8 mg Q6H PRN PO NAUSEA OR VOMITING 06/26/20 22:35 Prochlorperazine (Compazine) 10 mg Q6H PO 06/27/20 00:00 06/27/20 00:33 Simvastatin (Zocor) 20 mg QHS PO 06/26/20 21:00 06/26/20 23:43 Vitamin D (Vitamin D) 1,000 units DAILY PO 06/27/20 09:00 06/27/20 11:30 Allergies Coded Allergies: No Known Allergies (Unverified , 07/10/19) Itzel Horan MD Jun 27, 2020 16:25
[2020-06-27] MEDS: CEFTAROLINE FOSAMIL 600 MG in D5W MINI-BAG PLUS 50 ML IV SCH (17:18)
[2020-06-27] MEDS ORDERED: SLF 3 ML SYR IV PRN (18:15)
[2020-06-27] MEDS: NS 1,000 ML IV SCH (18:32)
[2020-06-27 20:00] VITALS: BP 104/65; O2SAT 97
[2020-06-27 21:00] VITALS: O2SAT 99
[2020-06-27] MEDS ORDERED: ACETAMINOPHEN TAB 650MG DOSE (2X325MG) PO ONE (21:10)
[2020-06-27] MEDS: SIMVASTATIN 20 MG TAB PO SCH (21:16)
[2020-06-27] MEDS: SLF 3 ML SYR IV SCH (21:19)
[2020-06-27 22:00] VITALS: O2SAT 97
[2020-06-27 23:00] VITALS: O2SAT 99
[2020-06-28] VITALS (21 sets, daily range): BP systolic 84–112; BP diastolic 54–70; O2SAT 96–100
[2020-06-28] MEDS ORDERED: SODIUM CHLORIDE 0.9% 1000ML IV ONE (04:50)
[2020-06-28] MEDS: CEFTAROLINE FOSAMIL 600 MG in D5W MINI-BAG PLUS 50 ML IV SCH ×2 (05:08→18:44)
[2020-06-28] MEDS: SLF 3 ML SYR IV SCH ×3 (05:09→20:59)
[2020-06-28] MEDS: NS 1,000 ML IV SCH (05:09)
[2020-06-28] MEDS: PROCHLORPERAZINE 5 MG TAB (S0183) PO SCH ×3 (05:09→18:44)
[2020-06-28 05:30] LABS: HEMATOCRIT 31.7 % (42.0-52.0); HEMOGLOBIN 9.5 g/dl (13.5-17.5); MEAN CORPUSCULAR VOLUME 106.7 fl (80.0-96.0); PLATELET COUNT, AUTOMATED 149 10^3/uL (150-450); RED BLOOD COUNT 2.97 10^6/uL (4.30-6.10)
[2020-06-28 05:53] LABS: ALBUMIN 1.4 GM/DL (3.2-5.2); ALT/SGPT 39 U/L (12-78); BILIRUBIN,TOTAL 0.2 MG/DL (0.2-1.0); BLOOD UREA NITROGEN 29 MG/DL (7-18); CALCIUM LEVEL 7.9 MG/DL (8.8-10.2); CARBON DIOXIDE LEVEL 26 MEQ/L (21-32); CHLORIDE LEVEL 110 MEQ/L (98-107); CREATININE FOR GFR 0.82 MG/DL (0.70-1.30); GLOMERULAR FILTRATION RATE > 60.0 (>42); GLUCOSE, FASTING 84 MG/DL (70-100); SODIUM LEVEL 143 MEQ/L (136-145); TOTAL PROTEIN 3.7 GM/DL (6.4-8.2)
[2020-06-28] MEDS: CALCITRIOL 0.25 MCG CAP (S0169) PO SCH (09:41)
[2020-06-28] MEDS: VITAMIN D 1,000 INTERNATIONAL UNITS TABLET PO SCH (09:41)
[2020-06-28] MEDS: MIDODRINE 5 MG TAB PO SCH ×2 (12:52→16:30)
--- NOTE | 2020-06-28 13:10 | CR ---
NEPHROLOGY CONSULTATION DATE: 06/28/2020 ATTENDING PHYSICIAN: Itzel Horan MD REASON FOR CONSULTATION: To assist in the management of ascites, pleural effusions and hypotension. HISTORY OF PRESENT ILLNESS: Mr. Blue is a 70-year-old gentleman who was admitted to [facility] on June 26 due to hypotension. He was seen in nephrology office by nurse practitioner and was found to be hypotensive, due to which he was sent to the Emergency Room. He has known history of metastatic adenocarcinoma of the lungs with large left upper lobe mass, bilateral pulmonary nodules, bilateral pleural effusions and metastatic ascites with mets to liver. He has bilateral PleurX catheters in place and also paracentesis done. He has an Infusaport on the left upper chest for chemotherapy and has been receiving chemotherapy until recently. He was found to have a large amount of ascites and also hypotension. There is a concern about worsening hypotension with paracentesis. He has already received fluid boluses of normal saline due to low blood pressure and he is still hypotensive. Nephrology consultation was requested and patient is seen this morning. PAST MEDICAL HISTORY: Significant for: 1. Metastatic adenocarcinoma of the lungs with mets to liver, lungs and pleura. 2. Metastatic bilateral pleural effusions; status post bilateral PleurX catheter placement for palliative drainage. 3. History of metastatic malignant ascites. 4. History of hyperlipidemia. 5. Prior history of DVT. 6. History of multiple sclerosis. PAST SURGICAL HISTORY: Significant for: 1. Bronchoscopy. 2. Bilateral PleurX catheter placement. 3. Paracentesis. 4. Cataract surgery. PERSONAL AND SOCIAL HISTORY: Patient lives at home with his family. He stopped smoking in 2015 when he was diagnosed with cancer. He also quit drinking at that time. FAMILY HISTORY: Significant for diabetes and heart problems in the family, however, no history of lung cancer. ALLERGIES: Patient has no known drug allergies. MEDICATIONS: His home medications include: 1. Eliquis 5 mg b.i.d. 2. Calcitriol for secondary hyperparathyroidism. 3. Vitamin D 1,000 units daily. 4. Glatopa 40 mg three times a week. 5. Simvastatin 20 mg daily. 6. Zofran 8 mg as needed for nausea. His chemotherapy regimen is not known at this time. REVIEW OF SYSTEMS: Patient denies any fever or chills. He is very weak and markedly edematous. Ears, nose and throat are unremarkable. Cardiovascular system is negative for coronary artery disease. He denies any chest pain. Respiratory system is significant for metastatic adenocarcinoma of the lung with bilateral pleural effusion and mets. His pleural effusions were drained just yesterday. GI system is significant for metastatic liver disease with malignant ascites. He denies any black colored stool or rectal bleeding. system is negative for dysuria or hematuria. Endocrine system is significant for possible secondary hyperparathyroidism according to his medication list. No known history of diabetes. Hematological system is significant for prior DVT and anticoagulation with Eliquis. Psychosocial system is negative for depression or anxiety. Neurological system is negative for seizures or stroke. PHYSICAL EXAMINATION: VITALS: Temperature 97.6 degrees Fahrenheit, heart rate 92 per minute, respiratory rate 18 per minute, blood pressure 85/56 mmHg and oxygen saturation 99% on room air. HEENT: Head is atraumatic. Neck is supple and JVD not elevated. There is no oral thrush or ulcers. LUNGS: Clear to auscultation bilaterally. He has bilateral PleurX catheters in place. HEART: Sounds are irregular in rhythm. ABDOMEN: Markedly distended with ascites. I could not feel any hepatomegaly. He has edema of the abdominal wall also. EXTREMITIES: Have generalized edema on all four limbs. There is no cyanosis or clubbing. NEUROLOGIC: He is awake and alert, without a focal deficit. LABORATORY DATA: Sodium 142, potassium 4.0, BUN 29 and creatinine 0.82. Glucose 84, calcium 7.9, total protein 3.7 and albumin 1.4. WBC 12.0, hemoglobin 9.5, hematocrit 31.7, platelets 149,000. PROBLEMS: 1. Recurrent ascites and hypoalbuminemia: Patient has known history of metastatic adenocarcinoma of lung with wide spread mets. He has bilateral malignant pleural effusions and recurrent malignant ascites. He is going to need palliative drainage of his ascites. His blood pressure is already low and he remains at risk for worsening hypotension with large amount of paracentesis. I will recommend a moderate amount of paracentesis, which should be limited to about 4 liters. He should be treated with intravenous albumin 25% 100 mL before and after paracentesis to prevent hypotension. His intermediate prognosis remains poor. 2. Protein calorie malnutrition: This is related to metastatic malignancies with large amount of ascites. He also has liver mets. Will place him on Nepro supplement to help with his nutritional status. 3. Hypotension: Patient has chronic hypotension which seems to be worsening. He is probably intravascularly volume depleted due to very low serum albumin. His metastatic disease is also probably getting worse causing further hypotension. Will give him a trial of Midodrine 5 mg t.i.d. to see if that would help, Overall, Mr. Blue remains with a poor prognosis. I think it is probably time to discuss palliative care with him. Thank you for involving me in the care of Mr. Blue. I will follow him along with you.
--- NOTE | 2020-06-28 17:04 | REP ---
INDICATION: acites, please do not take more than 4 L off. COMPARISON: None. TECHNIQUE: The procedure was performed under the direct supervision of Dr. Lassiter. The risks and benefits of the procedure were explained to the patient and informed consent was obtained. The largest pocket of fluid was localized in the right flank using ultrasound guidance. The skin was prepped and draped in a sterile fashion. 1% lidocaine was used as a local anesthetic. An 8-Vietnamese multi side-hole catheter was inserted using trocar technique.4000 cc of chylous fluid was withdrawn and discarded. The patient tolerated the procedure well and there were no immediate complications. After the appropriate amount of monitored convalescence, the patient was discharged from the department. FINDINGS: None IMPRESSION: Ultrasound-guided paracentesis [id number] cc of chylous fluid. <Electronically signed by Ottoniel Guerra > 06/28/20 1618 <Electronically signed by Nikunj Lassiter > 06/28/20 1700
--- NOTE | 2020-06-28 17:31 | IPNPDOC ---
Date Seen The patient was seen on 06/28/20. Progress Note SUBJECTIVE: S/p paracentesis, BP stable with MAP >65 mmHg, 4 L removed today. Started on midodrine by nephrology. LE cellulitis b/l persists, WBC slightly incr 12, LA normalized with IVFs. He denies shortness of breath, chest pain, n/v/d. OBJECTIVE: PHYSICAL EXAMINATION: VITAL SIGNS: Please see below General: NAD, resting in bed, cachectic with temporal wasting, AAOx 3 HEENT: Normocephalic, atraumatic, moist mucous membranes. Neck: No lymphadenopathy or thyromegaly Cardiac: Regular rate and rhythm, no murmurs, normal S1, normal S2 Pulm: Diminished to no breath sounds in the lower lung bae bilaterally.No W/r/R Abd: Distended with ascites, dull to percussion, fluid wave was present, no tenderness to palpation, +1 pitting edema on abdomen Ext: Bilateral lower extremities had 3+ pitting edema of the level of the mid thigh. There was some pitting edema in the left upper extremity on the medial side of the elbow. No edema in the right upper extremity. No cyanosis or clubbing INTEGUMENTARY: Redness, warmth of lower ext b/l, L>R not much changed from prior exam . No rashes Neurological: Patient was able to move all 4 extremities however, patient did have weakness in the lower extremities bilaterally- baseline. No focal deficits, CN 2-12 intact . PSYCH: Mood and affect appropriate LABORATORY: Please see below MICROBIOLOGY: F/u BCx, UA IMAGING: CXR: The left-sided thoracotomy tube is unchanged. The cardiomediastinal silhouette is unchanged. The tip of the MediPort device is again seen in the superior vena cava unchanged. Left lung opacities and left CP angle blunting unchanged. The right thoracotomy tube seen previously has been repositioned. The tip is now in the right upper lung field. The right lung is otherwise unchanged. There is no change in the osseous structures. CT of the abdomen and pelvis without contrast 06/26/2020: 1. 6 cm mass left infrahilar portion of the lung which may be primary neoplasm of the lung or malignant lymphadenopathy. There are small bilateral pleural effusions which have markedly decreased since placement of the bilateral chest tubes. 2. 4.3 cm low-density lesion of the liver has become more necrotic and consistent with a large metastatic lesion that is new since 08/09/2019. 3. Massive ascites has developed since the previous examination and consistent with malignant ascites. 4. Periaortic lymphadenopathy is further decreased in size. 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 PLAN: Chronic hypotension likely multifactorial to intravascular volume depletion 2/2 very low albumin and worsening metastatic disease -MAP maintaining > 65 mmHg, asymptomatic. Given NS at 75 cc/hr overnight with one 250 cc bolus this AM around 4:30 -Nephrology consulted and trialing Midodrine 5 mg t.i.d. -Baseline high 90-110's systolic as o/p. 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, diffuse anasarca -S/p 2 albumin, paracentesis which took off 4 L fluid off today -Prior paracentesis on 06/18/20, took 6.5 L off at that time- malignant ascites -Monitor fluid status, I&O's, weights -Will likely continue to need therapeutic paracenteses for this recurrent problem B/l lower ext cellulitis -WBC 12, afebrile, mildly tachycardic but improving -LA now wnl -BCx NG thus far -C/w ceftaroline BID -Suggest outlining cellulitic areas and watching for either extension or recession of redness/warmth Metastatic adenocarcinoma of lung (dx 10/2015) -Metastatic to liver -After review of the patient's last oncology note which was dated 06/17/2020 they have had the discussion with the patient about his CODE STATUS and his prognosis they have offered him palliative care however, the patient would like to continue to do as much as possible to treat his stage IV cancer. -Patient has decided to go for further chemotherapy. -Heme/oncologist: Dr. Galeana Chronic recurrent bilateral pleural effusions -Currently saturating well on RA -Drains bilateral PleurX catheters regularly -multiple pleural cytologies negative for malignancy -Will continue home PleurX catheter draining schedule here Protein calorie malnutrition 2/2 to metastatic malignancies with ascites. -Put on Nepro supplement to help with his nutritional status CKD Stage III -Also hx of IgA nephropathy and chemotherapy induced interstitial nephritis -Cr wnl -Daily labs -Nephrology consulted for help with fluid management Macrocytic anemia -H/H stable -F/u with heme/onc -No s/s of bleeding -CBC daily DVT px/ History of DVT -Restart eliquis in AM, scd/teds DISPOSITION: Currently inpatient status. Nephrology consulted. PT/OT ordered, f/u recommendations. VS, I&O, 24H, Fishbone Vital Signs/I&O Vital Signs Date Time Temp Pulse Resp B/P (MAP) Pulse Ox O2 Delivery O2 Flow Rate FiO2 06/28/20 16:00 89 18 06/28/20 15:32 99.1 97 Room Air 06/28/20 15:09 105/68 I&O- Last 24 Hours up to 6 AM 06/28/20 06:00 Intake Total 660 ml Output Total 751 ml Balance -91 ml Laboratory Data 24H LABS Laboratory Tests 2 06/27/20 17:39: Lactic Acid Level 3.2*H 06/27/20 22:11: Lactic Acid Followup at 4 Hours 3.2*H 06/28/20 05:19: Lactic Acid Level 1.3, Nucleated Red Blood Cells % (auto) 0.0, Anion Gap 7L, Glomerular Filtration Rate > 60.0, Calcium Level 7.9L, Total Bilirubin 0.2, Aspartate Amino Transf (AST/SGOT) 20, Alanine Aminotransferase (ALT/SGPT) 39, Alkaline Phosphatase 67, Total Protein 3.7L, Albumin 1.4L, Albumin/Globulin Ratio 0.6, Cortisol AM Sample 24.0H CBC/BMP Laboratory Tests 06/28/20 05:19 Microbiology Microbiology 06/27/20 Blood Culture - Preliminary, Resulted No growth after 24 hours . All specim... 06/27/20 Blood Culture - Preliminary, Resulted No growth after 24 hours . All specim... Current Medications Current Medications Medications (Trade) Dose Ordered Sig/Haresh Route PRN Reason Start Time Stop Time Status Last Admin Dose Admin Acetaminophen (Tylenol Tab) 325 mg Q6HP PRN PO HEADACHE 06/27/20 21:15 Apixaban (Eliquis) 5 mg BID PO 06/27/20 09:00 06/27/20 08:41 DC Calcitriol (Rocaltrol) 0.5 mcg MoTuWeThFr@0900 PO 06/27/20 09:00 06/28/20 09:41 Ceftaroline Fosamil 600 mg/ Dextrose 50 ml @ 50 mls/hr Q12H IV 06/27/20 17:00 06/28/20 05:08 Home Med (Med Rec Complete!) ASDIRECTED XX 06/26/20 21:15 06/26/20 21:16 DC Midodrine (Proamatine) 5 mg 08,12,16 PO 06/28/20 12:00 06/28/20 16:30 Ondansetron HCl (Zofran) 8 mg Q6H PRN PO NAUSEA OR VOMITING 06/26/20 22:35 Prochlorperazine (Compazine) 10 mg Q6H PO 06/27/20 00:00 06/28/20 12:21 Simvastatin (Zocor) 20 mg QHS PO 06/26/20 21:00 06/27/20 21:16 Sodium Chloride 1,000 ml @ 75 mls/hr [id number] IV 06/27/20 18:30 06/28/20 07:30 DC 06/28/20 05:09 Sodium Chloride (Saline Lock Flush) 2 ml ASDIRECTED PRN IV SEE LABEL COMMENTS 06/27/20 18:15 Sodium Chloride (Saline Lock Flush) 2 ml SLF IV 06/27/20 22:00 06/28/20 14:00 Vitamin D (Vitamin D) 1,000 units DAILY PO 06/27/20 09:00 06/28/20 09:41 Allergies Coded Allergies: No Known Allergies (Unverified , 07/10/19) Itzel Horan MD Jun 28, 2020 17:31
[2020-06-28] MEDS: SIMVASTATIN 20 MG TAB PO SCH (20:59)
[2020-06-29] VITALS (17 sets, daily range): BP systolic 91–119; BP diastolic 58–87; O2SAT 88–100
[2020-06-29] MEDS: PROCHLORPERAZINE 5 MG TAB (S0183) PO SCH ×4 (00:33→18:48)
[2020-06-29] MEDS: CEFTAROLINE FOSAMIL 600 MG in D5W MINI-BAG PLUS 50 ML IV SCH ×2 (04:30→16:40)
[2020-06-29 05:11] LABS: HEMATOCRIT 27.3 % (42.0-52.0); HEMOGLOBIN 8.2 g/dl (13.5-17.5); MEAN CORPUSCULAR HEMOGLOBIN 31.7 pg (27.0-33.0); MEAN CORPUSCULAR VOLUME 105.4 fl (80.0-96.0); PLATELET COUNT, AUTOMATED 120 10^3/uL (150-450); RED BLOOD COUNT 2.59 10^6/uL (4.30-6.10); WHITE BLOOD COUNT 9.7 10^3/uL (4.0-10.0)
[2020-06-29 05:26] LABS: ALBUMIN 1.7 GM/DL (3.2-5.2); ALT/SGPT 36 U/L (12-78); BILIRUBIN,TOTAL 0.2 MG/DL (0.2-1.0); BLOOD UREA NITROGEN 28 MG/DL (7-18); CALCIUM LEVEL 8.5 MG/DL (8.8-10.2); CARBON DIOXIDE LEVEL 24 MEQ/L (21-32); CHLORIDE LEVEL 110 MEQ/L (98-107); CREATININE FOR GFR 0.84 MG/DL (0.70-1.30); GLOMERULAR FILTRATION RATE > 60.0 (>42); GLUCOSE, FASTING 98 MG/DL (70-100); POTASSIUM SERUM 3.7 MEQ/L (3.5-5.1); SODIUM LEVEL 139 MEQ/L (136-145); TOTAL PROTEIN 3.6 GM/DL (6.4-8.2)
[2020-06-29] MEDS: SLF 3 ML SYR IV SCH ×3 (05:29→20:45)
[2020-06-29] MEDS: VITAMIN D 1,000 INTERNATIONAL UNITS TABLET PO SCH (08:17)
[2020-06-29] MEDS: APIXABAN 5 MG TAB (ELIQUIS) PO SCH ×2 (08:17→20:45)
[2020-06-29] MEDS: MIDODRINE 5 MG TAB PO SCH ×3 (08:17→16:40)
[2020-06-29] MEDS ORDERED: POTASSIUM CHLORIDE 10 MEQ SR TABLET PO ONE (12:20)
[2020-06-29] MEDS ORDERED: FUROSEMIDE 40MG/4ML VIAL (J1940) IV SCH (13:00)
--- NOTE | 2020-06-29 16:16 | IPNPDOC ---
Date Seen The patient was seen on 06/29/20. Progress Note SUBJECTIVE: BP slightly improved with midodrine, improved redness/cellulitis on RLE. WBC 9, improved. PT: benefit from continued skilled PT to further improve independence with functional mobility and decrease risk of falls. He denies shortness of breath, chest pain, n/v/d. OBJECTIVE: PHYSICAL EXAMINATION: VITAL SIGNS: Please see below General: NAD, resting in bed, cachectic with temporal wasting, AAOx 3 HEENT: Normocephalic, atraumatic, moist mucous membranes. Neck: No lymphadenopathy or thyromegaly Cardiac: Regular rate and rhythm, no murmurs, normal S1, normal S2 Pulm: Diminished to no breath sounds in the lower lung bae bilaterally.No W/r/R Abd: Distended with ascites, dull to percussion, fluid wave was present, no tenderness to palpation, +1 pitting edema on abdomen Ext: Bilateral lower extremities had 3+ pitting edema of the level of the mid thigh. There was some pitting edema in the left upper extremity on the medial side of the elbow. No edema in the right upper extremity. No cyanosis or clubbing INTEGUMENTARY: Redness, warmth of lower ext b/l, L>R - slightly improved on RLE, No rashes Neurological: Patient was able to move all 4 extremities however, patient did have weakness in the lower extremities bilaterally- baseline. No focal deficits, CN 2-12 intact . PSYCH: Mood and affect appropriate LABORATORY: Please see below MICROBIOLOGY: UA neg BCx x 2 sets NG thus far IMAGING: CXR: The left-sided thoracotomy tube is unchanged. The cardiomediastinal silhouette is unchanged. The tip of the MediPort device is again seen in the superior vena cava unchanged. Left lung opacities and left CP angle blunting unchanged. The right thoracotomy tube seen previously has been repositioned. The tip is now in the right upper lung field. The right lung is otherwise unchanged. There is no change in the osseous structures. CT of the abdomen and pelvis without contrast 06/26/2020: 1. 6 cm mass left infrahilar portion of the lung which may be primary neoplasm of the lung or malignant lymphadenopathy. There are small bilateral pleural effusions which have markedly decreased since placement of the bilateral chest tubes. 2. 4.3 cm low-density lesion of the liver has become more necrotic and consistent with a large metastatic lesion that is new since 08/09/2019. 3. Massive ascites has developed since the previous examination and consistent with malignant ascites. 4. Periaortic lymphadenopathy is further decreased in size. 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 PLAN: Chronic hypotension likely multifactorial to intravascular volume depletion 2/2 very low albumin and worsening metastatic disease -MAP maintaining > 65 mmHg, asymptomatic. Improved with midodrine -Baseline high 90-110's systolic as o/p. 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, diffuse anasarca -S/p 2 albumin, paracentesis which took off 4 L fluid off 06/28/20 -Prior paracentesis on 06/18/20, took 6.5 L off at that time- malignant ascites -Monitor fluid status, I&O's, weights -Will likely continue to need therapeutic paracenteses for this recurrent problem B/l lower ext cellulitis -WBC now wnl, afebrile -LA now wnl -BCx NG thus far -C/w ceftaroline BID -Suggest outlining cellulitic areas and watching for either extension or recession of redness/warmth Physical deconditioning likely 2/2 to chronic illness/malignancy -PT: Patient requires CGA to ambulate short distance ~5' with 2WW. Patient would benefit from continued skilled PT to further improve independence with functional mobility and decrease risk of falls. Nurse Britany aware of results of therapy evaluation. Home w/Services -C/w PT/OT Metastatic adenocarcinoma of lung (dx 10/2015) -Metastatic to liver -After review of the patient's last oncology note which was dated 06/17/2020 they have had the discussion with the patient about his CODE STATUS and his prognosis they have offered him palliative care however, the patient would like to continue to do as much as possible to treat his stage IV cancer. -Patient has decided to go for further chemotherapy. -Heme/oncologist: Dr. Galeana Chronic recurrent bilateral pleural effusions -Currently saturating well on RA -Drains bilateral PleurX catheters regularly -multiple pleural cytologies negative for malignancy -Will continue home PleurX catheter draining schedule here Protein calorie malnutrition 2/2 to metastatic malignancies with ascites. -Put on Nepro supplement to help with his nutritional status CKD Stage III -Also hx of IgA nephropathy and chemotherapy induced interstitial nephritis -Cr wnl -Daily labs -Nephrology consulted for help with fluid management Macrocytic anemia -H/H stable -F/u with heme/onc -No s/s of bleeding -CBC daily DVT px/ History of recently diagnosed DVT -Eliquis DISPOSITION: Currently inpatient status. Nephrology consulted. PT/OT ordered, f/u recommendations. VS, I&O, 24H, Fishbone Vital Signs/I&O Vital Signs Date Time Temp Pulse Resp B/P (MAP) Pulse Ox O2 Delivery O2 Flow Rate FiO2 06/29/20 14:35 97.7 85 06/29/20 14:28 16 119/64 99 Room Air I&O- Last 24 Hours up to 6 AM 06/29/20 06:00 Intake Total 1480.0 ml Output Total 4770 ml Balance -3290.0 ml Laboratory Data 24H LABS Laboratory Tests 2 06/28/20 18:38: Urine Color YELLOW, Urine Appearance CLEAR, Urine pH 5.0, Urine Specific Crowell 1.029, Urine Protein NEGATIVE, Urine Glucose (UA) NEGATIVE, Urine Ketones NEGATIVE, Urine Blood NEGATIVE, Urine Nitrite NEGATIVE, Urine Bilirubin NEGATIVE, Urine Urobilinogen 0.2, Urine Leukocyte Esterase NEGATIVE, Urine WBC (Auto) 2, Urine RBC (Auto) 2, Urine Hyaline Casts (Auto) 7, Urine Bacteria (Auto) NEGATIVE, Urine Squamous Epithelial Cells 0, Urine Mucus (Auto) SMALL, Urine Sperm (Auto) 06/29/20 04:40: Nucleated Red Blood Cells % (auto) 0.0, Anion Gap 5L, Glomerular Filtration Rate > 60.0, Calcium Level 8.5L, Total Bilirubin 0.2, Aspartate Amino Transf (AST/SGOT) 21, Alanine Aminotransferase (ALT/SGPT) 36, Alkaline Phosphatase 61, Total Protein 3.6L, Albumin 1.7#L, Albumin/Globulin Ratio 0.9 CBC/BMP Laboratory Tests 06/29/20 04:40 Microbiology Microbiology 06/27/20 Blood Culture - Preliminary, Resulted No growth after 24 hours . All specim... 06/27/20 Blood Culture - Preliminary, Resulted No growth after 24 hours . All specim... Itzel Horan MD Jun 29, 2020 16:16
[2020-06-29] MEDS: SIMVASTATIN 20 MG TAB PO SCH (20:45)
--- NOTE | 2020-06-29 21:38 | IPN ---
NEPHROLOGY PROGRESS NOTE DATE: 06/29/2020 SUBJECTIVE: The patient was seen at the bedside today morning. The patient is very weak, cachectic, malnourished, clinically deteriorating. He has very soft blood pressures in the morning. I was also told by staff that the patient is retaining urine in the bladder but he is refusing to have straight catheterization or Braun catheter placed. His renal function is stable, however he still has anasarca. OBJECTIVE: VITAL SIGNS: Temperature is 98.2 degrees Fahrenheit, blood pressure 103/67, pulse is 87, respiratory rate of 22, saturating 100% on room air. INTAKE AND OUTPUT: Urine output recorded as 420 mL so far today. Chest tube drainage is 450 mL. Weight in the bed scale is 64 kg. PHYSICAL EXAMINATION: GENERAL APPEARANCE: The patient is awake, alert, oriented x3, very weak, cachectic, chronically malnourished. HEAD AND NECK: The patient has bitemporal wasting. He has alopecia. Mucous membranes are moist. Neck is supple. There is no jugular venous distention. CARDIOVASCULAR: S1, S2, regular rate. EXTREMITIES: 3+ edema of the bilateral lower extremities all the way up to his thighs. RESPIRATORY: Decreased breath sounds at the bases. He has bilateral PleurX catheter. ABDOMEN: Soft, positive bowel sounds. Abdominal wall edema was noted. GENITOURINARY: Bladder is palpable in the suprapubic region. No hernia is noted. MUSCULOSKELETAL: No clubbing or no cyanosis but edema of the lower extremities and bilateral upper extremities, worse in the left arm as compared with the right arm. CLINICAL OPERATIONS SPECIALIST: No focal deficits. The patient is able to move extremities and follow commands. PSYCH: The patient has a depressed mood and answers very few questions. LAB REVIEW: CBC showed a white blood cell count of 9.7, hemoglobin 8.2, platelet count 120. BMP showed sodium of 139, potassium 3.7, chloride 110, bicarbonate 24, BUN 28, creatinine is 0.84. Calcium is 8.5. Albumin 1.7. Microbiology blood cultures are negative so far. CURRENT INPATIENT MEDICATIONS: The patient's medications were all reviewed by myself. I have increased his Midodrine dose to 10 mg p.o. three times a day. I have also started the patient on Lasix 40 mg IV twice a day and albumin 25%, 12.5 grams IV twice daily as well. No other change in the medications today as compared with yesterday. ASSESSMENT AND PLAN: 1. Anasarca - The patient has metastatic adenocarcinoma of the lung. He has protein calorie malnutrition. He has had albuminemia. He has been started on IV albumin twice a day with Lasix injections. His blood pressures are very soft and diuresis would be very difficult in this patient. 2. Urinary retention The patient is refusing the straight catheterization. I cannot give him Flomax because of his soft blood pressures. 3. Hypotension Midodrine dose has been increased to 10 mg p.o. three times daily, and albumin infusion would also help support his volume status, at the same time helping with diuresis. 4. Protein calorie malnutrition it is secondary to metastatic cancer. He has poor oral intake. He has liver metastases as well. Continue Nepro. 5. Disposition - The patient overall has a poor prognosis, however at this time he is full code. I will continue to try to diurese him as tolerated by his blood pressure. However Nephrology Service has already recommended palliative care and Hospice evaluation in this patient.
[2020-06-30] VITALS (15 sets, daily range): BP systolic 100–135; BP diastolic 49–65; O2SAT 95–99
[2020-06-30] MEDS: PROCHLORPERAZINE 5 MG TAB (S0183) PO SCH ×4 (00:22→17:06)
[2020-06-30] MEDS: FUROSEMIDE 40MG/4ML VIAL (J1940) IV SCH ×2 (00:22→12:38)
[2020-06-30] MEDS: CEFTAROLINE FOSAMIL 600 MG in D5W MINI-BAG PLUS 50 ML IV SCH ×2 (04:14→17:05)
[2020-06-30] MEDS: ACETAMINOPHEN 325 MG TAB PO PRN ×2 (04:21→12:38)
[2020-06-30 05:14] LABS: HEMATOCRIT 31.7 % (42.0-52.0); HEMOGLOBIN 9.2 g/dl (13.5-17.5); MEAN CORPUSCULAR HEMOGLOBIN 32.1 pg (27.0-33.0); MEAN CORPUSCULAR VOLUME 110.5 fl (80.0-96.0); PLATELET COUNT, AUTOMATED 119 10^3/uL (150-450); RED BLOOD COUNT 2.87 10^6/uL (4.30-6.10); WHITE BLOOD COUNT 5.2 10^3/uL (4.0-10.0)
[2020-06-30 05:35] LABS: ALT/SGPT 52 U/L (12-78); BILIRUBIN,TOTAL 0.2 MG/DL (0.2-1.0); BLOOD UREA NITROGEN 26 MG/DL (7-18); CALCIUM LEVEL 8.5 MG/DL (8.8-10.2); CARBON DIOXIDE LEVEL 25 MEQ/L (21-32); CHLORIDE LEVEL 109 MEQ/L (98-107); CREATININE FOR GFR 1.04 MG/DL (0.70-1.30); GLOMERULAR FILTRATION RATE > 60.0 (>42); GLUCOSE, FASTING 93 MG/DL (70-100); POTASSIUM SERUM 3.9 MEQ/L (3.5-5.1); SODIUM LEVEL 139 MEQ/L (136-145); TOTAL PROTEIN 4.8 GM/DL (6.4-8.2)
[2020-06-30] MEDS: SLF 3 ML SYR IV SCH ×3 (05:41→21:18)
[2020-06-30] MEDS: MIDODRINE 5 MG TAB PO SCH ×3 (08:55→17:06)
[2020-06-30] MEDS: VITAMIN D 1,000 INTERNATIONAL UNITS TABLET PO SCH (08:55)
[2020-06-30] MEDS: APIXABAN 5 MG TAB (ELIQUIS) PO SCH ×2 (08:55→21:18)
--- NOTE | 2020-06-30 11:42 | IPNPDOC ---
Date Seen The patient was seen on 06/30/20. Progress Note SUBJECTIVE: Midodrine increased to 10 mg TID, started on lasix BID and albumin per nephro. Patient continue to refuse santizo catheter. Slight improvement of lower ext cellulitis. He denies shortness of breath, chest pain. OBJECTIVE: PHYSICAL EXAMINATION: VITAL SIGNS: Please see below General: NAD, resting in bed, cachectic with temporal wasting, AAOx 3 HEENT: Normocephalic, atraumatic, moist mucous membranes. Neck: No lymphadenopathy or thyromegaly Cardiac: Regular rate and rhythm, no murmurs, normal S1, normal S2 Pulm: Diminished to no breath sounds in the lower lung bae bilaterally, b/l PleurX catheters. No W/R/R Abd: Distended with ascites, dull to percussion, fluid wave was present, no tenderness to palpation, +1 pitting edema on abdomen Ext: Bilateral lower extremities had 3+ pitting edema of the level of the groin thigh. There was some pitting edema in the left upper extremity on the medial side of the elbow but this edema is more lower forearm today. No edema in the right upper extremity. No cyanosis or clubbing INTEGUMENTARY: Redness, warmth of lower ext b/l, L>R - slightly improved on RLE, No rashes Neurological: Patient was able to move all 4 extremities however, patient did have weakness in the lower extremities bilaterally- baseline. No focal deficits, CN 2-12 intact . PSYCH: Mood and affect appropriate LABORATORY: Please see below MICROBIOLOGY: UA neg BCx x 2 sets NG thus far IMAGING: CXR: The left-sided thoracotomy tube is unchanged. The cardiomediastinal silhouette is unchanged. The tip of the MediPort device is again seen in the superior vena cava unchanged. Left lung opacities and left CP angle blunting unchanged. The right thoracotomy tube seen previously has been repositioned. The tip is now in the right upper lung field. The right lung is otherwise unchanged. There is no change in the osseous structures. CT of the abdomen and pelvis without contrast 06/26/2020: 1. 6 cm mass left infrahilar portion of the lung which may be primary neoplasm of the lung or malignant lymphadenopathy. There are small bilateral pleural effusions which have markedly decreased since placement of the bilateral chest tubes. 2. 4.3 cm low-density lesion of the liver has become more necrotic and consistent with a large metastatic lesion that is new since 08/09/2019. 3. Massive ascites has developed since the previous examination and consistent with malignant ascites. 4. Periaortic lymphadenopathy is further decreased in size. 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 PLAN: Chronic hypotension likely multifactorial to intravascular volume depletion 2/2 very low albumin and worsening metastatic disease -Improved further with midodrine 10 mg TID, albumin -Baseline high 90-110's systolic as o/p. -C/w midodrine TID, albumin -nephrology following -Avoid fluids if possible with diffuse anasarca, 3rd spacing Recurrent malignant abdominal ascites 2/2 to metastatic adenocarcinoma of lung t o liver, diffuse anasarca -S/p 2 albumin, paracentesis which took off 4 L fluid off 06/28/20 -Prior paracentesis on 06/18/20, took 6.5 L off at that time- malignant ascites -Monitor fluid status, I&O's, weights -Will likely continue to need therapeutic paracenteses for this recurrent problem -Nephrology helping to manage fluid status, diuresis B/l lower ext cellulitis -Mildly improved b/l but continues -WBC now wnl, afebrile -LA now wnl -BCx NG thus far -C/w ceftaroline BID (Day 4) Urinary retention -Refusing santizo, straight cath -cannot give flomax 2/2 to low BP Physical deconditioning likely 2/2 to chronic illness/malignancy -PT: Patient requires CGA to ambulate short distance ~5' with 2WW. Patient would benefit from continued skilled PT to further improve independence with functional mobility and decrease risk of falls. Nurse Britany aware of results of therapy evaluation. Home w/Services -C/w PT/OT Metastatic adenocarcinoma of lung (dx 10/2015) -Metastatic to liver -After review of the patient's last oncology note which was dated 06/17/2020 they have had the discussion with the patient about his code status and his prognosis. They have offered him palliative care; however, the patient would like to continue to do as much as possible to treat his stage IV cancer. -I have also discussed subject with him and he would like to continue to be aggressive if possible -Patient has decided to go for further chemotherapy. -Heme/oncologist: Dr. Galeana -Overall poor prognosis Chronic recurrent bilateral pleural effusions -Currently saturating well on RA -Drains bilateral PleurX catheters regularly -multiple pleural cytologies negative for malignancy -Will continue home PleurX catheter draining schedule here Protein calorie malnutrition 2/2 to metastatic malignancies with ascites. -Put on Nepro supplement to help with his nutritional status CKD Stage III -Also hx of IgA nephropathy and chemotherapy induced interstitial nephritis -Cr wnl -Daily labs -Nephrology consulted for help with fluid management Macrocytic anemia -H/H stable -F/u with heme/onc -No s/s of bleeding -CBC daily DVT px/ History of recently diagnosed DVT -Eliquis DISPOSITION: Currently inpatient status. Nephrology following, C/w PT/OT to determine if home with services will be ultimate d/c plan. VS, I&O, 24H, Fishbone Vital Signs/I&O Vital Signs Date Time Temp Pulse Resp B/P (MAP) Pulse Ox O2 Delivery O2 Flow Rate FiO2 06/30/20 08:00 97.7 82 17 100/49 (66) 98 Room Air I&O- Last 24 Hours up to 6 AM 06/30/20 06:00 Intake Total 400.0 ml Output Total 2050 ml Balance -1650.0 ml Laboratory Data 24H LABS Laboratory Tests 2 06/30/20 04:56: Nucleated Red Blood Cells % (auto) 0.0, Anion Gap 5L, Glomerular Filtration Rate > 60.0, Calcium Level 8.5L, Total Bilirubin 0.2, Aspartate Amino Transf (AST/SGOT) 37, Alanine Aminotransferase (ALT/SGPT) 52, Alkaline Phosphatase 64, Total Protein 4.8#L, Albumin 2.0L, Albumin/Globulin Ratio 0.7 CBC/BMP Laboratory Tests 06/30/20 04:56 Microbiology Microbiology 06/27/20 Blood Culture - Preliminary, Resulted No Growth after 48 hours. All Specime... 06/27/20 Blood Culture - Preliminary, Resulted No Growth after 48 hours. All Specime... Itzel Horan MD Jun 30, 2020 11:42
--- NOTE | 2020-06-30 17:48 | IPN ---
PROGRESS NOTE DATE: 06/30/2020 SUBJECTIVE: The patient was seen and examined at the bedside today morning. He is actually sitting on the sofa. He was started no albumin and Lasix injections yesterday. He reports his edema is getting better, but creatinine has bumped up slightly. He still has significant anasarca, but he denies any pain at this time. OBJECTIVE: Vital signs: Temperature is 97.4 degrees Fahrenheit, blood pressure 135/63, pulse is 78, respiratory rate of 16, saturating 97% on room air. Intake and output: Urine output recorded as 995 ml yesterday, 1375 ml so far today since overnight. Weight in the bed scale is 64.3 kg. PHYSICAL EXAMINATION: The patient is awake, alert and oriented x3, weak and cachectic, chronically malnourished, sitting up on the sofa. Head and neck: The patient has bitemporal wasting, sunken eyes. Mucous membranes are moist. Neck is supple. There is no jugular venous distention (JVD). Cardiovascular: S1, S2 regular rate. 2+ edema of the bilateral lower extremities all the way the thighs. Respiratory: Decreased breath sounds at the bases. He has PleurX catheters bilaterally. Abdomen: Distended, moderate amount of ascites was noted. Abdominal wall edema was noted. Musculoskeletal: Edema of the bilateral lower extremities as mentioned above. MECHANICAL SERVICE REPRESENTATIVE: No focal deficit. Power is 5/5 in all extremities. LABORATORY REVIEW: Complete blood count (CBC) showed a WBC of 5.2, hemoglobin 9.2, platelets 719. Basic metabolic panel (BMP) showed sodium 139, potassium 3.9, chloride 109, bicarbonate 25, BUN 26, creatinine is 1.04. Calcium is 8.5. Albumin is 2. CURRENT INPATIENT MEDICATIONS: The patient's medications are all reviewed by myself. He continues to be on IV albumin infusions and Lasix 40 mg IV twice a day with albumin. No other significant change in the medications today as compared with yesterday. ASSESSMENT: 1. Anasarca. The patient is getting a combination of albumin and Lasix injections. His urine output is improving. The patient is malnourished and has hypoalbuminemia because of metastatic cancer. 2. Urinary retention. The patient is refusing straight catheterization. He is encouraged to frequently void. No Flomax at this time because of hypotension. Hypotension. He is currently on midodrine 10 mcg by mouth three times a day. Blood pressures are better with this current dose. Protein calorie malnutrition secondary to metastatic cancer. Continue Nepro. DISPOSITION: The patient has overall poor prognosis. I advised him again to get palliative care and hospice on board and the patient reports that he is not in any pain and he wants to fight until the end.
[2020-06-30] MEDS: SIMVASTATIN 20 MG TAB PO SCH (21:18)
[2020-07-01] VITALS (10 sets, daily range): BP systolic 93–139; BP diastolic 50–81; O2SAT 97
[2020-07-01] MEDS: PROCHLORPERAZINE 5 MG TAB (S0183) PO SCH ×4 (00:26→17:27)
[2020-07-01 05:34] LABS: HEMATOCRIT 28.7 % (42.0-52.0); HEMOGLOBIN 8.6 g/dl (13.5-17.5); MEAN CORPUSCULAR HEMOGLOBIN 31.7 pg (27.0-33.0); MEAN CORPUSCULAR VOLUME 105.9 fl (80.0-96.0); RED BLOOD COUNT 2.71 10^6/uL (4.30-6.10); WHITE BLOOD COUNT 3.9 10^3/uL (4.0-10.0)
[2020-07-01 05:35] LABS: PLATELET COUNT, AUTOMATED 99 10^3/uL (150-450)
[2020-07-01 05:54] LABS: ALBUMIN 2.1 GM/DL (3.2-5.2); ALT/SGPT 41 U/L (12-78); BILIRUBIN,TOTAL 0.2 MG/DL (0.2-1.0); BLOOD UREA NITROGEN 28 MG/DL (7-18); CALCIUM LEVEL 7.9 MG/DL (8.8-10.2); CARBON DIOXIDE LEVEL 27 MEQ/L (21-32); CHLORIDE LEVEL 110 MEQ/L (98-107); CREATININE FOR GFR 1.09 MG/DL (0.70-1.30); GLOMERULAR FILTRATION RATE > 60.0 (>42); GLUCOSE, FASTING 89 MG/DL (70-100); POTASSIUM SERUM 3.6 MEQ/L (3.5-5.1); SODIUM LEVEL 143 MEQ/L (136-145)
[2020-07-01] MEDS: CEFTAROLINE FOSAMIL 600 MG in D5W MINI-BAG PLUS 50 ML IV SCH ×2 (06:21→17:27)
[2020-07-01] MEDS: SLF 3 ML SYR IV SCH ×3 (06:27→20:05)
[2020-07-01] MEDS: APIXABAN 5 MG TAB (ELIQUIS) PO SCH ×2 (08:40→20:04)
[2020-07-01] MEDS: CALCITRIOL 0.25 MCG CAP (S0169) PO SCH (08:40)
[2020-07-01] MEDS: VITAMIN D 1,000 INTERNATIONAL UNITS TABLET PO SCH (08:40)
[2020-07-01] MEDS: MIDODRINE 5 MG TAB PO SCH ×3 (08:40→16:21)
[2020-07-01] MEDS ORDERED: FUROSEMIDE 40MG/4ML VIAL (J1940) IV SCH (09:00)
--- NOTE | 2020-07-01 11:58 | IPN ---
PROGRESS NOTE DATE: 07/01/2020 SUBJECTIVE: The patient was seen and examined at the bedside today morning. He is currently on albumin and IV Lasix. He reports his lower extremity edema and arm edema is getting better. His renal function is stable. He otherwise denies any active complaints. OBJECTIVE: VITAL SIGNS: Temperature is 97.1 degrees Fahrenheit, blood pressure is 98/55, pulse is 76, respiratory rate of 18, saturating 97% on room air. INTAKE AND OUTPUT: Urine output recorded as 1.6 liters yesterday, 200 ml so far today since overnight. Weight on the bed scale is 61.4 kg. GENERAL: Patient is awake, alert and oriented x3, laying in bed, weak and cachetic, chronically malnourished. HEAD AND NECK: He has bitemporal wasting. Mucous membranes are moist. Neck is supple. There is no JVD. CARDIOVASCULAR: S1 and S2, regular rate, 2+ edema of the bilateral lower extremities up to thighs, edema of the upper extremities, left is worse than right. RESPIRATORY: Mildly decreased breath sounds at the bases. He has bilateral PleurX catheters. ABDOMEN: Distended, mild amount of ascites. Abdominal wall edema is also noted. MUSCULOSKELETAL: Edema of the bilateral lower and upper extremities as mentioned above. BUHR MILL OPERATOR: No focal deficit. Power is 5/5 in all extremities. LABORATORY DATA: CBC showed a WBC of 3.9, hemoglobin 8.6, platelets are 99. BMP showed a sodium of 143, potassium 3.6, chloride 110, bicarbonate 27, BUN 28, creatinine 1.09, it was 1.04 yesterday. Albumin is 2.1. CURRENT INPATIENT MEDICATIONS: The patient's medications were all reviewed by myself. I have renewed IV Lasix 40 mg twice a day along with albumin 12.5 grams twice a day for a total of four doses. No other change in the medications today as compared with yesterday. ASSESSMENT AND PLAN: 1. Anasarca. Patient is responding to a combination of albumin and Lasix injections. Continue current regimen for two more days. 2. Protein calorie malnutrition. Continue Nepro at this time. 3. Acute kidney injury superimposed on chronic kidney disease. His creatinine went from 0.8 to 1.09. Because of his diuresis, he has intravascular volume depletion and he is hypoalbuminemic because of metastatic cancer. However, we need to continue the Lasix because he has significant volume overload. 4. Anemia. Patient's hemoglobin is 8.6. I am going to check the iron levels. If iron is low he will be given IV Venofer. No need of blood transfusion at this time. 5. Metastatic adenocarcinoma of the lung with malignant ascites, diffuse anasarca, bilateral PleurX catheter, mets to the liver. Patient has a poor overall prognosis. I again discussed the code status with him. He wants to discuss this with his and let us know, however he is open to having Hospice come and talk to him, but he still wants to go home. Probably he might be acceptable to the idea of going home with Hospice. I have requested a Hospice consult.
[2020-07-01] MEDS: FUROSEMIDE 40MG/4ML VIAL (J1940) IV SCH ×2 (12:55)
--- NOTE | 2020-07-01 14:36 | IPNPDOC ---
Date Seen The patient was seen on 07/01/20. Progress Note SUBJECTIVE: Neg 1 L/24H. Continuing diuresis with albumin, lasix. Cellulitis much improved even from 06/30/20. BP also improved with TID midodrine. Both nephrology and primary team discussed code status with patient today who is willing to speak with Hospice, consult placed by nephrology. He denies shortness of breath, chest pain. OBJECTIVE: PHYSICAL EXAMINATION: VITAL SIGNS: Please see below General: NAD, resting in bed, cachectic with temporal wasting, AAOx 3 HEENT: Normocephalic, atraumatic, moist mucous membranes. Neck: No lymphadenopathy or thyromegaly Cardiac: Regular rate and rhythm, no murmurs, normal S1, normal S2 Pulm: Diminished breath sounds in the lower lung bae bilaterally, b/l PleurX catheters. No W/R/R Abd: Distended with ascites, dull to percussion, fluid wave was present, no tenderness to palpation, +1 pitting edema on abdomen Ext: Bilateral lower extremities had 3+ pitting edema of the level of the groin/ upper thigh. There was some pitting edema in the left upper extremity on the medial side of the elbow but this edema is more lower forearm today. No edema in the right upper extremity. No cyanosis or clubbing INTEGUMENTARY: Redness, warmth of lower ext b/l, L>R - MUCH improved b/l over past 24 hours, No rashes Neurological: Patient was able to move all 4 extremities however, patient did have weakness in the lower extremities bilaterally- baseline. No focal deficits, CN 2-12 intact . PSYCH: Mood and affect appropriate LABORATORY: Please see below MICROBIOLOGY: UA neg BCx x 2 sets NG thus far IMAGING: CXR: The left-sided thoracotomy tube is unchanged. The cardiomediastinal silhouette is unchanged. The tip of the MediPort device is again seen in the superior vena cava unchanged. Left lung opacities and left CP angle blunting unchanged. The right thoracotomy tube seen previously has been repositioned. The tip is now in the right upper lung field. The right lung is otherwise unchanged. There is no change in the osseous structures. CT of the abdomen and pelvis without contrast 06/26/2020: 1. 6 cm mass left infrahilar portion of the lung which may be primary neoplasm of the lung or malignant lymphadenopathy. There are small bilateral pleural effusions which have markedly decreased since placement of the bilateral chest tubes. 2. 4.3 cm low-density lesion of the liver has become more necrotic and consistent with a large metastatic lesion that is new since 08/09/2019. 3. Massive ascites has developed since the previous examination and consistent with malignant ascites. 4. Periaortic lymphadenopathy is further decreased in size. 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 PLAN: Chronic hypotension likely multifactorial to intravascular volume depletion 2/2 very low albumin and worsening metastatic disease -Improved further with midodrine 10 mg TID, albumin -Baseline high 90-110's systolic as o/p. currently 120-130's today. 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 Per nephrology, likely will need two more days of this regimen B/l lower ext cellulitis -Much improved over the past 24H and with continued diuresis, abx treatment -WBC now wnl, afebrile -BCx NG thus far -C/w ceftaroline BID (Day 5) Urinary retention -Refusing santizo, straight cath -cannot give flomax 2/2 to low BP Thrombocytopenia likely 2/2 to malignancy -PLTs 99, on admission > 200, no s/s of bleeding -Not been on heparin products this hospital stay, on eliquis -Monitor closely, daily CBC Physical deconditioning likely 2/2 to chronic illness/malignancy -PT: Patient requires CGA to ambulate short distance ~5' with 2WW. Patient would benefit from continued skilled PT to further improve independence with functional mobility and decrease risk of falls. -Home with services likely when medical issues stabilize -C/w PT/OT Metastatic adenocarcinoma of lung (dx 10/2015) -Metastatic to liver -After review of the patient's last oncology note which was dated 06/17/2020 they have had the discussion with the patient about his code status and his prognosis. They have offered him palliative care; however, the patient would like to continue to do as much as possible to treat his stage IV cancer. -Both medicine team and nephrology have discussed subject with him. -Heme/oncologist: Dr. Galeana -Overall poor prognosis. Agreed to hospice consult today but remains a full code. Chronic recurrent bilateral pleural effusions -Currently saturating well on RA -Drains bilateral PleurX catheters regularly -multiple pleural cytologies negative for malignancy -Will continue home PleurX catheter draining schedule here Protein calorie malnutrition 2/2 to metastatic malignancies with ascites. -Put on Nepro supplement to help with his nutritional status CKD Stage III -Also hx of IgA nephropathy and chemotherapy induced interstitial nephritis -Cr bumped slightly today -Daily labs -Nephrology following, c/w current diuresis regimen per notes Macrocytic anemia -H/H stable -F/u with heme/onc -No s/s of bleeding -CBC daily DVT px/ History of recently diagnosed DVT -Eliquis DISPOSITION: Currently inpatient status. Nephrology following, hospice consult placed. C/w PT/OT, home with services is goal. Remains full code. VS, I&O, 24H, Fishbone Vital Signs/I&O Vital Signs Date Time Temp Pulse Resp B/P (MAP) Pulse Ox O2 Delivery O2 Flow Rate FiO2 07/01/20 12:20 98.3 82 12 126/81 98 Room Air I&O- Last 24 Hours up to 6 AM 07/01/20 06:00 Intake Total 770.0 ml Output Total 1150 ml Balance -380.0 ml Laboratory Data 24H LABS Laboratory Tests 2 07/01/20 04:56: Nucleated Red Blood Cells % (auto) 0.0, Immature Platelet Fraction 0.9, Anion Gap 6L, Glomerular Filtration Rate > 60.0, Calcium Level 7.9L, Total Bilirubin 0.2, Aspartate Amino Transf (AST/SGOT) 25, Alanine Aminotransferase (ALT/SGPT) 41, Alkaline Phosphatase 61, Total Protein 4.0L, Albumin 2.1L, Albumin/Globulin Ratio 1.1 CBC/BMP Laboratory Tests 07/01/20 04:56 Microbiology Microbiology 06/27/20 Blood Culture - Preliminary, Resulted No Growth after 72 hours. All specime... 06/27/20 Blood Culture - Preliminary, Resulted No Growth after 72 hours. All specime... Itzel Horan MD Jul 01, 2020 14:36
[2020-07-01] MEDS: SIMVASTATIN 20 MG TAB PO SCH (20:04)
[2020-07-02] VITALS (12 sets, daily range): BP systolic 91–119; BP diastolic 53–70
[2020-07-02] MEDS: PROCHLORPERAZINE 5 MG TAB (S0183) PO SCH ×4 (00:30→17:45)
[2020-07-02] MEDS: FUROSEMIDE 40MG/4ML VIAL (J1940) IV SCH ×2 (01:07→12:59)
[2020-07-02 05:18] LABS: MEAN CORPUSCULAR HEMOGLOBIN 31.5 pg (27.0-33.0); MEAN CORPUSCULAR VOLUME 104.9 fl (80.0-96.0); PLATELET COUNT, AUTOMATED 109 10^3/uL (150-450); RED BLOOD COUNT 2.86 10^6/uL (4.30-6.10); WHITE BLOOD COUNT 6.4 10^3/uL (4.0-10.0)
[2020-07-02 05:45] LABS: ALBUMIN 2.3 GM/DL (3.2-5.2); ALT/SGPT 43 U/L (12-78); BILIRUBIN,TOTAL 0.3 MG/DL (0.2-1.0); BLOOD UREA NITROGEN 31 MG/DL (7-18); CALCIUM LEVEL 8.2 MG/DL (8.8-10.2); CARBON DIOXIDE LEVEL 30 MEQ/L (21-32); CHLORIDE LEVEL 108 MEQ/L (98-107); CREATININE FOR GFR 1.12 MG/DL (0.70-1.30); GLOMERULAR FILTRATION RATE > 60.0 (>42); GLUCOSE, FASTING 88 MG/DL (70-100); POTASSIUM SERUM 3.4 MEQ/L (3.5-5.1); SODIUM LEVEL 142 MEQ/L (136-145); TOTAL PROTEIN 4.2 GM/DL (6.4-8.2)
[2020-07-02] MEDS: CEFTAROLINE FOSAMIL 600 MG in D5W MINI-BAG PLUS 50 ML IV SCH (06:04)
[2020-07-02] MEDS: SLF 3 ML SYR IV SCH ×3 (06:04→20:42)
[2020-07-02] MEDS: VITAMIN D 1,000 INTERNATIONAL UNITS TABLET PO SCH (08:58)
[2020-07-02] MEDS: APIXABAN 5 MG TAB (ELIQUIS) PO SCH ×2 (08:58→20:40)
[2020-07-02] MEDS: CALCITRIOL 0.25 MCG CAP (S0169) PO SCH (08:58)
[2020-07-02] MEDS: MIDODRINE 5 MG TAB PO SCH ×3 (08:59→16:34)
[2020-07-02] MEDS ORDERED: POTASSIUM CHLORIDE 10 MEQ SR TABLET PO ONE (10:00)
--- NOTE | 2020-07-02 13:24 | CR.PDOC ---
General Date of Consultation: Jul 02, 2020 Referring Provider: TONY COOLEY DO Primary Care Physician wu Attending Physician: SUZANNE HARRINGTON MD Consultation REASON FOR CONSULTATION/CHIEF COMPLAINT: 70 year old male, full code, no HCP with metastatic lung cancer and MS. Dr Cooley told the patient he likely has 6 months or less to live. HISTORY OF PRESENT ILLNESS: Patient admitted here 06/26/20 with hypotension. Notes indicate he is wheelchair bound at this point. He gets ascites periodically and needs to have parascentesis. He also has a history of Pleurex catheters for lung effusion drainage. He reported he has been told he haddisease progression despite chemotherapy for his lung cancer. Today he stated he does not think much can be done to help slow the course of his metastatic cancer. ALLERGIES: Please see below. HOME MEDICATIONS: Please see below. PAST MEDICAL HISTORY: 1. adenocarcinoma lungs Stage 4 2. History of DVT 3. hyperlipidemia 4. multiple sclerosis 5. cataracts/ surgically removed 6. pleural effusions iwth bilateral Pleurex caths. 7 ascites with frequent parascentesis FAMILY HISTORY: DM, heart disease SOCIAL HISTORY: Marital status and/or living arrangements: retired, he and his live with son and his family Tobacco use: former smoker quit 2016 ETOH: quit 2016 Illicit drug use: none REVIEW OF SYSTEMS: CONSTITUTIONAL: fatigue, weakness, weight loss HEENT: edentulous upper arch denies dysphagia CARDIOVASCULAR: denies chest pain, some lower ext edema RESPIRATORY: dyspnea only prior to draining pleurex GENITOURINARY: denies dysuria MUSCULOSKELETAL: denies joint or muscle pain GASTROINTESTINAL: denies constopation, diarrhea, reports appetite is good SKIN: +bruising NEUROLOGICAL: weakness in extremities from MS, occ. headaches PSYCHIATRIC: denies SI/HI PHYSICAL EXAMINATION: VITAL SIGNS: Please see below. GENERAL APPEARANCE: cachectic appearing gentleman resting in bed, abdomen is distended HEENT: moist mucous membranes RESPIRATORY: no breath sounds in bilateral bases CARDIOVASCULAR: RRR ABDOMEN: distended with ascites, no guarding or rebound EXTREMITIES: + edema NEUROLOGICAL: weakness lower ext PSYCHIATRIC: appeared euthymic, able to make needs known, appears to have capacity LABORATORY DATA: Please see below. ASSESSMENT/PLAN: 1. Stage 4 adenocarcinoma: I had a discussion with Mr. Blue about the importance of identifying someone to be his health care agent in the event he is unable to let his needs be known. I also explained he will need to give careful consideration to how aggressive he wants his care to be at this point. With a prognosis of 6 months or less, he is certainly hospice appropriate assuming he will not be getting further cancer treatment. I informed him about my clinic and told him in clear terms I think he would be better served by hospice, but is welcome to come to my clinic if he feels up to making occaisonal trips to my office and understands I am only available 3 days a week. 2. Advance directives: I left a copy of 5 Wishes with Mr. Blue and asked him to review this with his when she comes in to visit with him later. He understands he will need to identify a HCP as well as consider carefully how aggressive his care should be moving forward. I will try to follow up with him tomorrow; a MOLST form completion would be in his best interests once he has given his options some thought. Vital Signs/I&O Vital Signs Date Time Temp Pulse Resp B/P (MAP) Pulse Ox O2 Delivery O2 Flow Rate FiO2 07/02/20 12:15 98.2 79 18 106/68 97 Room Air I&O- Last 24 Hours up to 6 AM 07/02/20 06:00 Intake Total 670.0 ml Output Total 2040 ml Balance -1370.0 ml Laboratory Data Labs 24H Laboratory Tests 2 07/02/20 04:49: Nucleated Red Blood Cells % (auto) 0.0, Anion Gap 4L, Glomerular Filtration Rate > 60.0, Calcium Level 8.2L, Total Bilirubin 0.3, Aspartate Amino Transf (AST/SGOT) 26, Alanine Aminotransferase (ALT/SGPT) 43, Alkaline Phosphatase 56, Total Protein 4.2L, Albumin 2.3L, Albumin/Globulin Ratio 1.2 07/02/20 12:20: CBC/BMP Laboratory Tests 07/02/20 04:49 Microbiology Microbiology 06/27/20 Blood Culture - Preliminary, Resulted No Growth after 72 hours. All specime... 06/27/20 Blood Culture - Preliminary, Resulted No Growth after 72 hours. All specime... Allergies Coded Allergies: No Known Allergies (Unverified , 07/10/19) Home Medications Scheduled Apixaban (Eliquis) 5 Mg Tablet, 5 MG PO BID, (Reported) Calcitriol (Calcitriol) 0.25 Mcg Capsule, 0.5 MCG PO 5XW, (Reported) WEDNESDAY, WEDNESDAY, WEDNESDAY, WEDNESDAY AND WEDNESDAY Cholecalciferol (Vitamin D3) (Vitamin D3) 1,000 Unit Tablet, 1,000 UNITS PO DAILY, (Reported) Glatiramer Acetate (Glatopa) 40 Mg/1 Ml Syringe, 40 MG IM 3XW, (Reported) WEDNESDAY, WEDNESDAY AND WEDNESDAY AFTER DINNER Lidocaine/Prilocaine (Lidocaine-Prilocaine Cream) 2.5%/2.5% Cream..g., 1 APPLIC EXT ONCE for 30 Days, #30 apply to port as needed Lidocaine/Prilocaine (Lidocaine-Prilocaine Cream) 2.5%/2.5% Cream..g., 1 DOSE TOP 3XW, (Reported) APPLIES TO REGION OF INJECTION PRIOR TO GLATOPA INJECTION Prochlorperazine Maleate (Prochlorperazine Maleate) 10 Mg Tablet, 1 TAB PO Q6H, #120 Simvastatin (Simvastatin) 20 Mg Tablet, 20 MG PO QHS, (Reported) Scheduled PRN Ondansetron HCl (Ondansetron HCl) 8 Mg Tablet, 8 MG PO Q6H PRN for NAUSEA OR VOM ITING, #30 TAKE ONE TABLET EVERY 6 HOURS NEEDED FOR NAUSEA. Rosanna HENSLEY EXAM PROCTOR Jul 02, 2020 13:24
--- NOTE | 2020-07-02 13:52 | IPNPDOC ---
Text Note Date of Service The patient was seen on 07/02/20. NOTE SUBJECTIVE: -No acute events. Denies shortness of breath, chest pain. OBJECTIVE: VITAL SIGNS: Please see below General: NAD, resting in bed, cachectic with temporal wasting, AAOx 3 HEENT: Normocephalic, atraumatic, moist mucous membranes. Neck: No lymphadenopathy or thyromegaly Cardiac: Regular rate and rhythm, no murmurs, normal S1, normal S2 Pulm: Diminished breath sounds in the lower lung bae bilaterally, b/l PleurX catheters. No W/R/R Abd: Distended with +shifting dullness and persistent fluid wave, no tenderness to palpation, +1 pitting edema on abdomen. Has receding cellulitis border Ext: Bilateral lower extremities anasarca with 3+ pitting edema of the level of the groin/ upper thigh. SKIN: Redness, warmth of lower ext b/l, L>R. No rashes Neurological: Moving all 4 extremities with chronic LE weakness, 4.5/5. No focal deficits, CN 2-12 intact . PSYCH: Mood and affect appropriate LABORATORY: WBC 6.4 Hgb 9 Platelets 109 Na 142 K 3.4 (repleted) Cr 1.12 MICROBIOLOGY: UA neg BCx x 2 sets NG thus far IMAGING: CXR: The left-sided thoracotomy tube is unchanged. The cardiomediastinal silhouette is unchanged. The tip of the MediPort device is again seen in the superior vena cava unchanged. Left lung opacities and left CP angle blunting unchanged. The right thoracotomy tube seen previously has been repositioned. The tip is now in the right upper lung field. The right lung is otherwise unchanged. There is no change in the osseous structures. CT of the abdomen and pelvis without contrast 06/26/2020: 1. 6 cm mass left infrahilar portion of the lung which may be primary neoplasm of the lung or malignant lymphadenopathy. There are small bilateral pleural effusions which have markedly decreased since placement of the bilateral chest tubes. 2. 4.3 cm low-density lesion of the liver has become more necrotic and consistent with a large metastatic lesion that is new since 08/09/2019. 3. Massive ascites has developed since the previous examination and consistent with malignant ascites. 4. Periaortic lymphadenopathy is further decreased in size. 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 PLAN: Chronic hypotension likely multifactorial to intravascular volume depletion 2/2 very low albumin and worsening metastatic disease with poor nutritional status -midodrine 10 mg TID -Nephrology following -Avoid fluids if possible with diffuse anasarca and 3rd spacing Recurrent malignant abdominal ascites 2/2 to metastatic adenocarcinoma of lung to liver, diffuse anasarca -S/p albumin, paracentesis which took off 4 L fluid off 06/28/20 -Prior paracentesis on 06/18/20, took 6.5 L off at that time- malignant ascites -Monitor fluid status, I&O's, weights -Will likely continue to need therapeutic paracenteses for this recurrent problem, patient aware -Nephrology helping to manage fluid status, diuresis with lasix/albumin BID/midodrine 10 TID. B/l lower ext cellulitis? Also some abdominal wall cellulitis. Not sure why ceftaroline was the agent of choice. Will dc ceftaroline. -Much improved over the past 24H and with continued diuresis, abx treatment -WBC now wnl, afebrile -BCx NG thus far -DC ceftaroline BID, after 5d course. Check MRSA PCR, with plan to complete 7d course with keflex Urinary retention -Refusing santizo, straight cath -cannot give flomax 2/2 to low BP Thrombocytopenia likely 2/2 to malignancy -PLTs 99, on admission > 200, no s/s of bleeding -Not been on heparin products this hospital stay, on eliquis -Monitor closely, daily CBC Physical deconditioning likely 2/2 to chronic illness/malignancy -PT: Patient requires CGA to ambulate short distance ~5' with 2WW. Patient would benefit from continued skilled PT to further improve independence with functional mobility and decrease risk of falls. -Home with services likely when medical issues stabilize -C/w PT/OT Metastatic adenocarcinoma of lung (dx 10/2015) -Metastatic to liver -After review of the patient's last oncology note which was dated 06/17/2020 they have had the discussion with the patient about his code status and his prognosis. They have offered him palliative care; however, the patient would like to continue to do as much as possible to treat his stage IV cancer. -Both medicine team and nephrology have discussed subject with him. -Heme/oncologist: Dr. Galeana -Overall poor prognosis. Agreed to hospice consult but remains a full code. Palliative care seeing him today Chronic recurrent bilateral pleural effusions -Currently saturating well on RA -Drains bilateral PleurX catheters regularly -multiple pleural cytologies negative for malignancy -Will continue home PleurX catheter draining schedule here Protein calorie malnutrition 2/2 to metastatic malignancies with ascites. -Put on Nepro supplement to help with his nutritional status CKD Stage III -Also hx of IgA nephropathy and chemotherapy induced interstitial nephritis -Cr bumped slightly today -Daily labs -Nephrology following, c/w current diuresis regimen per notes Macrocytic anemia -H/H stable -F/u with heme/onc -No s/s of bleeding -CBC daily DVT px/ History of recently diagnosed DVT -Eliquis DISPOSITION: Currently inpatient status. Nephrology following, hospice consulted. Pallative care seeing him today. C/w PT/OT, home with services is goal. Remains full code. VS,Fishbone, I+O VS, Fishbone, I+O Laboratory Tests 07/02/20 04:49 Vital Signs Date Time Temp Pulse Resp B/P (MAP) Pulse Ox O2 Delivery O2 Flow Rate FiO2 07/02/20 07:31 97.8 80 18 110/56 (74) 99 07/02/20 04:00 Room Air I&O- Last 24 Hours up to 6 AM 07/02/20 05:59 Intake Total 670.0 ml Output Total 2040 ml Balance -1370.0 ml ROE GARZA MD Jul 02, 2020 09:33
[2020-07-02] MEDS: SIMVASTATIN 20 MG TAB PO SCH (20:40)
--- NOTE | 2020-07-02 22:18 | IPN ---
NEPHROLOGY PROGRESS NOTE DATE: 07/02/2020 SUBJECTIVE: The patient was seen and examined at the bedside today morning. He continues to be on combination of albumin and Lasix injections. He is making a good amount of urine. He reports that his arm and lower extremity edema is getting better. Renal function is stable with a creatinine that bumped up slightly from 1.09 to 1.1 today. OBJECTIVE: VITAL SIGNS: Temperature is 97.5 degrees Fahrenheit, blood pressure 118/63, pulse of 75, respiratory rate of 18, saturating 98% on room air. INTAKE AND OUTPUT: Urine output recorded as 600 mL yesterday, 1,650 mL so far today since overnight. Weight in the bed scale was 67.4 kg yesterday. Bed scale weight is not available today. PHYSICAL EXAMINATION: GENERAL APPEARANCE: The patient is awake, alert, oriented x3, weak and cachectic malnourished. HEAD AND NECK: Bitemporal wasting, sunken eyes. Mucous membranes are moist. Neck is supple. There is no jugular venous distention. CARDIOVASCULAR: S1, S2, regular rate. EXTREMITIES: 2+ edema of the bilateral lower extremities all the way up to his thighs. RESPIRATORY: Mildly decreased breath sounds at the bases. The patient has bilateral PleurX catheters. ABDOMEN: Soft, abdominal wall edema. Moderate amount of ascites is noted. MUSCULOSKELETAL: No clubbing or cyanosis but anasarca is noted. CASE MANAGEMENT MANAGER: No focal deficits. Power is 5/5 in all extremities. LAB REVIEW: CBC showed a WBC of 6.4, hemoglobin is 9, platelet count 109. BMP showed a sodium of 142, potassium 3.4, chloride 108, bicarbonate 30, BUN 31, creatinine is 1.1. It was 1.09 yesterday. Albumin is 2.3. CURRENT INPATIENT MEDICATIONS: The patient's medications were all reviewed by myself. He continues to be on IV albumin infusions and Lasix 40 mg IV twice daily. Ceftaroline has been stopped now. No other significant change in the medications today as compared with yesterday. ASSESSMENT AND PLAN: 1. Anasarca secondary to metastatic cancer and protein calorie malnutrition - The patient continues to be on albumin and Lasix combination. He is making a good amount of urine. Edema is getting better. 2. Protein calorie malnutrition it is secondary to metastatic cancer. Continue Nepro at this time. Continue to encourage more protein intake. 3. Acute kidney injury superimposed on chronic kidney disease it is secondary to diuresis with intravascular depletion and third spacing of fluid. The patient is receiving albumin to help with his diuresis and prevent intravascular depletion at the same time, trying to get enough fluid in his extremities. 4. Anemia - hemoglobin is slightly better. Iron levels are pending at this time. 5. Metastatic adenocarcinoma of the lungs with metastases to liver, diffuse anasarca, abdominal ascites - The patient gets palliative thoracentesis. He has bilateral PleurX catheters. He gets symptomatic relief by paracentesis as well. Diuretic management is as mentioned above. 6. Hypotension it is controlled with current dose of Midodrine 10 mg p.o. three times daily.
[2020-07-03] VITALS (8 sets, daily range): BP systolic 98–138; BP diastolic 59–81
[2020-07-03] MEDS: PROCHLORPERAZINE 5 MG TAB (S0183) PO SCH ×4 (00:09→17:33)
[2020-07-03] MEDS: FUROSEMIDE 40MG/4ML VIAL (J1940) IV SCH ×2 (00:10→13:11)
[2020-07-03 06:13] LABS: FERRITIN 2490 NG/ML (26-388); IRON (FE) 31 UG/DL (65-175); PERCENT SATURATION 24.2 % (19.7-50.0); TOTAL IRON BINDING CAPACITY 128 UG/DL (250-450)
[2020-07-03] MEDS: SLF 3 ML SYR IV SCH ×3 (06:26→23:54)
[2020-07-03] MEDS: MIDODRINE 5 MG TAB PO SCH ×3 (08:44→16:20)
[2020-07-03] MEDS: VITAMIN D 1,000 INTERNATIONAL UNITS TABLET PO SCH (08:44)
[2020-07-03] MEDS: CALCITRIOL 0.25 MCG CAP (S0169) PO SCH (08:44)
[2020-07-03] MEDS: APIXABAN 5 MG TAB (ELIQUIS) PO SCH ×2 (08:44→20:08)
[2020-07-03 08:54] LABS: BASO % 0.5 % (0.0-1.0); EOS # 0.1 10^3/uL (0.0-0.5); EOS % 2.1 % (0.0-3.0); HEMATOCRIT 32.6 % (42.0-52.0); HEMOGLOBIN 9.9 g/dl (13.5-17.5); LYMPH # 0.3 10^3/uL (1.5-5.0); LYMPH % 4.3 % (24.0-44.0); MEAN CORPUSCULAR HEMOGLOBIN 32.6 pg (27.0-33.0); MEAN CORPUSCULAR HGB CONC 30.4 g/dl (32.0-36.5); MEAN CORPUSCULAR VOLUME 107.2 fl (80.0-96.0); MONO # 0.5 10^3/uL (0.0-0.8); MONO % 8.9 % (2.0-8.0); NEUTROPHILS # 4.8 10^3/uL (1.5-8.5); NEUTROPHILS % 82.5 % (36.0-66.0); PLATELET COUNT, AUTOMATED 122 10^3/uL (150-450); RED BLOOD COUNT 3.04 10^6/uL (4.30-6.10); WHITE BLOOD COUNT 5.9 10^3/uL (4.0-10.0)
[2020-07-03 09:15] LABS: BLOOD UREA NITROGEN 28 MG/DL (7-18); CALCIUM LEVEL 8.4 MG/DL (8.8-10.2); CARBON DIOXIDE LEVEL 31 MEQ/L (21-32); CHLORIDE LEVEL 108 MEQ/L (98-107); CREATININE FOR GFR 1.12 MG/DL (0.70-1.30); GLOMERULAR FILTRATION RATE > 60.0 (>42); GLUCOSE, FASTING 85 MG/DL (70-100); POTASSIUM SERUM 3.6 MEQ/L (3.5-5.1); SODIUM LEVEL 143 MEQ/L (136-145)
--- NOTE | 2020-07-03 12:59 | IPNPDOC ---
Text Note Date of Service The patient was seen on 07/03/20. NOTE SUBJECTIVE: -No acute events. Denies shortness of breath, chest pain. -Spoke at length with Palliative care, now looking to have a consultation with hospice for likely eventual discharge home with hospice. OBJECTIVE: VITAL SIGNS: Please see below General: NAD, resting in bed, cachectic with temporal wasting, AAOx 3 HEENT: Normocephalic, atraumatic, moist mucous membranes. Neck: No lymphadenopathy or thyromegaly Cardiac: Regular rate and rhythm, no murmurs, normal S1, normal S2 Pulm: Diminished breath sounds in the lower lung bae bilaterally, b/l PleurX catheters. No W/R/R Abd: Distended with +shifting dullness and persistent fluid wave, no tenderness to palpation, +1 pitting edema on abdomen. Has receding cellulitis border Ext: Bilateral lower extremities anasarca with 3+ pitting edema of the level of the groin/ upper thigh. SKIN: Redness, warmth of lower ext b/l, L>R. No rashes Neurological: Moving all 4 extremities with chronic LE weakness, 4.5/5. No focal deficits, CN 2-12 intact . PSYCH: Mood and affect appropriate LABORATORY: WBC 5.9 Hgb 9.9 Platelets 122 Na 143 K 3.6 Cr 1.12 MICROBIOLOGY: UA neg BCx x 2 sets NG thus far IMAGING: CXR: The left-sided thoracotomy tube is unchanged. The cardiomediastinal silhouette is unchanged. The tip of the MediPort device is again seen in the superior vena cava unchanged. Left lung opacities and left CP angle blunting unchanged. The right thoracotomy tube seen previously has been repositioned. The tip is now in the right upper lung field. The right lung is otherwise unchanged. There is no change in the osseous structures. CT of the abdomen and pelvis without contrast 06/26/2020: 1. 6 cm mass left infrahilar portion of the lung which may be primary neoplasm of the lung or malignant lymphadenopathy. There are small bilateral pleural effusions which have markedly decreased since placement of the bilateral chest tubes. 2. 4.3 cm low-density lesion of the liver has become more necrotic and consistent with a large metastatic lesion that is new since 08/09/2019. 3. Massive ascites has developed since the previous examination and consistent with malignant ascites. 4. Periaortic lymphadenopathy is further decreased in size. 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 PLAN: Chronic hypotension likely multifactorial to intravascular volume depletion 2/2 very low albumin and worsening metastatic disease with poor nutritional status -midodrine 10 mg TID -Nephrology following -Avoid fluids if possible with diffuse anasarca and 3rd spacing Recurrent malignant abdominal ascites 2/2 to metastatic adenocarcinoma of lung to liver, diffuse anasarca -S/p albumin, paracentesis which took off 4 L fluid off 06/28/20 -Prior paracentesis on 06/18/20, took 6.5 L off at that time- malignant ascites -Monitor fluid status, I&O's, weights -Will likely continue to need therapeutic paracenteses for this recurrent problem, patient aware -Nephrology helping to manage fluid status, diuresis with lasix/albumin BID/midodrine 10 TID. B/l lower ext cellulitis? Also some abdominal wall cellulitis. Not sure why ceftaroline was the agent of choice. Will dc ceftaroline. -Much improved over the past 24H and with continued diuresis, abx treatment -WBC now wnl, afebrile -BCx NG thus far -s/p ceftaroline BID, 5d course. Urinary retention -Refusing santizo, straight cath for >400 q8h -cannot give flomax 2/2 to low BP Thrombocytopenia likely 2/2 to malignancy -no s/s of bleeding -Not been on heparin products this hospital stay, on eliquis -Monitor closely, daily CBC Physical deconditioning likely 2/2 to chronic illness/malignancy -PT: Patient requires CGA to ambulate short distance ~5' with 2WW. Patient would benefit from continued skilled PT to further improve independence with fu nctional mobility and decrease risk of falls. -Home with services likely when medical issues stabilize -C/w PT/OT Metastatic adenocarcinoma of lung (dx 10/2015) -Metastatic to liver -After review of the patient's last oncology note which was dated 06/17/2020 they have had the discussion with the patient about his code status and his prognosis. They have offered him palliative care; however, the patient would like to continue to do as much as possible to treat his stage IV cancer. -Both medicine team and nephrology have discussed subject with him. -Heme/oncologist: Dr. Galeana -Overall poor prognosis. Agreed to hospice consult but remains a full code for now, with ongoing GOC discussions Chronic recurrent bilateral pleural effusions -Currently saturating well on RA -Drains bilateral PleurX catheters regularly -multiple pleural cytologies negative for malignancy -Will continue home PleurX catheter draining schedule here Protein calorie malnutrition 2/2 to metastatic malignancies with ascites. -Put on Nepro supplement to help with his nutritional status CKD Stage III -Also hx of IgA nephropathy and chemotherapy induced interstitial nephritis -Cr bumped slightly today -Daily labs -Nephrology following, c/w current diuresis regimen per notes Macrocytic anemia -H/H stable -F/u with heme/onc -No s/s of bleeding -CBC daily DVT px/ History of recently diagnosed DVT -Eliquis DISPOSITION: Currently inpatient status. Nephrology following, hospice consulted. Hospice seeing him today. C/w PT/OT, home with services is goal. Remains full code. VS,Fishbone, I+O VS, Fishbone, I+O Laboratory Tests 07/03/20 04:52 07/03/20 08:33 Vital Signs Date Time Temp Pulse Resp B/P (MAP) Pulse Ox O2 Delivery O2 Flow Rate FiO2 07/03/20 08:00 96.8 87 17 117/81 (93) 99 Room Air 07/03/20 01:08 18.0 I&O- Last 24 Hours up to 6 AM 07/03/20 06:00 Intake Total 400.0 ml Output Total 1575 ml Balance -1175.0 ml ROE GARZA MD Jul 03, 2020 09:29
--- NOTE | 2020-07-03 13:27 | IPN ---
NEPHROLOGY PROGRESS NOTE DATE: 07/03/2020 SUBJECTIVE: The patient was seen and examined at the bedside today morning. He was actually sitting up in the sofa. He continues to be on a combination of IV albumin and IV Lasix. Edema is getting better. Renal function is stable with a creatinine of 1.1. The patient denies any active complaints and he was seen by Hospice yesterday. OBJECTIVE: VITAL SIGNS: Temperature is 97.3 degrees Fahrenheit, blood pressure 110/62, pulse is 80, respiratory rate of 17, saturating 97% on room air. INTAKE AND OUTPUT: Urine output recorded as 2.2 liters yesterday and 575 mL so far today since overnight. Weight in the bed scale is 59.2 kg. PHYSICAL EXAMINATION: GENERAL APPEARANCE: The patient is awake, alert, oriented x3, sitting up in the recliner sofa, weak and cachectic, malnourished. HEAD AND NECK: Bitemporal wasting, sunken eyes. Very prominent zygomatic bones. Mucous membranes are moist. Neck is supple. There is no jugular venous distention. CARDIOVASCULAR: S1, S2, regular rate. EXTREMITIES: 2+ edema of the bilateral lower extremities all the way up to the thighs; 2+ edema of the left arm as well. RESPIRATORY: Mildly decreased breath sounds at the bases. Bilateral PleurX catheter is also noted. ABDOMEN: Soft, abdominal wall edema is noted and moderate amount of ascites is also noted. MUSCULOSKELETAL: Edema of all extremities as noted above. CONSTRUCTION MGR: No focal deficits. Power is 5/5 in all extremities. LAB REVIEW: CBC showed a white blood cell count of 5.9, hemoglobin 9.9, platelets are 122. BMP showed sodium 143, potassium 3.6, chloride 108, bicarbonate 31, BUN 28, creatinine is 1.1; it was 1.1 yesterday as well. Iron is 31. TIBC is 128. Transferrin saturation is 24.2, ferratin is 2,490. CURRENT INPATIENT MEDICATIONS: The patient's medications were all reviewed by myself. He continues to be on Lasix 40 mg IV twice daily. And he is also getting albumin 12.5 grams IV q. 12 hourly. ASSESSMENT AND PLAN: 1. Anasarca - The patient is responding to current combination of albumin and Lasix injections. I would continue it. At this time renal function is stable and his edema is getting better. 2. Acute kidney injury superimposed on chronic kidney disease it is secondary to intravascular volume depletion and he is still spacing the fluid. However he is tolerating the current dose of diuretic and creatinine has plateaued at 1.1. I would continue the diuretic dose. 3. Anemia and chronic kidney disease iron levels are stable. Hemoglobin is stable and improving. If it stays below 10, then I would start the patient on Aranesp. 4. Metastatic adenocarcinoma of the lungs with metastases to the liver and diffuse anasarca with ascites - bilateral effusions requiring a PleurX catheter. The patient is being seen by hospice. 5. Chronic hypotension - continue current dose of Midodrine 10 mg p.o. three times daily.
[2020-07-04] VITALS (8 sets, daily range): BP systolic 96–122; BP diastolic 53–68
[2020-07-04] MEDS: PROCHLORPERAZINE 5 MG TAB (S0183) PO SCH ×4 (00:57→16:54)
[2020-07-04] MEDS: FUROSEMIDE 40MG/4ML VIAL (J1940) IV SCH (01:44)
[2020-07-04] MEDS: SLF 3 ML SYR IV SCH ×3 (06:45→20:51)
[2020-07-04] MEDS: MIDODRINE 5 MG TAB PO SCH ×3 (08:32→16:54)
[2020-07-04] MEDS: CALCITRIOL 0.25 MCG CAP (S0169) PO SCH (08:32)
[2020-07-04] MEDS: VITAMIN D 1,000 INTERNATIONAL UNITS TABLET PO SCH (08:32)
[2020-07-04] MEDS: APIXABAN 5 MG TAB (ELIQUIS) PO SCH ×2 (08:32→20:50)
[2020-07-04] MEDS: POTASSIUM CHLORIDE 10 MEQ SR TABLET PO SCH (12:38)
--- NOTE | 2020-07-04 13:33 | IPNPDOC ---
Text Note Date of Service The patient was seen on 07/04/20. NOTE SUBJECTIVE: -No acute events. Denies shortness of breath, chest pain. -Agreed to home with hospice discharge but hospice can only be fully onboard on Wednesday. OBJECTIVE: VITAL SIGNS: Please see below General: NAD, resting in bed, cachectic with temporal wasting, AAOx 3 HEENT: Normocephalic, atraumatic, moist mucous membranes. Neck: No lymphadenopathy or thyromegaly Cardiac: Regular rate and rhythm, no murmurs, normal S1, normal S2 Pulm: Diminished breath sounds in the lower lung bae bilaterally, b/l PleurX catheters. No W/R/R Abd: Distended with +shifting dullness and persistent fluid wave, no tenderness to palpation, +1 pitting edema on abdomen. Ext: Bilateral lower extremities anasarca with 3+ pitting edema of the level of the groin/ upper thigh. SKIN: Redness, warmth of lower ext b/l, L>R. No rashes Neurological: Moving all 4 extremities with chronic LE weakness, 4.5/5. No focal deficits, CN 2-12 intact . PSYCH: Mood and affect appropriate LABORATORY: Reviewed. Stable MICROBIOLOGY: UA neg BCx x 2 sets NG thus far IMAGING: CXR: The left-sided thoracotomy tube is unchanged. The cardiomediastinal silhouette is unchanged. The tip of the MediPort device is again seen in the superior vena cava unchanged. Left lung opacities and left CP angle blunting unchanged. The right thoracotomy tube seen previously has been repositioned. The tip is now in the right upper lung field. The right lung is otherwise unchanged. There is no change in the osseous structures. CT of the abdomen and pelvis without contrast 06/26/2020: 1. 6 cm mass left infrahilar portion of the lung which may be primary neoplasm of the lung or malignant lymphadenopathy. There are small bilateral pleural effusions which have markedly decreased since placement of the bilateral chest tubes. 2. 4.3 cm low-density lesion of the liver has become more necrotic and consistent with a large metastatic lesion that is new since 08/09/2019. 3. Massive ascites has developed since the previous examination and consistent with malignant ascites. 4. Periaortic lymphadenopathy is further decreased in size. 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 B/l lower ext cellulitis? Also some abdominal wall cellulitis. s/p treatment -WBC now wnl, afebrile -BCx NG thus far -s/p ceftaroline BID, 5d course. Urinary retention -Refusing santizo, straight cath for >400 q8h -cannot give flomax 2/2 to low BP -Q8H bladder scanning, to straight cath if >400 Thrombocytopenia likely 2/2 to malignancy -no s/s of bleeding -Not been on heparin products this hospital stay, on eliquis -Monitor closely, daily CBC Physical deconditioning likely 2/2 to chronic illness/malignancy -PT: Patient requires CGA to ambulate short distance ~5' with 2WW. Patient would benefit from continued skilled PT to further improve independence with functional mobility and decrease risk of falls. -Home with services likely when medical issues stabilize -C/w PT/OT Metastatic adenocarcinoma of lung (dx 10/2015) -Metastatic to liver -After review of the patient's last oncology note which was dated 06/17/2020 they have had the discussion with the patient about his code status and his prognosis. They have offered him palliative care; however, the patient would like to continue to do as much as possible to treat his stage IV cancer. -Both medicine team and nephrology have discussed subject with him. -Heme/oncologist: Dr. Galeana -Overall poor prognosis. Agreed to hospice consult but remains a full code for now, with ongoing GOC discussions Chronic recurrent bilateral pleural effusions -Currently saturating well on RA -Drains bilateral PleurX catheters regularly -multiple pleural cytologies negative for malignancy -Will continue home PleurX catheter draining schedule here Protein calorie malnutrition 2/2 to metastatic malignancies with ascites. -Put on Nepro supplement to help with his nutritional status CKD Stage III -Also hx of IgA nephropathy and chemotherapy induced interstitial nephritis -Cr bumped slightly today -Daily labs -Nephrology following, c/w current diuresis regimen per notes Macrocytic anemia -H/H stable -F/u with heme/onc -No s/s of bleeding -CBC daily DVT px/ History of recently diagnosed DVT -Eliquis DISPOSITION: Currently inpatient status. Nephrology following, hospice consulted and plan is for home with hospice. Today will discuss GOC as he has now decided on home with hospice and was fullcode on admission. VS,Fishbone, I+O VS, Fishbone, I+O Vital Signs Date Time Temp Pulse Resp B/P (MAP) Pulse Ox O2 Delivery O2 Flow Rate FiO2 07/04/20 08:00 98.0 78 18 118/60 (79) 97 Room Air 07/03/20 01:08 18.0 I&O- Last 24 Hours up to 6 AM 07/04/20 06:00 Intake Total 1240.0 ml Output Total 280 ml Balance 960.0 ml ROE GARZA MD Jul 04, 2020 09:51
--- NOTE | 2020-07-04 13:57 | IPN ---
NEPHROLOGY PROGRESS NOTE DATE: 07/04/2020 SUBJECTIVE: Patient was seen and examined at the bedside today morning. He is afebrile, hemodynamically stable. He continues to get intravenous (IV) Lasix. His edema is gradually getting better. He denies any active complaints. He reports he was seen by hospice yesterday and he is agreeing to home with hospice support. OBJECTIVE: VITAL SIGNS: Temperature 98 degrees Fahrenheit, blood pressure 118/60, pulse 78, respiratory rate 18, saturating 97% on room air. INTAKE AND OUTPUT: Urine output recorded as 575 mL yesterday. Urine output is not recorded since overnight. He has had three incontinent voids. Weight in the bed scale is 58 kg, which is more than 1 kg below his weight yesterday. PHYSICAL EXAMINATION: GENERAL: Patient is awake, alert, oriented times three, laying in bed, weak and cachectic, chronically malnourished, bitemporal wasting. HEAD AND NECK EXAM: Mucous membranes are moist. Neck is supple. There is no jugular venous distention (JVD). CARDIOVASCULAR: S1, S2. Regular rate. There is 2+ edema of the bilateral lower extremities and 1+ edema of the upper extremities, left worse than right. RESPIRATORY: Mildly decreased breath sounds at the bases. Bilateral PleurX catheter is noted. ABDOMEN: Soft, distended. Abdominal wall edema and moderate amount of ascites is noted. MUSCULOSKELETAL: No clubbing or cyanosis. CENTRAL NERVOUS SYSTEM (WOOD GRAINER): No focal deficits. Power is 5/5 in all extremities. LABORATORY REVIEW: CBC showed WBC 5.9, hemoglobin 9.9, platelets 122. This is from yesterday. BMP is also from yesterday with a creatinine 1.12. CURRENT INPATIENT MEDICATIONS: Patient's medications were all reviewed by myself. I have stopped the IV Lasix and I have started the patient on torsemide 20 mg by mouth twice a day. I have also started the patient on potassium chloride 20 mEq by mouth daily. No other significant change in the medications. ASSESSMENT AND PLAN: 1. Anasarca. Patient was responding well to the IV albumin and Lasix. He continues to be on albumin. I have stopped the IV Lasix and have started the patient on torsemide. He can continue the current does when he goes home as well. 2. Chronic kidney disease stage II. Patient's creatinine had bumped a little bit with diuretics; however, his volume status is getting better. I will continue the current diuretics. 3. Anemia in chronic kidney disease. Hemoglobin level is stable and iron levels are adequate. Reportedly, patient was getting erythropoiesis stimulating agents (OMAR) as outpatient. However, at this time, his hemoglobin is 9.9. He does not need OMAR at this point. 4. Hypotension. Continue current dose of midodrine 10 mg by mouth every 8 hours. 5. Metastatic adenocarcinoma of the lung. Patient is agreeing to go home with hospice. At this point, nephrology service will continue to follow. Once patient is transferred to hospice, then nephrology service will sign off.
[2020-07-04] MEDS: TORSEMIDE 20 MG TAB PO SCH (16:53)
[2020-07-05] MEDS: PROCHLORPERAZINE 5 MG TAB (S0183) PO SCH ×5 (00:25→23:11)
[2020-07-05 04:00] VITALS: BP 117/69
[2020-07-05] MEDS: SLF 3 ML SYR IV SCH ×3 (06:08→23:12)
[2020-07-05 08:00] VITALS: BP 129/56
[2020-07-05] MEDS: TORSEMIDE 20 MG TAB PO SCH (09:22)
[2020-07-05] MEDS: POTASSIUM CHLORIDE 10 MEQ SR TABLET PO SCH (09:23)
[2020-07-05] MEDS: MIDODRINE 5 MG TAB PO SCH ×3 (09:23→15:51)
[2020-07-05] MEDS: CALCITRIOL 0.25 MCG CAP (S0169) PO SCH (09:23)
[2020-07-05] MEDS: APIXABAN 5 MG TAB (ELIQUIS) PO SCH ×3 (09:23→23:12)
[2020-07-05] MEDS: VITAMIN D 1,000 INTERNATIONAL UNITS TABLET PO SCH (09:23)
[2020-07-05 09:28] VITALS: BP 116/59
[2020-07-05 10:04] VITALS: BP 117/56
[2020-07-05 11:16] LABS: ALBUMIN 2.7 GM/DL (3.2-5.2); CREATININE FOR GFR 1.29 MG/DL (0.70-1.30); GLOMERULAR FILTRATION RATE 58.5 (>42); PHOSPHORUS LEVEL 2.6 MG/DL (2.5-4.9); POTASSIUM SERUM 3.2 MEQ/L (3.5-5.1)
[2020-07-05] MEDS ORDERED: POTASSIUM CHLORIDE 10 MEQ SR TABLET PO ONE (12:00)
--- NOTE | 2020-07-05 12:18 | IPNPDOC ---
Text Note Date of Service The patient was seen on 07/05/20. NOTE SUBJECTIVE: -No acute events. Denies shortness of breath, chest pain. OBJECTIVE: VITAL SIGNS: Please see below General: NAD, resting in bed, cachectic with temporal wasting, AAOx 3 HEENT: Normocephalic, atraumatic, moist mucous membranes. Neck: No lymphadenopathy or thyromegaly Cardiac: Regular rate and rhythm, no murmurs, normal S1, normal S2 Pulm: Diminished breath sounds in the lower lung bae bilaterally, b/l PleurX catheters. No W/R/R Abd: Distended with +shifting dullness and persistent fluid wave, no tenderness to palpation, +1 pitting edema on abdomen. Ext: Bilateral lower extremities anasarca with 3+ pitting edema of the level of the groin/ upper thigh. SKIN: Redness, warmth of lower ext b/l, L>R. No rashes Neurological: Moving all 4 extremities with chronic LE weakness, 4.5/5. No focal deficits, CN 2-12 intact . PSYCH: Mood and affect appropriate LABORATORY: Reviewed. MICROBIOLOGY: UA neg BCx x 2 sets NG thus far IMAGING: CXR: The left-sided thoracotomy tube is unchanged. The cardiomediastinal silhouette is unchanged. The tip of the MediPort device is again seen in the superior vena cava unchanged. Left lung opacities and left CP angle blunting unchanged. The right thoracotomy tube seen previously has been repositioned. The tip is now in the right upper lung field. The right lung is otherwise unchanged. There is no change in the osseous structures. CT of the abdomen and pelvis without contrast 06/26/2020: 1. 6 cm mass left infrahilar portion of the lung which may be primary neoplasm of the lung or malignant lymphadenopathy. There are small bilateral pleural effusions which have markedly decreased since placement of the bilateral chest tubes. 2. 4.3 cm low-density lesion of the liver has become more necrotic and consistent with a large metastatic lesion that is new since 08/09/2019. 3. Massive ascites has developed since the previous examination and consistent with malignant ascites. 4. Periaortic lymphadenopathy is further decreased in size. 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 Now only on midodrine 10 TID with PO torsemide. B/l lower ext cellulitis? Also some abdominal wall cellulitis. s/p treatment -WBC now wnl, afebrile -BCx NG thus far -s/p ceftaroline BID, 5d course. Urinary retention -Refusing santizo, straight cath for >400 q8h -cannot give flomax 2/2 to low BP -Q8H bladder scanning, to straight cath if >400 Thrombocytopenia likely 2/2 to malignancy -no s/s of bleeding -Not been on heparin products this hospital stay, on eliquis -Monitor closely, daily CBC Physical deconditioning likely 2/2 to chronic illness/malignancy -PT: Patient requires CGA to ambulate short distance ~5' with 2WW. Patient would benefit from continued skilled PT while inpatient. Metastatic adenocarcinoma of lung (dx 10/2015) -Metastatic to liver -After review of the patient's last oncology note which was dated 06/17/2020 they have had the discussion with the patient about his code status and his prognosis. He has now spoken both with palliative and hospice and is planning on going home with hospice on Wednesday and is now DNR/DNI. -Overall poor prognosis. Chronic recurrent bilateral pleural effusions -Currently saturating well on RA -Drains bilateral PleurX catheters regularly -multiple pleural cytologies negative for malignancy -Will continue home PleurX catheter draining schedule here Protein calorie malnutrition 2/2 to metastatic malignancies with ascites. -Put on Nepro supplement to help with his nutritional status CKD Stage III -Also hx of IgA nephropathy and chemotherapy induced interstitial nephritis -Nephrology was consulted this admission and helped manage his fluid status as per above. Macrocytic anemia -H/H stable -No s/s of bleeding -CBC daily DVT px/ History of recently diagnosed DVT -Eliquis DISPOSITION: Currently inpatient status. Plan is for home with hospice on Wednesday. Now DNR/DNI. Will make ALC at this time. VS,Fishbone, I+O VS, Fishbone, I+O Vital Signs Date Time Temp Pulse Resp B/P (MAP) Pulse Ox O2 Delivery O2 Flow Rate FiO2 07/05/20 09:28 97.3 80 18 116/59 94 Room Air 07/03/20 01:08 18.0 I&O- Last 24 Hours up to 6 AM 07/05/20 06:00 Intake Total 700.0 ml Output Total 0 ml Balance 700.0 ml ROE GARZA MD Jul 05, 2020 09:44
[2020-07-05 15:05] VITALS: BP_SYST 126; BP_SYST 198; BP_DIAS 78; BP_DIAS 85
--- NOTE | 2020-07-05 16:13 | IPN ---
PROGRESS NOTE DATE: 07/05/2020 SUBJECTIVE: Patient was seen and examined at the bedside today morning. His diuretics were changed to oral diuretic yesterday, torsemide 20 mg by mouth twice a day. Intravenous (IV) albumin has been stopped now. His edema is gradually improving. Patient reports that he was seen by hospice, and he is going to home with hospice services on coming Wednesday. He denies any other active complaints. OBJECTIVE: Vital signs: Temperature is 97 degrees Fahrenheit, blood pressure 117/56, pulse is 82, respiratory rate of 18, saturating 97% on room air. Intake and output: Urine output recorded ks 400 mL so far since overnight, Weight in the bed scale is 57.5 kg. PHYSICAL EXAMINATION: GENERAL: Patient is weak and cachectic, malnourished. HEAD AND NECK: bitemporal wasting, sunken eyes, very prominent facial bones. Neck is supple. There is no jugular venous distention (JVD). CARDIOVASCULAR: S1, S2, regular rate. Edema 2+ of the blood lower extremities, 2+ edema of the left upper extremity. RESPIRATORY: Decreased breath sounds bilaterally at the bases in the lungs. Bilateral PleurX catheters were noted. ABDOMEN: Soft. Abdominal wall edema was noted. MUSCULOSKELETAL: Significant edema of the bilateral lower extremities. Venous stasis of the lower extremities as well. CENTRAL NERVOUS SYSTEM: No focal deficit. Power is 5/5 in all extremities. LABORATORY REVIEW: CBC showed a WBC 5.9, hemoglobin 9.9. That is from 2 days ago. BMP done today morning showed sodium 142, potassium 3.2, chloride 103, bicarbonate 34, BUN 26. Creatinine is 1.2; it was 1.1 yesterday. Calcium is 9, phosphorus 2.6. CURRENT INPATIENT MEDICATIONS: Patient's medications were all reviewed by myself. I have decreased the torsemide dose from 20 twice a day to 30 mg by mouth once a day. He was also given potassium chloride 40 mEq by mouth times one dose. No other significant change in the medications today. ASSESSMENT AND PLAN: 1. Generalized anasarca. Patient is responding to the diuretics and slowly losing weight; however, he is getting alkalotic, and creatinine is slightly trending up. Torsemide dose has been decreased to 30 mg by mouth once a day only. Intravenous (IV) albumin has been stopped. 2. Hypokalemia. It is secondary to diuresis. He was given additional 40 mEq potassium in the morning. Continue potassium chloride 20 mEq by mouth daily as well. 3. Metabolic alkalosis. It is secondary to aggressive diuresis that is being done, and he is hypoalbuminemic. As mentioned above, diuretic dose has been decreased now. 4. Hypotension. Continue current dose of midodrine 10 mg by mouth three times a day. 5. Metastatic adenocarcinoma of the lung. Patient is going to home with hospice services on coming Wednesday. Patient's volume status is getting better. He is responding to the diuretics. Nephrology service is going to sign off at this moment. Please call nephrology service for any help in the management of this patient during this hospitalization.
[2020-07-05 20:45] VITALS: BP 147/71
[2020-07-06 05:52] VITALS: BP 126/67
[2020-07-06] MEDS: SLF 3 ML SYR IV SCH ×3 (06:09→21:03)
[2020-07-06] MEDS: PROCHLORPERAZINE 5 MG TAB (S0183) PO SCH ×3 (06:09→17:26)
[2020-07-06] MEDS: MIDODRINE 5 MG TAB PO SCH ×3 (09:25→17:26)
[2020-07-06] MEDS: APIXABAN 5 MG TAB (ELIQUIS) PO SCH ×2 (09:26→21:03)
[2020-07-06] MEDS: VITAMIN D 1,000 INTERNATIONAL UNITS TABLET PO SCH (09:26)
[2020-07-06] MEDS: TORSEMIDE 10 MG TABLET PO SCH (09:26)
[2020-07-06] MEDS: POTASSIUM CHLORIDE 10 MEQ SR TABLET PO SCH (09:26)
[2020-07-06 17:27] VITALS: BP 113/74
[2020-07-06 21:00] VITALS: BP 129/70
[2020-07-06] MEDS: ACETAMINOPHEN 325 MG TAB PO PRN (21:03)
[2020-07-07] MEDS: PROCHLORPERAZINE 5 MG TAB (S0183) PO SCH ×5 (00:15→23:08)
[2020-07-07 06:00] VITALS: BP 98/58
[2020-07-07] MEDS: SLF 3 ML SYR IV SCH ×3 (07:33→23:16)
[2020-07-07] MEDS: TORSEMIDE 10 MG TABLET PO SCH (09:14)
[2020-07-07] MEDS: MIDODRINE 5 MG TAB PO SCH ×3 (09:14→17:48)
[2020-07-07] MEDS: POTASSIUM CHLORIDE 10 MEQ SR TABLET PO SCH (09:14)
[2020-07-07] MEDS: APIXABAN 5 MG TAB (ELIQUIS) PO SCH ×2 (09:14→20:32)
[2020-07-07] MEDS: VITAMIN D 1,000 INTERNATIONAL UNITS TABLET PO SCH (09:14)
[2020-07-07 17:52] VITALS: BP 109/71
[2020-07-07 22:00] VITALS: BP 104/55
[2020-07-08 06:00] VITALS: BP 107/55
[2020-07-08] MEDS: PROCHLORPERAZINE 5 MG TAB (S0183) PO SCH ×3 (06:40→16:18)
[2020-07-08] MEDS: SLF 3 ML SYR IV SCH ×3 (06:41→20:07)
[2020-07-08] MEDS: APIXABAN 5 MG TAB (ELIQUIS) PO SCH ×2 (08:30→20:07)
[2020-07-08] MEDS: CALCITRIOL 0.25 MCG CAP (S0169) PO SCH (08:30)
[2020-07-08] MEDS: VITAMIN D 1,000 INTERNATIONAL UNITS TABLET PO SCH (08:30)
[2020-07-08] MEDS: MIDODRINE 5 MG TAB PO SCH ×3 (08:30→16:18)
[2020-07-08] MEDS: TORSEMIDE 10 MG TABLET PO SCH (08:31)
[2020-07-08] MEDS: POTASSIUM CHLORIDE 10 MEQ SR TABLET PO SCH (08:31)
--- NOTE | 2020-07-08 10:21 | DS.PDOC ---
Discharge Summary General Date of Admission Jun 26, 2020 at 21:32 Date of Discharge 07/08/2020 Attending Physician: ROE GARZA MD Discharge Summary PROCEDURES PERFORMED DURING STAY: Therapeutic paracentesis ADMITTING DIAGNOSES: 1. Hypotension DISCHARGE DIAGNOSES: Hypotension Anasarca Metastatic lung cancer with malignant ascites History of DVT Hyperlipidemia Multiple sclerosis diagnosed in July 2015 COMPLICATIONS/CHIEF COMPLAINT: Dyspnea. HISTORY OF PRESENT ILLNESS: 70-year-old M with stage IV adenocarcinoma of the lung who presented to the emergency department from his nephrology office with a chief complaint of low blood pressure. He denied having any symptoms at that time however and was not dizziness, lightheadedness or falling. He reported being mostly wheelchair bound at home and had not had any chest pain, shortness of breath, or abdominal pain with a chronic history of malignant ascites that had been drained a few times in the past and has not had any difficulty with this nad also had peripheral edema. He has bilateral Pleurx catheters with the left side being placed multiple years ago and the right side being placed back in April 2020. HOSPITAL COURSE: During this admission, nephrology was consulted and he was started on TID midodrine for BP support, had a paracentesis and removal of 4L of ascitic fluid and nephrology managed his volume status with midodrine support, albumin and loop diuresis with some improvement in his anasarca. He was found to have abdominal wall cellulitis that was treated with ceftaroline with resolution . His course was c/b urinary retention and he required straight cath as he declined santizo placement. The initial plan had been to be discharged home with intention to remain full code and pursue further cancer treatment. However given his failure to thrive, poor nutritional state and anasarca, progressive disease and malignant ascites he eventually agreed to consult with palliative care and hospice as well and ultimately chose to become DNR/DNI with home hospice. He is now being discharged home with home hospice. DISCHARGE MEDICATIONS: Please see below. ALLERGIES: Please see below. PHYSICAL EXAMINATION ON DISCHARGE: VITAL SIGNS: Please see below. General: NAD, resting in bed, cachectic with temporal wasting, AAOx 3 HEENT: Normocephalic, atraumatic, moist mucous membranes. Neck: No lymphadenopathy or thyromegaly Cardiac: Regular rate and rhythm, no murmurs, normal S1, normal S2 Pulm: Diminished breath sounds in the lower lung bae bilaterally, b/l PleurX catheters. No W/R/R Abd: Distended with +shifting dullness and a fluid wave, no tenderness to palpation. Ext: Bilateral lower extremity pitting edema to knees Neurological: Moving all 4 extremities with chronic LE weakness, 4.5/5. No focal deficits, CN 2-12 intact . PSYCH: Mood and affect appropriate LABORATORY: please see below IMAGING: CXR: The left-sided thoracotomy tube is unchanged. The cardiomediastinal silhouette is unchanged. The tip of the MediPort device is again seen in the superior vena cava unchanged. Left lung opacities and left CP angle blunting unchanged. The right thoracotomy tube seen previously has been repositioned. The tip is now in the right upper lung field. The right lung is otherwise unchanged. There is no change in the osseous structures. CT of the abdomen and pelvis without contrast 06/26/2020: 1. 6 cm mass left infrahilar portion of the lung which may be primary neoplasm of the lung or malignant lymphadenopathy. There are small bilateral pleural effusions which have markedly decreased since placement of the bilateral chest tubes. 2. 4.3 cm low-density lesion of the liver has become more necrotic and consistent with a large metastatic lesion that is new since 08/09/2019. 3. Massive ascites has developed since the previous examination and consistent with malignant ascites. 4. Periaortic lymphadenopathy is further decreased in size. PROGNOSIS: Poor, home with hospice. ACTIVITY: As tolerated DIET: As tolerated DISCHARGE PLAN: Home with hospice DISPOSITION: Home with hospice DISCHARGE INSTRUCTIONS: Home with hospice ITEMS TO FOLLOWUP ON ON OUTPATIENT: Home with hospice DISCHARGE CONDITION: Stable TIME SPENT ON DISCHARGE: 50 minutes. Vital Signs/I&Os Vital Signs Date Time Temp Pulse Resp B/P (MAP) Pulse Ox O2 Delivery O2 Flow Rate FiO2 07/08/20 06:00 97.5 72 16 107/55 (72) 96 Room Air 07/03/20 01:08 18.0 I&O- Last 24 Hours up to 6 AM 07/08/20 06:00 Intake Total 1630 ml Output Total 1125 ml Balance 505 ml Discharge Medications Scheduled Apixaban (Eliquis) 5 Mg Tablet, 5 MG PO BID, (Reported) Calcitriol (Calcitriol) 0.25 Mcg Capsule, 0.5 MCG PO 5XW, (Reported) WEDNESDAY, WEDNESDAY, WEDNESDAY, WEDNESDAY AND WEDNESDAY Cholecalciferol (Vitamin D3) (Vitamin D3) 1,000 Unit Tablet, 1,000 UNITS PO DAILY, (Reported) Glatiramer Acetate (Glatopa) 40 Mg/1 Ml Syringe, 40 MG IM 3XW, (Reported) WEDNESDAY, WEDNESDAY AND WEDNESDAY AFTER DINNER Lidocaine/Prilocaine (Lidocaine-Prilocaine Cream) 2.5%/2.5% Cream..g., 1 APPLIC EXT ONCE apply to port as needed Lidocaine/Prilocaine (Lidocaine-Prilocaine Cream) 2.5%/2.5% Cream..g., 1 DOSE TOP 3XW, (Reported) APPLIES TO REGION OF INJECTION PRIOR TO GLATOPA INJECTION Prochlorperazine Maleate (Prochlorperazine Maleate) 10 Mg Tablet, 1 TAB PO Q6H Simvastatin (Simvastatin) 20 Mg Tablet, 20 MG PO QHS, (Reported) Scheduled PRN Ondansetron HCl (Ondansetron HCl) 8 Mg Tablet, 8 MG PO Q6H PRN for NAUSEA OR VOMITING TAKE ONE TABLET EVERY 6 HOURS NEEDED FOR NAUSEA. Allergies Coded Allergies: No Known Allergies (Unverified , 07/10/19) ROE GARZA MD July 08, 2020 10:21
[2020-07-08] MEDS ORDERED: MORP20SO3 PO (10:25)
[2020-07-08] MEDS ORDERED: TORS10TA3 PO (10:25)
[2020-07-08] MEDS ORDERED: HYOS125TA PO (10:25)
[2020-07-08] MEDS ORDERED: ATIV1TAB10 PO (10:25)
[2020-07-08] MEDS ORDERED: MIDO5TA PO (10:25)
[2020-07-08] MEDS ORDERED: KLOR10TA76 PO (10:25)
[2020-07-09] MEDS: PROCHLORPERAZINE 5 MG TAB (S0183) PO SCH ×3 (00:07→12:00)
[2020-07-09] MEDS: SLF 3 ML SYR IV SCH (05:40)
[2020-07-09 06:00] VITALS: BP 98/66
[2020-07-09] MEDS: MIDODRINE 5 MG TAB PO SCH ×2 (08:00→12:00)
[2020-07-09] MEDS: TORSEMIDE 10 MG TABLET PO SCH (09:00)
[2020-07-09] MEDS: VITAMIN D 1,000 INTERNATIONAL UNITS TABLET PO SCH (09:00)
[2020-07-09] MEDS: APIXABAN 5 MG TAB (ELIQUIS) PO SCH (09:00)
[2020-07-09] MEDS: CALCITRIOL 0.25 MCG CAP (S0169) PO SCH (09:00)
[2020-07-09] MEDS: POTASSIUM CHLORIDE 10 MEQ SR TABLET PO SCH (09:00)
== END 2020-07-09 14:45 | disposition hospice, home (50) | DRG 694 ==
LOC: M ED 16:37 → M ED INP 21:32 → M PCU 06-27 15:29 → M MS5PR 07-05 14:13
PROVIDERS: ADMIT Internal Medicine; ATTEND Internal Medicine
PROC: 0W9J30Z Drainage of Pelvic Cavity with Drainage Device, Percutaneous Approach (ICD-10-PCS; principal; 2020-06-28 12:30)
DX: E88.09 Other disorders of plasma-protein metabolism, not elsewhere classified (principal); N17.9 Acute kidney failure, unspecified; R18.0 Malignant ascites; R64 Cachexia; E46 Unspecified protein-calorie malnutrition; J90 Pleural effusion, not elsewhere classified; C78.7 Secondary malignant neoplasm of liver and intrahepatic bile duct; C77.1 Secondary and unspecified malignant neoplasm of intrathoracic lymph nodes; E87.2 Acidosis; I95.9 Hypotension, unspecified; L03.116 Cellulitis of left lower limb; D69.59 Other secondary thrombocytopenia; L03.311 Cellulitis of abdominal wall; L03.115 Cellulitis of right lower limb; G35 Multiple sclerosis; N18.30 Chronic kidney disease, stage 3 unspecified; C34.12 Malignant neoplasm of upper lobe, left bronchus or lung; D53.9 Nutritional anemia, unspecified; D63.1 Anemia in chronic kidney disease; R60.1 Generalized edema; Z86.718 Personal history of other venous thrombosis and embolism; Z79.899 Other long term (current) drug therapy; E78.5 Hyperlipidemia, unspecified; Z79.01 Long term (current) use of anticoagulants; Z98.41 Cataract extraction status, right eye; Z98.42 Cataract extraction status, left eye; E87.6 Hypokalemia; Z66 Do not resuscitate

== ENCOUNTER → 2020-06-26 | Outpatient (CLI) | payer BC, MEDICARE ==
[~2020-06-26] MED LIST changes: +ISOVUE-370 76% 100ML VIAL As Ordered ONE; -SODIUM BICARBONATE 8.4% INJ 50MEQ 50 ML VIAL As Ordered ONE
--- NOTE | 2020-06-26 10:25 | REP ---
INDICATION: LUNG CA. COMPARISON: Multiple the latest 05/05/2020 TECHNIQUE: Standard helical technique after the intravenous administration of 100 cc Isovue 370 FINDINGS: Once again, there is a large left hilar mass which is essentially unchanged. Once again, there is right hilar adenopathy which is essentially unchanged. Abnormal soft tissue densities again seen in the subcarinal region status quo. There is an anterior mediastinal soft tissue density which splays the anterior junction line. This is stable. There are bilateral pleural effusions which have decreased. Bilateral thoracotomy tubes are again noted. There is a pericardial effusion which is essentially unchanged. Evaluation of the lung bae again shows scattered asymmetric densities and numerable tiny pulmonary nodules all of which appear stable. The imaged upper abdomen shows a large degree of ascites and a metastatic lesion in the posterior segment of the right lobe of the liver which is better seen on today's contrast enhanced examination compared to the latest prior which is a noncontrast enhanced examination. Today this lesion measures approximately 4.5 cm. Bone window technique throughout the examination shows no significant change in appearance of the imaged osseous structures. IMPRESSION: 1. Bilateral pleural effusions as described above. 2. Abnormal lung bae as described above. 3. Pericardial effusion. 4. Metastatic liver disease. 5. Other findings as described above. <Electronically signed by Russell Quiroz > 06/26/20 1026
== END ==
LOC: M RAD 09:37
PROVIDERS: ATTEND Specialist
DX: C34.90 Malignant neoplasm of unspecified part of unspecified bronchus or lung (principal); J90 Pleural effusion, not elsewhere classified; R91.8 Other nonspecific abnormal finding of lung field; I31.3 Pericardial effusion (noninflammatory); C78.7 Secondary malignant neoplasm of liver and intrahepatic bile duct; R18.8 Other ascites

== ENCOUNTER → 2020-08-29 | Outpatient (REF) ==
[~2020-08-29] MED LIST changes: +ATIV1TAB10 PO; +HYOS125TA PO; +KLOR10TA76 PO; +LIDO1CRE42 EXT; +LIDO1CRE42 TOP; -LIDO2.5C15 EXT; -LIDO2.5C15 TOP; +MIDO5TA PO; +MORP20SO3 PO; +TORS10TA3 PO
[2020-08-29 12:14] LABS: APPEARANCE, URINE CLOUDY (CLEAR); BACTERIA, URINE AUTO 2+ (NEGATIVE); BILIRUBIN, URINE AUTO NEGATIVE (NEGATIVE); BLOOD, URINE BLOOD 2+ (NEGATIVE); COLOR, URINE YELLOW (YELLOW); GLUCOSE, URINE (UA) AUTO NEGATIVE (NEGATIVE); KETONE, URINE AUTO NEGATIVE (NEGATIVE); LEUKOCYTE ESTERASE, URINE AUTO 3+ (NEGATIVE); MUCUS, URINE SMALL (NEGATIVE); NITRITE, URINE AUTO POSITIVE (NEGATIVE); PROTEIN, URINE AUTO 1+ mg/dL (NEGATIVE); RBC, URINE AUTO 9 /HPF (0-3); SPECIFIC GRAVITY URINE AUTO 1.013 (1.002-1.035); SQUAMOUS EPITHELIAL CELL UR AU 0 /HPF (0-6); UROBILINOGEN, URINE AUTO 0.2 mg/dL (0.0-2.0); WBC, URINE AUTO TNTC /HPF (0-3)
== END ==
LOC: M LAB REF 11:15
PROVIDERS: ATTEND Internal Medicine Pulmonary Disease
DX: N39.0 Urinary tract infection, site not specified (principal)

== ENCOUNTER → 2020-10-18 | Outpatient (REF) ==
[~2020-10-18] MED LIST changes: +MORP1SOL5 PO; -MORP20SO3 PO
[2020-10-18 15:12] LABS: APPEARANCE, URINE CLOUDY (CLEAR); BACTERIA, URINE AUTO 1+ (NEGATIVE); BILIRUBIN, URINE AUTO NEGATIVE (NEGATIVE); BLOOD, URINE BLOOD 2+ (NEGATIVE); CALCIUM OXALATE CRYSTALS SMALL; COLOR, URINE YELLOW (YELLOW); GLUCOSE, URINE (UA) AUTO NEGATIVE (NEGATIVE); KETONE, URINE AUTO NEGATIVE (NEGATIVE); LEUKOCYTE ESTERASE, URINE AUTO 3+ (NEGATIVE); MUCUS, URINE SMALL (NEGATIVE); NITRITE, URINE AUTO NEGATIVE (NEGATIVE); PROTEIN, URINE AUTO 1+ mg/dL (NEGATIVE); RBC, URINE AUTO 18 /HPF (0-3); SPECIFIC GRAVITY URINE AUTO 1.011 (1.002-1.035); SQUAMOUS EPITHELIAL CELL UR AU 0 /HPF (0-6); UROBILINOGEN, URINE AUTO 0.2 mg/dL (0.0-2.0); WBC, URINE AUTO TNTC /HPF (0-3)
== END ==
LOC: M LAB REF 14:43
DX: N39.0 Urinary tract infection, site not specified (principal)

== ENCOUNTER → 2020-10-22 | Outpatient (CLI) | payer BC, MEDICARE ==
--- NOTE | 2020-10-22 21:32 | REP ---
INDICATION: MALIGNANT PLEURAL EFFUSION COMPARISON: 06/26/2020 TECHNIQUE: PA and lateral. FINDINGS: [id number] and bilateral chest tubes are in stable position. Bilateral pleuroparenchymal changes (left greater than right) along with left-sided fibrosis and volume loss are relatively similar to prior examination although subtle acute changes cannot be excluded. Skeletal structures are intact and grossly normal. IMPRESSION: Bilateral pleuroparenchymal changes (left greater than right) relatively stable compared with 06/26/2020. Subtle acute process cannot be excluded and warrants clinical correlation. <Electronically signed by Marco Novak > 10/22/20 0715
== END ==
LOC: M PLAIMG 13:41
PROVIDERS: ATTEND Thoracic Surgery (Cardiothoracic Vascular Surgery)
DX: C34.12 Malignant neoplasm of upper lobe, left bronchus or lung (principal); J91.0 Malignant pleural effusion